=== PATIENT | female | born 1940 | race Caucasian/White ===

== ENCOUNTER 2017-01-06 09:26 | Inpatient (IN) | payer OTHER, MEDICARE ==
[2017-01-06] VITALS (13 sets, daily range): BP systolic 90–140; BP diastolic 53–85; PULSE 84–111; RESP 16–22; TEMP 97.1–98.4; O2SAT 94–100
[~2017-01-06] VITALS: Ht 162.6 cm; Wt 53.4 kg
[~2017-01-06 09:26] MED LIST: ENAL10TA7 PO; METO25 PO
--- NOTE | 2017-01-06 09:43 | PD ---
HPI Chief Complaint: Respiratory Symptoms Time Seen by Provider: 09:37 Travel History International Travel<30 days: No Contact w/Intl Traveler<30days: No Traveled to known affect area: No History of Present Illness HPI Patient 76-year-old female presents emergency department for evaluation of shortness of breath. Patient states she's also been having some leg swelling. States his symptoms and never happened to her before. She denies any heart problems denies history of atrial fibrillation. Patient states symptoms been gradually worsening over the past 4 days. Patient states she's most short of breath when she first was up in the morning but gradually gets better. She has not exerted herself recently because she was concerned of her shortness of breath. She states when she tried to walk her dog she became short of breath. Denies any cough denies any fever denies any abdominal pain nausea vomiting or diarrhea. PFSH Past Medical History Hx Anticoagulant Therapy: No Heart Rhythm Problems: Yes (fast beating heart this morning 1st time) Cancer: No Cardiovascular Problems: No High Cholesterol: No Chemotherapy: No Cerebrovascular Accident: No Diabetes: No Diminished Hearing: No Endocrine: No Genitourinary: No Hypertension: Yes Musculoskeletal: No Neurologic: No Psychiatric: No Reproductive: No Respiratory: No Past Surgical History Hysterectomy: No Social History Alcohol Use: No Tobacco Use: No (QUIT 2009) Substance Use: No Allergies-Medications (Allergen,Severity, Reaction): Coded Allergies: No Known Allergies (Verified , 01/06/17) Reported Meds & Prescriptions Reported Meds & Active Scripts Active Reported Enalapril (Enalapril Maleate) 10 Mg Tab 10 Mg PO DAILY Review of Systems Except as stated in HPI: all other systems reviewed are Neg Physical Exam Narrative GENERAL: Well-developed well-nourished, no apparent distress. SKIN: Focused skin assessment warm/dry. HEAD: Atraumatic. Normocephalic. EYES: Pupils equal and round. No scleral icterus. No injection or drainage. ENT: No nasal bleeding or discharge. Mucous membranes pink and moist. NECK: Trachea midline. No JVD. CARDIOVASCULAR: Regular rate and rhythm. No murmur appreciated. Pulses are 2+ bilateral equal in all 4 extremities. Edema noted in lower extremities. RESPIRATORY: No accessory muscle use. Clear to auscultation. Breath sounds equal bilaterally. GASTROINTESTINAL: Abdomen soft, non-tender, nondistended. Hepatic and splenic margins not palpable. MUSCULOSKELETAL: No obvious deformities. No clubbing. No cyanosis. Pitting edema noted from the knee Distally and bilaterally. NEUROLOGICAL: Awake and alert. No obvious cranial nerve deficits. Motor grossly within normal limits. Normal speech. PSYCHIATRIC: Appropriate mood and affect; insight and judgment normal. Data Data Last Documented VS Vital Signs Date Time Temp Pulse Resp B/P Pulse Ox O2 Delivery O2 Flow Rate FiO2 01/06/17 09:40 16 100 Room Air 01/06/17 09:40 135/85 137/73 01/06/17 09:31 98.4 111 Orders Electrocardiogram (01/06/17 09:37) B-Type Natriuretic Peptide (01/06/17 09:37) Ckmb (Isoenzyme) Profile (01/06/17 09:37) Complete Blood Count With Diff (01/06/17 09:37) Comprehensive Metabolic Panel (01/06/17 09:37) Magnesium (Mg) (01/06/17 09:37) Prothrombin Time / Inr (Pt) (01/06/17 09:37) Act Partial Throm Time (Ptt) (01/06/17 09:37) Troponin I (01/06/17 09:37) Chest, Single Ap (01/06/17 09:37) Ecg Monitoring (01/06/17 09:37) Bilateral Bp Monitoring (01/06/17 09:37) Iv Access Insert/Monitor (01/06/17 09:37) Oximetry (01/06/17 09:37) Oxygen Administration (01/06/17 09:37) Aspirin Chew (Aspirin Chew) (01/06/17 09:45) Sodium Chloride 0.9% Flush (Ns Flush) (01/06/17 09:45) Diltiazem Inj (Cardizem Inj) (01/06/17 09:45) Vital Signs (Adult) Q15MX4,Q4H (01/06/17 09:39) Freight Forwarder / Telemetry SILVIANO.Q8H (01/06/17 09:39) Cardiac Rhythm SILVIANO.Q8H (01/06/17 09:39) Notify Dr: Other (01/06/17 09:39) Diltiazem Inj (Cardizem Inj) (01/06/17 09:45) Furosemide Inj (Lasix Inj) (01/06/17 10:30) Admit Order (Ed Use Only) (01/06/17 ) Labs Laboratory Tests Test 01/06/17 09:40 White Blood Count 7.6 TH/MM3 Red Blood Count 4.09 MIL/MM3 Hemoglobin 11.7 GM/DL Hematocrit 36.5 % Mean Corpuscular Volume 89.1 FL Mean Corpuscular Hemoglobin 28.7 PG Mean Corpuscular Hemoglobin 32.2 % Concent Red Cell Distribution Width 14.3 % Platelet Count 178 TH/MM3 Mean Platelet Volume 8.8 FL Neutrophils (%) (Auto) 77.2 % Lymphocytes (%) (Auto) 11.0 % Monocytes (%) (Auto) 9.1 % Eosinophils (%) (Auto) 0.4 % Basophils (%) (Auto) 2.3 % Neutrophils # (Auto) 5.9 TH/MM3 Lymphocytes # (Auto) 0.8 TH/MM3 Monocytes # (Auto) 0.7 TH/MM3 Eosinophils # (Auto) 0.0 TH/MM3 Basophils # (Auto) 0.2 TH/MM3 CBC Comment DIFF FINAL Differential Comment Prothrombin Time 13.4 SEC Prothromb Time International 1.2 RATIO Ratio Activated Partial 25.2 SEC Thromboplast Time Sodium Level 143 MEQ/L Potassium Level 4.0 MEQ/L Chloride Level 105 MEQ/L Carbon Dioxide Level 29.8 MEQ/L Anion Gap 8 MEQ/L Blood Urea Nitrogen 17 MG/DL Creatinine 0.67 MG/DL Estimat Glomerular Filtration 86 ML/MIN Rate Random Glucose 134 MG/DL Calcium Level 8.9 MG/DL Magnesium Level 2.0 MG/DL Total Bilirubin 0.5 MG/DL Aspartate Amino Transf 42 U/L (AST/SGOT) Alanine Aminotransferase 28 U/L (ALT/SGPT) Alkaline Phosphatase 127 U/L Total Creatine Kinase 84 U/L Troponin I 0.03 NG/ML B-Type Natriuretic Peptide 422 PG/ML Total Protein 6.9 GM/DL Albumin 3.1 GM/DL Thyroid Stimulating Hormone LESS THAN 3rd Gen 0.005 uIU/ML [facility] Medical Decision Making Medical Screen Exam Complete: Yes Emergency Medical Condition: Yes Interpretation(s) EKG shows Atrial fibrillation with a rate of 128, normal axis and normal R-wave progression. Multifocal PVCs, no concerning ST T changes. This is an abnormal EKG. Differential Diagnosis New-onset atrial fibrillation, new onset CHF, pneumonia, bronchitis, ACS. Narrative Course Patient 76-year-old female presents emergency Department with new onset atrial fibrillation what appears to be congestive heart failure symptoms. Last 24 hours Impressions Chest X-Ray 01/06/17 0937 Signed Impressions: Service Date/Time: , January 06, 2017 09:44 - CONCLUSION: Mild cardiomegaly has developed. Otherwise unchanged. No pneumonia. Julius Prabhakar MD Patient's BNP is mildly elevated to 422's consistent with a diastolic CHF. Electrolytes within normal limits, troponin is 0.03. EKG was nonischemic. Patient's counts are within normal limits. Overall the patient is stable with what appears to be new onset CHF in the presence of age fibrillation with rapid ventricular response. She was given Cardizem 25 [place] became bolus followed by Cardizem drip. This seems to be giving her heart rate around 90-105 currently (from 120s to 130s on arrival). She appears well and in no apparent distress. She's been maintaining her oxygen saturations. She was given Lasix 40 mg IV as well. Patient will be discussed with [facility] physician on-call for admission. Diagnosis Primary Impression: Acute CHF Qualified Code: I50.9 - Acute congestive heart failure, unspecified congestive heart failure type Additional Impression: Atrial fibrillation Admitting Information Admitting Physician Requests: Admit Condition: Stable Andrey Jorge MD January 06, 2017 09:43
[2017-01-06] MEDS ORDERED: ASPIRIN 81 MG CHEW TAB PO ONE (09:45)
[2017-01-06] MEDS ORDERED: DILTIAZEM HCL 25 MG/5 ML VIAL IV PUSH ONE (09:45)
[2017-01-06] MEDS ORDERED: SODIUM CHLORIDE 0.9% FLUSH 10 ML FLUSH IVF PRN (09:45)
[2017-01-06] MEDS ORDERED: DILTIAZEM INJ 125 MG in SODIUM CHLORIDE 0.9% INJ 100 ML IV SCH (09:45)
[2017-01-06 09:49] LABS: AUTOMATED NEUTROPHIL # 5.9 TH/MM3 (1.8-7.7); BASOPHIL # 0.2 TH/MM3 (0-0.2); BASOPHIL % 2.3 % (0.0-2.0); EOSINOPHIL % 0.4 % (0.0-4.0); HEMATOCRIT 36.5 % (35.0-46.0); LYMPHOCYTE # 0.8 TH/MM3 (1.0-4.8); MEAN CELL VOLUME 89.1 FL (80.0-100.0); MEAN CORPUSCULAR HEMOGLOBIN 28.7 PG (27.0-34.0); MEAN CORPUSCULAR HGB CONC 32.2 % (32.0-36.0); MONO % 9.1 % (0.0-8.0); NEUT % 77.2 % (16.0-70.0); PLATELET COUNT 178 TH/MM3 (150-450); RED BLOOD COUNT 4.09 MIL/MM3 (4.00-5.30); RED CELL DISTRIBUTION WIDTH 14.3 % (11.6-17.2); WHITE BLOOD COUNT 7.6 TH/MM3 (4.0-11.0)
[2017-01-06 09:50] LABS: HEMO FLAGS DIFF FINAL
[2017-01-06 09:54] LABS: CHLORIDE 105 MEQ/L (98-107); SODIUM (NA) 143 MEQ/L (136-145)
[2017-01-06] MEDS ORDERED: ENAL10TA PO (09:54)
[2017-01-06 09:58] LABS: ANION GAP 8 MEQ/L (5-15); BICARBONATE 29.8 MEQ/L (21.0-32.0)
[2017-01-06 10:00] LABS: APTT (PATIENT) 25.2 SEC (24.3-30.1); INTERNATIONAL NORMALIZED RATIO 1.2 RATIO; PROTHROMBIN TIME - PATIENT 13.4 SEC (9.8-11.6)
--- NOTE | 2017-01-06 10:01 | RADHPO ---
EXAM DATE/TIME: 01/06/2017 09:44 [facility] COMPARISON: CHEST SINGLE AP, March 03, 2016, 9:36. INDICATIONS : Shortness of breath x 4 days. Lower extremity swelling. MEDICAL HISTORY : Hypertension. Former smoker. SURGICAL HISTORY : None. ENCOUNTER: Initial ACUITY: 4 - 6 days PAIN SCORE: 0/10 LOCATION: chest FINDINGS: No infiltrates seen. No pleural effusion or pneumothorax. There is mild cardiomegaly, new. Tortuous a nd atherosclerotic aorta again noted. CONCLUSION: Mild cardiomegaly has developed. Otherwise unchanged. No pneumonia. Julius Prabhakar MD on January 06, 2017 at 9:58 Board Certified Radiologist. This report was verified electronically.
[2017-01-06 10:02] LABS: ALT (GPT) 28 U/L (10-53); AST (GOT) 42 U/L (15-37); GLOMERULAR FILTRATION RATE 86 ML/MIN (>89)
[2017-01-06 10:03] LABS: TOTAL BILIRUBIN ADULT 0.5 MG/DL (0.2-1.0)
[2017-01-06 10:04] LABS: ALKALINE PHOSPHATASE 127 U/L (45-117)
[2017-01-06 10:07] LABS: BLOOD UREA NITROGEN 17 MG/DL (7-18)
[2017-01-06 10:08] LABS: CREATINE KINASE 84 U/L (26-192)
[2017-01-06] MEDS ORDERED: FUROSEMIDE 40 MG/4 ML VIAL IV PUSH ONE (10:30)
[2017-01-06] MEDS ORDERED: NALOXONE HCL 0.4 MG/ML AMP IV PRN (11:00)
[2017-01-06] MEDS ORDERED: SENNOSIDES 8.6 MG TAB PO PRN (11:00)
[2017-01-06] MEDS ORDERED: ENOXAPARIN SODIUM 30 MG/0.3 ML SYRINGE SQ SCH (11:00)
[2017-01-06] MEDS ORDERED: SODIUM CHLORIDE 0.9% FLUSH 10 ML FLUSH IV FLUSH PRN (11:00)
[2017-01-06] MEDS ORDERED: ACETAMINOPHEN 325 MG TAB PO PRN ×2 (11:00)
--- NOTE | 2017-01-06 11:27 | HHI.HP ---
[facility] Ad[facility] Diagnosis New CHF, New Afib Diagnoses: Chief Complaint: Shortness of breath Travel History International Travel<30 Days: No Contact w/Intl Traveler <30 Da: No Traveled to Known Affected Are: No History of Present Illness The patient is a 76-year-old female with a past medical history of hypertension who is presenting to the hospital with shortness of breath. The patient said that she woke up this morning with difficulty breathing. She states that this happens every once in a while. It was not associated with any chest pain. She did endorse palpitations. She also notices that her legs have been swelling starting yesterday. The patient does say she eats a lot of frozen dinners. She also endorses drinking 10 glasses of water daily. The patient does also complain of some lower quadrant abdominal pain. She says it comes and goes and sometimes is worse when laying down at night. She denies any fevers or congestion. The patient says that she has followed up with her primary care doctor in regards to a suspicious nodule which was found on a CT scan on her last hospitalization but she said no further workup has been provided. The patient says she started smoking at the age of 10 and would smoke up to 3 packs of cigarettes daily. She says she quit smoking 8 years ago. Review of Systems Except as stated in HPI: all other systems reviewed are Neg Past Family Social History Past Medical History Hypertension Peptic ulcer disease Allergies: Coded Allergies: No Known Allergies (Verified , 01/06/17) Active Ordered Medications Current Medications Medications (Trade) Dose Ordered Sig/Ezio Route Start Time Stop Time Status Last Admin (Cardizem Inj/NS Inj) 125 ml @ 0 mls/hr TITRATE IV 01/06/17 09:45 01/06/17 10:10 (Vasotec) 10 mg DAILY PO 01/07/17 09:00 (NS Flush) 2 ml UNSCH PRN IV FLUSH 01/06/17 11:00 (NS Flush) 2 ml BID IV FLUSH 01/06/17 21:00 (Tylenol) 650 mg Q4H PRN PO 01/06/17 11:00 (Colace) 100 mg Q12HR PO 01/06/17 11:00 (Senokot) 17.2 mg Q12H PRN PO 01/06/17 11:00 (Lovenox Inj) 30 mg Q24H SQ 01/06/17 11:00 (Tylenol) 650 mg Q6H PRN PO 01/06/17 11:00 (Roxicodone) 5 mg Q4H PRN PO 01/06/17 11:00 (Narcan Inj) 0.4 mg UNSCH PRN IV 01/06/17 11:00 Family History Diabetes Social History The patient quit smoking 8 years ago. She does not drink alcohol. Physical Exam Vital Signs Vital Signs Date Time Temp Pulse Resp B/P Pulse Ox O2 Delivery O2 Flow Rate FiO2 01/06/17 09:40 16 100 Room Air 01/06/17 09:40 135/85 137/73 01/06/17 09:40 100 Room Air 01/06/17 09:31 98.4 111 22 135/85 100 Physical Exam GENERAL: This is a well-nourished, well-developed patient, in no apparent distress. SKIN: No rashes, ecchymoses or lesions. Cool and dry. HEAD: Atraumatic. Normocephalic. No temporal or scalp tenderness. EYES: Pupils equal round and reactive. Extraocular motions intact. No scleral icterus. No injection or drainage. ENT: Nose without bleeding, purulent drainage or septal hematoma. Throat without erythema, tonsillar hypertrophy or exudate. Uvula midline. Airway patent. NECK: Trachea midline. No lymphadenopathy. Supple, nontender, no meningeal signs. CARDIOVASCULAR: Irregularly irregular without murmurs, gallops, or rubs. RESPIRATORY: Clear to auscultation. Diminished breath sounds throughout. GASTROINTESTINAL: Abdomen soft, non-tender, nondistended. No hepato-splenomegaly , or palpable masses. No guarding or rebound. MUSCULOSKELETAL: Extremities without clubbing, cyanosis, or edema. 2+ edema in the lower extremities, worse on the left. Negative Homans sign bilaterally. NEUROLOGICAL: Awake and alert. Cranial nerves II through XII intact. Motor and sensory grossly within normal limits. Five out of 5 muscle strength in all muscle groups. Normal speech. PSYCH: Mood and affect appropriate. Laboratory Laboratory Tests Test 01/06/17 09:40 White Blood Count 7.6 Red Blood Count 4.09 Hemoglobin 11.7 Hematocrit 36.5 Mean Corpuscular Volume 89.1 Mean Corpuscular Hemoglobin 28.7 Mean Corpuscular Hemoglobin 32.2 Concent Red Cell Distribution Width 14.3 Platelet Count 178 Mean Platelet Volume 8.8 Neutrophils (%) (Auto) 77.2 Lymphocytes (%) (Auto) 11.0 Monocytes (%) (Auto) 9.1 Eosinophils (%) (Auto) 0.4 Basophils (%) (Auto) 2.3 Neutrophils # (Auto) 5.9 Lymphocytes # (Auto) 0.8 Monocytes # (Auto) 0.7 Eosinophils # (Auto) 0.0 Basophils # (Auto) 0.2 CBC Comment DIFF FINAL Differential Comment Prothrombin Time 13.4 Prothromb Time International 1.2 Ratio Activated Partial 25.2 Thromboplast Time Sodium Level 143 Potassium Level 4.0 Chloride Level 105 Carbon Dioxide Level 29.8 Anion Gap 8 Blood Urea Nitrogen 17 Creatinine 0.67 Estimat Glomerular Filtration 86 Rate Random Glucose 134 Calcium Level 8.9 Magnesium Level 2.0 Total Bilirubin 0.5 Aspartate Amino Transf 42 (AST/SGOT) Alanine Aminotransferase 28 (ALT/SGPT) Alkaline Phosphatase 127 Total Creatine Kinase 84 Troponin I 0.03 B-Type Natriuretic Peptide 422 Total Protein 6.9 Albumin 3.1 Result Diagram: 01/06/1740 01/06/17 0940 Imaging Last Impressions Chest X-Ray 01/06/17 0937 Signed Impressions: Service Date/Time: January 09:44 - CONCLUSION: Mild cardiomegaly has developed. Otherwise unchanged. No pneumonia. Julius Prabhakar MD Assessment and Plan Assessment and Plan New onset atrial fibrillation/ CHF/ Shortness of breath The patient has shortness of breath and was found to have new onset atrial fibrillation. She was started on a Cardizem gtt. BNP also elevated over 400. She has lower extremity edema. She eats a lot of frozen dinners and drinks a lot of water. CXR with mild cardiomegaly. She received Lasix 40 mg IV x 1 in the ED. She also likely has COPD as she used to smoke quite heavily. - echo and TSH pending. - start ASA. - Lovenox 50 mg BID. Would consider starting Xarelto if echo confirms nonvalvular A fib. Pt would like be noncompliant with Coumadin. - continue Cardizem gtt and wean off as tolerated. Diltiazem 30 mg QID has been started. - diurese with Lasix 20 mg IV BID and follow Is and Os. - check a lipid profile and a Hgb A1c. - dietary consult. - CT chest pending. - oxygen and Duonebs as needed. - incentive spirometry. Pulmonary nodule Noted on CT scan last year, concerning for malignancy. The pt has not followed up on it. - repeat CT scan pending. May need a biopsy. Abdominal pain Located in the LLQ. Exam was benign. The pt has a history of peptic ulcer disease. - start PPI and monitor. PPx: Lovenox. Code Status Full. Discussed Condition With Dr. Jorge, pt, pt's friend, nurse. Physician Certification 2 Midnight Certification Type: Admission for Inpatient Services Order for Inpatient Services The services are ordered in accordance with Medicare regulations or non- Medicare payer requirements, as applicable. In the case of services not specified as inpatient-only, they are appropriately provided as inpatient services in accordance with the 2-midnight benchmark. Estimated LOS (days): 2 days is the estimated time the patient will need to remain in the hospital, assuming treatment plan goals are met and no additional complications. Post-Hospital Plan: Home David Covarrubias DO January 06, 2017 11:27
[2017-01-06] MEDS ORDERED: IOHEXOL 350 MG/ML 10 ML VIAL (for RAD DIAG) IV ONE (11:42)
[2017-01-06] MEDS ORDERED: RESP: ALBUTEROL 2.5 MG/IPRATROPIUM 0.5 MG NEB (PRN) NEB (11:45)
--- NOTE | 2017-01-06 11:55 | RADHPO ---
EXAM DATE/TIME: 01/06/2017 11:30 [facility] COMPARISON: No previous studies available for comparison. INDICATIONS : Short of breath x 4days. IV CONTRAST: 55 cc Omnipaque 350 (iohexol) IV RADIATION DOSE: 6.18 CTDIvol (mGy) MEDICAL HISTORY : Hypertension. Congestive heart failure. SURGICAL HISTORY : None. ENCOUNTER: Initial ACUITY: 4 - 6 days PAIN SCALE: 0/10 LOCATION: chest TECHNIQUE: Volumetric scanning of the chest was performed. Using automated exposure control and adjustment of t he mA and/or kV according to patient size, radiation dose was kept as low as reasonably achievable to obtain optimal diagnostic quality images. FINDINGS: Spiculated 19 mm right apical opacity again noted, not significantly changed in size but appears inte rnally more solid than previous. Whether this is related to inflammation or true mass uncertain. No a denopathy has developed. The lungs are otherwise clear. No pleural effusion. No pneumothorax. Panchamber enlargement of the heart present, especially both atria. There is right and left-side d coronary artery calcification. Tortuous and atherosclerotic aorta again noted. PLEURA CONCLUSION: 1. Spiculated mass of the right upper lobe again noted. It seems to be more dense in the interim but really has not significantly changed in size over the past greater than 10 months. If this was malign ant would think a more significant change in size would have occurred. Still, correlation with any pr evious outside facility studies to confirm chronicity is recommended. If this is not achievable, woul d suggest a 6 month followup noncontrast chest CT to continue surveillance. 2. Otherwise clear lungs. 3. Biatrial enlargement and coronary artery calcification again noted. Julius Prabhakar MD on January 06, 2017 at 11:48 Board Certified Radiologist. This report was verified electronically.
[2017-01-06] MEDS ORDERED: DILTIAZEM HCL 30 MG TAB PO SCH (13:00)
[2017-01-06] MEDS: DOCUSATE SODIUM 100 MG CAP PO SCH ×2 (14:12→21:01)
[2017-01-06] MEDS: ENOXAPARIN SODIUM 60 MG/0.6 ML SYRINGE SQ SCH ×2 (14:13→21:00)
[2017-01-06] MEDS: METOPROLOL TARTRATE 50 MG TAB PO SCH ×2 (14:13→21:01)
[2017-01-06] MEDS: PANTOPRAZOLE SOD 40 MG DELAYED RELEASE TAB PO SCH (14:13)
[2017-01-06] MEDS: METHIMAZOLE 5 MG TAB PO SCH (17:34)
[2017-01-06] MEDS: FUROSEMIDE 20 MG/2 ML VIAL IV PUSH SCH (17:35)
[2017-01-06 18:22] LABS: FREE T3 7.61 PG/ML (2.18-3.98); HDL CHOLESTEROL 63.8 MG/DL (40.0-60.0); LDL CHOLESTEROL 57 MG/DL (0-99)
[2017-01-06 19:04] LABS: HEMOGLOBIN A1a 1.4 %; HEMOGLOBIN A1b 0.8 %; HEMOGLOBIN Ao 82.4 %; HEMOGLOBIN LA1C 2.2 %; HEMOGLOBIN P3 6.1 %
[2017-01-06] MEDS: SODIUM CHLORIDE 0.9% FLUSH 10 ML FLUSH IV FLUSH SCH (21:02)
[2017-01-07] VITALS (10 sets, daily range): BP systolic 100–164; BP diastolic 54–92; PULSE 79–94; RESP 16–20; TEMP 95.9–98.9; O2SAT 91–97
[2017-01-07 05:36] LABS: AUTOMATED NEUTROPHIL # 4.9 TH/MM3 (1.8-7.7); BASOPHIL # 0.1 TH/MM3 (0-0.2); BASOPHIL % 0.7 % (0.0-2.0); EOSINOPHIL % 0.5 % (0.0-4.0); HEMATOCRIT 34.9 % (35.0-46.0); HEMO FLAGS DIFF FINAL; LYMPH % 19.4 % (9.0-44.0); LYMPHOCYTE # 1.4 TH/MM3 (1.0-4.8); MEAN CELL VOLUME 89.2 FL (80.0-100.0); MEAN CORPUSCULAR HEMOGLOBIN 28.7 PG (27.0-34.0); MEAN CORPUSCULAR HGB CONC 32.2 % (32.0-36.0); NEUT % 67.4 % (16.0-70.0); PLATELET COUNT 164 TH/MM3 (150-450); RED BLOOD COUNT 3.92 MIL/MM3 (4.00-5.30); RED CELL DISTRIBUTION WIDTH 13.9 % (11.6-17.2); WHITE BLOOD COUNT 7.3 TH/MM3 (4.0-11.0)
[2017-01-07 05:45] LABS: POTASSIUM 4.5 MEQ/L (3.5-5.1)
[2017-01-07] MEDS: ENOXAPARIN SODIUM 60 MG/0.6 ML SYRINGE SQ SCH (08:54)
[2017-01-07] MEDS: METOPROLOL TARTRATE 50 MG TAB PO SCH (08:54)
[2017-01-07] MEDS: PANTOPRAZOLE SOD 40 MG DELAYED RELEASE TAB PO SCH (08:54)
[2017-01-07] MEDS: ENALAPRIL MALEATE 10 MG TAB PO SCH (08:54)
[2017-01-07] MEDS: DOCUSATE SODIUM 100 MG CAP PO SCH ×2 (08:54→20:34)
[2017-01-07] MEDS: FUROSEMIDE 20 MG/2 ML VIAL IV PUSH SCH (08:59)
[2017-01-07] MEDS: METHIMAZOLE 5 MG TAB PO SCH (08:59)
[2017-01-07] MEDS ORDERED: ASPIRIN EC 81 MG TABEC PO SCH (09:00)
[2017-01-07] MEDS: SODIUM CHLORIDE 0.9% FLUSH 10 ML FLUSH IV FLUSH SCH ×2 (09:00→20:37)
--- NOTE | 2017-01-07 11:22 | HHI.PR ---
Subjective Remarks Patient states sob is improving denies fevers or chills denies cough stable vital signs sating 95% on room air denies palpitations Objective Vitals Vital Signs Date Time Temp Pulse Resp B/P Pulse Ox O2 Delivery O2 Flow Rate FiO2 01/07/17 08:00 97.5 89 19 126/76 95 01/07/17 07:45 93 21 01/07/17 05:20 164/92 01/07/17 04:00 96.0 91 18 100/59 95 01/07/17 00:00 98.9 83 20 108/54 94 01/06/17 20:00 97.5 88 16 90/53 94 01/06/17 20:00 84 01/06/17 19:42 94 21 01/06/17 16:00 97.1 84 20 117/59 95 01/06/17 15:29 110 01/06/17 12:00 98.1 108 20 130/59 96 01/06/17 11:57 98 123/61 97 01/06/17 11:49 97 21 01/06/17 11:20 104 16 119/60 97 Room Air I/O 01/06/17 01/06/17 01/06/17 01/07/17 01/07/17 01/07/17 07:00 15:00 23:00 07:00 15:00 23:00 Intake Total 450 ml 428 ml 840 ml Balance 450 ml 428 ml 840 ml Intake Oral 450 ml 400 ml 820 ml IV Total 28 ml 20 ml # Voids 2 2 3 # Bowel Movements 0 0 0 Result Diagram: 01/07/17 0453 01/07/17 0453 Imaging Last Impressions Chest X-Ray 01/06/17 0937 Signed Impressions: Service Date/Time: January 09:44 - CONCLUSION: Mild cardiomegaly has developed. Otherwise unchanged. No pneumonia. Julius Prabhakar MD Chest CT 01/06/17 0000 Signed Impressions: Service Date/Time: January 11:30 - CONCLUSION: 1. Spiculated mass of the right upper lobe again noted. It seems to be more dense in the interim but really has not significantly changed in size over the past greater than 10 months. If this was malignant would think a more significant change in size would have occurred. Still, correlation with any previous outside facility studies to confirm chronicity is recommended. If this is not achievable, would suggest a 6 month followup noncontrast chest CT to continue surveillance. 2. Otherwise clear lungs. 3. Biatrial enlargement and coronary artery calcification again noted. Julius Prabhakar MD Objective Remarks GENERAL: This is a well-nourished, well-developed patient, in no apparent distress. SKIN: No rashes, ecchymoses or lesions. Cool and dry. HEAD: Atraumatic. Normocephalic. No temporal or scalp tenderness. EYES: Pupils equal round and reactive. Extraocular motions intact. No scleral icterus. No injection or drainage. ENT: Nose without bleeding, purulent drainage or septal hematoma. Throat without erythema, tonsillar hypertrophy or exudate. Uvula midline. Airway patent. NECK: Trachea midline. No lymphadenopathy. Supple, nontender, no meningeal signs. CARDIOVASCULAR: Irregularly irregular without murmurs, gallops, or rubs. RESPIRATORY: diffuse bilateral expiratory wheezing. Diminished breath sounds throughout. Crackles and rales bilaterally. GASTROINTESTINAL: Abdomen soft, non-tender, nondistended. No hepato-splenomegaly , or palpable masses. No guarding or rebound. MUSCULOSKELETAL: Extremities without clubbing, cyanosis, or edema. 2+ edema in the lower extremities, worse on the left. Negative Homans sign bilaterally. NEUROLOGICAL: Awake and alert. Cranial nerves II through XII intact. Motor and sensory grossly within normal limits. Five out of 5 muscle strength in all muscle groups. Normal speech. PSYCH: Mood and affect appropriate. Medications and IVs Current Medications Medications (Trade) Dose Ordered Sig/Ezio Route Start Time Stop Time Status Last Admin (Cardizem Inj/NS Inj) 125 ml @ 0 mls/hr TITRATE IV 01/06/17 09:45 01/06/17 10:10 (Vasotec) 10 mg DAILY PO 01/07/17 09:00 01/07/17 08:54 (NS Flush) 2 ml UNSCH PRN IV FLUSH 01/06/17 11:00 (NS Flush) 2 ml BID IV FLUSH 01/06/17 21:00 01/07/17 09:00 (Tylenol) 650 mg Q4H PRN PO 01/06/17 11:00 (Colace) 100 mg Q12HR PO 01/06/17 11:00 01/07/17 08:54 (Senokot) 17.2 mg Q12H PRN PO 01/06/17 11:00 (Tylenol) 650 mg Q6H PRN PO 01/06/17 11:00 (Roxicodone) 5 mg Q4H PRN PO 01/06/17 11:00 01/06/17 23:03 (Narcan Inj) 0.4 mg UNSCH PRN IV 01/06/17 11:00 (Ecotrin Ec) 81 mg DAILY PO 01/07/17 09:00 01/07/17 08:54 (Lovenox Inj) 50 mg Q12HR SQ 01/06/17 11:45 01/07/17 08:54 (Lasix Inj) 20 mg BID@,18 IV PUSH 01/06/17 18:00 01/07/17 08:59 (Protonix) 40 mg DAILY PO 01/06/17 12:00 01/07/17 08:54 (Tapazole) 20 mg DAILY PO 01/06/17 14:00 01/07/17 08:59 (Lopressor) 50 mg Q12HR PO 01/06/17 14:00 01/07/17 08:54 Urinary Catheter: No Vascular Central Line Catheter: No A/P Problem List: (1) COPD exacerbation ICD Code: J44.1 Status: Acute Plan: Start the patient on IV Solu-Medrol. Supplemental oxygen to keep oxygen saturation more than 92%. Continue DuoNeb's as needed for shortness of breath. Pulmonary consultation. (2) CHF exacerbation ICD Code: I50.9 Status: Acute Plan: CHF exacerbation improving. Chest x-ray showed cardiomegaly. Echocardiogram pending Continue diuretics. I will discontinue IV Lasix and start on Lasix 40 mg by mouth daily. Consult cardiology. Continue Lovenox therapeutic dose for anticoagulation. The patient will need to be transitioned to oral anticoagulation as per cardiology recommendations. DC Cardizem drip and start the patient on Coreg 3.125 mg by mouth twice a day. (3) New onset atrial fibrillation ICD Code: I48.91 Status: Acute Plan: Likely secondary to hyperthyroidism. TSH decreased at 0.005, free T4 increase of 3.8 and free T3 increase at 7.61. Patient started on methimazole, continue. (4) HTN (hypertension) ICD Code: I10 Status: Acute Plan: Blood pressure elevated overnight. Now stable. Continue KIRAN inhibitor. (5) Hyperthyroidism ICD Code: E05.90 Status: Acute Plan: Patient has low TSH and elevated free T4 and free T3. Patient started on methimazole. Continue. (6) Prediabetes ICD Code: R73.03 Status: Acute Plan: Patient with elevated random glucose of 124. Hemoglobin A1c 6.2. Patient has prediabetes. She would benefit from being started on metformin. Assessment and Plan GI prophylaxis: Continue PPI since patient is on IV steroids. DVT prophylaxis: SCDs, patient on Lovenox therapeutic dose. Discharge Planning Marli to monitor in the medical floor. Pending pulmonology and cardiology consultation. Pending clinical improvement. Problem Qualifiers (1) CHF exacerbation: Qualified Code: I50.9 - Acute on chronic congestive heart failure, unspecified congestive heart failure type (2) HTN (hypertension): Qualified Code: I10 - Essential hypertension Jacky Gonzalez MD January 07, 2017 11:22
[2017-01-07] MEDS ORDERED: methylPREDNISolone SOD SUCC 125 MG/2 ML VIAL IV PUSH ONE (11:30)
[2017-01-07] MEDS ORDERED: DILTIAZEM HCL 60 MG TAB PO SCH (12:00)
[2017-01-07] MEDS: CARVEDILOL 3.125 MG TAB PO SCH ×2 (13:05→20:33)
--- NOTE | 2017-01-07 15:05 | EC ---
Study Study Date:01/07/2017 STUDY CONCLUSIONS SUMMARY - Left ventricle: The cavity size was normal. Wall thickness was normal. Systolic function was mildly reduced. The estimated ejection fraction was in the range of 45% to 50%. Although no diagnostic regional wall motion abnormality was identified, this possibility cannot be completely excluded on the basis of this study. - Mitral valve: Moderate regurgitation directed posteriorly. - Left atrium: The atrium was moderately dilated. - Right ventricle: The cavity size was mildly dilated. - Right atrium: The atrium was moderately to severely dilated. - Tricuspid valve: Moderate-severe regurgitation. - Pulmonary arteries: PA peak pressure: 50mm Hg (S). If LV function is below 40, please consider prescribing an ACEI or ARB or document rationale for non-use. PROCEDURE DATA STUDY STATUS: Elective. Procedure: Transthoracic echocardiography. Image quality was good. Scanning was performed from the parasternal, apical, and subcostal acoustic windows. Study completion: The patient tolerated the procedure well. Transthoracic echocardiography. M-mode, complete 2D, complete spectral Doppler, and color Doppler. Height: Height: 63in. Weight: Weight: 120.7lb. Body mass index: BMI: 21.4kg/m^2. Body surface area: BSA: 1.56m^2. Patient status: Inpatient. CARDIAC ANATOMY LEFT VENTRICLE: The cavity size was normal. Wall thickness was normal. Systolic function was mildly reduced. The estimated ejection fraction was in the range of 45% to 50%. Although no diagnostic regional wall motion abnormality was identified, this possibility cannot be completely excluded on the basis of this study. AORTIC VALVE: Trileaflet; mildly thickened, mildly calcified leaflets. Doppler: There was no stenosis. Trace regurgitation. Valve area: 1.92cm^2 (Vmax). Indexed valve area: 1.23cm^2/m^2 (Vmax). MITRAL VALVE: The valve appears to be grossly normal. Doppler: There was no evidence for stenosis. Moderate regurgitation directed posteriorly. LEFT ATRIUM: The atrium was moderately dilated. RIGHT VENTRICLE: The cavity size was mildly dilated. PULMONIC VALVE: Not well visualized. Doppler: There was no evidence for stenosis. Trace to mild regurgitation. TRICUSPID VALVE: The valve appears to be grossly normal. Doppler: There was no evidence for stenosis. Moderate-severe regurgitation. RIGHT ATRIUM: The atrium was moderately to severely dilated. PERICARDIUM: There was no pericardial effusion. SYSTEMIC VEINS: Inferior vena cava: The vessel was dilated; the respirophasic diameter changes were blunted (< 50%); findings are consistent with elevated central venous pressure. Patient weight: 120.7lb _Ejection fraction:_ 65-75% _Fractional shortening:_ 32% up to 5Kg 5-11.5Kg 11.6-22.9Kg 23-45Kg 45-57Kg Aortic Root 7-13 <17 13-22 17-27 17-27 LA diam 6-13 <23 24-38 33-47 37-40 RVID 10-17 7-15 7-15 7-18 8-17 LVIDd 12-22 <32 24-38 33-47 37-40 LVPW 2-4 3-6 5-7 6-8 7-8 IVS 2-4 3-6 5-7 6-8 7-8 BASIC MEASUREMENTS ADULT NORMAL Left ventricle LV internal dimension, ED, chordal 43.2 mm 43-52 level, PLAX LV internal dimension, ES, chordal 35 mm 23-38 level, PLAX Fractional shortening, chordal level, *19 % >29 PLAX LV posterior wall thickness, ED 9.73 mm IVS/LVPW ratio, ED 1.01 <1.3 Ventricular septum Septal thickness, ED 9.84 mm Aortic valve Leaflet separation 16 mm 15-26 Right ventricle RV internal dimension, ED, PLAX 30.5 mm 19-38 BASIC MEASUREMENTS ADULT NORMAL Aortic valve Leaflet separation 16 mm 15-26 Aorta Root diameter, ED 23 mm 20-37 Left atrium Anterior-posterior dimension, ES *50 mm 19-40 Anterior-posterior dimension index, ES *3.21 cm/m^2 <2.2 LA/aortic root ratio 2.17 DOPPLER MEASUREMENTS ADULT NORMAL Main pulmonary artery Pressure, S *50 mm Hg =30 Pressure, ED 17 mm Hg Aortic valve Peak velocity, S 140 cm/s Valve area, Vmax 1.92 cm^2 Valve area index, Vmax 1.23 cm^2/m^2 Regurgitant velocity, ED 312 cm/s Regurgitant deceleration 1360 cm/s^2 Regurgitant pressure half-time 672 ms Regurgitant gradient, ED 39 mm Hg Mitral valve Maximal regurgitant velocity 538 cm/s Tricuspid valve Regurgitant peak velocity 301 cm/s Peak RV-RA gradient, S 36 mm Hg Maximal regurgitant velocity 301 cm/s Systemic veins Estimated CVP 10 mm Hg Right ventricle RV pressure, S * 55 mm Hg <30 Pulmonic valve Peak velocity, S 110 cm/s Regurgitant velocity, ED 133 cm/s LEGEND: Mean values are shown as u=mean value. Asterisk (*) khan values outside specified normal range. Prepared and signed by Rudolph Gates [id number]
--- NOTE | 2017-01-07 15:24 | EKG ---
Date Performed: 01/07/2017 Time Performed: 05:30:22 PTAGE: 76 years EKG: Atrial fibrillation Extensive ST-T changes may be due to myocardial ischemia Abnormal ECG PREVIOUS TRACING : 01/06/2017 09.28 DOCTOR: Dirk Nettles Interpretating Date/Time 01/07/2017 15:22:12
--- NOTE | 2017-01-07 15:51 | EKG ---
Date Performed: 01/06/2017 Time Performed: 09:28:32 PTAGE: 76 years EKG: Atrial fibrillation with rapid ventricular response with non-sustained ventricular tachycar jeff Extensive ST-T changes are nonspecific Abnormal ECG PREVIOUS TRACING : 03/03/2016 09.20 DOCTOR: Dirk Nettles Interpretating Date/Time 01/07/2017 15:42:10
--- NOTE | 2017-01-07 17:15 | MB ---
cc: RUDOLPH PARRISH DO DATE OF CONSULTATION: 01/08/2016. REASON FOR CONSULTATION: New onset atrial fibrillation with congestive heart failure. HISTORY OF PRESENT ILLNESS: Laure Richardson is a pleasant 76-year-old female who presented to [facility] on January 06, 2017 due to shortness of breath. She states that over the past few days she has been having difficulty laying down sleeping because of shortness of breath. She also feels her heart palpitating and fluttering in her chest. She was having trouble sleeping so she would get up and walk the room and then she would feel better. She has also noticed that her legs are much more swollen than previous. She does live alone and has a tendency to eat a lot of frozen dinners as well as she drinks around ten glasses of water daily. She decided that she should come to the emergency room to be further evaluated. On arrival, she was found to be in atrial fibrillation with rapid ventricular response. During lab workup, it appears that she was found to be hyperthyroid and started on methimazole orally. Since then, her heart rates have been relatively controlled. She has also been somewhat diuresed. On seeing her at this time, she is sitting up on the side of the bed with no chest pain, palpitations or shortness of breath. Her edema also appears slightly better per the patient. PAST MEDICAL HISTORY: 1. New onset atrial fibrillation secondary to hyperthyroid state, [id number] score of 4. 2. New-onset hyperthyroidism. 3. Hypertension. 4. Peptic ulcer disease. PAST SURGICAL HISTORY: Denies. ALLERGIES: NO KNOWN DRUG ALLERGIES. MEDICATIONS: Enalapril 10 milligrams daily. FAMILY HISTORY Denies premature coronary artery disease or sudden cardiac within the family. SOCIAL HISTORY: The patient previously smoked since a very young age, but quit around eight years ago. She smokes up to three packs per day. Denies alcohol or drug abuse. REVIEW OF SYSTEMS Fourteen systems were reviewed including osteopathic with pertinent positives and negatives as above; otherwise negative. PHYSICAL EXAMINATION VITAL SIGNS: Temperature 97.9, heart rate 82, blood pressure 125/80, respirations 18, pulse ox 96% on room air. GENERAL: In general, the patient appears well and in no acute distress. Awake, alert and oriented times three. HEENT: Extraocular muscles intact. Mucous membranes moist. NECK: The neck is supple. No JVD at 45 degrees. No carotid bruits heard bilaterally. Carotid upstroke is brisk in nature. HEART: Irregularly irregular. Positive first and second heart sounds with a 1/6 holosystolic murmur noted at the apex and a 1/6 holosystolic murmur noted at the right sternal border. LUNGS: Decreased breath sounds bilaterally with minimal wheezing. No rales noted or crackles. ABDOMEN: The abdomen is soft, nontender and nondistended. No organomegaly noted. EXTREMITIES: No clubbing or cyanosis. 1 to 2+ edema bilaterally. NEUROLOGIC: No focal deficits. SKIN: Warm, dry and intact. OSTEOPATHIC: Osteopathically, no kyphoscoliosis, lordosis or paraspinal tender points. LABORATORY FINDINGS: Hemoglobin 11.3, hematocrit 34.9, platelets 164,000. Potassium 4.5, BUN 22, creatinine 0.94. Troponin negative x3. Total cholesterol 135, HDL 63.8, LDL 57, triglycerides 73. TSH less than 0.005. EKGS: Electrocardiogram (January 07, 2017 at 0530) atrial fibrillation, controlled ventricular response, nonspecific ST-T wave changes. Echocardiogram (January 07, 2017) shows ejection fraction of 45% to 50%, moderate mitral regurgitation, biatrial enlargement, moderate to severe tricuspid regurgitation. IMPRESSIONS: 1. New onset atrial fibrillation secondary to hyperthyroidism, [id number] score equals 4. 2. Hyperthyroidism. 3. Acute exacerbation of congestive heart failure most likely secondary to atrial fibrillation with rapid ventricular response. 4. History of hypertension 5. Pre diabetes. 6. COPD. 7. Cardiomyopathy with mild reduction of ejection fraction of 45% to 50% by echocardiogram (January 07, 2017), possibly due to atrial fibrillation with rapid ventricular response. 8. Multivalvular heart disease with moderate mitral regurgitation and [id number] tricuspid regurgitation by echocardiogram (January 07, 2017). RECOMMENDATIONS: 1. Ms. Richardson appears to present with atrial fibrillation with rapid ventricular response state most likely due to hyperthyroidism. This has since been treated and her heart rate has been controlled. I would continue her on her Coreg at this time as her heart rates have been anywhere from 70s to 90s. 2. We will continue with diuresis with a plan to continue this outpatient. We did discuss decreasing her salt and overall fluid intake. 3. She does appear to have a mild cardiomyopathy and this may be due to the atrial fibrillation with rapid ventricular response. We will continue her on her Coreg and enalapril. 4. She does have a [id number] of 4, and I discussed with her consideration of anticoagulation which she is agreeable to. We will place her on Eliquis 5 milligrams twice a day. 5. I believe her atrial fibrillation is most likely due to her hyperthyroidism but underlying coronary artery disease cannot be ruled out especially with her extensive history of tobacco abuse. We will plan on having her follow up in the outpatient office with myself in the next week or two and consider outpatient stress testing. If tomorrow she is hemodynamically stable with a controlled heart rate, she may be discharged from a cardiovascular standpoint for followup in the near future with myself. If there are any questions, please do not hesitate to call. Thank you for allowing me to see Mrs. Richardson. If there are any questions please do not hesitate to call. Rudolph Parrish DO FRAN/JCC /3:30 PM /5:02 PM
[2017-01-07] MEDS: methylPREDNISolone SOD SUCC 40 MG/1 ML VIAL IV PUSH SCH (18:28)
[2017-01-07] MEDS: APIXABAN 5 MG TABLET PO SCH (20:34)
[2017-01-08] VITALS (9 sets, daily range): BP systolic 106–146; BP diastolic 53–76; PULSE 86–105; RESP 14–18; TEMP 96.1–98.8; O2SAT 90–93
[2017-01-08] MEDS: methylPREDNISolone SOD SUCC 40 MG/1 ML VIAL IV PUSH SCH ×4 (05:18→22:23)
[2017-01-08 07:42] LABS: HEMATOCRIT 35.6 % (35.0-46.0); MEAN CELL VOLUME 89.6 FL (80.0-100.0); MEAN CORPUSCULAR HEMOGLOBIN 29.1 PG (27.0-34.0); MEAN CORPUSCULAR HGB CONC 32.5 % (32.0-36.0); PLATELET COUNT 173 TH/MM3 (150-450); RED BLOOD COUNT 3.98 MIL/MM3 (4.00-5.30); RED CELL DISTRIBUTION WIDTH 14.9 % (11.6-17.2); WHITE BLOOD COUNT 4.1 TH/MM3 (4.0-11.0)
[2017-01-08 07:50] LABS: POTASSIUM 4.3 MEQ/L (3.5-5.1)
[2017-01-08 07:53] LABS: REVIEW FLAG FINAL
[2017-01-08 07:55] LABS: BICARBONATE 30.8 MEQ/L (21.0-32.0)
[2017-01-08] MEDS: ENALAPRIL MALEATE 10 MG TAB PO SCH (08:53)
[2017-01-08] MEDS: METHIMAZOLE 5 MG TAB PO SCH ×2 (08:53→17:34)
[2017-01-08] MEDS: PANTOPRAZOLE SOD 40 MG DELAYED RELEASE TAB PO SCH (08:53)
[2017-01-08] MEDS: APIXABAN 5 MG TABLET PO SCH ×2 (08:53→22:23)
[2017-01-08] MEDS: CARVEDILOL 3.125 MG TAB PO SCH ×2 (08:53→22:23)
[2017-01-08] MEDS: FUROSEMIDE 40 MG TAB PO SCH (08:53)
[2017-01-08] MEDS: DOCUSATE SODIUM 100 MG CAP PO SCH ×2 (08:53→21:00)
[2017-01-08] MEDS: SODIUM CHLORIDE 0.9% FLUSH 10 ML FLUSH IV FLUSH SCH ×2 (08:55→21:00)
--- NOTE | 2017-01-08 10:33 | PD.CARD.PN ---
Subjective Subjective Remarks No chest pain, no shortness of breath, no palpitations Objective Medications Current Medications Medications (Trade) Dose Ordered Sig/Ezio Route Start Time Stop Time Status Last Admin (Vasotec) 10 mg DAILY PO 01/07/17 09:00 01/08/17 08:53 (NS Flush) 2 ml UNSCH PRN IV FLUSH 01/06/17 11:00 (NS Flush) 2 ml BID IV FLUSH 01/06/17 21:00 01/07/17 20:37 (Tylenol) 650 mg Q4H PRN PO 01/06/17 11:00 (Colace) 100 mg Q12HR PO 01/06/17 11:00 01/08/17 08:53 (Senokot) 17.2 mg Q12H PRN PO 01/06/17 11:00 (Tylenol) 650 mg Q6H PRN PO 01/06/17 11:00 (Roxicodone) 5 mg Q4H PRN PO 01/06/17 11:00 01/06/17 23:03 (Narcan Inj) 0.4 mg UNSCH PRN IV 01/06/17 11:00 (Protonix) 40 mg DAILY PO 01/06/17 12:00 01/08/17 08:53 (Tapazole) 20 mg DAILY PO 01/06/17 14:00 01/08/17 08:53 (SoluMEDROL INJ) 40 mg Q6HR IV PUSH 01/07/17 18:00 01/08/17 05:18 (Lasix) 40 mg DAILY PO 01/08/17 09:00 01/08/17 08:53 (Coreg) 3.125 mg Q12HR PO 01/07/17 12:00 01/08/17 08:53 (Eliquis) 5 mg BID PO 01/07/17 21:00 01/08/17 08:53 Vital Signs / I&O Vital Signs Date Time Temp Pulse Resp B/P Pulse Ox O2 Delivery O2 Flow Rate FiO2 01/08/17 08:07 93 21 01/08/17 08:00 96.8 97 18 146/75 93 01/08/17 05:33 98.8 91 16 108/62 92 01/08/17 00:02 96.1 96 18 106/53 91 01/07/17 20:10 94 01/07/17 20:02 95.9 93 16 110/67 91 01/07/17 19:15 93 21 01/07/17 16:00 97.6 79 18 124/85 97 01/07/17 12:00 97.9 82 18 125/80 96 I/O 01/07/17 01/07/17 01/07/17 01/08/17 01/08/17 01/08/17 07:00 15:00 23:00 07:00 15:00 23:00 Intake Total 840 ml 0 ml Balance 840 ml 0 ml Intake Oral 820 ml IV Total 20 ml 0 ml # Voids 3 2 # Bowel Movements 0 Physical Exam GENERAL: NAD, AAOx3 SKIN: Warm and dry. HEAD: Atraumatic. Normocephalic. EYES: Pupils equal and round. No scleral icterus. No injection or drainage. ENT: No nasal bleeding or discharge. Mucous membranes pink and moist. NECK: Trachea midline. No JVD. CARDIOVASCULAR: Regular rate and rhythm. RESPIRATORY: No accessory muscle use. Decreased breath sounds bilaterally GASTROINTESTINAL: Abdomen soft, non-tender, nondistended. Hepatic and splenic margins not palpable. MUSCULOSKELETAL: Extremities without clubbing, cyanosis, or edema. No obvious deformities. NEUROLOGICAL: Awake and alert. No obvious cranial nerve deficits. Motor grossly within normal limits. Five out of 5 muscle strength in the arms and legs. Normal speech. PSYCHIATRIC: Appropriate mood and affect; insight and judgment normal. Laboratory Laboratory Tests Test 01/08/17 07:25 White Blood Count 4.1 TH/MM3 Red Blood Count 3.98 MIL/MM3 Hemoglobin 11.6 GM/DL Hematocrit 35.6 % Mean Corpuscular Volume 89.6 FL Mean Corpuscular Hemoglobin 29.1 PG Mean Corpuscular Hemoglobin 32.5 % Concent Red Cell Distribution Width 14.9 % Platelet Count 173 TH/MM3 Mean Platelet Volume 9.0 FL Sodium Level 142 MEQ/L Potassium Level 4.3 MEQ/L Chloride Level 101 MEQ/L Carbon Dioxide Level 30.8 MEQ/L Anion Gap 10 MEQ/L Blood Urea Nitrogen 38 MG/DL Creatinine 1.00 MG/DL Estimat Glomerular Filtration 54 ML/MIN Rate Random Glucose 183 MG/DL Calcium Level 8.8 MG/DL Assessment and Plan Problem List: (1) New onset atrial fibrillation (2) CHF exacerbation (3) COPD exacerbation (4) Prediabetes (5) HTN (hypertension) (6) Hyperthyroidism Assessment and Plan 1) New onset Atrial fibrillation, CHADSVASc = 4 Started on Eliquis 5mg BID Heart rates currently controlled, will increase Coreg to 6.25mg BID 2) Acute heart failure, possibly due to Afib with RVR as well as increased sodium intake Continue with diuresis outpatient on PO meds After heart rate controlled and diuresed well, will repeat echo outpatient to evaluate mitral and tricuspid valves as well as EF 3) Mild Cardiomyopathy possibly due to Afib with RVR Con't with Coreg/Vasotec Will plan on outpatient stress testing 4) Hyperthyroidism per the primary team 5) Cardiovascularly stable for discharge, will follow up in the office with me in 2 weeks Problem Qualifiers (1) CHF exacerbation: Qualified Code: I50.9 - Acute on chronic congestive heart failure, unspecified congestive heart failure type (2) HTN (hypertension): Qualified Code: I10 - Essential hypertension Rudolph Gates DO January 08, 2017 10:33
[2017-01-08] MEDS: CARVEDILOL 3.125 MG TAB PO ONE ×2 (11:00→12:31)
[2017-01-08] MEDS ORDERED: PRED20 PO (13:07)
[2017-01-08] MEDS ORDERED: CARV3.12 PO (13:07)
[2017-01-08] MEDS ORDERED: METHI10 PO (13:07)
[2017-01-08] MEDS ORDERED: FURO40TA PO (13:07)
--- NOTE | 2017-01-08 13:12 | HHI.DCPOC ---
Discharge Care Plan Diagnosis: (1) CHF exacerbation (2) COPD exacerbation (3) Prediabetes (4) New onset atrial fibrillation (5) HTN (hypertension) (6) Hyperthyroidism (7) Acute CHF (8) Atrial fibrillation (9) Nodule of right lung (10) Lactic acid acidosis Goals to Promote Your Health * To prevent worsening of your condition and complications * To maintain your health at the optimal level Directions to Meet Your Goals Take your medications as prescribed Follow your dietary instruction Follow activity as directed Keep your appointments as scheduled Take your immunizations and boosters as scheduled If your symptoms worsen call your PCP, if no PCP go to Urgent Care Center or Emergency Room Smoking is Dangerous to Your Health. Avoid second hand smoke Call the 24-hour hour crisis hotline for domestic abuse at Jacky Gonzalez MD January 08, 2017 13:12
--- NOTE | 2017-01-08 13:32 | HHI.PR ---
Subjective Remarks Patient states sob better. chest tightness has resolved denies fevers/chills Vital signs are stable Patient is satiing int he 90's on room air Objective Vitals Vital Signs Date Time Temp Pulse Resp B/P Pulse Ox O2 Delivery O2 Flow Rate FiO2 01/08/17 12:00 96.8 88 18 109/64 90 01/08/17 08:07 93 21 01/08/17 08:00 96.8 97 18 146/75 93 01/08/17 05:33 98.8 91 16 108/62 92 01/08/17 00:02 96.1 96 18 106/53 91 01/07/17 20:10 94 01/07/17 20:02 95.9 93 16 110/67 91 01/07/17 19:15 93 21 01/07/17 16:00 97.6 79 18 124/85 97 I/O 01/07/17 01/07/17 01/07/17 01/08/17 01/08/17 01/08/17 07:00 15:00 23:00 07:00 15:00 23:00 Intake Total 840 ml 0 ml Balance 840 ml 0 ml Intake Oral 820 ml IV Total 20 ml 0 ml # Voids 3 2 # Bowel Movements 0 Result Diagram: 01/08/17 0725 01/08/17 0725 Imaging Last Impressions Chest X-Ray 01/06/17 0937 Signed Impressions: Service Date/Time: January 09:44 - CONCLUSION: Mild cardiomegaly has developed. Otherwise unchanged. No pneumonia. Julius Prabhakar MD Chest CT 01/06/17 0000 Signed Impressions: Service Date/Time: January 11:30 - CONCLUSION: 1. Spiculated mass of the right upper lobe again noted. It seems to be more dense in the interim but really has not significantly changed in size over the past greater than 10 months. If this was malignant would think a more significant change in size would have occurred. Still, correlation with any previous outside facility studies to confirm chronicity is recommended. If this is not achievable, would suggest a 6 month follow[address]contrast chest CT to continue surveillance. 2. Otherwise clear lungs. 3. Biatrial enlargement and coronary artery calcification again noted. Julius Prabhakar MD Objective Remarks GENERAL: This is a well-nourished, well-developed patient, in no apparent distress. SKIN: No rashes, ecchymoses or lesions. Cool and dry. HEAD: Atraumatic. Normocephalic. No temporal or scalp tenderness. EYES: Pupils equal round and reactive. Extraocular motions intact. No scleral icterus. No injection or drainage. ENT: Nose without bleeding, purulent drainage or septal hematoma. Throat without erythema, tonsillar hypertrophy or exudate. Uvula midline. Airway patent. NECK: Trachea midline. No lymphadenopathy. Supple, nontender, no meningeal signs. CARDIOVASCULAR: Irregularly irregular without murmurs, gallops, or rubs. RESPIRATORY: Mostly clear to auscultation bilaterally with mild scattered wheezing. Diminished breath sounds throughout. GASTROINTESTINAL: Abdomen soft, non-tender, nondistended. No hepato-splenomegaly , or palpable masses. No guarding or rebound. MUSCULOSKELETAL: Extremities without clubbing, cyanosis, or edema. 2+ edema in the lower extremities, worse on the left. Negative Homans sign bilaterally. NEUROLOGICAL: Awake and alert. Cranial nerves II through XII intact. Motor and sensory grossly within normal limits. Five out of 5 muscle strength in all muscle groups. Normal speech. PSYCH: Mood and affect appropriate. Medications and IVs Current Medications Medications (Trade) Dose Ordered Sig/Ezio Route Start Time Stop Time Status Last Admin (Vasotec) 10 mg DAILY PO 01/07/17 09:00 01/08/17 08:53 (NS Flush) 2 ml UNSCH PRN IV FLUSH 01/06/17 11:00 (NS Flush) 2 ml BID IV FLUSH 01/06/17 21:00 01/07/17 20:37 (Tylenol) 650 mg Q4H PRN PO 01/06/17 11:00 (Colace) 100 mg Q12HR PO 01/06/17 11:00 01/08/17 08:53 (Senokot) 17.2 mg Q12H PRN PO 01/06/17 11:00 (Tylenol) 650 mg Q6H PRN PO 01/06/17 11:00 (Roxicodone) 5 mg Q4H PRN PO 01/06/17 11:00 01/06/17 23:03 (Narcan Inj) 0.4 mg UNSCH PRN IV 01/06/17 11:00 (Protonix) 40 mg DAILY PO 01/06/17 12:00 01/08/17 08:53 (Tapazole) 20 mg DAILY PO 01/06/17 14:00 01/08/17 08:53 (SoluMEDROL INJ) 40 mg Q6HR IV PUSH 01/07/17 18:00 01/08/17 12:31 (Lasix) 40 mg DAILY PO 01/08/17 09:00 01/08/17 08:53 (Eliquis) 5 mg BID PO 01/07/17 21:00 01/08/17 08:53 (Coreg) 6.25 mg Q12HR PO 01/08/17 21:00 (Glucophage) 500 mg BIDPC PO 01/08/17 18:00 UNV Urinary Catheter: No Vascular Central Line Catheter: No A/P Problem List: (1) COPD exacerbation ICD Code: J44.1 Status: Acute Plan: Start the patient IV Solu Medrol, taper dose today down to 40 mg IV twice a day. Continue Supplemental oxygen to keep oxygen saturation more than 92%. Continue DuoNeb's as needed for shortness of breath. Incentive spirometry Pulmonary consultation pending - the patient has failed to follow-up with pulmonology for her the spiculated mass in the past, therefore for that reason I want the patient to the seen by a tax technician prior to discharge. (2) CHF exacerbation ICD Code: I50.9 Status: Acute Plan: CHF exacerbation improving. Chest x-ray showed cardiomegaly. Echocardiogram pending Patient previously on Lasix 40 mg IV twice a day, switch to Lasix 40 minutes by mouth daily. Continue Initially on Cardizem drip transition to Coreg 3.125 mg by mouth daily. Patient started on Lovenox therapeutic dose with the Coblation transition to Eliquis by mouth twice a day as per cardiology recommendations. Cardiology consulted, recommendations appreciated. Patient started not Eliquis , heart rate currently controlled, Coreg increased to 6.25 mg by mouth twice a day, however blood pressure in the 100 with heart rate in the 80s. I will keep the Coreg at 3.125 and increase to dose recommended by cardiology if needed. As per cardiology the patient will need a repeat echo as an outpatient to evaluate mitral and tricuspid valves as well as EF. Allergies planning for an outpatient stress testing. Patient stable for discharge from the cardio vascular standpoint. Patient will need to follow-up with cardiology in 2 weeks. (3) New onset atrial fibrillation ICD Code: I48.91 Status: Acute Plan: Likely secondary to hyperthyroidism. TSH decreased at 0.005, free T4 increase of 3.8 and free T3 increase at 7.61. Patient started on methimazole, continue. I will increase dose to 10 mg by mouth every 8 hours. (4) HTN (hypertension) ICD Code: I10 Status: Acute Plan: Pressure stable. Continue Coreg and lisinopril. (5) Hyperthyroidism ICD Code: E05.90 Status: Acute Plan: Patient has low TSH and elevated free T4 and free T3. Patient started on methimazole. I will increase dose to 10 mg by mouth 3 times a day. (6) Prediabetes ICD Code: R73.03 Status: Acute Plan: Patient with elevated random glucose of 124. Hemoglobin A1c 6.2. Patient has prediabetes. Start the patient on oral metformin. We'll consult clinical staff educator. Patient's blood sugar increased into the 180s, likely prediabetes with steroid induced hyperglycemia. I will start the patient on SSI with insulin NovoLog and monitor Accu-Cheks. Assessment and Plan GI prophylaxis: Continue PPI since patient is on IV steroids. DVT prophylaxis: SCDs, patient on Lovenox therapeutic dose. Discharge Planning Discharge pending pulmonology consultation recommendations. Patient has failed to follow-up with pulmonology on prior occasion, for this reason I want the patient to be seen by pulmonology prior to discharge. Problem Qualifiers (1) CHF exacerbation: Qualified Code: I50.9 - Acute on chronic congestive heart failure, unspecified congestive heart failure type (2) HTN (hypertension): Qualified Code: I10 - Essential hypertension Jacky Gonzalez MD January 08, 2017 13:32
[2017-01-08] MEDS ORDERED: GLUCAGON 1 MG/ML VIAL OTHER PRN (13:45)
[2017-01-08] MEDS ORDERED: DEXTROSE 50% IN WATER 50 ML VIAL(D50) IV PUSH PRN (13:45)
[2017-01-08 14:58] LABS: BLOOD GAS BASE EXCESS 2.1 mmol/L (-2-2); BLOOD GAS CARBOXYHEMOGLOBIN 1.9 % (0-4); BLOOD GAS HCO3 26 mmol/L (22-26); BLOOD GAS METHEMOGLOBIN 0.7 % (0-2); BLOOD GAS O2 HGB SATURATION 93 % (90-100); BLOOD GAS OXYGEN CONTENT 16.2 Vol % (12.0-20.0); BLOOD GAS PCO2 42 mmHG (38-42); BLOOD GAS PO2 80 mmHG (61-120); BLOOD GAS TOTAL HGB 12.3 G/DL (12.0-16.0); CRITICAL VALUE NO; DRAW SITE LT RADIAL; FIO2 21 %; NUMBER OF ARTERIAL PUNCTURES 1; OXYGEN DEVICE ROOM AIR; STAT NO; TEMP CORR TO 98.6; ULNAR PULSE PRESENT
--- NOTE | 2017-01-08 15:20 | MB ---
cc: MARLEE WHALEN M.D. DATE OF CONSULTATION: 01/08/2017 REASON FOR CONSULTATION Right lung mass. HISTORY OF PRESENT ILLNESS Mrs. Richardson is a 76-year-old female admitted with increasing shortness of breath, increasing ankle edema, found to be in atrial fibrillation as well as congestive heart failure, she has been treated for same. Her ankle edema seems decreasing, her shortness of breath improving. The patient however has a long heavy smoking history, had stopped smoking several years ago. She denies cough expectoration, fever or chills or using any inhalers in the past. PAST MEDICAL HISTORY 1. Hypertension. 2. Hypothyroidism. 3. Peptic ulcer disease. FAMILY HISTORY Noncontributory. ALLERGIES NONE KNOWN TO MEDICATION. MEDICATIONS AT HOME Enalapril 10 mg daily. PAST SURGICAL HISTORY No previous surgeries. SYSTEMS REVIEW A 12-point review of systems as per HPI and past history otherwise negative. SOCIAL HISTORY Smoked over 50 years, stopped about 8 years ago and she smoked anywhere from [id number] packs a day. Does not drink any alcohol. Does not use drugs. PHYSICAL EXAMINATION GENERAL: The patient is alert. VITAL SIGNS: Temperature 98, pulse 80, respiration 18, blood pressure 130/80. HEENT: Unremarkable. Eyes without icterus. NECK: Neck without adenopathy or thyroid enlargement. Central trachea. CHEST: No dullness to percussion. Clear on auscultation. CARDIAC: PMI not appreciated. S1 and S2 audible. No murmur, no rub. ABDOMEN: Lax, audible bowel sounds. EXTREMITIES: No clubbing, cyanosis or edema. IMAGING CT scan of the chest: Mass right upper lung, seems more dense however has not changed from previous CT ten months ago. No adenopathy identified. LABORATORY DATA Sodium 142, potassium 4.3, BUN 38, creatinine 1. INR 1.2. White count 4.1, hemoglobin 11, hematocrit 35, platelets 173,000. IMPRESSION 1. Right lung mass, etiology unclear, stable for ten months. 2. Question COPD. 3. Atrial fibrillation. 4. Hypertension. PLAN The patient's lung mass needs to be further evaluated. A PET-CT probably would be appropriate to assure the absence of underlying malignancy. Meanwhile, we are going to check baseline pulmonary function to assess the patient's pulmonary performance. She has been lost to followup in the past and I hope she will follow through this time as an outpatient. I do thank you for asking me to partake in Mrs. Richardson's care. Marlee Whalen MD WWW/BJF /2:32 PM /2:39 PM
[2017-01-08] MEDS: INSULIN ASPART SUPPLEMENTAL SCALE SQ SCH ×2 (16:00→23:27)
[2017-01-08] MEDS: metFORMIN HCL 500 MG TAB PO SCH (17:34)
[2017-01-08] MEDS ORDERED: CARVEDILOL 6.25 MG TAB PO SCH (21:00)
[2017-01-09 00:37] VITALS: BP 118/72; PULSE 79; RESP 16; TEMP 96.6; O2SAT 93
[2017-01-09 04:44] VITALS: BP 136/72; PULSE 80; RESP 14; TEMP 97.7; O2SAT 95
[2017-01-09 08:00] VITALS: BP 147/65; PULSE 78; RESP 20; TEMP 96.9; O2SAT 95
[2017-01-09] MEDS: DOCUSATE SODIUM 100 MG CAP PO SCH (09:17)
[2017-01-09] MEDS: FUROSEMIDE 40 MG TAB PO SCH (09:17)
[2017-01-09] MEDS: metFORMIN HCL 500 MG TAB PO SCH (09:17)
[2017-01-09] MEDS: ENALAPRIL MALEATE 10 MG TAB PO SCH (09:18)
[2017-01-09] MEDS: PANTOPRAZOLE SOD 40 MG DELAYED RELEASE TAB PO SCH (09:18)
[2017-01-09] MEDS: APIXABAN 5 MG TABLET PO SCH (09:18)
[2017-01-09] MEDS: CARVEDILOL 3.125 MG TAB PO SCH (09:18)
[2017-01-09] MEDS: methylPREDNISolone SOD SUCC 40 MG/1 ML VIAL IV PUSH SCH (09:19)
[2017-01-09] MEDS: METHIMAZOLE 5 MG TAB PO SCH (09:19)
[2017-01-09] MEDS: SODIUM CHLORIDE 0.9% FLUSH 10 ML FLUSH IV FLUSH SCH (09:20)
[2017-01-09] MEDS: INSULIN ASPART SUPPLEMENTAL SCALE SQ SCH ×2 (09:20→11:00)
--- NOTE | 2017-01-09 10:11 | PD.CARD.PN ---
Subjective Subjective Remarks No chest pain, no shortness of breath Heart rates mostly controlled Objective Medications Current Medications Medications (Trade) Dose Ordered Sig/Ezio Route Start Time Stop Time Status Last Admin (Vasotec) 10 mg DAILY PO 01/07/17 09:00 01/09/17 09:18 (NS Flush) 2 ml UNSCH PRN IV FLUSH 01/06/17 11:00 (NS Flush) 2 ml BID IV FLUSH 01/06/17 21:00 01/09/17 09:20 (Tylenol) 650 mg Q4H PRN PO 01/06/17 11:00 (Colace) 100 mg Q12HR PO 01/06/17 11:00 01/09/17 09:17 (Senokot) 17.2 mg Q12H PRN PO 01/06/17 11:00 (Tylenol) 650 mg Q6H PRN PO 01/06/17 11:00 (Roxicodone) 5 mg Q4H PRN PO 01/06/17 11:00 01/06/17 23:03 (Narcan Inj) 0.4 mg UNSCH PRN IV 01/06/17 11:00 (Protonix) 40 mg DAILY PO 01/06/17 12:00 01/09/17 09:18 (Lasix) 40 mg DAILY PO 01/08/17 09:00 01/09/17 09:17 (Eliquis) 5 mg BID PO 01/07/17 21:00 01/09/17 09:18 (Glucophage) 500 mg BIDPC PO 01/08/17 18:00 01/09/17 09:17 (Coreg) 3.125 mg Q12HR PO 01/08/17 21:00 01/09/17 09:18 (Tapazole) 10 mg TID PO 01/08/17 18:00 01/09/17 09:19 (SoluMEDROL INJ) 40 mg BID IV PUSH 01/08/17 21:00 01/09/17 09:19 (D50w (Vial) Inj) 25 ml UNSCH PRN IV PUSH 01/08/17 13:45 (Glucagon Inj) 1 mg UNSCH PRN OTHER 01/08/17 13:45 Vital Signs / I&O Vital Signs Date Time Temp Pulse Resp B/P Pulse Ox O2 Delivery O2 Flow Rate FiO2 01/09/17 08:00 96.9 78 20 147/65 95 01/09/17 04:44 97.7 80 14 136/72 95 01/09/17 00:37 96.6 79 16 118/72 93 01/08/17 21:14 93 21 01/08/17 20:42 96.5 103 14 131/70 90 01/08/17 20:00 105 01/08/17 16:00 96.6 86 18 128/76 90 01/08/17 12:00 96.8 88 18 109/64 90 I/O 01/08/17 01/08/17 01/08/17 01/09/17 01/09/17 01/09/17 07:00 15:00 23:00 07:00 15:00 23:00 Intake Total 690 ml Balance 690 ml Intake Oral 690 ml # Voids 3 3 3 Physical Exam GENERAL: NAD, AAOx3 SKIN: Warm and dry. HEAD: Atraumatic. Normocephalic. EYES: Pupils equal and round. No scleral icterus. No injection or drainage. ENT: No nasal bleeding or discharge. Mucous membranes pink and moist. NECK: Trachea midline. No JVD. CARDIOVASCULAR: Irregularly irregular RESPIRATORY: No accessory muscle use. Decreased breath sounds bilaterally GASTROINTESTINAL: Abdomen soft, non-tender, nondistended. Hepatic and splenic margins not palpable. MUSCULOSKELETAL: Extremities without clubbing, cyanosis, or edema. No obvious deformities. NEUROLOGICAL: Awake and alert. No obvious cranial nerve deficits. Motor grossly within normal limits. Five out of 5 muscle strength in the arms and legs. Normal speech. PSYCHIATRIC: Appropriate mood and affect; insight and judgment normal. Laboratory Laboratory Tests Test 01/08/17 14:50 Blood Gas Puncture Site LT RADIAL Blood Gas Patient Temperature 98.6 Blood Gas HCO3 26 mmol/L Blood Gas Base Excess 2.1 mmol/L Blood Gas Oxygen Saturation 93 % Arterial Blood pH 7.42 Arterial Blood Partial 42 mmHG Pressure CO2 Arterial Blood Partial 80 mmHG Pressure O2 Arterial Blood Oxygen Content 16.2 Vol % Arterial Blood 1.9 % Carboxyhemoglobin Arterial Blood Methemoglobin 0.7 % Blood Gas Hemoglobin 12.3 G/DL Oxygen Delivery Device ROOM AIR Blood Gas Inspired Oxygen 21 % Assessment and Plan Problem List: (1) New onset atrial fibrillation (2) CHF exacerbation (3) COPD exacerbation (4) Prediabetes (5) HTN (hypertension) (6) Hyperthyroidism Assessment and Plan 1) New onset Atrial fibrillation, CHADSVASc = 4 Started on Eliquis 5mg BID Heart rates currently controlled, Coreg to 6.25mg BID currently controlling heart rate 2) Acute heart failure, possibly due to Afib with RVR as well as increased sodium intake Continue with diuresis outpatient on PO meds After heart rate controlled and diuresed well, will repeat echo outpatient to evaluate mitral and tricuspid valves as well as EF 3) Mild Cardiomyopathy possibly due to Afib with RVR, with MR/TR which may be exacerbated by fluid overload state Con't with Coreg/Vasotec Will plan on outpatient stress testing 4) Hyperthyroidism per the primary team 5) Cardiovascularly stable for discharge, will follow up in the office with me in 2 weeks, will see PRN Problem Qualifiers (1) CHF exacerbation: Qualified Code: I50.9 - Acute on chronic congestive heart failure, unspecified congestive heart failure type (2) HTN (hypertension): Qualified Code: I10 - Essential hypertension Rudolph Gates DO January 09, 2017 10:11
--- NOTE | 2017-01-09 10:23 | HHI.DS ---
Discharge Summary Admission Date January 06, 2017 at 10:31 Discharge Date: January 09, 2017 Admitting Diagnosis New CHF, New Afib (1) COPD exacerbation ICD Code: J44.1 Diagnosis: Principal (2) CHF exacerbation ICD Code: I50.9 Diagnosis: Principal (3) New onset atrial fibrillation ICD Code: I48.91 Diagnosis: Principal (4) HTN (hypertension) ICD Code: I10 Diagnosis: Secondary (5) Hyperthyroidism ICD Code: E05.90 Diagnosis: Principal (6) Prediabetes ICD Code: R73.03 Diagnosis: Principal Procedures none Brief History - From Admission The patient is a 76-year-old female with a past medical history of hypertension who is presenting to the hospital with shortness of breath. The patient said that she woke up this morning with difficulty breathing. She states that this happens every once in a while. It was not associated with any chest pain. She did endorse palpitations. She also notices that her legs have been swelling starting yesterday. The patient does say she eats a lot of frozen dinners. She also endorses drinking 10 glasses of water daily. The patient does also complain of some lower quadrant abdominal pain. She says it comes and goes and sometimes is worse when laying down at night. She denies any fevers or congestion. The patient says that she has followed up with her primary care doctor in regards to a suspicious nodule which was found on a CT scan on her last hospitalization but she said no further workup has been provided. The patient says she started smoking at the age of 10 and would smoke up to 3 packs of cigarettes daily. She says she quit smoking 8 years ago. CBC/BMP: 01/08/17 0725 01/08/17 0725 Significant Findings Laboratory Tests Test 01/07/17 01/08/17 01/08/17 04:53 07:25 14:50 Red Blood Count 3.92 MIL/MM3 3.98 MIL/MM3 (4.00-5.30) (4.00-5.30) Hemoglobin 11.3 GM/DL (11.6-15.3) Hematocrit 34.9 % (35.0-46.0) Monocytes (%) (Auto) 12.0 % (0.0-8.0) Blood Urea Nitrogen 22 MG/DL (7-18) 38 MG/DL (7-18) Estimat Glomerular Filtration 58 ML/MIN (>89) 54 ML/MIN (>89) Rate Random Glucose 124 MG/DL 183 MG/DL (74-106) (74-106) Blood Gas Base Excess 2.1 mmol/L (-2-2) Imaging Last Impressions Chest X-Ray 01/06/17 0937 Signed Impressions: Service Date/Time: January 09:44 - CONCLUSION: Mild cardiomegaly has developed. Otherwise unchanged. No pneumonia. Julius Prabhakar MD Chest CT 01/06/17 0000 Signed Impressions: Service Date/Time: January 11:30 - CONCLUSION: 1. Spiculated mass of the right upper lobe again noted. It seems to be more dense in the interim but really has not significantly changed in size over the past greater than 10 months. If this was malignant would think a more significant change in size would have occurred. Still, correlation with any previous outside facility studies to confirm chronicity is recommended. If this is not achievable, would suggest a 6 month followup [address]contrast chest CT to continue surveillance. 2. Otherwise clear lungs. 3. Biatrial enlargement and coronary artery calcification again noted. Julius Prabhakar MD PE at Discharge GENERAL: This is a well-nourished, well-developed patient, in no apparent distress. SKIN: No rashes, ecchymoses or lesions. Cool and dry. HEAD: Atraumatic. Normocephalic. No temporal or scalp tenderness. EYES: Pupils equal round and reactive. Extraocular motions intact. No scleral icterus. No injection or drainage. ENT: Nose without bleeding, purulent drainage or septal hematoma. Throat without erythema, tonsillar hypertrophy or exudate. Uvula midline. Airway patent. NECK: Trachea midline. No lymphadenopathy. Supple, nontender, no meningeal signs. CARDIOVASCULAR: Irregularly irregular without murmurs, gallops, or rubs. RESPIRATORY: Mostly clear to auscultation bilaterally with mild scattered wheezing. Diminished breath sounds throughout. GASTROINTESTINAL: Abdomen soft, non-tender, nondistended. No hepato-splenomegaly , or palpable masses. No guarding or rebound. MUSCULOSKELETAL: Extremities without clubbing, cyanosis, or edema. 2+ edema in the lower extremities, worse on the left. Negative Homans sign bilaterally. NEUROLOGICAL: Awake and alert. Cranial nerves II through XII intact. Motor and sensory grossly within normal limits. Five out of 5 muscle strength in all muscle groups. Normal speech. PSYCH: Mood and affect appropriate. Hospital Course (1) COPD exacerbation Treated with IV Solu Medrol, supplemental oxygen to keep saturation 92%, DuoNeb' s inhaled treatment, Incentive spirometry. Pulmonary consulted, patient seen and evaluated by Dr. Cox ordered a PFT and will follow-up the patient is an outpatient for an outpatient PET CT scan. Patient has failed to follow-up in the past so I stressed to the patient the importance to follow-up with pulmonology this time upon discharge. (2) CHF exacerbation Treated initially with IV diuretics. Patient initially started on Lasix 40 mg IV twice a day which was switched to 40 mg by mouth daily. Cardiology consulted. Chest x-ray showed mild cardiomegaly. Echocardiogram showed a systolic function was mildly reduced with an estimated ejection fraction in the range of 45-50%. No diagnostic regional wall motion abnormality was identified. I (3) New onset atrial fibrillation Likely secondary to hyperthyroidism. TSH decreased at 0.005, free T4 increase of 3.8 and free T3 increase at 7.61. Patient started on methimazole 20 mg po daily. I changed the dose to 10 mg by mouth every 8 hours. This will later have to be changed once patient euthyroid. Initially on Cardizem drip transition to Coreg 3.125 mg by mouth daily. Patient started on Lovenox therapeutic dose which was transitioned to Eliquis by mouth twice a day as per cardiology recommendations. Cardiology consulted, recommendations appreciated. Coreg increased to 6.25 mg by mouth twice a day, however blood pressure in the 100's systolic with heart rate in the 80s. The dose of Coreg was kept 3.125 with good rate control. As per cardiology the patient will need a repeat echo as an outpatient to evaluate mitral and tricuspid valves as well as EF, as well as planning for an outpatient stress testing. Patient stable for discharge from a cardio vascular standpoint. Patient will need to follow-up with cardiology in 2 weeks. (4) HTN (hypertension) Blood pressure remained stable throughout hospitalization. Patient's home enalapril continued and patient started on Coreg for rate control. (5) Hyperthyroidism Patient has low TSH and elevated free T4 and free T3. Patient started on methimazole. I will increase dose to 10 mg by mouth 3 times a day. (6) Prediabetes Patient with elevated random glucose of 124. Hemoglobin A1c 6.2. Patient has prediabetes. Patient's blood sugar increased into the 180s, likely prediabetes with steroid induced hyperglycemia. Patient was started on subcutaneous insulin NovoLog and Accu-Cheks. Start the patient on oral metformin. I will instruct the nurse to give diabetes education. The patient will need diuresis education to be provided with her primary care physician GI prophylaxis: Patient placed on PPI since on IV steroids. DVT prophylaxis: SCDs, on anticoagulant patient with Lovenox transitioned to Eliquis. Pt Condition on Discharge: Stable Discharge Disposition: Discharge Home Discharge Time: > 30 minutes Discharge Instructions DIET: Follow Instructions for: As Tolerated, No Restrictions Activities you can perform: Regular-No Restrictions Activities to Avoid: Strenuous Activity Follow up Referrals: Cardiology with Rudolph Gates DO PCP Follow-up - 1 Week Pulmonology - 2 Weeks with Marlee Whalen MD New Medications: Carvedilol (Carvedilol) 3.125 Mg Tab 3.125 MG PO BID #60 Ref 0 TAB Methimazole (Methimazole) 10 Mg Tab 10 MG PO TID Thyroid #90 Ref 0 TAB Prednisone (Prednisone) 20 Mg Tab 20 MG PO DIRECTED 40 MG twice a day x 3 days, then 20 MG daily x 3 days, then 10 MG daily x 3 days Inflammation #11 Ref 0 TAB Apixaban (Eliquis) 5 Mg Tab 5 MG PO BID afib #31 TAB Furosemide (Furosemide) 40 Mg Tab 40 MG PO DAILY chf #31 TAB Continued Medications: Enalapril (Enalapril) 10 Mg Tab 10 MG PO DAILY #30 Ref 0 TAB Jacky Gonzalez MD January 09, 2017 10:23
[2017-01-09] MEDS ORDERED: LEVA500T PO (10:24)
[2017-01-09] MEDS ORDERED: APIX5TAB PO (10:44)
[2017-01-09 12:00] VITALS: BP 136/79; PULSE 109; RESP 20; TEMP 96.7; O2SAT 92
--- NOTE | 2017-01-20 09:10 | RSPPFT ---
DATE OF PROCEDURE: 01/08/17 COMMENTS: Spirometry with FVC of 1.0, FEV1 of 0.6, FEV1/FVC ratio at 62%. A non-significant response to acutely inhaled bronchodilator. IMPRESSION: 1. Severe airways obstruction. 2. Non-significant response to inhaled bronchodilator.
== END 2017-01-09 13:20 | disposition home or self-care (01) | DRG 309 ==
LOC: PHED 09:26 → PHEDA 10:31 → PH3A 11:47
PROVIDERS: ADMIT Hospitalist; ATTEND Hospitalist
DX: I48.91 Unspecified atrial fibrillation (principal); I50.30 Unspecified diastolic (congestive) heart failure; I11.0 Hypertensive heart disease with heart failure; I42.9 Cardiomyopathy, unspecified; J44.1 Chronic obstructive pulmonary disease with (acute) exacerbation; E05.90 Thyrotoxicosis, unspecified without thyrotoxic crisis or storm; Z87.11 Personal history of peptic ulcer disease; E03.9 Hypothyroidism, unspecified; I08.1 Rheumatic disorders of both mitral and tricuspid valves; R73.03 Prediabetes; F17.200 Nicotine dependence, unspecified, uncomplicated; T38.0X5A Adverse effect of glucocorticoids and synthetic analogues, initial encounter; Z91.14 Patient's other noncompliance with medication regimen
CPT/HCPCS: 36600; 71010; 71260; 80048; 80053; 80061; 82550; 82805; 82948; 83036; 83735; 83880; 84439; 84443; 84481; 84484; 85025; 85027; 85610; 85730; 93005; 93306; 94060; 94150; 96374; J1650; J1815; J1940; J2920; J2930; Q9967

== ENCOUNTER 2017-01-14 10:44 | Inpatient (IN) | payer OTHER, MEDICARE ==
[2017-01-14] VITALS (18 sets, daily range): BP systolic 95–145; BP diastolic 50–79; PULSE 84–153; RESP 16–20; TEMP 97.9–98.6; O2SAT 94–100
[~2017-01-14] VITALS: Ht 160 cm; Wt 51.2 kg
[~2017-01-14 10:44] MED LIST changes: +APIX5TAB PO; +CARV3.12 PO; +ENAL10TA PO; -ENAL10TA7 PO; +FURO40TA PO; +LEVA500T PO; +METHI10 PO; -METO25 PO; +PRED20 PO
[2017-01-14] MEDS ORDERED: PANTOPRAZOLE SODIUM 40 MG VIAL IVP ONE (11:00)
[2017-01-14] MEDS ORDERED: DILTIAZEM HCL 25 MG/5 ML VIAL IV ONE ×2 (11:00)
[2017-01-14] MEDS ORDERED: SODIUM CHLORIDE 0.9% FLUSH 10 ML FLUSH IVF PRN (11:00)
[2017-01-14 11:22] LABS: AUTOMATED NEUTROPHIL # 10.5 TH/MM3 (1.8-7.7); BASOPHIL % 0.2 % (0.0-2.0); EOSINOPHIL % 0.1 % (0.0-4.0); HEMATOCRIT 25.8 % (35.0-46.0); HEMO FLAGS DIFF FINAL; LYMPH % 6.4 % (9.0-44.0); LYMPHOCYTE # 0.8 TH/MM3 (1.0-4.8); MEAN CELL VOLUME 89.4 FL (80.0-100.0); MEAN CORPUSCULAR HEMOGLOBIN 27.8 PG (27.0-34.0); MEAN CORPUSCULAR HGB CONC 31.1 % (32.0-36.0); MONO % 10.5 % (0.0-8.0); NEUT % 82.8 % (16.0-70.0); PLATELET COUNT 167 TH/MM3 (150-450); RED BLOOD COUNT 2.89 MIL/MM3 (4.00-5.30); RED CELL DISTRIBUTION WIDTH 14.1 % (11.6-17.2); WHITE BLOOD COUNT 12.7 TH/MM3 (4.0-11.0)
[2017-01-14 11:32] LABS: APTT (PATIENT) 23.3 SEC (24.3-30.1); INTERNATIONAL NORMALIZED RATIO 1.3 RATIO; PROTHROMBIN TIME - PATIENT 14.6 SEC (9.8-11.6)
--- NOTE | 2017-01-14 11:47 | RADRPT ---
EXAM DATE/TIME: 01/14/2017 11:12 [facility] COMPARISON: CHEST SINGLE AP, January 06, 2017, 9:44. INDICATIONS : Shortness of breath with wheezing. MEDICAL HISTORY : Chronic obstructive pulmonary disease. SURGICAL HISTORY : None. ENCOUNTER: Initial ACUITY: 1 day PAIN SCORE: 1/10 LOCATION: Bilateral chest FINDINGS: A single view of the chest demonstrates the lungs to be symmetrically aerated without evidence of mas s, infiltrate or effusion. The cardiomediastinal contours are unremarkable. Osseous structures are intact. CONCLUSION: No acute disease. Ronny Song MD on January 14, 2017 at 11:45 Board Certified Radiologist. This report was verified electronically.
[2017-01-14 11:49] LABS: BICARBONATE 36.6 MEQ/L (21.0-32.0); POTASSIUM 4.6 MEQ/L (3.5-5.1)
--- NOTE | 2017-01-14 11:57 | EKG ---
Date Performed: 01/14/2017 Time Performed: 11:11:37 PTAGE: 76 years EKG: ATRIAL FIBRILLATION WITH RAPID VENTRICULAR RESPONSE WITH ABERRANT CONDUCTION OR VENTRICULAR PREMATURE COMPLEXES NONSPECIFIC ST & T-WAVE ABNORMALITY ABNORMAL ECG COMPARED TO PRIOR ELECTROCARDIO GRAM, Rate has increased. PREVIOUS TRACING : 01/07/2017 05.30 DOCTOR: Escobar Franco Interpretating Date/Time 01/14/2017 11:56:03
[2017-01-14 12:12] LABS: BLOOD, URINE MOD (NEG); COMMENT (UR) CULT NOT INDICATED; CULTURE IF INDICATED CULT NOT INDICATED; GLUCOSE,URINE 300 mg/dL (NEG); KETONE, URINE NEG (NEG); NITRITE,URINE NEG (NEG); SQUAMOUS EPITHELIAL CELL URINE <1 /hpf (0-5); URINE COLOR YELLOW (YELLW/STRAW)
--- NOTE | 2017-01-14 12:38 | PD ---
HPI Chief Complaint: GI Complaint Time Seen by Provider: 10:47 Travel History International Travel<30 days: No Contact w/Intl Traveler<30days: No Traveled to known affect area: No History of Present Illness HPI 76 year old F who arrives by EMS. Weak and short of breath this morning. EMS notes that upon arrival to the ER she had one episode of bright red hematemesis. The patient states this morning she walked her dog and then became very fatigued and tired upon returning home. Additionally she notes dyspnea on exertion for the last few days. Patient takes Eliquis for A. fib. She was recently admitted here for CHF with A. fib. She states yesterday was a better normal day for her. She has no chest pain. She reports compliance with Lasix. She denies bloody stool. PFSH Past Medical History Hx Anticoagulant Therapy: Yes Heart Rhythm Problems: Yes (fast beating heart this morning 1st time) Cancer: No Cardiovascular Problems: Yes High Cholesterol: No Chemotherapy: No Cerebrovascular Accident: No Diabetes: Yes Diminished Hearing: No Endocrine: No Gastrointestinal Disorders: No Genitourinary: No Hypertension: Yes Implanted Vascular Access Dvce: No Musculoskeletal: No Neurologic: No Psychiatric: No Reproductive: No Respiratory: No ?: Not Past Surgical History Hysterectomy: No Other Surgery: No Social History Alcohol Use: No Tobacco Use: No Substance Use: No Allergies-Medications (Allergen,Severity, Reaction): Coded Allergies: No Known Allergies (Verified , 01/06/17) Reported Meds & Prescriptions Reported Meds & Active Scripts Active Eliquis (Apixaban) 5 Mg Tab 5 Mg PO BID Levaquin (Levofloxacin) 500 Mg Tab 500 Mg PO DAILY Prednisone 20 Mg Tab 20 Mg PO DIRECTED 40 MG twice a day x 3 days, then 20 MG daily x 3 days, then 10 MG daily x 3 days Methimazole 10 Mg Tab 10 Mg PO TID Carvedilol 3.125 Mg Tab 3.125 Mg PO BID Furosemide 40 Mg Tab 40 Mg PO DAILY Reported Enalapril (Enalapril Maleate) 10 Mg Tab 10 Mg PO DAILY Review of Systems Except as stated in HPI: all other systems reviewed are Neg General / Constitutional: No: Fever Gastrointestinal: Positive: Hematemesis Physical Exam Narrative GENERAL: 76-year-old female pleasant mild distress secondary to pain and/or anxiety, holding an emesis bag with red blood SKIN: Focused skin assessment warm/dry. HEAD: Atraumatic. Normocephalic. EYES: Pupils equal and round. No scleral icterus. No injection or drainage. ENT: No nasal bleeding or discharge. Mucous membranes pink and moist. NECK: Trachea midline. No JVD. CARDIOVASCULAR: Tachycardia. Irregular. RESPIRATORY: No accessory muscle use. Clear to auscultation. Breath sounds equal bilaterally. GASTROINTESTINAL: Abdomen soft, non-tender, nondistended. Hepatic and splenic margins not palpable. MUSCULOSKELETAL: No obvious deformities. No clubbing. No cyanosis. No edema. NEUROLOGICAL: Awake and alert. No obvious cranial nerve deficits. Motor grossly within normal limits. Normal speech. PSYCHIATRIC: Appropriate mood and affect; insight and judgment normal. Data Data Last Documented VS Vital Signs Date Time Temp Pulse Resp B/P Pulse Ox O2 Delivery O2 Flow Rate FiO2 01/14/17 12:48 103 16 97/56 97 Nasal Cannula 2 01/14/17 10:48 98.6 Vital signs reviewed Orders Basic Metabolic Panel (Bmp) (01/14/17 10:55) Complete Blood Count With Diff (01/14/17 10:55) Prothrombin Time / Inr (Pt) (01/14/17 10:55) Act Partial Throm Time (Ptt) (01/14/17 10:55) Urinalysis - C+S If Indicated (01/14/17 10:55) Type And Screen (01/14/17 10:55) Chest, Single Ap (01/14/17 10:55) Ecg Monitoring (01/14/17 10:55) Iv Access Insert/Monitor (01/14/17 10:55) Oximetry (01/14/17 10:55) Pantoprazole Inj (Protonix Inj) (01/14/17 11:00) Sodium Chloride 0.9% Flush (Ns Flush) (01/14/17 11:00) Electrocardiogram (01/14/17 10:55) B-Type Natriuretic Peptide (01/14/17 10:55) Ckmb (Isoenzyme) Profile (01/14/17 10:55) Troponin I (01/14/17 10:55) Diltiazem Inj (Cardizem Inj) (01/14/17 11:00) Diltiazem Inj (Cardizem Inj) (01/14/17 11:00) Pantoprazole Inj (Protonix Inj) (01/14/17 12:45) Pantoprazole Inj (Protonix Inj) (01/14/17 12:45) Red Blood Cells (Rbc) (01/14/17 13:00) Blood Product Administration .UPON TRANSFUSION (01/14/17 13:00) Sodium Chlor 0.9% 250 Ml Inj (Ns 250 Ml (01/14/17 13:00) Carvedilol (Coreg) (01/14/17 21:00) Enalapril (Vasotec) (01/15/17 09:00) Furosemide (Lasix) (01/15/17 09:00) Methimazole (Tapazole) (01/14/17 18:00) Admit Order (Ed Use Only) (01/14/17 13:01) Labs Laboratory Tests Test 01/14/17 01/14/17 01/14/17 11:05 11:40 13:00 White Blood Count 12.7 TH/MM3 Red Blood Count 2.89 MIL/MM3 Hemoglobin 8.0 GM/DL Hematocrit 25.8 % Mean Corpuscular Volume 89.4 FL Mean Corpuscular Hemoglobin 27.8 PG Mean Corpuscular Hemoglobin 31.1 % Concent Red Cell Distribution Width 14.1 % Platelet Count 167 TH/MM3 Mean Platelet Volume 9.5 FL Neutrophils (%) (Auto) 82.8 % Lymphocytes (%) (Auto) 6.4 % Monocytes (%) (Auto) 10.5 % Eosinophils (%) (Auto) 0.1 % Basophils (%) (Auto) 0.2 % Neutrophils # (Auto) 10.5 TH/MM3 Lymphocytes # (Auto) 0.8 TH/MM3 Monocytes # (Auto) 1.3 TH/MM3 Eosinophils # (Auto) 0.0 TH/MM3 Basophils # (Auto) 0.0 TH/MM3 CBC Comment DIFF FINAL Differential Comment Prothrombin Time 14.6 SEC Prothromb Time International 1.3 RATIO Ratio Activated Partial 23.3 SEC Thromboplast Time Sodium Level 137 MEQ/L Potassium Level 4.6 MEQ/L Chloride Level 96 MEQ/L Carbon Dioxide Level 36.6 MEQ/L Anion Gap 4 MEQ/L Blood Urea Nitrogen 71 MG/DL Creatinine 0.79 MG/DL Estimat Glomerular Filtration 71 ML/MIN Rate Random Glucose 285 MG/DL Calcium Level 7.6 MG/DL Total Creatine Kinase 34 U/L Troponin I 0.03 NG/ML B-Type Natriuretic Peptide 144 PG/ML Blood Type O POSITIVE Antibody Screen NEGATIVE Urine Color YELLOW Urine Turbidity CLEAR Urine pH 7.0 Urine Specific [place] 1.018 Urine Protein NEG mg/dL Urine Glucose (UA) 300 mg/dL Urine Ketones NEG mg/dL Urine Occult Blood MOD Urine Nitrite NEG Urine Bilirubin NEG Urine Urobilinogen LESS THAN 2.0 MG/DL Urine Leukocyte Esterase TRACE Urine RBC LESS THAN 1 /hpf Urine WBC 2 /hpf Urine Squamous Epithelial <1 /hpf Cells Microscopic Urinalysis Comment CULT NOT INDICATED Crossmatch Leukocyte-Reduced Red Blood Cells Blood Bank Comment MDM Medical Decision Making Medical Screen Exam Complete: Yes Emergency Medical Condition: Yes Medical Record Reviewed: Yes Differential Diagnosis Upper GI bleed, lower GI bleed, CHF, COPD, hypocoagulable state, anemia, A. fib with RVR Narrative Course CBC & BMP Diagram 01/14/17 11:05 Tn 0.03 BNP 144 INR 1.3 EKG reveals atrial fibrillation with a rate of 129 normal axis Last 24 hours Impressions Chest X-Ray 01/14/17 1055 Signed Impressions: Service Date/Time: Saturday, January 14, 2017 11:12 - CONCLUSION: No acute disease. Ronny Song MD Protonic started, diltiazem 2 given. Patient started on Protonix 40 mg IV push 1. Diltiazem 10 mg IV given twice. The hemoglobin is dropped 3 points from 11.6 to 8.0. Patient will be admitted for serial CBC and GI evaluation. D/w Dr Simon for GI. Heart rate decreased to about 104 after diltiazem doses. Case discussed with Dr. Morgan for [facility]. Critical Care Narrative Aggregate critical care time was 35 minutes. Time to perform other separately billable procedures was not included in the critical care time. My time did not include minutes spent treating any other patients simultaneously or on activities that did not directly contribute to the patient's treatment. The services I provided to this patient were to treat and/or prevent clinically significant deterioration that could result in: hemorrhagic shock, multi-organ dysfunction I provided critical care services requiring my management, as noted below: Chart data review, documentation time, medication orders and management, vital sign assessments/reviewing monitor data, ordering and reviewing lab tests, ordering and interpreting/reviewing x-rays and diagnostic studies, care of the patient and discussion of the patient with the admitting physicians. Diagnosis Primary Impression: Hematemesis Qualified Code: K92.0 - Hematemesis, presence of nausea not specified Additional Impressions: Atrial fibrillation with RVR Acute blood loss anemia Admitting Information Admitting Physician Requests: Admit Art Gates MD January 14, 2017 12:38
[2017-01-14] MEDS ORDERED: PANTOPRAZOLE SODIUM 40 MG VIAL IV PUSH ONE (12:45)
[2017-01-14] MEDS ORDERED: PANTOPRAZOLE INJ 80 MG in SODIUM CHLORIDE 0.9% INJ 100 ML IV SCH (12:45)
[2017-01-14] MEDS ORDERED: SODIUM CHLOR 0.9% 250 ML INJ 250 ML IV ONE (13:00)
[2017-01-14] MEDS ORDERED: NALOXONE HCL 0.4 MG/ML AMP IV PRN (13:15)
[2017-01-14] MEDS ORDERED: SODIUM CHLORIDE 0.9% FLUSH 10 ML FLUSH IV FLUSH PRN ×2 (13:15→18:00)
[2017-01-14] MEDS ORDERED: ONDANSETRON HCL 4 MG/2 ML VIAL IVP PRN (14:00)
[2017-01-14] MEDS ORDERED: ACETAMINOPHEN 325 MG TAB PO PRN (14:00)
[2017-01-14] MEDS ORDERED: DILTIAZEM INJ 125 MG in SODIUM CHLORIDE 0.9% INJ 100 ML IV SCH (15:00)
--- NOTE | 2017-01-14 15:38 | HHI.HP ---
[facility] Unknown Admission Diagnosis Acute Anemia; Hemoptysis; AFIB RVR Diagnoses: Chief Complaint: Palpitation and GI bleed Travel History International Travel<30 Days: No Contact w/Intl Traveler <30 Da: No Traveled to Known Affected Are: No History of Present Illness This is a 76-year-old female past medical history of recent diagnosis of atrial fibrillation, on eliquis, history of peptic ulcer disease, COPD, hypertension, hyperthyroidism who presented with palpitations and GI bleed. Patient stated that 6 AM this morning she started having palpitation. Weight after she had black tarry stools so she went to the emergency department. In the emergency department she had hematemesis, in which patient does not call but Dr. Gates ER physician saw the hematemesis. Patient denies any chest pain, shortness of breathing, lightheadedness or dizziness. She stated that palpitation has improved. She denied taking any NSAIDs. She denies any abdominal pain. Review of Systems Constitutional: DENIES: Diaphoretic episodes, Fatigue, Fever, Weight gain, Weight loss, Chills, Dizziness, Change in appetite, Night Sweats Endocrine: DENIES: Abnorml menstrual pattern, Heat/cold intolerance, Polydipsia , Polyuria, Polyphagia Eyes: DENIES: Blurred vision, Diplopia, Eye inflammation, Eye pain, Vision loss , Photosensitivity, Double Vision Ears, nose, mouth, throat: DENIES: Tinnitus, Hearing loss, Vertigo, Nasal discharge, Oral lesions, Throat pain, Hoarseness, Ear Pain, Running Nose, Epistaxis, Sinus Pain, Toothache, Odynophagia Respiratory: DENIES: Apneas, Cough, Snoring, Wheezing, Hemoptysis, Sputum production, Shortness of breath Cardiovascular: COMPLAINS OF: Palpitations, DENIES: Chest pain, Syncope, Dyspnea on Exertion, PND, Lower Extremity Edema, Orthopnea, Claudication Gastrointestinal: COMPLAINS OF: Black stools, Vomiting, DENIES: Abdominal pain , Bloody stools, Constipation, Diarrhea, Nausea, Difficulty Swallowing, Anorexia Genitourinary: DENIES: Abnormal vaginal bleeding, Dysmenorrhea, Dyspareunia, Sexual dysfunction, Urinary frequency, Urinary incontinence, Urgency, Hematuria , Dysuria, Nocturia, Vaginal discharge Musculoskeletal: DENIES: Joint pain, Muscle aches, Stiffness, Joint Swelling, Back pain, Neck pain Integumentary: DENIES: Abnormal pigmentation, Pruritus, Rash, Nail changes, Breast masses, Breast skin changes, Nipple discharge Hematologic/lymphatic: DENIES: Bruising, Lymphadenopathy Immunologic/allergic: DENIES: Eczema, Urticaria Neurologic: DENIES: Abnormal gait, Headache, Localized weakness, Paresthesias, Seizures, Speech Problems, Tremor, Poor Balance Psychiatric: DENIES: Anxiety, Confusion, Mood changes, Depression, Hallucinations, Agitation, Suicidal Ideation, Homicidal Ideation, Delusions Past Family Social History Past Medical History Hypertension History PUD Recent diagnosis of atrial fibrillation Hypothyroidism pre- diabetes COPD Past Surgical History none Reported Medications Reported Meds & Active Scripts Active Eliquis (Apixaban) 5 Mg Tab 5 Mg PO BID Levaquin (Levofloxacin) 500 Mg Tab 500 Mg PO DAILY Prednisone 20 Mg Tab 20 Mg PO DIRECTED 40 MG twice a day x 3 days, then 20 MG daily x 3 days, then 10 MG daily x 3 days Methimazole 10 Mg Tab 10 Mg PO TID Carvedilol 3.125 Mg Tab 3.125 Mg PO BID Furosemide 40 Mg Tab 40 Mg PO DAILY Reported Enalapril (Enalapril Maleate) 10 Mg Tab 10 Mg PO DAILY Allergies: Coded Allergies: No Known Allergies (Verified , 01/06/17) Active Ordered Medications Current Medications Pantoprazole Sodium (Protonix Inj) 40 mg ONCE ONCE IVP Last administered on 11:24; Start 01/14/17 at 11:00; Stop 01/14/17 at 11:11; Status DC Sodium Chloride (NS Flush) 2 ml UNSCH PRN IVF FLUSH AFTER USING IV ACCESS; Start 01/14/17 at 11:00; Stop 01/14/17 at 14:01; Status DC Diltiazem HCl (Cardizem Inj) 10 mg ONCE ONCE IV Last administered on 11:24; Start 01/14/17 at 11:00; Stop 01/14/17 at 11:11; Status DC Diltiazem HCl 10 mg 10 mg ONCE ONCE IV Last administered on 01/14/17 14:30; Start 01/14/17 at 11:00; Stop 01/14/17 at 11:11; Status DC Pantoprazole Sodium/Sodium Chloride (Protonix Inj/NS Inj) 100 ml @ 10 mls/hr Q10H IV Last administered on 01/14/17 13:22; Start 01/14/17 at 12:45; Stop 08/21 at 14:00; Status DC Pantoprazole Sodium 40 mg 40 mg ONCE ONCE IV PUSH ; Start 01/14/17 at 12:45; Stop 01/14/17 at 12:46; Status DC Sodium Chloride (NS 250 ml Inj) 250 ml @ 15 mls/hr ONCE ONCE IV ; Start at 13:00; Stop 01/15/17 at 05:39 Carvedilol (Coreg) 3.125 mg BID PO ; Start 01/14/17 at 21:00 Enalapril Maleate (Vasotec) 10 mg DAILY PO ; Start 01/15/17 at 09:00 Furosemide (Lasix) 40 mg DAILY PO ; Start 01/15/17 at 09:00 Methimazole (Tapazole) 10 mg TID PO ; Start 01/14/17 at 18:00 Sodium Chloride (NS Flush) 2 ml UNSCH PRN IV FLUSH FLUSH AFTER USING IV ACCESS ; Start 01/14/17 at 13:15 Sodium Chloride (NS Flush) 2 ml BID IV FLUSH ; Start 01/14/17 at 21:00 Acetaminophen (Tylenol) 650 mg Q4H PRN PO TEMP > 100.4; Start 01/14/17 at 14:00 Ondansetron HCl (Zofran Inj) 4 mg Q6H PRN IVP NAUSEA OR VOMITING; Start at 14:00 Naloxone HCl (Narcan Inj) 0.4 mg UNSCH PRN IV SEE LABEL COMMENTS; Start at 13:15 Pantoprazole Sodium 40 mg 40 mg Q12H IV PUSH ; Start 01/14/17 at 20:00 Diltiazem HCl/ Sodium Chloride (Cardizem Inj/NS Inj) 125 ml @ 0 mls/hr TITRATE IV Last administered on 01/14/17 15:11; Start 01/14/17 at 15:00 Family History Family history of diabetes. Social History Patient quit smoking 8 years ago. Denies any alcohol/ illicit drug use. Physical Exam Vital Signs Vital Signs Date Time Temp Pulse Resp B/P Pulse Ox O2 Delivery O2 Flow Rate FiO2 01/14/17 15:14 100 16 111/65 100 Nasal Cannula 01/14/17 14:54 94 16 95/62 100 Nasal Cannula 2 01/14/17 14:31 121 115/63 100 Nasal Cannula 2 01/14/17 12:48 103 16 97/56 97 Nasal Cannula 2 01/14/17 12:04 104 16 114/69 100 Nasal Cannula 2 01/14/17 11:23 135 18 111/61 100 Nasal Cannula 2 01/14/17 11:05 100 2 01/14/17 11:01 150 18 110/54 94 Nasal Cannula 2 01/14/17 10:48 98.6 153 18 145/79 96 Physical Exam GENERAL: This is a well-nourished, well-developed patient, in no apparent distress. SKIN: No rashes, ecchymoses or lesions. Cool and dry. HEAD: Atraumatic. Normocephalic. No temporal or scalp tenderness. EYES: Pupils equal round and reactive. Extraocular motions intact. No scleral icterus. No injection or drainage. ENT: Nose without bleeding, purulent drainage or septal hematoma. Throat without erythema, tonsillar hypertrophy or exudate. Uvula midline. Airway patent. Patient has dry blood on her lips. NECK: Trachea midline. No JVD or lymphadenopathy. Supple, nontender, no meningeal signs. CARDIOVASCULAR: Irregular rate and rhythm without murmurs, gallops, or rubs. RESPIRATORY: Clear to auscultation. Breath sounds equal bilaterally. No wheezes , rales, or rhonchi. GASTROINTESTINAL: Abdomen soft, tenderness to palpation epigastric area, nondistended. No hepato-splenomegaly, or palpable masses. No guarding. MUSCULOSKELETAL: Extremities without clubbing, cyanosis. +1-2 pitting edema lower extremity. No joint tenderness, effusion, or edema noted. No calf tenderness. Negative Homans sign bilaterally. NEUROLOGICAL: Awake and alert. Cranial nerves II through XII intact. Motor and sensory grossly within normal limits. Five out of 5 muscle strength in all muscle groups. Normal speech. Laboratory Laboratory Tests Test 01/14/17 01/14/17 01/14/17 11:05 11:40 13:00 White Blood Count 12.7 Red Blood Count 2.89 Hemoglobin 8.0 Hematocrit 25.8 Mean Corpuscular Volume 89.4 Mean Corpuscular Hemoglobin 27.8 Mean Corpuscular Hemoglobin 31.1 Concent Red Cell Distribution Width 14.1 Platelet Count 167 Mean Platelet Volume 9.5 Neutrophils (%) (Auto) 82.8 Lymphocytes (%) (Auto) 6.4 Monocytes (%) (Auto) 10.5 Eosinophils (%) (Auto) 0.1 Basophils (%) (Auto) 0.2 Neutrophils # (Auto) 10.5 Lymphocytes # (Auto) 0.8 Monocytes # (Auto) 1.3 Eosinophils # (Auto) 0.0 Basophils # (Auto) 0.0 CBC Comment DIFF FINAL Differential Comment Prothrombin Time 14.6 Prothromb Time International 1.3 Ratio Activated Partial 23.3 Thromboplast Time Sodium Level 137 Potassium Level 4.6 Chloride Level 96 Carbon Dioxide Level 36.6 Anion Gap 4 Blood Urea Nitrogen 71 Creatinine 0.79 Estimat Glomerular Filtration 71 Rate Random Glucose 285 Calcium Level 7.6 Total Creatine Kinase 34 Troponin I 0.03 B-Type Natriuretic Peptide 144 Blood Type O POSITIVE Antibody Screen NEGATIVE Urine Color YELLOW Urine Turbidity CLEAR Urine pH 7.0 Urine Specific [place] 1.018 Urine Protein NEG Urine Glucose (UA) 300 Urine Ketones NEG Urine Occult Blood MOD Urine Nitrite NEG Urine Bilirubin NEG Urine Urobilinogen LESS THAN 2.0 Urine Leukocyte Esterase TRACE Urine RBC LESS THAN 1 Urine WBC 2 Urine Squamous Epithelial <1 Cells Microscopic Urinalysis Comment CULT NOT INDICATED Crossmatch Leukocyte-Reduced Red Blood Cells Blood Bank Comment Result Diagram: 01/14/17 1105 01/14/17 1105 Imaging Last Impressions Chest X-Ray 01/14/17 1055 Signed Impressions: Service Date/Time: Saturday, January 14, 2017 11:12 - CONCLUSION: No acute disease. Ronny Song MD Assessment and Plan Assessment and Plan 76-year-old female with recent diagnosis/admission of atrial fibrillation who is Eliquis presented with atrial fibrillation with RVR and GI bleed. Atrial fibrillation with RVR - on last recent admission stated likely secondary to hyperthyroidism. TSH decreased at 0.005, free T4 increase of 3.8 and free T3 increase at 7.61. -Patient was put on methimazole 10 mg by mouth every 8 hours and discharged on Cardizem. -Patient was given Cardizem bolus with improvement in heart rate. Will start Cardizem drip. May consider propanolol for rate control since this is likely due to hyperthyroidism may control the heart rate better. Will wait for drying room attendant recommendation. Manager Enrollment consulted. GI bleed -Patient has black tarry stools and hematemesis. -She does have a history of peptic ulcer disease and patient is on Eliquis. -last Hg on 01/08/17 11.6 and now 8. Patient already has ordered to be transfused with 1 unit of packed red blood cells. Per nurse he is waiting for the blood in order transfuse patient. We will need to continue to transfuse if hemoglobin is less than 8 due to active GI bleed. -We will hold Eliquis. Patient given Protonix bolus and ED. We'll continue with Protonix IV 40 mg IV twice a day. -Continue supportive care. Trend hemoglobin. Consult GI. Anemia -Secondary to GI bleed. -See treatment as above. COPD -patient to f/u outpatient with Dr. Cox for PFT and will follow-up the patient is an outpatient for an outpatient PET CT scan. CHF - Echocardiogram showed a systolic function was mildly reduced with an estimated ejection fraction in the range of 45-50%. No diagnostic regional wall motion abnormality was identified. -Patient does have lower extremity edema. We'll continue to Lasix. But due to active GI bleed and borderline normotensive blood pressure will hold her lisinopril for now. HTN (hypertension) -see treatment as above. Hyperthyroidism -Patient has low TSH and elevated free T4 and free T3. -on methimazole and symptomatic. maybe exacerbated by active GI bleed. see treatment as above. Prediabetes -Hemoglobin A1c 6.2. Patient has prediabetes. -f/u with PCP. -diabetes education already given. DVT prophylaxis: SCDs Chemoprophylaxis contraindicated secondary to GI bleed. Code Status full Discussed Condition With patient and her nurse Physician Certification 2 Midnight Certification Type: Admission for Inpatient Services Order for Inpatient Services The services are ordered in accordance with Medicare regulations or non- Medicare payer requirements, as applicable. In the case of services not specified as inpatient-only, they are appropriately provided as inpatient services in accordance with the 2-midnight benchmark. Estimated LOS (days): 3 3 days is the estimated time the patient will need to remain in the hospital, assuming treatment plan goals are met and no additional complications. Post-Hospital Plan: Morenita Angeles MD January 14, 2017 15:38
--- NOTE | 2017-01-14 16:28 | MB ---
cc: RUDOLPH PARRISH DO DATE OF CONSULTATION: 01/14/2017. REASON FOR CONSULTATION: Atrial fibrillation with rapid ventricular response. HISTORY OF PRESENT ILLNESS: Laure Richardson is a pleasant 76-year-old female who presented to [facility] on January 14, 2017 with the complaint of weakness and shortness of breath. She previously was in the hospital on January 06, 2017 with an episode of new-onset atrial fibrillation. Because she had a [id number] score of 4, I discussed with her anticoagulation, which she was willing to take. She was discharged on January 09, 2017 on Eliquis 5 milligrams twice a day. Since being home, she has been taking her Eliquis as instructed. Over the past few days, she has been more weak and short of breath. Yesterday she noticed that she was extremely weak and short of breath and this morning she then had a bowel movement, which she states was black and tarry. She also had an episode of bright red hematemesis. On arrival to the emergency room, she was noted to be in atrial fibrillation with rapid ventricular response with a heart rate of around 130 beats per minute. She was given two doses of Cardizem IV and now her heart rates are around 100 beats per minute. She is currently hemodynamically stable with a heart rate around 100 and blood pressure of 118/60. She denies chest pain or shortness of breath. PAST MEDICAL HISTORY: 1. New onset atrial fibrillation secondary to hyperthyroid state. 2. [id number] score of 4. 3. New-onset hyperthyroidism. 4. Hypertension 5. History of peptic ulcer disease. PAST SURGICAL HISTORY: Denies. ALLERGIES: NO KNOWN DRUG ALLERGIES. MEDICATIONS: 1. Enalapril 10 milligrams daily 2. Eliquis 5 milligrams twice a day. 3. Methimazole 10 milligrams three times a day. 4. Coreg 3.125 milligrams twice a day. 5. Lasix 40 milligrams daily. 6. Levaquin 500 milligrams daily. 7. Prednisone 20 milligrams as directed. FAMILY HISTORY: Denies premature coronary artery disease or sudden cardiac within the family. SOCIAL HISTORY: The patient previously smoked since a very young age, but quit around eight years ago. She has smoked up to three packs per day. Denies alcohol or drug abuse. REVIEW OF SYSTEMS Fourteen systems were reviewed including osteopathic with pertinent positives and negatives as above; otherwise negative. PHYSICAL EXAMINATION: VITAL SIGNS: Temperature 98.6, heart rate 100, blood pressure 118/60, respirations 16, pulse ox 100% on 2 liters. GENERAL: In general, the patient appears in no acute distress. She is alert, awake and oriented x3. She does appear mildly pale. HEAD, EYES, EARS, NOSE, THROAT: Extraocular muscles intact. Mucous membranes moist. There is dried blood around the lips from her previous hematemesis. NECK: The neck is supple. No JVD at 45 degrees. No carotid bruits heard bilaterally. Carotid upstroke is brisk in nature. HEART: Irregularly irregular. Positive first and second heart sounds with no noted murmurs, gallops or rubs. LUNGS: Decreased breath sounds bilaterally, but no overt wheezes, rales or rhonchi. ABDOMEN: The abdomen is soft, nontender and nondistended. No organomegaly noted. EXTREMITIES: No clubbing, cyanosis or edema. Femoral and distal pulses are intact bilaterally. NEUROLOGIC: No focal deficits. OSTEOPATHIC: Osteopathically, no kyphoscoliosis, lordosis or paraspinal tender points. LABORATORY FINDINGS: Hemoglobin 8.0, hematocrit 25.8, platelets 167,000. Potassium 4.6, BUN 71, creatinine 0.79. Troponin 0.03. EKGS: Electrocardiogram (January 14, 2017): Atrial fibrillation with rapid ventricular response, occasional aberrant conduction versus premature ventricular complex, nonspecific S-T-T wave changes. IMPRESSION: 1. Upper GI bleed. 2. New onset atrial fibrillation with a [id number]-LUPa score of 4. 3. New-onset hyperthyroidism. 4. Symptomatic anemia. 5. History of hypertension 6. Pre-diabetes. 7. COPD. 8. Cardiomyopathy with mild reduction of ejection fraction of 45% to 50% by echocardiogram (January 07, 2017), possibly due to atrial fibrillation with rapid ventricular response. 9. Multivessel heart disease with moderate mitral regurgitation and moderate to severe tricuspid regurgitation by echocardiogram (January 07, 2017). RECOMMENDATIONS: 1. The patient appears to have an upper GI bleed most likely from Eliquis. She does carry a history of peptic ulcer disease which she states was a number years ago. At this time, she would not be a candidate for further anticoagulation with atrial fibrillation for her atrial fibrillation until further investigation of possible upper GI bleed. 2. We will hold her Eliquis and aspirin at this time until further recommendations can be made from GI. Depending on the results of an EGD if done, would consider placing on aspirin 81 if possible. 3. Her heart rates have since been controlled but she may need be elevated heart rate for further cardiac output. For now I would hold her enalapril and Lasix. We will attempt to place her back on her Coreg 3.125 milligrams twice a day if possible once heart rate and blood pressure have been stabilized. 4. As far as if she needs further procedures during the hospitalization including EGD or colonoscopy, she technically would be at an elevated risk but there is no way for me to decrease this risk other than control her heart rate and blood pressure as best we can. She may proceed to these procedures as necessary as any other testing or intervention would not decrease her risk, and would only prolong her time until definitive treatment for upper GI bleed could be done. Thank you for allowing me to see Laure Richardson. If there are any questions, please do not hesitate to call. Rudolph Parrish DO FRAN/CHERELLE /3:16 PM /4:08 PM
--- NOTE | 2017-01-14 17:58 | PD.CONS ---
GI Consult GI Consult SEE FORMAL GI CONSULT DICTATED TODAY ALSO ([id number]) ASSESSMENT/PLAN: 1. UGI Bleed-melena and coffee ground emesis 2. Anemia 3. A. fib -Eliquis 4. Past hx of Duodenal ulcer PLAN: 1. PPI/Octreotide 2. transfuse as needed 3. Hold Eliquis 4. EGD It was a pleasure seeing Laure Richardson . Thank you for this consult. Entered by: Angel Saxena MD January 14, 2017 17:58
[2017-01-14] MEDS ORDERED: OCTREOTIDE INJ 50 MCG/ML AMP IVP ONE (18:30)
[2017-01-14] MEDS: METHIMAZOLE 10 MG TAB PO SCH (20:10)
[2017-01-14] MEDS: OCTREOTIDE INJ 500 MCG in SODIUM CHLORID 0.9% 500 ML INJ 499.5 ML IV SCH (20:11)
[2017-01-14] MEDS: SODIUM CHLORIDE 0.9% FLUSH 10 ML FLUSH IV FLUSH SCH (21:00)
[2017-01-14] MEDS ORDERED: SODIUM CHLORIDE 0.9% FLUSH 10 ML FLUSH IV FLUSH SCH (21:00)
[2017-01-14] MEDS: PANTOPRAZOLE SODIUM 40 MG VIAL IV PUSH SCH (23:19)
[2017-01-14] MEDS: CARVEDILOL 3.125 MG TAB PO SCH (23:20)
[2017-01-15] VITALS (24 sets, daily range): BP systolic 94–111; BP diastolic 43–60; PULSE 74–102; RESP 16–22; TEMP 97.9–99.4; O2SAT 91–100
[2017-01-15] MEDS ORDERED: LACTATED RINGER'S 1000 ML IV PRN (00:45)
[2017-01-15] MEDS ORDERED: CHLORHEXIDINE GLUCONATE 2 % 1 PACK (2 CLOTHS) TOPICAL PRN (00:45)
[2017-01-15] MEDS ORDERED: POVIDONE IODINE 5% (ANTISEPSIS KIT) 4 APPLICATIONS EACH NARE PRN (00:45)
[2017-01-15] MEDS ORDERED: SODIUM CHLORID 0.9% 500 ML IV PRN (00:45)
[2017-01-15] MEDS ORDERED: INSULIN HUMAN REGULAR 1,000 UNITS/10 ML VIAL SQ PRN (00:45)
[2017-01-15 03:31] LABS: HEMATOCRIT 24.8 % (35.0-46.0); MEAN CELL VOLUME 87.4 FL (80.0-100.0); MEAN CORPUSCULAR HGB CONC 33.1 % (32.0-36.0); PLATELET COUNT 136 TH/MM3 (150-450); RED BLOOD COUNT 2.84 MIL/MM3 (4.00-5.30); RED CELL DISTRIBUTION WIDTH 13.9 % (11.6-17.2); REVIEW FLAG FINAL; WHITE BLOOD COUNT 15.7 TH/MM3 (4.0-11.0)
[2017-01-15 04:08] LABS: BICARBONATE 36.6 MEQ/L (21.0-32.0); POTASSIUM 4.2 MEQ/L (3.5-5.1)
--- NOTE | 2017-01-15 07:36 | HHI.PR ---
Subjective Remarks Pt states she feels ok and "I'm alive today". Pt denies any Chest Pain, SOB, nausea or vomiting. Denies any abdominal pain Discussed w night RN, pt has been have dark coca cola urine overnight and continues to have dark stools. Pt tells me this is the first time she has this. Denies any burning w urination, bladder pressure or any pain w urination. RN notices that she has increased in urinary frequency. Objective Vitals Vital Signs Date Time Temp Pulse Resp B/P Pulse Ox O2 Delivery O2 Flow Rate FiO2 01/14/17 18:45 98.4 101 16 130/57 96 01/14/17 17:13 97 16 114/56 100 Nasal Cannula 2 01/14/17 16:27 109 16 118/56 100 Nasal Cannula 2 01/14/17 16:10 104 16 113/57 100 Nasal Cannula 2 01/14/17 15:14 100 16 111/65 100 Nasal Cannula 01/14/17 14:54 94 16 95/62 100 Nasal Cannula 2 01/14/17 14:31 121 115/63 100 Nasal Cannula 2 01/14/17 12:48 103 16 97/56 97 Nasal Cannula 2 01/14/17 12:04 104 16 114/69 100 Nasal Cannula 2 01/14/17 11:23 135 18 111/61 100 Nasal Cannula 2 01/14/17 11:05 100 2 01/14/17 11:01 150 18 110/54 94 Nasal Cannula 2 01/14/17 10:48 98.6 153 18 145/79 96 I/O 01/14/17 01/14/17 01/14/17 01/15/17 01/15/17 01/15/17 07:00 15:00 23:00 07:00 15:00 23:00 Output Total 150 ml Balance -150 ml Output Emesis 150 ml Result Diagram: 01/15/17 0305 01/15/17 0305 Imaging Last Impressions Chest X-Ray 01/14/17 1055 Signed Impressions: Service Date/Time: Saturday, January 14, 2017 11:12 - CONCLUSION: No acute disease. Ronny Song MD Objective Remarks GENERAL: This is a well-nourished, well-developed patient, in no apparent distress. SKIN: No rashes, ecchymoses or petechia noted CARDIOVASCULAR: Irregular rate and rhythm without murmurs RESPIRATORY: Clear to auscultation. Breath sounds equal bilaterally. No wheezes GASTROINTESTINAL: Abdomen soft, non tender in the epigastric area this morning, nondistended. No guarding. no CVA tenderness MUSCULOSKELETAL: Extremities without edema. No calf tenderness. Negative Homans sign bilaterally. NEUROLOGICAL: Awake and alert. Cranial nerves II through XII intact. Motor and sensory grossly within normal limits. Five out of 5 muscle strength in all muscle groups. Normal speech. A/P Assessment and Plan 76-year-old female with recent diagnosis/admission of atrial fibrillation who is Eliquis presented with atrial fibrillation with RVR and GI bleed. Atrial fibrillation with RVR - on last recent admission stated likely secondary to hyperthyroidism. TSH decreased at 0.005, free T4 increase of 3.8 and free T3 increase at 7.61. -Patient was put on methimazole 10 mg by mouth every 8 hours and discharged on Cardizem. -s/p Cardizem bolus with improvement in heart rate. now on Cardizem drip at 5mcg/hr, BP on the low normal w MAP of 64, pt is asymptomatic at this time, will go ahead and decrease cardizem IV drip to 2.5mcg/hr, monitor BP's closely, give 500ml NS bolus IV now. Pt on coreg per cardiology (add BP and HR parameters). Appreciate assistance GI bleed -Patient has black tarry stools and hematemesis. -She does have a history of peptic ulcer disease and patient was on Eliquis. -last Hg on 01/08/17 11.6 and now 8.2 this morning. s/p 1 unit of packed red blood cells. Transfuse if hemoglobin is less than 8 due to active GI bleed. -hold Eliquis. Patient octreotide and protonix -Continue supportive care. Trend hemoglobin. Scheduled for EGD today by GI Leukocytosis WBC 15.7 this morning. Pt is asymptomatic/afebrile. could be a stress response. f/u u/a. monitor. Hematuria new onset. Will order gonzalez cath placement, u/a has already been ordered. consult urology and obtain bladder/kidney u/s. Anemia -Secondary to GI bleed. -See treatment as above. COPD -patient to f/u outpatient with Dr. Cox for PFT and will follow-up the patient is an outpatient for an outpatient PET CT scan. CHF - Echocardiogram showed a systolic function was mildly reduced with an estimated ejection fraction in the range of 45-50%. No diagnostic regional wall motion abnormality was identified. -lower extremity edema much improved. Hold lasix and lisinopril per cards due to low BP's HTN (hypertension) -see treatment as above. Hyperthyroidism -Patient has low TSH and elevated free T4 and free T3. -on methimazole and symptomatic. maybe exacerbated by active GI bleed. see treatment as above. Prediabetes -Hemoglobin A1c 6.2. Patient has prediabetes. -f/u with PCP. -diabetes education already given. DVT prophylaxis: SCDs Chemoprophylaxis contraindicated secondary to GI bleed. Discharge Planning pending further work-up and clinical improvement. Sulema Rodriguez MD January 15, 2017 07:36
[2017-01-15] MEDS ORDERED: SODIUM CHLORID 0.9% 500 ML INJ 500 ML IV ONE (08:00)
[2017-01-15] MEDS: SODIUM CHLORIDE 0.9% FLUSH 10 ML FLUSH IV FLUSH SCH ×2 (08:49→20:55)
[2017-01-15] MEDS: PANTOPRAZOLE SODIUM 40 MG VIAL IV PUSH SCH ×2 (08:49→20:54)
[2017-01-15] MEDS: CARVEDILOL 3.125 MG TAB PO SCH ×2 (08:49→20:54)
[2017-01-15] MEDS: METHIMAZOLE 10 MG TAB PO SCH ×3 (08:50→17:47)
[2017-01-15] MEDS ORDERED: FUROSEMIDE 40 MG TAB PO SCH (09:00)
[2017-01-15] MEDS ORDERED: ENALAPRIL MALEATE 10 MG TAB PO SCH (09:00)
[2017-01-15] MEDS ORDERED: EPINEPHrine HCL (1:10,000) 1 MG/10 ML SYRINGE ONE (09:12)
[2017-01-15] MEDS ORDERED: ATROPINE SULFATE 1 MG/10 ML SYRINGE ONE (09:12)
[2017-01-15] MEDS ORDERED: KETAMINE HCL 500 MG/5 ML VIAL ONE (09:23)
[2017-01-15] MEDS ORDERED: PROPOFOL 200 MG/20 ML AMP IV ONE (09:29)
--- NOTE | 2017-01-15 09:55 | GIPROC ---
[facility] [address] [facility]. [facility], [address] EGD PROCEDURE REPORT EXAM DATE: 01/15/2017 PATIENT NAME: Laure Richardson MR #: [id number] BIRTHDATE: 1940 ATTENDING: Angel Simon MD ORDER #: [id number] PROPERTY SITE MANAGER: Chris Crow and Wilder Bennett STATUS: inpatient INDICATIONS: The patient is a 76 yr old female here for an EGD due to melena and hematemesis PROCEDURE PERFORMED: EGD w/ biopsy MEDICATIONS: Per Anesthesia and None. TOPICAL ANESTHETIC: none CONSENT: The patient understands the risks and benefits of the procedure and understands that these risks include, but are not limited to: sedation, allergic reaction, infection, perforation and/or bleeding. Alternative means of evaluation and treatment include, among others: physical exam, x-rays, and/or surgical intervention. The patient elects to proceed with this endoscopic procedure. medical equipment was checked for proper function. Hand hygiene and appropriate measures for infection prevention was taken. After the risks, benefits and alternatives of the procedure were thoroughly explained, Informed consent was verified, confirmed and timeout was successfully executed by the treatment team. The patient was anesthetized with topical anesthesia and the Pentax EG-[id number] endoscope was introduced through the mouth and advanced to the . The gastroscope was then slowly withdrawn and removed. ESOPHAGUS: The mucosa of the esophagus appeared normal. STOMACH: Bile was noted in stomach-suctioned. no blood seen. Multiple biopsies were performed using cold forceps. Sample obtained for helicobacter pylori testing. DUODENUM: A single non-bleeding non-bleeding, deep and clean-based ulcer, measuring 20 x 20mm in size, was found in the duodenal bulb. ADVERSE EVENTS: There were no complications. IMPRESSIONS: 1. The esophagus appeared normal 2. Bile was noted in stomach-suctioned. no blood seen 3. Single non-bleeding ulcer, measuring 20 x 20mm in size, was found in the duodenal bulb RECOMMENDATIONS: 1. Await biopsy results. Biopsy results will not be ready for 7-10 days. If you don't hear from us in two weeks, call our office for biopsy results. 2. Continue PPI 3. Avoid NSAIDS 4. Carafate 1 gm po qid ac PATIENT CONDITION: stable DISPOSITION: Inpatient REPEAT EXAM: NONE Angel Simon MD eSigned: Angel Simon MD 01/15/2017 9:55 AM cc: PATIENT NAME: Laure Richardson Ana M MR#: [id number]
--- NOTE | 2017-01-15 10:02 | HHI.GIFU ---
GI Follow-up Note Consult Follow-up EGD with Biopsy (see also EGD report on Pentax system) ASSESSMENT/PLAN: 1. Esoph-Normal 2. Stomach-bile noted. no blood. bx taken to r/o H. Pylori 2. Duodenum- Large 2x2 cm non-bleeding bulb ulcer seen. no vessel PLAN: 1. PPI-cont 2. Carafate 3. wean off Octreotide 4. clear liquids 5. F/U CBC It was a pleasure seeing Laure Richardson. Thank you for this consult. Entered by: Angel Saxena MD January 15, 2017 10:02
[2017-01-15] MEDS ORDERED: FLUMAZENIL 0.5 MG/5 ML VIAL IV PRN ×2 (10:15)
[2017-01-15] MEDS ORDERED: NALOXONE HCL 0.4 MG/ML AMP IV PRN (10:15)
[2017-01-15 11:41] LABS: BACTERIA, URINE RARE /hpf; BLOOD, URINE NEG (NEG); COMMENT (UR) CULT NOT INDICATED; CULTURE IF INDICATED CULT NOT INDICATED; GLUCOSE,URINE NEG (NEG); KETONE, URINE NEG (NEG); MUCUS URINE FEW /lpf (OCC); NITRITE,URINE NEG (NEG); TRANSITIONAL EPI CELLS, URINE <1 /hpf; URINE COLOR YELLOW (YELLW/STRAW)
[2017-01-15] MEDS: SUCRALFATE 1 GM TAB PO SCH ×3 (11:46→20:54)
--- NOTE | 2017-01-15 13:37 | PD.CARD.PN ---
Subjective Subjective Remarks Feels well, no CV complaints Objective Medications Current Medications Medications (Trade) Dose Ordered Sig/Ezio Route Start Time Stop Time Status Last Admin (Coreg) 3.125 mg BID PO 01/14/17 21:00 01/14/17 23:20 (Lasix) 40 mg DAILY PO 01/15/17 09:00 (Tapazole) 10 mg TID PO 01/14/17 18:00 01/15/17 08:50 (Tylenol) 650 mg Q4H PRN PO 01/14/17 14:00 (Zofran Inj) 4 mg Q6H PRN IVP 01/14/17 14:00 (Narcan Inj) 0.4 mg UNSCH PRN IV 01/14/17 13:15 Pantoprazole Sodium 40 mg 40 mg Q12H IV PUSH 01/14/17 20:00 01/15/17 08:49 (Cardizem Inj/NS Inj) 125 ml @ 0 mls/hr TITRATE IV 01/14/17 15:00 01/14/17 15:11 (NS Flush) 2 ml UNSCH PRN IV FLUSH 01/14/17 18:00 Sodium Chloride 2 ml 2 ml BID IV FLUSH 01/14/17 21:00 01/15/17 08:49 Octreotide Acetate 500 mcg/ Sodium Chloride 500 ml @ 25 mls/hr Q20H IV 01/14/17 19:00 01/19/17 18:59 01/14/17 20:11 Lactated Ringer's 1,000 ml @ 30 mls/hr Q24H PRN IV 01/15/17 00:45 01/18/17 00:44 (NS 500 ml Inj) 500 ml @ 30 mls/hr [id number] PRN IV 01/15/17 00:45 01/18/17 00:44 (Romazicon Inj) 0.2 mg Q1M PRN IV 01/15/17 10:15 01/16/17 10:14 (Narcan Inj) 0.1 mg Q2M PRN IV 01/15/17 10:15 01/16/17 10:14 (Carafate) 1 gm ACHS PO 01/15/17 11:00 01/15/17 11:46 Vital Signs / I&O Vital Signs Date Time Temp Pulse Resp B/P Pulse Ox O2 Delivery O2 Flow Rate FiO2 01/15/17 13:04 94 01/15/17 12:15 91 01/15/17 11:00 74 01/15/17 11:00 97.9 89 16 111/52 100 01/15/17 10:30 82 01/15/17 10:00 86 22 126/56 98 Nasal Cannula 2 01/15/17 09:48 98.6 89 24 108/54 100 Nasal Cannula 2 01/15/17 09:00 84 01/15/17 08:00 78 01/15/17 08:00 98.4 81 16 97/48 93 01/15/17 07:00 80 01/15/17 06:00 82 01/15/17 05:00 84 01/15/17 04:00 84 01/15/17 03:00 98.4 82 18 94/43 91 01/15/17 03:00 92 01/15/17 02:00 84 01/15/17 01:00 100 01/15/17 00:00 86 01/14/17 23:00 93 01/14/17 23:00 97.9 84 20 108/50 99 01/14/17 22:00 92 01/14/17 21:00 102 01/14/17 20:00 106 01/14/17 19:00 101 01/14/17 19:00 98.5 97 20 108/53 99 01/14/17 18:45 98.4 101 16 130/57 96 01/14/17 17:13 97 16 114/56 100 Nasal Cannula 2 01/14/17 16:27 109 16 118/56 100 Nasal Cannula 2 01/14/17 16:10 104 16 113/57 100 Nasal Cannula 2 01/14/17 15:14 100 16 111/65 100 Nasal Cannula 01/14/17 14:54 94 16 95/62 100 Nasal Cannula 2 01/14/17 14:31 121 115/63 100 Nasal Cannula 2 I/O 01/14/17 01/14/17 01/14/17 01/15/17 01/15/17 01/15/17 07:00 15:00 23:00 07:00 15:00 23:00 Intake Total 100 ml Output Total 150 ml 600 ml 300 ml Balance -150 ml -600 ml -200 ml Intake Other 100 ml Output Urine Total 600 ml 300 ml Emesis 150 ml Physical Exam HEENT/Neck: Neg Lungs: CTA B/L CV: IRRR, HS distant Laboratory Laboratory Tests Test 01/14/17 01/15/17 01/15/17 01/15/17 23:38 03:05 09:30 11:47 Hemoglobin 8.2 GM/DL 8.2 GM/DL 7.8 GM/DL White Blood Count 15.7 TH/MM3 Red Blood Count 2.84 MIL/MM3 Hematocrit 24.8 % Mean Corpuscular Volume 87.4 FL Mean Corpuscular Hemoglobin 29.0 PG Mean Corpuscular Hemoglobin 33.1 % Concent Red Cell Distribution Width 13.9 % Platelet Count 136 TH/MM3 Mean Platelet Volume 9.1 FL Sodium Level 145 MEQ/L Potassium Level 4.2 MEQ/L Chloride Level 105 MEQ/L Carbon Dioxide Level 36.6 MEQ/L Anion Gap 3 MEQ/L Blood Urea Nitrogen 60 MG/DL Creatinine 0.64 MG/DL Estimat Glomerular Filtration 91 ML/MIN Rate Random Glucose 118 MG/DL Calcium Level 7.9 MG/DL Urine Color YELLOW Urine Turbidity CLEAR Urine pH 7.0 Urine Specific Armstrong 1.018 Urine Protein NEG mg/dL Urine Glucose (UA) NEG mg/dL Urine Ketones NEG mg/dL Urine Occult Blood NEG Urine Nitrite NEG Urine Bilirubin NEG Urine Urobilinogen LESS THAN 2.0 MG/DL Urine Leukocyte Esterase NEG Urine RBC LESS THAN 1 /hpf Urine WBC 1 /hpf Urine Transitional Epithelial <1 /hpf Cells Urine Bacteria RARE /hpf Urine Mucus FEW /lpf Microscopic Urinalysis Comment CULT NOT INDICATED Imaging Last Impressions Chest X-Ray 01/14/17 1055 Signed Impressions: Service Date/Time: Saturday, January 14, 2017 11:12 - CONCLUSION: No acute disease. Ronny Song MD Assessment and Plan Problem List: (1) Atrial fibrillation (2) Hematemesis Assessment and Plan Dr. Lambert covering for Dr. Gates 1) AF with RVR on admission. Assymptomatic now with good control on Cardizem drip. Will switch to carvedilol PO as at home- BP permitting. Off Eliquis and ASA now secondary to Upper GIB. Resume Eliquis when clear from GI standpoint. [id number] Score =4 2) GIB- Eval and Rx per GI. S/P EGD with biopsy this am. Resume Eliquis when clear from GI standpoint. 3) Hypotension- s/p 500cc NS bolus this am with improvement. BB, KIRAN and diuretics on hold. 4) Hx CHF. Echo with EF 45-50% range. Discussed Condition With Dr. Lambert Problem Qualifiers (1) Hematemesis: Qualified Code: K92.0 - Hematemesis, presence of nausea not specified Flora Díaz January 15, 2017 13:37
[2017-01-15] MEDS: OCTREOTIDE INJ 500 MCG in SODIUM CHLORID 0.9% 500 ML INJ 499.5 ML IV SCH (15:15)
[2017-01-15 15:59] LABS: HEMATOCRIT 22.1 % (35.0-46.0); REVIEW FLAG FINAL
--- NOTE | 2017-01-15 16:21 | PD.CONS ---
HPI Service Urology Consult Requested By Reason for Consult hematuria Primary Care Physician Unknown Diagnosis: History of Present Illness 76yo female with history of afib and rectal bleeding seen in consultation for hematuria. Patient reports she noticed blood in her urine this morning as dark red/black. Patient reports she has never had blood in her urine before. She has no issues voiding, denies any dysuria. No pain. Currently with an indwelling urethral catheter in place with clear yellow urine. Ne fevers. She is on anticoagulation for her Afib with Elquis. Review of Systems ROS Limitations: Clinical Condition Constitutional: DENIES: Fever Endocrine: DENIES: Abnorml menstrual pattern Eyes: DENIES: Blurred vision Ears, nose, mouth, throat: DENIES: Hearing loss Respiratory: DENIES: Apneas, Cough Cardiovascular: DENIES: Chest pain Gastrointestinal: COMPLAINS OF: Black stools, Bloody stools, DENIES: Abdominal pain, Nausea, Vomiting Genitourinary: COMPLAINS OF: Hematuria, DENIES: Urinary frequency, Urinary incontinence, Urgency, Dysuria Musculoskeletal: DENIES: Back pain Integumentary: DENIES: Abnormal pigmentation Hematologic/lymphatic: DENIES: Bruising Immunologic/allergic: DENIES: Eczema Neurologic: DENIES: Headache Psychiatric: DENIES: Anxiety Except as stated in HPI: all other systems reviewed are Neg Past Family Social History Past Medical History Hypertension History PUD Recent diagnosis of atrial fibrillation Hypothyroidism pre- diabetes COPD Past Surgical History No Past surgeries Reported Medications Reported Meds & Active Scripts Active Eliquis (Apixaban) 5 Mg Tab 5 Mg PO BID Levaquin (Levofloxacin) 500 Mg Tab 500 Mg PO DAILY Prednisone 20 Mg Tab 20 Mg PO DIRECTED 40 MG twice a day x 3 days, then 20 MG daily x 3 days, then 10 MG daily x 3 days Methimazole 10 Mg Tab 10 Mg PO TID Carvedilol 3.125 Mg Tab 3.125 Mg PO BID Furosemide 40 Mg Tab 40 Mg PO DAILY Reported Enalapril (Enalapril Maleate) 10 Mg Tab 10 Mg PO DAILY Allergies: Coded Allergies: No Known Allergies (Verified , 01/06/17) Active Ordered Medications Current Medications Medications (Trade) Dose Ordered Sig/Ezio Route Start Time Stop Time Status Last Admin (Coreg) 3.125 mg BID PO 01/14/17 21:00 01/14/17 23:20 (Tapazole) 10 mg TID PO 01/14/17 18:00 01/15/17 13:29 (Tylenol) 650 mg Q4H PRN PO 01/14/17 14:00 (Zofran Inj) 4 mg Q6H PRN IVP 01/14/17 14:00 (Narcan Inj) 0.4 mg UNSCH PRN IV 01/14/17 13:15 Pantoprazole Sodium 40 mg 40 mg Q12H IV PUSH 01/14/17 20:00 01/15/17 08:49 (Cardizem Inj/NS Inj) 125 ml @ 0 mls/hr TITRATE IV 01/14/17 15:00 01/14/17 15:11 (NS Flush) 2 ml UNSCH PRN IV FLUSH 01/14/17 18:00 Sodium Chloride 2 ml 2 ml BID IV FLUSH 01/14/17 21:00 01/15/17 08:49 Octreotide Acetate 500 mcg/ Sodium Chloride 500 ml @ 25 mls/hr Q20H IV 01/14/17 19:00 01/19/17 18:59 01/14/17 20:11 Lactated Ringer's 1,000 ml @ 30 mls/hr Q24H PRN IV 01/15/17 00:45 01/18/17 00:44 (NS 500 ml Inj) 500 ml @ 30 mls/hr [id number] PRN IV 01/15/17 00:45 01/18/17 00:44 (Romazicon Inj) 0.2 mg Q1M PRN IV 01/15/17 10:15 01/16/17 10:14 (Narcan Inj) 0.1 mg Q2M PRN IV 01/15/17 10:15 01/16/17 10:14 (Carafate) 1 gm ACHS PO 01/15/17 11:00 01/15/17 11:46 Family History No malignancy Hx of DM Social History Quit smoking 8 yrs ago Physical Exam Vital Signs Date Time Temp Pulse Resp B/P Pulse Ox O2 Delivery O2 Flow Rate FiO2 01/15/17 14:04 83 01/15/17 13:04 94 01/15/17 12:15 91 01/15/17 11:00 74 01/15/17 11:00 97.9 89 16 111/52 100 01/15/17 10:30 82 01/15/17 10:00 86 22 126/56 98 Nasal Cannula 2 01/15/17 09:48 98.6 89 24 108/54 100 Nasal Cannula 2 01/15/17 09:00 84 01/15/17 08:00 78 01/15/17 08:00 98.4 81 16 97/48 93 01/15/17 07:00 80 01/15/17 06:00 82 01/15/17 05:00 84 01/15/17 04:00 84 01/15/17 03:00 98.4 82 18 94/43 91 01/15/17 03:00 92 01/15/17 02:00 84 01/15/17 01:00 100 01/15/17 00:00 86 01/14/17 23:00 93 01/14/17 23:00 97.9 84 20 108/50 99 01/14/17 22:00 92 01/14/17 21:00 102 01/14/17 20:00 106 01/14/17 19:00 101 01/14/17 19:00 98.5 97 20 108/53 99 01/14/17 18:45 98.4 101 16 130/57 96 01/14/17 17:13 97 16 114/56 100 Nasal Cannula 2 01/14/17 16:27 109 16 118/56 100 Nasal Cannula 2 Physical Exam GENERAL: This is a well-nourished, well-developed patient, in no apparent distress. SKIN: No rashes, ecchymoses or lesions. Cool and dry. HEAD: Atraumatic. Normocephalic. EYES: Extraocular motions intact. No scleral icterus. No injection or drainage. ENT: Nose without bleeding, purulent drainage. Airway patent. NECK: Trachea midline. No JVD or lymphadenopathy CARDIOVASCULAR: Normal pulses, extremities well perfused RESPIRATORY: Nonlabored, equal chest rise GASTROINTESTINAL: Abdomen nondistended. No hepato-splenomegaly GENITOURINARY: Oreilly catheter in place, clear yellow urine, no blood noted MUSCULOSKELETAL: Extremities without clubbing, cyanosis NEUROLOGICAL: Awake and alert. Motor and sensory grossly within normal limits. Normal speech. Lab results reviewed: Yes Laboratory Tests Test 01/14/17 01/15/17 01/15/17 01/15/17 23:38 03:05 09:30 11:47 Hemoglobin 8.2 8.2 7.8 White Blood Count 15.7 Red Blood Count 2.84 Hematocrit 24.8 Mean Corpuscular Volume 87.4 Mean Corpuscular Hemoglobin 29.0 Mean Corpuscular Hemoglobin 33.1 Concent Red Cell Distribution Width 13.9 Platelet Count 136 Mean Platelet Volume 9.1 Sodium Level 145 Potassium Level 4.2 Chloride Level 105 Carbon Dioxide Level 36.6 Anion Gap 3 Blood Urea Nitrogen 60 Creatinine 0.64 Estimat Glomerular Filtration 91 Rate Random Glucose 118 Calcium Level 7.9 Urine Color YELLOW Urine Turbidity CLEAR Urine pH 7.0 Urine Specific [place] 1.018 Urine Protein NEG Urine Glucose (UA) NEG Urine Ketones NEG Urine Occult Blood NEG Urine Nitrite NEG Urine Bilirubin NEG Urine Urobilinogen LESS THAN 2.0 Urine Leukocyte Esterase NEG Urine RBC LESS THAN 1 Urine WBC 1 Urine Transitional Epithelial <1 Cells Urine Bacteria RARE Urine Mucus FEW Microscopic Urinalysis Comment CULT NOT INDICATED Test 01/15/17 15:42 Hemoglobin 7.4 Hematocrit 22.1 Result Diagram: 01/15/17 1542 01/15/17 0305 Imaging Last Impressions Chest X-Ray 01/14/17 1055 Signed Impressions: Service Date/Time: Saturday, January 14, 2017 11:12 - CONCLUSION: No acute disease. Ronny Song MD Assessment and Plan Problem List: (1) Atrial fibrillation with RVR ICD Code: I48.91 Status: Acute (2) Acute blood loss anemia ICD Code: D62 Status: Acute Assessment and Plan -Hematuria episode x1. No current blood -Oreilly catheter in place with clear yellow urine -Oreilly catheter may be removed prior to discharge per primary -Follow-up with Urology in clinic after discharge for further evaluation regarding her hematuria -Please call with questions Jorge Cruz MD January 15, 2017 16:21
--- NOTE | 2017-01-15 23:33 | RADRPT ---
EXAM DATE/TIME: 01/15/2017 22:23 [facility] COMPARISON: No previous studies available for comparison. INDICATIONS : Hematuria. MEDICAL HISTORY : Hypertension. Chronic obstructive pulmonary disease. Hyperthyroidism. Diabetes. GI bleed. Hematuria. Afib. Congestive heart failure. SURGICAL HISTORY : Panendoscopy with biopsy. ENCOUNTER: Initial ACUITY: 1 day PAIN SCORE: 0/10 LOCATION: Bilateral flank MEASUREMENTS: RIGHT KIDNEY: 10.2 x 4.5 x 3.8 cm LEFT KIDNEY: 10.9 x 4.9 x 4.9 cm FINDINGS: RIGHT KIDNEY: Renal cortex is normal in thickness and echotexture. No hydronephrosis, stone or mass. There is a cys t along the midpole measuring 8 mm. LEFT KIDNEY: Renal cortex is normal in thickness and echotexture. No hydronephrosis, stone, or mass. There is a cyst along the midpole measuring 2.8 x 2.9 cm. BLADDER: Oreilly catheter in bladder. Bladder decompressed. CONCLUSION: 1. Bilateral benign-appearing renal cysts. 2. Otherwise, unremarkable bilateral renal ultrasound. Kleber Vega MD on January 15, 2017 at 23:30 Board Certified Radiologist. This report was verified electronically.
[2017-01-16] VITALS (28 sets, daily range): BP systolic 100–113; BP diastolic 45–71; PULSE 82–117; RESP 16–24; TEMP 97.7–99; O2SAT 92–97
[2017-01-16 04:45] LABS: AUTOMATED NEUTROPHIL # 14.2 TH/MM3 (1.8-7.7); BASOPHIL % 0.1 % (0.0-2.0); EOSINOPHIL # 0.1 TH/MM3 (0-0.4); EOSINOPHIL % 0.4 % (0.0-4.0); HEMO FLAGS DIFF FINAL; LYMPH % 8.1 % (9.0-44.0); LYMPHOCYTE # 1.4 TH/MM3 (1.0-4.8); MEAN CELL VOLUME 87.8 FL (80.0-100.0); MEAN CORPUSCULAR HEMOGLOBIN 28.9 PG (27.0-34.0); MEAN CORPUSCULAR HGB CONC 32.9 % (32.0-36.0); MONO % 10.2 % (0.0-8.0); NEUT % 81.2 % (16.0-70.0); PLATELET COUNT 144 TH/MM3 (150-450); RED BLOOD COUNT 2.51 MIL/MM3 (4.00-5.30); RED CELL DISTRIBUTION WIDTH 14.5 % (11.6-17.2); WHITE BLOOD COUNT 17.4 TH/MM3 (4.0-11.0)
[2017-01-16 05:07] LABS: POTASSIUM 3.7 MEQ/L (3.5-5.1)
[2017-01-16] MEDS: SUCRALFATE 1 GM TAB PO SCH ×4 (06:20→20:28)
--- NOTE | 2017-01-16 08:09 | HHI.PR ---
Subjective Remarks Pt tells me that she continues to have dark loose stools. last one was around 7am today. Pt denies any blood in her urine at this time. Gonzalez does show clear yellow urine. Pt denies coughing, abdominal pain. States that she feels fine except for the dark stools she still has Discussed w RN, she mentions to me Hb and WBC levels this am. Objective Vitals Vital Signs Date Time Temp Pulse Resp B/P Pulse Ox O2 Delivery O2 Flow Rate FiO2 01/16/17 06:00 88 01/16/17 05:00 98 01/16/17 04:00 92 01/16/17 03:00 98.9 92 22 108/45 92 01/16/17 03:00 96 01/16/17 02:00 106 01/16/17 01:00 94 01/16/17 00:00 90 01/15/17 23:00 98.8 92 20 111/53 93 01/15/17 23:00 97 01/15/17 22:00 94 01/15/17 21:00 100 01/15/17 20:00 102 01/15/17 19:00 92 01/15/17 19:00 99.4 95 22 109/49 94 01/15/17 18:00 90 01/15/17 17:00 88 01/15/17 16:00 88 01/15/17 15:00 79 01/15/17 15:00 98.3 81 16 110/60 100 01/15/17 14:04 83 01/15/17 13:04 94 01/15/17 12:15 91 01/15/17 11:00 74 01/15/17 11:00 97.9 89 16 111/52 100 01/15/17 10:30 82 01/15/17 10:00 86 22 126/56 98 Nasal Cannula 2 01/15/17 09:48 98.6 89 24 108/54 100 Nasal Cannula 2 01/15/17 09:00 84 I/O 01/15/17 01/15/17 01/15/17 01/16/17 01/16/17 01/16/17 07:00 15:00 23:00 07:00 15:00 23:00 Intake Total 100 ml 1400 ml 555 ml Output Total 600 ml 300 ml 750 ml 550 ml Balance -600 ml -200 ml 650 ml 5 ml Intake Oral 900 ml 480 ml IV Total 500 ml 75 ml Other 100 ml Output Urine Total 600 ml 300 ml 750 ml 550 ml # Bowel Movements 3 1 Result Diagram: 01/16/17 0410 01/16/17 0410 Imaging Last Impressions Renal Ultrasound 01/15/17 0000 Signed Impressions: Service Date/Time: Sunday, January 15, 2017 22:23 - CONCLUSION: 1. Bilateral benign-appearing renal cysts. 2. Otherwise, unremarkable bilateral renal ultrasound. Kleber Vega MD Chest X-Ray 01/14/17 1055 Signed Impressions: Service Date/Time: Saturday, January 14, 2017 11:12 - CONCLUSION: No acute disease. Ronny Song MD Objective Remarks GENERAL: This is a well-nourished, well-developed patient, in no apparent distress. SKIN: No rashes, ecchymoses or petechia noted CARDIOVASCULAR: Irregular rate and rhythm without murmurs RESPIRATORY: Clear to auscultation. Breath sounds equal bilaterally. No wheezes GASTROINTESTINAL: Abdomen soft, non tender in the epigastric area this morning, nondistended. no CVA tenderness MUSCULOSKELETAL: Extremities without edema. sitting on chair NEUROLOGICAL: Awake and alert. Cranial nerves II through XII intact. Motor and sensory grossly within normal limits. Normal speech. A/P Assessment and Plan 76-year-old female with recent diagnosis/admission of atrial fibrillation who is Eliquis presented with atrial fibrillation with RVR and GI bleed. Atrial fibrillation with RVR - on last recent admission stated likely secondary to hyperthyroidism. TSH decreased at 0.005, free T4 increase of 3.8 and free T3 increase at 7.61. -Patient was put on methimazole 10 mg by mouth every 8 hours and discharged on Cardizem. -s/p Cardizem bolus with improvement in heart rate. off Cardizem drip. Pt on coreg per cardiology. Appreciate assistance GI bleed -Patient continues to have black tarry stools -She does have a history of peptic ulcer disease and patient was on Eliquis. -last Hg on 01/08/17 11.6 and now 7.2 this morning. s/p 1 unit of packed red blood cells. will transfuse another unit of PRBC now and hold one unit. Check H&H post transfusion and monitor q6hrs. -hold Eliquis. Patient on carafate and protonix -Continue supportive care. Trend hemoglobin. EGD yesterday showed Large 2x2 cm non-bleeding bulb ulcer seen in duodenum. no vessel Leukocytosis worsening WBC 17.4 this morning. Pt is asymptomatic/afebrile. denies any cough, chest x-ray neg, u/a neg. no abdominal pain, source unknown. will get ID consult for further recs blood cx x 2 Hematuria new onset. gonzalez cath in place, no new episode, renal u/s neg. urology evaluated the patient and would like her to f/u as an outpatient, ok to d/c gonzalez prior to discharge. Anemia -Secondary to GI bleed. -See treatment as above. COPD -patient to f/u outpatient with Dr. Cox for PFT and will follow-up the patient is an outpatient for an outpatient PET CT scan. CHF - Echocardiogram showed a systolic function was mildly reduced with an estimated ejection fraction in the range of 45-50%. No diagnostic regional wall motion abnormality was identified. -lower extremity edema much improved. Hold lasix and lisinopril per cards due to low BP's HTN (hypertension) -see treatment as above. Hyperthyroidism -Patient has low TSH and elevated free T4 and free T3. -on methimazole. maybe exacerbated by active GI bleed. see treatment as above. Prediabetes -Hemoglobin A1c 6.2. Patient has prediabetes. -f/u with PCP. -diabetes education already given. DVT prophylaxis: SCDs Chemoprophylaxis contraindicated secondary to GI bleed. Discharge Planning pending further work-up and clinical improvement. Sulema Rodriguez MD January 16, 2017 08:09
[2017-01-16] MEDS: SODIUM CHLORIDE 0.9% FLUSH 10 ML FLUSH IV FLUSH SCH ×2 (08:25→20:29)
[2017-01-16] MEDS: METHIMAZOLE 10 MG TAB PO SCH ×3 (08:25→17:13)
[2017-01-16] MEDS: PANTOPRAZOLE SODIUM 40 MG VIAL IV PUSH SCH ×2 (08:25→20:28)
[2017-01-16] MEDS: CARVEDILOL 3.125 MG TAB PO SCH ×2 (08:25→20:29)
[2017-01-16] MEDS ORDERED: SODIUM CHLOR 0.9% 250 ML INJ 250 ML IV ONE (08:30)
[2017-01-16 10:59] LABS: HEMATOCRIT 23.6 % (35.0-46.0); REVIEW FLAG FINAL
[2017-01-16] MEDS: OCTREOTIDE INJ 500 MCG in SODIUM CHLORID 0.9% 500 ML INJ 499.5 ML IV SCH (11:16)
--- NOTE | 2017-01-16 12:01 | HHI.GIFU ---
GI Follow-up Note Consult Follow-up Subjective: Patient laying in bed comfortably. 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 Tolerating diet. No N/V/Abd pain/SOB/ CP/BRBPR. Objective: PHYSICAL EXAMINATION: Vitals signs: 104/47-89-20 No fever HEENT: no jaundice. Throat is clear. NECK: Neck is supple, no JVD, no lymphadenopathy. CHEST: Chest is clear to auscultation and percussion. CARDIAC: irregular rate and rhythm with no murmur gallop or rubs. ABDOMEN: Soft, nondistended, nontender; no hepatosplenomegaly; bowel sounds are present in all four quadrants. EXTREMITIES: No edema. WEAPONS OFFICER: alert and oriented times three. Available Data (labs, X- Rays, Procedures) : Hgb stable 7.8-7.4-7.2-7.7. pt getting blood now ASSESSMENT/PLAN: 1. UGI Bleed-melena and coffee ground emesis. Large non-bleeding duodenal ulcer seen (no vessel). bx of stomach pending for H. pylori. With a stable Hgb I suspect the dark stools are "old blood" 2. Anemia-stable. getting blood at this time (agree) 3. A. fib -Eliquis on hold 4. Past hx of Duodenal ulcer with GI bleeding. PLAN: 1. Wean off Octreotide (done) 2. Cont PPI/Carafate 3. advance diet 4. once she is tolerating her diet with a stable Hgb (and w/o bleeding) she can be D/C 5. No set guidelines as to when one restarts anticoagulation. She is at risk of a CVA but she has had 2 major GI bleeds. It will also take 6-8 weeks to heal his ulcer. She is aware of this dilemma. It was a pleasure seeing Laure Richardson. Thank you for this consult. Entered by: Angel Saxena MD January 16, 2017 12:01
--- NOTE | 2017-01-16 13:43 | MB ---
cc: GIANA PORTILLO MD DATE OF CONSULTATION: 01/16/2017. REASON FOR CONSULTATION: Worsening leukocytosis, no obvious source. Appreciate input. REQUESTING PHYSICIAN: Dr. Rodriguez. HISTORY OF PRESENT ILLNESS This is a 76-year-old white female who was brought to the emergency department after she called . The patient was noted to have GI bleed and she mentioned that she called an ambulance because she was having palpitations. The heart rate was 103 on admission and the white blood cell count was 12.7. The workup of the white count today includes a urinalysis, which was unremarkable on 01/14 and again repeated on 01/15 it was still unremarkable. The patient has a Oreilly catheter in place. Her white count has climbed to 17.4 today. She is sitting on the side of the bed currently and is comfortable but she looks very frail and she complains of feeling extremely weak. She states that she had chest pain that has improved and she now has no pain currently. She is being followed by gastroenterology for the GI bleed. Blood cultures were taken today. The patient has no cough or shortness of breath or sputum production. She does note that she did have some shortness of breath on admission. Chest x-ray showed no acute disease. The patient was recently discharged from the hospital on January 09 after admission for new-onset congestive heart failure and new onset atrial fibrillation. She spent three days in the hospital and she was discharged on Levaquin. During the hospitalization, and her white blood cell count was normal. She tells me that she does not recall any events of the last couple days. Her friend and caregiver, who goes by house to check on her, mentions that she was very sleepy over the past couple of days but now she is more awake. PAST MEDICAL HISTORY: 1. Hypertension. 2. Hypothyroidism. 3. Pre-diabetes. 4. COPD. 5. Atrial fibrillation. ALLERGIES: NO KNOWN DRUG ALLERGIES. MEDICATIONS: 1. Carafate. 2. Coreg. 3. Protonix. 4. Octreotide. 5. Tapazole. SOCIAL HISTORY: The patient lives alone. She quit smoking cigarettes five years ago. No tobacco, alcohol use. No illicit drugs. FAMILY HISTORY: Noncontributory. REVIEW OF SYSTEMS: CONSTITUTIONAL: No fever or chills. HEAD, EYES, EARS, NOSE, THROAT: No visual blurring or diplopia. No difficulty swallowing or soreness of the throat. No nasal drainage or nasal bleeding. No neck pain or neck stiffness. CARDIOVASCULAR: Denies chest pain. Positive for palpitations. GASTROINTESTINAL: Positive for hematemesis and black stools. Denies abdominal pain. Denies nausea, denies vomiting. GENITOURINARY: Denies frequency or urgency or dysuria. MUSCULOSKELETAL: Denies aches or pains. HEMATOPOIETIC: Denies easy bruising or bleeding. INTEGUMENTARY: Denies skin rash or itching. ENDOCRINE: Denies polyuria or polydipsia. NEUROLOGIC: Denies headache. PSYCHIATRIC: Denies mood alterations or depression. PHYSICAL EXAMINATION: GENERAL: This is a frail white bit correction this is a frail female in no acute distress. She is awake and alert but appears quite fatigued. VITAL SIGNS: Include temperature 97.7, blood pressure 100/47, respirations 20, heart rate 89. HEAD, EYES, EARS, NOSE, THROAT: Head atraumatic. Extraocular movements grossly intact, pupils reactive to light. No icterus. No nasal bleeding or nasal discharge. Nasal septum midline. Oropharynx has no visible lesions. NECK: The neck is supple without adenopathy. LUNGS: Clear breath sounds bilaterally slightly diminished at the bases. HEART: Irregular rate and rhythm. No murmurs, rubs or gallops. ABDOMEN: Bowel sounds present, soft, no tenderness appreciated. RECTAL: Not performed. EXTREMITIES: No clubbing. No cyanosis. Trace edema of the lower extremities. SKIN: No rash. NEUROLOGIC: No gross focal findings. PSYCHIATRIC: The patient is calm and cooperative. LABORATORY DATA: WBCS 17.4, platelets 144,000, hemoglobin 7.7, 81% neutrophils, 8% lymphocytes, 10% monocytes. Creatinine 0.55, BUN 22, estimated GFR 108. IMPRESSION: 1. Leukocytosis. Patient without clear evidence of infection. 2. GI bleed. 3. Patient with anemia. The patient has had negative urinalysis and chest x-ray is unremarkable. I think the leukocytosis is very likely reactive and is very likely related to her GI bleeding. RECOMMENDATIONS: 1. Follow the blood cultures which have been ordered. 2. Monitor white blood cell count 3. Monitor clinically for signs of infection. 4. I do not think it is necessary to begin antibiotic treatment at this time. Thank you for this consultation. I will follow the patient's white blood cell count and if it remains elevated, I will see her again. The white blood cell count can be followed with serial labs. Thank you for this consultation. Giana Portillo MD FD/CHERELLE /12:53 PM /1:28 PM
--- NOTE | 2017-01-16 14:09 | PD.CARD.PN ---
Subjective Subjective Remarks No CV c/o. Receiving another unit PRBCs. ? Mild SOB with transfusion- but in NAD Objective Medications Current Medications Medications (Trade) Dose Ordered Sig/Ezio Route Start Time Stop Time Status Last Admin (Coreg) 3.125 mg BID PO 01/14/17 21:00 01/16/17 08:25 (Tapazole) 10 mg TID PO 01/14/17 18:00 01/16/17 11:53 (Tylenol) 650 mg Q4H PRN PO 01/14/17 14:00 (Zofran Inj) 4 mg Q6H PRN IVP 01/14/17 14:00 (Narcan Inj) 0.4 mg UNSCH PRN IV 01/14/17 13:15 Pantoprazole Sodium 40 mg 40 mg Q12H IV PUSH 01/14/17 20:00 01/16/17 08:25 (Cardizem Inj/NS Inj) 125 ml @ 0 mls/hr TITRATE IV 01/14/17 15:00 01/14/17 15:11 (NS Flush) 2 ml UNSCH PRN IV FLUSH 01/14/17 18:00 Sodium Chloride 2 ml 2 ml BID IV FLUSH 01/14/17 21:00 01/16/17 08:25 Octreotide Acetate 500 mcg/ Sodium Chloride 500 ml @ 25 mls/hr Q20H IV 01/14/17 19:00 01/19/17 18:59 01/14/17 20:11 Lactated Ringer's 1,000 ml @ 30 mls/hr Q24H PRN IV 01/15/17 00:45 01/18/17 00:44 (NS 500 ml Inj) 500 ml @ 30 mls/hr [id number] PRN IV 01/15/17 00:45 01/18/17 00:44 Sucralfate 1 gm 1 gm ACHS PO 01/15/17 11:00 01/16/17 11:53 (NS 250 ml Inj) 250 ml @ 15 mls/hr ONCE ONCE IV 01/16/17 08:30 01/17/17 01:09 01/16/17 10:12 Vital Signs / I&O Vital Signs Date Time Temp Pulse Resp B/P Pulse Ox O2 Delivery O2 Flow Rate FiO2 01/16/17 11:00 84 01/16/17 11:00 97.7 89 18 100/47 92 01/16/17 10:45 97.7 89 20 100/47 92 01/16/17 10:15 98.5 97 16 113/56 94 01/16/17 10:05 98.7 93 16 109/53 95 01/16/17 09:58 98.4 92 16 111/60 94 01/16/17 08:00 98.0 92 16 111/54 95 01/16/17 07:00 91 01/16/17 06:00 88 01/16/17 05:00 98 01/16/17 04:00 92 01/16/17 03:00 98.9 92 22 108/45 92 01/16/17 03:00 96 01/16/17 02:00 106 01/16/17 01:00 94 01/16/17 00:00 90 01/15/17 23:00 98.8 92 20 111/53 93 01/15/17 23:00 97 01/15/17 22:00 94 01/15/17 21:00 100 01/15/17 20:00 102 01/15/17 19:00 92 01/15/17 19:00 99.4 95 22 109/49 94 01/15/17 18:00 90 01/15/17 17:00 88 01/15/17 16:00 88 01/15/17 15:00 79 01/15/17 15:00 98.3 81 16 110/60 100 01/15/17 14:04 83 I/O 01/15/17 01/15/17 01/15/17 01/16/17 01/16/17 01/16/17 06:59 14:59 22:59 06:59 14:59 22:59 Intake Total 100 ml 1400 ml 555 ml Output Total 600 ml 300 ml 750 ml 550 ml Balance -600 ml -200 ml 650 ml 5 ml Intake Oral 900 ml 480 ml IV Total 500 ml 75 ml Other 100 ml Output Urine Total 600 ml 300 ml 750 ml 550 ml # Bowel Movements 3 1 Physical Exam HEENT/Neck: Neg Lungs: CTA B/L CV: IRRR, HS distant Ext: No clubbing, cyanosis, edema Neuro: No focal findings. Laboratory Laboratory Tests Test 01/15/17 01/16/17 01/16/17 01/16/17 15:42 04:10 08:19 10:07 Hemoglobin 7.4 GM/DL 7.2 GM/DL 7.7 GM/DL Hematocrit 22.1 % 22.0 % 23.6 % White Blood Count 17.4 TH/MM3 Red Blood Count 2.51 MIL/MM3 Mean Corpuscular Volume 87.8 FL Mean Corpuscular Hemoglobin 28.9 PG Mean Corpuscular Hemoglobin 32.9 % Concent Red Cell Distribution Width 14.5 % Platelet Count 144 TH/MM3 Mean Platelet Volume 8.6 FL Neutrophils (%) (Auto) 81.2 % Lymphocytes (%) (Auto) 8.1 % Monocytes (%) (Auto) 10.2 % Eosinophils (%) (Auto) 0.4 % Basophils (%) (Auto) 0.1 % Neutrophils # (Auto) 14.2 TH/MM3 Lymphocytes # (Auto) 1.4 TH/MM3 Monocytes # (Auto) 1.8 TH/MM3 Eosinophils # (Auto) 0.1 TH/MM3 Basophils # (Auto) 0.0 TH/MM3 CBC Comment DIFF FINAL Differential Comment Sodium Level 143 MEQ/L Potassium Level 3.7 MEQ/L Chloride Level 104 MEQ/L Carbon Dioxide Level 35.0 MEQ/L Anion Gap 4 MEQ/L Blood Urea Nitrogen 22 MG/DL Creatinine 0.55 MG/DL Estimat Glomerular Filtration 108 ML/MIN Rate Random Glucose 90 MG/DL Calcium Level 8.0 MG/DL Blood Type O POSITIVE Crossmatch Leukocyte-Reduced Red Blood Cells Blood Bank Comment Imaging Last Impressions Renal Ultrasound 01/15/17 0000 Signed Impressions: Service Date/Time: Sunday, January 15, 2017 22:23 - CONCLUSION: 1. Bilateral benign-appearing renal cysts. 2. Otherwise, unremarkable bilateral renal ultrasound. Kleber Vega MD Chest X-Ray 01/14/17 1055 Signed Impressions: Service Date/Time: Saturday, January 14, 2017 11:12 - CONCLUSION: No acute disease. Ronny Song MD Assessment and Plan Problem List: (1) Atrial fibrillation (2) Hematemesis Assessment and Plan Dr. Lambert/ weekend coverage for Dr. Gates 1) AF with RVR on admission. Assymptomatic now with good control and back on low dose Carvedilol. Off Eliquis and ASA now secondary to Upper GIB. Resume Eliquis when clear from GI standpoint. [id number] Score =4 2) GIB- Eval and Rx per GI. S/P EGD yesterday with non-bleeding ulcer. Receiving 1 more unit PRBCs now. Her BP remains on low side at 100 systollic so will not give any lasix at this time. Lungs are clear. RN instructed to call for SOB. Resume Eliquis when clear from GI standpoint. 3) Hypotension- s/p 500cc NS bolus yesterday. Tolerating Carvedilol, but KIRAN and diuretics remain on hold. 4) Hx CHF. Echo with EF 45-50% range. Discussed Condition With Dr. Lambert Problem Qualifiers (1) Hematemesis: Qualified Code: K92.0 - Hematemesis, presence of nausea not specified Flora Díaz January 16, 2017 14:09
[2017-01-16 14:56] LABS: HEMATOCRIT 30.8 % (35.0-46.0); REVIEW FLAG FINAL
[2017-01-16 20:22] LABS: HEMATOCRIT 28.4 % (35.0-46.0); REVIEW FLAG FINAL
[2017-01-17] VITALS (22 sets, daily range): BP systolic 115–128; BP diastolic 49–65; PULSE 75–94; RESP 18–20; TEMP 97.6–99; O2SAT 94–96
[2017-01-17 03:28] LABS: AUTOMATED NEUTROPHIL # 14.1 TH/MM3 (1.8-7.7); BASOPHIL # 0.1 TH/MM3 (0-0.2); BASOPHIL % 0.4 % (0.0-2.0); EOSINOPHIL # 0.1 TH/MM3 (0-0.4); EOSINOPHIL % 0.7 % (0.0-4.0); HEMATOCRIT 26.5 % (35.0-46.0); HEMO FLAGS DIFF FINAL; LYMPH % 8.1 % (9.0-44.0); LYMPHOCYTE # 1.4 TH/MM3 (1.0-4.8); MEAN CELL VOLUME 88.7 FL (80.0-100.0); MEAN CORPUSCULAR HGB CONC 32.6 % (32.0-36.0); MONO % 10.1 % (0.0-8.0); NEUT % 80.7 % (16.0-70.0); PLATELET COUNT 141 TH/MM3 (150-450); RED BLOOD COUNT 2.99 MIL/MM3 (4.00-5.30); RED CELL DISTRIBUTION WIDTH 14.2 % (11.6-17.2); WHITE BLOOD COUNT 17.4 TH/MM3 (4.0-11.0)
[2017-01-17 03:49] LABS: BICARBONATE 33.1 MEQ/L (21.0-32.0); POTASSIUM 3.5 MEQ/L (3.5-5.1)
[2017-01-17] MEDS: SUCRALFATE 1 GM TAB PO SCH ×4 (06:42→20:51)
[2017-01-17] MEDS: OCTREOTIDE INJ 500 MCG in SODIUM CHLORID 0.9% 500 ML INJ 499.5 ML IV SCH (06:43)
--- NOTE | 2017-01-17 08:05 | HHI.PR ---
Subjective Remarks Pt tells me that she is feeling better today. Denies any CP/SOB/palpitations/N/ V. Pt states that her last BM was yesterday and was still dark and watery. No bloody urine since last episode. Daughter at bedside. Objective Vitals Vital Signs Date Time Temp Pulse Resp B/P Pulse Ox O2 Delivery O2 Flow Rate FiO2 01/17/17 06:00 92 01/17/17 05:00 88 01/17/17 04:00 86 01/17/17 03:00 99.0 91 18 115/65 94 01/17/17 03:00 93 01/17/17 02:00 90 01/17/17 01:00 94 01/17/17 00:00 88 01/16/17 23:00 98.6 98 20 113/71 94 01/16/17 23:00 82 01/16/17 22:00 92 01/16/17 21:00 96 01/16/17 20:00 104 01/16/17 19:00 99.0 98 20 105/49 97 01/16/17 19:00 97 01/16/17 18:12 88 01/16/17 17:03 96 01/16/17 16:00 94 01/16/17 15:00 92 01/16/17 15:00 97.7 117 24 112/45 95 01/16/17 14:00 94 01/16/17 13:00 86 01/16/17 12:00 94 01/16/17 11:00 84 01/16/17 11:00 97.7 89 18 100/47 92 01/16/17 10:45 97.7 89 20 100/47 92 01/16/17 10:15 98.5 97 16 113/56 94 01/16/17 10:05 98.7 93 16 109/53 95 01/16/17 10:00 86 01/16/17 09:58 98.4 92 16 111/60 94 01/16/17 09:00 92 I/O 01/16/17 01/16/17 01/16/17 01/17/17 01/17/17 01/17/17 07:00 15:00 23:00 07:00 15:00 23:00 Intake Total 555 ml 970 ml 240 ml Output Total 550 ml 503 ml 225 ml Balance 5 ml 467 ml 15 ml Intake Oral 480 ml 720 ml 240 ml IV Total 75 ml Packed Cells 250 ml Output Urine Total 550 ml 500 ml Stool Total 3 ml 225 ml # Bowel Movements 1 Result Diagram: 01/17/17 0258 01/17/17 0258 Imaging Last Impressions Renal Ultrasound 01/15/17 0000 Signed Impressions: Service Date/Time: Sunday, January 15, 2017 22:23 - CONCLUSION: 1. Bilateral benign-appearing renal cysts. 2. Otherwise, unremarkable bilateral renal ultrasound. Kleber Vega MD Chest X-Ray 01/14/17 1055 Signed Impressions: Service Date/Time: Saturday, January 14, 2017 11:12 - CONCLUSION: No acute disease. Ronny Song MD Objective Remarks GENERAL: This is a well-nourished, well-developed patient, in no apparent distress. SKIN: No rashes, ecchymoses or petechia noted CARDIOVASCULAR: Irregular rate and rhythm without murmurs RESPIRATORY: Clear to auscultation. Breath sounds equal bilaterally. No wheezes GASTROINTESTINAL: Abdomen soft, non tender in the epigastric area this morning, nondistended. no CVA tenderness. Gonzalez in place w yellow clear urine MUSCULOSKELETAL: Extremities without edema. sitting on chair NEUROLOGICAL: Awake and alert. Cranial nerves II through XII intact. Motor and sensory grossly within normal limits. Normal speech. A/P Assessment and Plan 76-year-old female with recent diagnosis/admission of atrial fibrillation who is Eliquis presented with atrial fibrillation with RVR and GI bleed. Atrial fibrillation with RVR - on last recent admission stated likely secondary to hyperthyroidism. TSH decreased at 0.005, free T4 increase of 3.8 and free T3 increase at 7.61. -Patient was put on methimazole 10 mg by mouth every 8 hours and discharged on Cardizem. -s/p Cardizem bolus with improvement in heart rate. off Cardizem drip. Pt on coreg per cardiology and thus far tolerating it. Appreciate assistance GI bleed -Patient continues to have black tarry stools, last episode was yesterday evening. Per GI, thought to be old blood. -She does have a history of peptic ulcer disease and patient was on Eliquis. -last Hg on 01/08/17 11.6 and now 8.7 this morning. s/p 2 unit of packed red blood cells (was transfused yesterday 1 unit). She does have 1 unit PRBC on hold. monitor q6hrs. -hold Eliquis. Patient on carafate and protonix -Continue supportive care. Trend hemoglobin. EGD yesterday showed Large 2x2 cm non-bleeding bulb ulcer seen in duodenum. no vessel Leukocytosis stable at WBC 17.4 this morning. Pt is asymptomatic/afebrile. denies any cough, chest x-ray neg, u/a neg. no abdominal pain, source unknown. ID evaluated the patient and recommends holding off on abx at this time and monitor WBC and blood cx which are pending. Hematuria new onset x [address] gonz[address] cath in place, no new episode, renal u/s neg. urology evaluated the patient and would like her to f/u as an outpatient, ok to d/c gonzalez prior to discharge. Anemia -Secondary to GI bleed. -See treatment as above. COPD -patient to f/u outpatient with Dr. Cox for PFT and will follow-up the patient is an outpatient for an outpatient PET CT scan. CHF - Echocardiogram showed a systolic function was mildly reduced with an estimated ejection fraction in the range of 45-50%. No diagnostic regional wall motion abnormality was identified. -lower extremity edema much improved. Hold lasix and lisinopril per cards due to low BP's HTN (hypertension) -see treatment as above. Hyperthyroidism -Patient has low TSH and elevated free T4 and free T3. -on methimazole. maybe exacerbated by active GI bleed. see treatment as above. Prediabetes -Hemoglobin A1c 6.2. Patient has prediabetes. -f/u with PCP. -diabetes education already given. DVT prophylaxis: SCDs Chemoprophylaxis contraindicated secondary to GI bleed. Discharge Planning continue to monitor H&H q6hrs and if stable ok to d/c from GI standpoint. Will monitor pt and re-evaluate pt in AM. Keep Hb >8.0 Leukocytosis stable at 17.4 however, will repeat in AM. No Abx at this time as pt is asymptomatic and no source has been found. Appreciate assistance from all consultants. Sulema Rodriguez MD January 17, 2017 08:05
--- NOTE | 2017-01-17 09:33 | MB ---
cc: CHANTAL DOBBINS MD, LOUIS M. MD VAN,RYANN Walker MD DATE OF CONSULTATION 01/14/17 DATE OF 1940 REASON FOR CONSULTATION I was asked to see the patient at the request of Dr. Morgan for of GI bleeding. HISTORY OF PRESENT ILLNESS The patient is a pleasant 76-year white female who has seen Dr. Beltran in the past - she had come in with an upper GI bleed and he found a large duodenal ulcer. No H pylori was noted. Unfortunately, recently she was discharged after she was diagnosed with atrial fibrillation thought to be related to hyperthyroidism. She is also short of breath and she may have a right lung mass, which apparently is stable, and she was seen by Dr. Marlee Whalen in that regard. She was discharged on Eliquis and this morning she felt short of breath again and started having black stools. She came to the emergency room and she vomited anywhere between 50-100 mL of blood. There was a question whether it was red or black, but currently the patient has cough ground material around her lips. Her Eliquis has been stopped and she was placed on a PPI and fluids and she is currently transfusing blood. Her blood pressure was low initially but now has stabilized. She denies any dysphagia, odynophagia or heartburn issues. No hematochezia, abdominal pain, diarrhea. She takes no aspirin or NSAIDs. She has not had a bowel movement for several hours now and no more vomiting. PAST MEDICAL HISTORY 1. Large duodenal ulcer the past. 2. Hypertension, 3. Hyperthyroidism 4. Possible COPD 5. Right lung mass. 6. Cardiomyopathy with ejection fraction of 45-50% 7. Anemia 8. Pre diabetes, 9. Multivessel heart disease with moderate mitral regurgitation and moderate to severe tricuspid regurgitation. 10. CHF. PAST SURGICAL HISTORY Tubal ligation SOCIAL HISTORY Quit smoking about 8-10 years ago. She smokes 2 or 3 packs a day before she stopped. She denies any alcohol or drug abuse. MEDICATIONS Outpatient, 1. Enalapril 2. Eliquis 3. Methimazole 4. Prednisone 5. Levaquin. 6. Lasix. 7. Coreg. In the hospital include 1. Lasix. 2. Coreg. 3. Protonix meter 4. Methimazole 5. Diltiazem drip 6. Tylenol 7. Zofran. 8. Narcan. ALLERGIES NO KNOWN DRUG ALLERGIES FAMILY HISTORY Noncontributory for any type of colon cancer. FAMILY HISTORY 1. Hypertension. 2. Peptic ulcer disease There is no colon cancer in the family that she is aware of. REVIEW OF SYSTEMS No weight loss, fever, chills. CARDIOPULMONARY: Her shortness of breath is better. She has no palpitations, wheezing or chest pain. GASTROINTESTINAL: Please see above. Otherwise unremarkable for ten-point review of systems. PHYSICAL EXAMINATION VITAL SIGNS: Blood pressure is 114/56, respiratory rate 16, pulse is 97. The pulse had been 153 with rapid A fib with rapid ventricular response. Temperature 98.3. GENERAL: An elderly white female who appears older than stated age, pale-appearing. Appears to be in no acute GI distress at this time. She is laying comfortably in bed. She has coffee ground material around her lips but no red blood and about. HEENT: Her pupils are equal and react to light. No obvious scleral icterus. Oropharynx had dental caries. no tongue deviation or rashawn lesion. Hearing was intact. NECK: Supple. No thyromegaly or lymphadenopathy. LUNGS: Clear to auscultation HEART: Irregular rhythm. She does have atrial fibrillation. No murmurs are heard. ABDOMEN: Soft, nondistended, nontender, no organomegaly or masses. No ascites or hernias. EXTREMITIES: No cyanosis, clubbing or edema. NEUROLOGIC: Cranial nerves grossly intact. RECTAL: I did not do a rectal exam on her nor assess her gait. SKIN: Warm and moist. LABORATORY DATA Laboratories when she is discharged on 01/08/2017 - hemoglobin 11.6, today hemoglobin is 8.0 with white blood cell count if 12,700, hematocrit 25.8, MCV 89.4, platelet count of 167,000. Her prothrombin time 14.6 elevated. INR 1.3, PTT 22.3. Chemistries revealed a BUN of 17, was elevated. Creatinine 0.79, blood sugars 285. CPK of 34 which is normal. Troponin 0.03 normal. Potassium 4.6, sodium 137. IMPRESSION 1. Upper GI bleed as evidenced by melena and coffee-ground emesis. She was not taking any aspirin or NSAIDs nor did she restart smoking. She was taking prednisone. She understands differential includes peptic ulcer disease versus Mindy-Son tear. Chance of malignancy is small. This could also be AVMs. She does have history of large duodenal ulcer in the past. 2. Anemia - acute blood loss anemia. She is currently getting blood 3. History of atrial fibrillation - she is currently in atrial fibrillation with a rapid ventricular response. Cardiology has seen the patient and the patient is on a Cardizem drip. 4. History of duodenal ulcer in the past. RECOMMENDATIONS 1. Continue IV Protonix. 2. Add octreotide. We talked about the side effects and need to watch her heart rate in this regard. 3. Transfuse as needed 4. hold Eliquis 5. The patient needs an upper endoscopy. We talked about indications, risks, complications and benefits, alternatives, limitations including risks of bleeding, perforation, infection, arrhythmias and small possibility of . Cardiology has essentially cleared her in this regard. Hopefully we can wait until tomorrow to do this exam - she needs fluid and blood products and she needs the effect of her anticoagulation to diminish. She took her Eliquis yesterday and she still probably has the Eliquis effect on. However, should she rapidly bleed tonight we will have to do it on an urgent basis this evening. Above discussed in detail with the patient and she is aware of this and she is willing to proceed as planned. MD ISAIAH Acosta/ /5:36 PM /9:22 AM JOSELITO
[2017-01-17] MEDS: METHIMAZOLE 10 MG TAB PO SCH ×3 (09:40→17:43)
[2017-01-17] MEDS: SODIUM CHLORIDE 0.9% FLUSH 10 ML FLUSH IV FLUSH SCH ×2 (09:40→20:51)
[2017-01-17] MEDS: PANTOPRAZOLE SODIUM 40 MG VIAL IV PUSH SCH ×2 (09:41→20:52)
[2017-01-17] MEDS: CARVEDILOL 3.125 MG TAB PO SCH ×2 (09:41→20:51)
--- NOTE | 2017-01-17 09:51 | HHI.GIFU ---
GI Follow-up Note Consult Follow-up Subjective: Patient laying in bed comfortably. Tolerating diet. No BM's today. no abd pain Objective: PHYSICAL EXAMINATION: Vitals signs stable No fever . CHEST: Chest is clear to auscultation and percussion. CARDIAC: irregular rate and rhythm with no murmur gallop or rubs. ABDOMEN: Soft, nondistended, nontender; no hepatosplenomegaly; bowel sounds are present in all four quadrants. EXTREMITIES: No clubbing, cyanosis, or edema. SKIN: Normal; no rash; no jaundice. 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 Available Data (labs, X- Rays, Procedures) : Hgb 7.7-10-9.3-8.7 ASSESSMENT/PLAN: 1. UGI Bleed-melena and coffee ground emesis. Large non-bleeding duodenal ulcer seen (no vessel). bx of stomach pending for H. pylori. No bleeding this am but Hgb dropped 2. Anemia-unsure if Hgb of 10 was accurate 3. A. fib -Eliquis on hold 4. Past hx of Duodenal ulcer with GI bleeding. PLAN: 1. Cont Carafate 2. Cont PPI 3. Cont diet 4. once she is tolerating her diet with a stable Hgb (and w/o bleeding) she can be D/C 5. No set guidelines as to when one restarts anticoagulation. She is at risk of a CVA but she has had 2 major GI bleeds. It will also take 6-8 weeks to heal his ulcer. She is aware of this dilemma. 6. F/U H-H. If signs of rebleeding will need repeat EGD It was a pleasure seeing Laure Richardson. Thank you for this consult. Entered by: Angel Saxena MD January 17, 2017 09:51
[2017-01-17 10:30] LABS: REVIEW FLAG FINAL
[2017-01-17 14:36] LABS: HEMATOCRIT 28.2 % (35.0-46.0); REVIEW FLAG FINAL
[2017-01-17 20:07] LABS: HEMATOCRIT 28.3 % (35.0-46.0); REVIEW FLAG FINAL
[2017-01-18] VITALS (18 sets, daily range): BP systolic 123–147; BP diastolic 56–66; PULSE 57–106; RESP 18–20; TEMP 98.1–98.6; O2SAT 95–98
[2017-01-18] MEDS: OCTREOTIDE INJ 500 MCG in SODIUM CHLORID 0.9% 500 ML INJ 499.5 ML IV SCH (03:00)
[2017-01-18 05:14] LABS: AUTOMATED NEUTROPHIL # 13.5 TH/MM3 (1.8-7.7); BASOPHIL % 0.3 % (0.0-2.0); EOSINOPHIL # 0.1 TH/MM3 (0-0.4); EOSINOPHIL % 0.9 % (0.0-4.0); HEMATOCRIT 25.9 % (35.0-46.0); HEMO FLAGS DIFF FINAL; LYMPH % 7.5 % (9.0-44.0); LYMPHOCYTE # 1.2 TH/MM3 (1.0-4.8); MEAN CELL VOLUME 88.2 FL (80.0-100.0); MEAN CORPUSCULAR HEMOGLOBIN 29.3 PG (27.0-34.0); MEAN CORPUSCULAR HGB CONC 33.2 % (32.0-36.0); MONO % 9.8 % (0.0-8.0); NEUT % 81.5 % (16.0-70.0); PLATELET COUNT 138 TH/MM3 (150-450); RED BLOOD COUNT 2.93 MIL/MM3 (4.00-5.30); WHITE BLOOD COUNT 16.5 TH/MM3 (4.0-11.0)
[2017-01-18] MEDS: SUCRALFATE 1 GM TAB PO SCH ×3 (06:28→16:37)
--- NOTE | 2017-01-18 08:59 | HHI.PR ---
Subjective Remarks Pt feels ok. Denies any CP/SOB/N/V Pt states that her last BM was yesterday night and it was dark but not black like before. It was not yet back to normal. No new hematuria. No lightheadedness. Objective Vitals Vital Signs Date Time Temp Pulse Resp B/P Pulse Ox O2 Delivery O2 Flow Rate FiO2 01/18/17 06:10 81 01/18/17 05:01 87 01/18/17 04:00 83 01/18/17 04:00 98.4 87 20 137/62 98 01/18/17 03:32 83 01/18/17 02:00 77 01/18/17 01:00 77 01/18/17 00:00 98.6 88 20 123/56 98 01/18/17 00:00 86 01/17/17 23:00 84 01/17/17 22:00 86 01/17/17 22:00 80 01/17/17 21:00 81 01/17/17 20:00 98.6 90 20 124/55 95 01/17/17 20:00 86 01/17/17 19:00 90 01/17/17 18:00 86 01/17/17 17:00 92 01/17/17 16:00 86 01/17/17 16:00 97.6 90 20 128/54 94 01/17/17 15:00 80 01/17/17 12:13 98.0 87 20 116/49 95 01/17/17 12:00 78 01/17/17 11:00 88 01/17/17 10:00 88 01/17/17 09:00 76 I/O 01/17/17 01/17/17 01/17/17 01/18/17 01/18/17 01/18/17 07:00 15:00 23:00 07:00 15:00 23:00 Intake Total 240 ml 240 ml Output Total 225 ml 800 ml 1000 ml Balance 15 ml -800 ml -760 ml Intake Oral 240 ml 240 ml Output Urine Total 800 ml 1000 ml Stool Total 225 ml Result Diagram: 01/18/17 0446 01/17/17 0258 Imaging Last Impressions Renal Ultrasound 01/15/17 0000 Signed Impressions: Service Date/Time: Sunday, January 15, 2017 22:23 - CONCLUSION: 1. Bilateral benign-appearing renal cysts. 2. Otherwise, unremarkable bilateral renal ultrasound. Kleber Vega MD Chest X-Ray 01/14/17 1055 Signed Impressions: Service Date/Time: Saturday, January 14, 2017 11:12 - CONCLUSION: No acute disease. Ronny Song MD Objective Remarks GENERAL: This is a well-nourished, well-developed patient, in no apparent distress. SKIN: No rashes, ecchymoses or petechia noted CARDIOVASCULAR: Irregular rate and rhythm without murmurs RESPIRATORY: Clear to auscultation. Breath sounds equal bilaterally. No wheezes GASTROINTESTINAL: Abdomen soft, non tender, nondistended. Gonzalez in place w yellow clear urine MUSCULOSKELETAL: Extremities without edema. sitting on chair NEUROLOGICAL: Awake and alert. Cranial nerves II through XII intact. Motor and sensory grossly within normal limits. Normal speech. A/P Assessment and Plan 76-year-old female with recent diagnosis/admission of atrial fibrillation who is Eliquis presented with atrial fibrillation with RVR and GI bleed. Atrial fibrillation with RVR - on last recent admission stated likely secondary to hyperthyroidism. TSH decreased at 0.005, free T4 increase of 3.8 and free T3 increase at 7.61. -Patient was put on methimazole 10 mg by mouth every 8 hours and discharged on Cardizem. -s/p Cardizem bolus with improvement in heart rate. off Cardizem drip. Pt on coreg and tolerating it. Appreciate assistance GI bleed -Patient's stools seem to be improving in color per patient, last episode was yesterday evening and were dark but not black like before. Per GI, thought to be old blood. -She does have a history of peptic ulcer disease and patient was on Eliquis. -last Hg on 01/08/17 11.6 and now 8.6 this morning. s/p 2 unit of packed red blood cells. She does have 1 unit PRBC on hold. repeat H&H now and around 2pm today. -hold Eliquis. Patient on carafate and protonix -Continue supportive care. EGD yesterday showed Large 2x2 cm non-bleeding bulb ulcer seen in duodenum. no vessel -If H&H remains stable, consider discharging her later today. Leukocytosis slowly trending down WBC 16.5 this morning. Pt is asymptomatic/afebrile. denies any cough, chest x-ray neg, u/a neg. no abdominal pain, source unknown. ID evaluated the patient and recommends holding off on abx at this time and monitor WBC and blood cx which are neg x 1 days Hematuria new onset x [address]onz[address] cath in place, no new episode, renal u/s neg. urology evaluated the patient and would like her to f/u as an outpatient, ok to d/c gonzalez prior to discharge. Anemia -Secondary to GI bleed. -See treatment as above. COPD -patient to f/u outpatient with Dr. Cox for PFT and will follow-up the patient is an outpatient for an outpatient PET CT scan. CHF - Echocardiogram showed a systolic function was mildly reduced with an estimated ejection fraction in the range of 45-50%. No diagnostic regional wall motion abnormality was identified. -lower extremity edema much improved. Hold lasix and lisinopril per cards due to low BP's HTN (hypertension) -see treatment as above. Hyperthyroidism -Patient has low TSH and elevated free T4 and free T3. -on methimazole. maybe exacerbated by active GI bleed. see treatment as above. Prediabetes -Hemoglobin A1c 6.2. Patient has prediabetes. -f/u with PCP. -diabetes education already given. DVT prophylaxis: SCDs Chemoprophylaxis contraindicated secondary to GI bleed. Discharge Planning continue to monitor H&H and if stable ok to d/c from GI standpoint. Will monitor throughout the day, re-evaluate pt later today and make a decision. Keep Hb >8.0 follow up blood cx. Appreciate assistance from all consultants. discussed plan w Sulema Mabry MD January 18, 2017 08:59
[2017-01-18] MEDS: CARVEDILOL 3.125 MG TAB PO SCH (09:37)
[2017-01-18] MEDS: PANTOPRAZOLE SODIUM 40 MG VIAL IV PUSH SCH (09:37)
[2017-01-18] MEDS: METHIMAZOLE 10 MG TAB PO SCH ×3 (09:37→18:40)
[2017-01-18] MEDS: SODIUM CHLORIDE 0.9% FLUSH 10 ML FLUSH IV FLUSH SCH (09:38)
[2017-01-18 10:15] LABS: HEMATOCRIT 29.2 % (35.0-46.0); REVIEW FLAG FINAL
--- NOTE | 2017-01-18 11:11 | HHI.GIFU ---
GI Follow-up Note Consult Follow-up Subjective: Patient sitting in comfortably. stools less black. Hgb 9.7. Tolerating diet (has eggs this am) Objective: PHYSICAL EXAMINATION: Vitals signs stable No fever CHEST: Chest is clear to auscultation and percussion. ABDOMEN: Soft, nondistended, nontender; no hepatosplenomegaly; bowel sounds are present in all four quadrants. EXTREMITIES: No clubbing, cyanosis, or edema. SKIN: no jaundice. SHOEBLACK: No focal deficits; alert and oriented times three. Available Data (labs, X- Rays, Procedures) : Hgb 9.4-8.6-9.7 this am ASSESSMENT/PLAN: 1. UGI Bleed-melena and coffee ground emesis. Large non-bleeding duodenal ulcer seen (no vessel). Hgb now 9.7. stools less black 2. Anemia-Hgb better 3. A. fib -Eliquis on hold 4. Past hx of Duodenal ulcer with GI bleeding. PLAN: 1. Cont Carafate 2. Cont PPI 3. Cont diet 4. once she is tolerating her diet with a stable Hgb (and w/o bleeding) she can be D/C 5. No set guidelines as to when one restarts anticoagulation. She is at risk of a CVA but she has had 2 major GI bleeds. It will also take 6-8 weeks to heal his ulcer. She is aware of this dilemma. 6. F/U H-H. If signs of rebleeding will need repeat EGD 7. Stable from GI standpoint. 8. ROV to discuss when to restart anticoagulation (1 week) It was a pleasure seeing Laure Richardson. Thank you for this consult. Entered by: Angel Saxena MD January 18, 2017 11:11
[2017-01-18 15:09] LABS: HEMATOCRIT 28.6 % (35.0-46.0); REVIEW FLAG FINAL
[2017-01-18] MEDS ORDERED: PROT40TA PO (16:02)
[2017-01-18] MEDS ORDERED: CARA1TAB6 PO (16:02)
--- NOTE | 2017-01-18 16:05 | HHI.DS ---
Discharge Summary Admission Date January 14, 2017 at 13:02 Discharge Date: January 18, 2017 Admitting Diagnosis Acute Anemia; Hemoptysis; AFIB RVR (1) Acute blood loss anemia ICD Code: D62 Diagnosis: Principal (2) Leukocytosis ICD Code: D72.829 Diagnosis: Principal (3) Hyperthyroidism ICD Code: E05.90 Diagnosis: Principal (4) Atrial fibrillation ICD Code: I48.91 Diagnosis: Principal Procedures EGD Brief History - From Admission This is a 76-year-old female past medical history of recent diagnosis of atrial fibrillation, on eliquis, history of peptic ulcer disease, COPD, hypertension, hyperthyroidism who presented with palpitations and GI bleed. Patient stated that 6 AM this morning she started having palpitation. Weight after she had black tarry stools so she went to the emergency department. In the emergency department she had hematemesis, in which patient does not call but Dr. Gates ER physician saw the hematemesis. Patient denies any chest pain, shortness of breathing, lightheadedness or dizziness. She stated that palpitation has improved. She denied taking any NSAIDs. She denies any abdominal pain. CBC/BMP: 01/18/17 1435 01/17/17 0258 Significant Findings Laboratory Tests Test 01/16/17 01/16/17 01/16/17 01/16/17 04:10 10:07 14:51 19:51 White Blood Count 17.4 TH/MM3 (4.0-11.0) Red Blood Count 2.51 MIL/MM3 (4.00-5.30) Hemoglobin 7.2 GM/DL 7.7 GM/DL 10.0 GM/DL 9.3 GM/DL (11.6-15.3) (11.6-15.3) (11.6-15.3) (11.6-15.3) Hematocrit 22.0 % 23.6 % 30.8 % 28.4 % (35.0-46.0) (35.0-46.0) (35.0-46.0) (35.0-46.0) Platelet Count 144 TH/MM3 (150-450) Neutrophils (%) (Auto) 81.2 % (16.0-70.0) Lymphocytes (%) (Auto) 8.1 % (9.0-44.0) Monocytes (%) (Auto) 10.2 % (0.0-8.0) Neutrophils # (Auto) 14.2 TH/MM3 (1.8-7.7) Monocytes # (Auto) 1.8 TH/MM3 (0-0.9) Carbon Dioxide Level 35.0 MEQ/L (21.0-32.0) Anion Gap 4 MEQ/L (5-15) Blood Urea Nitrogen 22 MG/DL (7-18) Calcium Level 8.0 MG/DL (8.5-10.1) Test 01/17/17 01/17/17 01/17/17 01/17/17 02:58 10:19 14:30 19:55 White Blood Count 17.4 TH/MM3 (4.0-11.0) Red Blood Count 2.99 MIL/MM3 (4.00-5.30) Hemoglobin 8.7 GM/DL 9.9 GM/DL 9.1 GM/DL 9.4 GM/DL (11.6-15.3) (11.6-15.3) (11.6-15.3) (11.6-15.3) Hematocrit 26.5 % 30.0 % 28.2 % 28.3 % (35.0-46.0) (35.0-46.0) (35.0-46.0) (35.0-46.0) Platelet Count 141 TH/MM3 (150-450) Neutrophils (%) (Auto) 80.7 % (16.0-70.0) Lymphocytes (%) (Auto) 8.1 % (9.0-44.0) Monocytes (%) (Auto) 10.1 % (0.0-8.0) Neutrophils # (Auto) 14.1 TH/MM3 (1.8-7.7) Monocytes # (Auto) 1.8 TH/MM3 (0-0.9) Carbon Dioxide Level 33.1 MEQ/L (21.0-32.0) Random Glucose 149 MG/DL (74-106) Calcium Level 8.1 MG/DL (8.5-10.1) Test 01/18/17 01/18/17 01/18/17 04:46 09:53 14:35 White Blood Count 16.5 TH/MM3 (4.0-11.0) Red Blood Count 2.93 MIL/MM3 (4.00-5.30) Hemoglobin 8.6 GM/DL 9.7 GM/DL 9.4 GM/DL (11.6-15.3) (11.6-15.3) (11.6-15.3) Hematocrit 25.9 % 29.2 % 28.6 % (35.0-46.0) (35.0-46.0) (35.0-46.0) Platelet Count 138 TH/MM3 (150-450) Neutrophils (%) (Auto) 81.5 % (16.0-70.0) Lymphocytes (%) (Auto) 7.5 % (9.0-44.0) Monocytes (%) (Auto) 9.8 % (0.0-8.0) Neutrophils # (Auto) 13.5 TH/MM3 (1.8-7.7) Monocytes # (Auto) 1.6 TH/MM3 (0-0.9) Imaging Last Impressions Renal Ultrasound 01/15/17 0000 Signed Impressions: Service Date/Time: Sunday, January 15, 2017 22:23 - CONCLUSION: 1. Bilateral benign-appearing renal cysts. 2. Otherwise, unremarkable bilateral renal ultrasound. Kleber Vega MD Chest X-Ray 01/14/17 1055 Signed Impressions: Service Date/Time: Saturday, January 14, 2017 11:12 - CONCLUSION: No acute disease. Ronny Song MD PE at Discharge GENERAL: This is a well-nourished, well-developed patient, in no apparent distress. SKIN: No rashes, ecchymoses or petechia noted CARDIOVASCULAR: Irregular rate and rhythm without murmurs RESPIRATORY: Clear to auscultation. Breath sounds equal bilaterally. No wheezes GASTROINTESTINAL: Abdomen soft, non tender, nondistended. Gonzalez in place w yellow clear urine MUSCULOSKELETAL: Extremities without edema. sitting on chair NEUROLOGICAL: Awake and alert. Cranial nerves II through XII intact. Motor and sensory grossly within normal limits. Normal speech. Hospital Course Atrial fibrillation with RVR - on last recent admission stated likely secondary to hyperthyroidism. TSH decreased at 0.005, free T4 increase of 3.8 and free T3 increase at 7.61. -Patient was put on methimazole 10 mg by mouth every 8 hours and discharged on Cardizem. -s/p Cardizem bolus with improvement in heart rate. off Cardizem drip. Pt on coreg and tolerating it. Appreciate assistance GI bleed -She does have a history of peptic ulcer disease and patient was on Eliquis. -Hb stable at 9.4. s/p 2 unit of packed red blood cells. -hold Eliquis. Patient on carafate and protonix -Continue supportive care. EGD yesterday showed Large 2x2 cm non-bleeding bulb ulcer seen in duodenum. no vessel Leukocytosis slowly trending down WBC 16.5 this morning. Pt is asymptomatic/afebrile. denies any cough, chest x-ray neg, u/a neg. no abdominal pain, source unknown. ID evaluated the patient and recommends holding off on abx at this time.I discussed w Dr. Gtz and he recommended repeat CBC in 1 week w f/u w PCP. Pt has an appt on 01/25/17. Hematuria new onset x [address] cath in place, no new episode, renal u/s neg. urology evaluated the patient and would like her to f/u as an outpatient, ok to d/c carlos prior to discharge. Pt Condition on Discharge: Stable Discharge Disposition: Discharge Home Discharge Time: > 30 minutes Discharge Instructions DIET: Follow Instructions for: Heart Healthy Diet Activities you can perform: Regular-No Restrictions Follow up Referrals: Gastroenterology - 1 Week Physician - 01/25/17 with [facility] Urology - 2 Weeks New Orders: CBC WITH DIFF - 1 Week New Medications: Pantoprazole (Protonix) 40 Mg Tab 40 MG PO BID Ulcer Prevention #60 Ref 0 TAB Sucralfate (Carafate) 1 Gm Tab 1 GM PO ACHS Days 30 TAB Continued Medications: Carvedilol (Carvedilol) 3.125 Mg Tab 3.125 MG PO BID #60 Ref 0 TAB Enalapril (Enalapril) 10 Mg Tab 10 MG PO DAILY #30 Ref 0 TAB Furosemide (Furosemide) 40 Mg Tab 40 MG PO DAILY chf #31 TAB Methimazole (Methimazole) 10 Mg Tab 10 MG PO TID Thyroid #90 Ref 0 TAB Discontinued Medications: Apixaban (Eliquis) 5 Mg Tab 5 MG PO BID Blood Clot Prevention #62 TAB Levofloxacin (Levaquin) 500 Mg Tab 500 MG PO DAILY Infection #5 Ref 0 TAB Prednisone (Prednisone) 20 Mg Tab 20 MG PO DIRECTED 40 MG twice a day x 3 days, then 20 MG daily x 3 days, then 10 MG daily x 3 days Inflammation #11 Ref 0 TAB Sulema Rodriguez MD January 18, 2017 16:05
[2017-01-19] MEDS ORDERED: APIX5TAB PO (13:16)
== END 2017-01-18 19:07 | disposition home or self-care (01) | DRG 378 ==
LOC: NEPC 10:44 → NEDA 13:02 → HCIS 18:18
PROVIDERS: ADMIT Family Medicine; ATTEND Hospitalist
PROC: 30233N1 Transfusion of Nonautologous Red Blood Cells into Peripheral Vein, Percutaneous Approach (ICD-10-PCS; 2017-01-14)
PROC: 0DB68ZX Excision of Stomach, Via Natural or Artificial Opening Endoscopic, Diagnostic (ICD-10-PCS; 2017-01-15)
PROC: 0DB98ZX Excision of Duodenum, Via Natural or Artificial Opening Endoscopic, Diagnostic (ICD-10-PCS; principal; 2017-01-15 09:19)
DX: K26.4 Chronic or unspecified duodenal ulcer with hemorrhage (principal); D62 Acute posthemorrhagic anemia; I42.9 Cardiomyopathy, unspecified; I11.0 Hypertensive heart disease with heart failure; I50.20 Unspecified systolic (congestive) heart failure; I48.91 Unspecified atrial fibrillation; I08.1 Rheumatic disorders of both mitral and tricuspid valves; J44.9 Chronic obstructive pulmonary disease, unspecified; E05.90 Thyrotoxicosis, unspecified without thyrotoxic crisis or storm; Z87.891 Personal history of nicotine dependence; Z79.01 Long term (current) use of anticoagulants; R31.9 Hematuria, unspecified; R91.8 Other nonspecific abnormal finding of lung field; E03.9 Hypothyroidism, unspecified; R73.03 Prediabetes
CPT/HCPCS: 36430; 71010; 76775; 80048; 81001; 82550; 83880; 84484; 85014; 85018; 85025; 85027; 85610; 85730; 86850; 86900; 86901; 86920; 87040; 88305; 88312; 93005; 96374; 96375; C9113; J0171; J0461; J2354; J7040; J7050; P9016

== ENCOUNTER 2017-01-19 12:04 | Emergency (ER) | payer MEDICARE, OTHER ==
[~2017-01-19] VITALS: Ht 165.1 cm; Wt 50.0 kg
[~2017-01-19 12:04] MED LIST changes: -APIX5TAB PO; +CARA1TAB6 PO; -LEVA500T PO; -PRED20 PO; +PROT40TA PO
[2017-01-19 12:15] VITALS: BP 125/59; PULSE 116; RESP 20; TEMP 98.8
[2017-01-19] MEDS ORDERED: CARVEDILOL 3.125 MG TAB PO ONE (12:30)
--- NOTE | 2017-01-19 12:32 | PD ---
HPI Chief Complaint: Pain: Acute or Chronic Time Seen by Provider: 12:32 Travel History International Travel<30 days: No Contact w/Intl Traveler<30days: No Traveled to known affect area: No History of Present Illness HPI Patient comes in complaining of left anterior ankle pain that she awoke with this morning. Patient denies any known trauma. Pain is achy like in nature. Patient states pain is worse with walking. Denies any radiation of pain. Pain improves with not standing. Patient denies doing anything for this prior to coming to the emergency department. Patient states she has not taken any of her daily medications yet today. PFSH Past Medical History Hx Anticoagulant Therapy: Yes Heart Rhythm Problems: Yes (fast beating heart this morning 1st time) Cancer: No Cardiovascular Problems: Yes High Cholesterol: No Chemotherapy: No Cerebrovascular Accident: No Diabetes: Yes Diminished Hearing: No Endocrine: No Gastrointestinal Disorders: No Genitourinary: No Hypertension: Yes Implanted Vascular Access Dvce: No Musculoskeletal: No Neurologic: No Psychiatric: No Reproductive: No Respiratory: No Past Surgical History Hysterectomy: No Other Surgery: No Social History Alcohol Use: No Tobacco Use: No Substance Use: No Allergies-Medications (Allergen,Severity, Reaction): Coded Allergies: No Known Allergies (Verified , 01/06/17) Reported Meds & Prescriptions Reported Meds & Active Scripts Active Protonix (Pantoprazole Sodium) 40 Mg Tab 40 Mg PO BID Carafate (Sucralfate) 1 Gm Tab 1 Gm PO ACHS 30 Days Methimazole 10 Mg Tab 10 Mg PO TID Carvedilol 3.125 Mg Tab 3.125 Mg PO BID Furosemide 40 Mg Tab 40 Mg PO DAILY Reported Eliquis (Apixaban) 5 Mg Tab 5 Mg PO BID Enalapril (Enalapril Maleate) 10 Mg Tab 10 Mg PO DAILY Review of Systems Except as stated in HPI: all other systems reviewed are Neg Physical Exam Narrative GENERAL: Well-developed, well nourished, in no acute distress, and non-ill appearing. SKIN: Focused skin assessment warm and dry. HEAD: Atraumatic. Normocephalic. EYES: Pupils equal and round. EOMI. No scleral icterus. No injection or drainage. ENT: No nasal bleeding or discharge. Mucous membranes pink and moist. NECK: Trachea midline. Supple. No nuclear rigidity. CARDIOVASCULAR: Dorsal pulses 2+, tach, equal bilaterally. Capillary refill less than 2 seconds. RESPIRATORY: No accessory muscle use. No respiratory distress. MUSCULOSKELETAL: No obvious deformities. No clubbing. No cyanosis. No pedal edema. Full range of motion. Ankle: Neagative anterior draw and Hook test. Negative Sigrid's sign. No laxity noted with passive inversion and eversion of BL ankles. Negative squeeze test. Pulses equal BL distal to injury. Capillary refill less than 2 seconds distal to injury and equal BL. Sensation equal BL 1st web space. FROM of toes distal to injury and equal BL. NV intact distal to injury and equal BL. Dorsal pulses equal BL. Patient reports symptoms palpation of her anterior medial aspect of left ankle. There is some ecchymosis noted. NEUROLOGICAL: Awake and alert. No obvious cranial nerve deficits. Motor grossly within normal limits. Normal speech. PSYCHIATRIC: Appropriate mood and affect; insight and judgment normal. Data Data Last Documented VS Vital Signs Date Time Temp Pulse Resp B/P Pulse Ox O2 Delivery O2 Flow Rate FiO2 01/19/17 12:15 98.8 116 20 125/59 Orders Carvedilol (Coreg) (01/19/17 12:30) Ankle, Complete ([id number]) (01/19/17 ) Ice/Cold Pack (01/19/17 12:39) Us Leg Venous Doppler (01/19/17 13:13) Splint Or Brace Apply/Monitor (01/19/17 14:10) [facility] Medical Decision Making Medical Screen Exam Complete: Yes Emergency Medical Condition: Yes Differential Diagnosis Fracture, sprain, DVT, contusion, other Narrative Course There is no clinical evidence for fracture. There is no clinical evidence to suspect bony injury by exam. Radiographic examination revealed no fracture seen at this time and Doppler shows no DVT at this time. No obvious ligamental injury or internal derangement is noted at this time. The distal extremity appears neurovascularly intact, without evidence of neurovascular injury nor compartment syndrome. Tendon exam also was intact. The effected limb was splinted. The patient was discharged and given warnings for vascular compromise. The patient is to follow up with primary care provider or orthopedics. The patient agrees with plan. Patient in no obvious distress upon re-evaluation. All pertinent Radiology result(s) discussed with patient. I discussed patient with Dr. Hurt prior to discharge, who is in agreement with plan of care and disposition. Any questions/concerns in reference to patient diagnosis/condition discussed and clarified prior to patient's discharge. Reinforced sheer importance of close follow up with patient's primary physician or primary care clinic. Instructed patient to return to ED immediately, if symptoms return/worsen. Pt showed understanding of above instructions. Further instructions and recommendations were detailed in discharge paperwork. Pt left without difficulty out of ED at discharge. Diagnosis Primary Impression: Left ankle pain Qualified Code: M25.572 - Acute left ankle pain Patient Instructions: Ankle Exercises (GEN), Ankle Sprain (GEN), Ankle Sprain Exercises (GEN), General Instructions Additional Instructions: Follow-up with your primary care physician and/or orthopedics in 2-5 days for reevaluation. Apply ice affected area 20 minutes per hour as needed for pain. Use [id number] Tylenol as needed for pain. Follow instructions on the packaging. Wear Efrain wrap as needed for comfort. Return to the emergency department if symptoms get worse. Disposition: 01 DISCHARGE HOME Condition: Stable Sreedhar Mc January 19, 2017 12:32
--- NOTE | 2017-01-19 12:55 | RADRPT ---
EXAM DATE/TIME: 01/19/2017 12:41 [facility] COMPARISON: No previous studies available for comparison. INDICATIONS : Medial left ankle pain for 1 day. No known injury. MEDICAL HISTORY : Hypertension. Chronic obstructive pulmonary disease. Hyperthyroidism. Diabetes. GI bleed. Hematuria. Afib. Congestive heart failure. SURGICAL HISTORY : None. ENCOUNTER: Initial ACUITY: 1 day PAIN SCORE: 9/10 LOCATION: Left ankle. FINDINGS: There is no evidence of acute fracture. Bony mineralization is normal. The ankle mortise is intact. A n inferior calcaneal spur is present. CONCLUSION: 1. There is no evidence of acute fracture. 2. Calcaneal spur Tate Pat MD on January 19, 2017 at 12:52 Board Certified Radiologist. This report was verified electronically.
[2017-01-19] MEDS ORDERED: APIX5TAB PO (13:16)
--- NOTE | 2017-01-19 14:06 | RADRPT ---
EXAM DATE/TIME: 01/19/2017 13:21 [facility] COMPARISON: No previous studies available for comparison. INDICATIONS : Left leg pain. MEDICAL HISTORY : Congestive heart failure. Diabetes mellitus type 1. Hypertension. SURGICAL HISTORY : None. ENCOUNTER: Initial ACUITY: 1 day PAIN SCORE: 4/10 LOCATION: Left leg. TECHNIQUE: Venous ultrasound of the leg was performed from the inguinal ligament to the proximal calf. Real-samson e, color Doppler and spectral tracing, compression and augmentation techniques were used. FINDINGS: There is normal compressibility of the deep venous system from the inguinal region to the proximal ca lf. No echogenic clot is seen in the lumen of the common femoral, femoral, popliteal, and posterior tibial veins. There is a normal response of the venous system to proximal and distal augmentation an d respiration. CONCLUSION: 1. No evidence of deep venous thrombosis. Tate Pat MD on January 19, 2017 at 14:04 Board Certified Radiologist. This report was verified electronically.
== END 2017-01-19 18:04 | disposition home or self-care (01) ==
LOC: NEPD 12:04
DX: M25.572 Pain in left ankle and joints of left foot (principal); Z79.01 Long term (current) use of anticoagulants; E11.9 Type 2 diabetes mellitus without complications; I10 Essential (primary) hypertension
CPT/HCPCS: 73610; 93971

== ENCOUNTER 2017-01-21 08:24 | Inpatient (IN) | payer OTHER, MEDICARE ==
[~2017-01-21] VITALS: Ht 152.4 cm; Wt 50.6 kg
[2017-01-21] VITALS (10 sets, daily range): BP systolic 115–169; BP diastolic 56–83; PULSE 83–109; RESP 16–20; TEMP 97–100.3; O2SAT 96–98
[~2017-01-21 08:24] MED LIST changes: +APIX5TAB PO
--- NOTE | 2017-01-21 08:55 | PD ---
HPI Chief Complaint: Respiratory Symptoms Time Seen by Provider: 08:40 Travel History International Travel<30 days: No Contact w/Intl Traveler<30days: No Traveled to known affect area: No History of Present Illness HPI This is a 76-year-old female who presents today with complaints of shortness of breath. The patient reports it's been progressive over the last 2-3 days. She denies any chest pain, chest pressure. Patient also reports associated pedal edema. The patient was recently admitted to the hospital for a GI bleed. At that time she was on eliquis and had a peptic ulcer that was bleeding. She was subsequently taken off of her eliquis. She is also treated for congestive heart failure. PFSH Past Medical History Hx Anticoagulant Therapy: Yes Heart Rhythm Problems: Yes (fast beating heart this morning 1st time) Cancer: No Cardiovascular Problems: Yes High Cholesterol: No Chemotherapy: No Congestive Heart Failure: Yes Cerebrovascular Accident: No Diabetes: Yes Patient Takes Glucophage: No Diminished Hearing: No Endocrine: No Gastrointestinal Disorders: No Genitourinary: No Hypertension: Yes (controlled on meds) Implanted Vascular Access Dvce: No Musculoskeletal: No Neurologic: No Psychiatric: No Reproductive: No Respiratory: No ?: Not Past Surgical History Hysterectomy: No Other Surgery: No Social History Alcohol Use: No Tobacco Use: No Substance Use: No Allergies-Medications (Allergen,Severity, Reaction): Coded Allergies: No Known Allergies (Verified , 01/21/17) Reported Meds & Prescriptions Reported Meds & Active Scripts Active Protonix (Pantoprazole Sodium) 40 Mg Tab 40 Mg PO BID Carafate (Sucralfate) 1 Gm Tab 1 Gm PO ACHS 30 Days Methimazole 10 Mg Tab 10 Mg PO TID Carvedilol 3.125 Mg Tab 3.125 Mg PO BID Furosemide 40 Mg Tab 40 Mg PO DAILY Reported Eliquis (Apixaban) 5 Mg Tab 5 Mg PO BID Enalapril (Enalapril Maleate) 10 Mg Tab 10 Mg PO DAILY Review of Systems Except as stated in HPI: all other systems reviewed are Neg General / Constitutional: No: Fever, Chills HENT: No: Headaches, Lightheadedness Cardiovascular: Positive: Irregular Rhythm, No: Chest Pain or Discomfort, Palpitations Respiratory: Positive: Shortness of Breath, No: Cough Gastrointestinal: No: Nausea, Vomiting, Abdominal Pain Musculoskeletal: Positive: Edema (bilateral), No: Myalgias, Weakness, Pain Neurologic: No: Weakness, Dizziness, Headache Physical Exam Narrative GENERAL: Well-developed well-nourished female in no acute respiratory distress. SKIN: Focused skin assessment warm/dry. HEAD: Atraumatic. Normocephalic. EYES:No scleral icterus. No injection or drainage. ENT: Mucous membranes pink and moist. NECK: Trachea midline. No JVD. CARDIOVASCULAR: Irregularly irregular with a rate in the 90s. RESPIRATORY: No accessory muscle use. Clear to auscultation. Breath sounds equal bilaterally. GASTROINTESTINAL: Abdomen soft, non-tender, nondistended. MUSCULOSKELETAL: No obvious deformities. No clubbing. No cyanosis. Pedal edema bilaterally. NEUROLOGICAL: Awake and alert. No obvious cranial nerve deficits. Motor grossly within normal limits. Normal speech. PSYCHIATRIC: Appropriate mood and affect; insight and judgment normal. Data Data Last Documented VS Vital Signs Date Time Temp Pulse Resp B/P Pulse Ox O2 Delivery O2 Flow Rate FiO2 01/21/17 11:11 106 20 133/60 96 Nasal Cannula 2 01/21/17 08:59 100.3 Orders Complete Blood Count With Diff (01/21/17 08:47) Comprehensive Metabolic Panel (01/21/17 08:47) B-Type Natriuretic Peptide (01/21/17 08:47) Ckmb (Isoenzyme) Profile (01/21/17 08:47) Troponin I (01/21/17 08:47) Urinalysis - C+S If Indicated (01/21/17 08:47) Iv Access Insert/Monitor (01/21/17 08:47) Electrocardiogram (01/21/17 08:47) Ecg Monitoring (01/21/17 08:47) Oximetry (01/21/17 08:47) Oxygen Administration (01/21/17 08:47) Chest, Single Ap (01/21/17 08:47) Sodium Chloride 0.9% Flush (Ns Flush) (01/21/17 09:00) Methylprednisolone So Succ Inj (Solumedr (01/21/17 09:00) Albuterol-Ipratropium Neb (Duoneb Neb) (01/21/17 09:00) Albuterol Neb (Albuterol Neb) (01/21/17 09:00) Prothrombin Time / Inr (Pt) (01/21/17 08:49) Act Partial Throm Time (Ptt) (01/21/17 08:49) Consult Cardiology (01/21/17 ) (Hub Use Only)Inp Phy Cons/Ref (01/21/17 ) Admit Order (Ed Use Only) (01/21/17 11:38) Labs Laboratory Tests Test 01/21/17 01/21/17 09:05 09:55 White Blood Count 9.9 TH/MM3 Red Blood Count 3.26 MIL/MM3 Hemoglobin 9.8 GM/DL Hematocrit 28.9 % Mean Corpuscular Volume 88.7 FL Mean Corpuscular Hemoglobin 30.1 PG Mean Corpuscular Hemoglobin 33.9 % Concent Red Cell Distribution Width 14.7 % Platelet Count 199 TH/MM3 Mean Platelet Volume 8.0 FL Neutrophils (%) (Auto) 87.4 % Lymphocytes (%) (Auto) 5.5 % Monocytes (%) (Auto) 6.3 % Eosinophils (%) (Auto) 0.6 % Basophils (%) (Auto) 0.2 % Neutrophils # (Auto) 8.6 TH/MM3 Lymphocytes # (Auto) 0.5 TH/MM3 Monocytes # (Auto) 0.6 TH/MM3 Eosinophils # (Auto) 0.1 TH/MM3 Basophils # (Auto) 0.0 TH/MM3 CBC Comment DIFF FINAL Differential Comment Prothrombin Time 11.7 SEC Prothromb Time International 1.1 RATIO Ratio Activated Partial 26.4 SEC Thromboplast Time Sodium Level 138 MEQ/L Potassium Level 3.6 MEQ/L Chloride Level 97 MEQ/L Carbon Dioxide Level 32.7 MEQ/L Anion Gap 8 MEQ/L Blood Urea Nitrogen 11 MG/DL Creatinine 0.57 MG/DL Estimat Glomerular Filtration 104 ML/MIN Rate Random Glucose 110 MG/DL Calcium Level 8.3 MG/DL Total Bilirubin 0.5 MG/DL Aspartate Amino Transf 39 U/L (AST/SGOT) Alanine Aminotransferase 30 U/L (ALT/SGPT) Alkaline Phosphatase 93 U/L Total Creatine Kinase 39 U/L Troponin I 0.19 NG/ML B-Type Natriuretic Peptide 555 PG/ML Total Protein 6.0 GM/DL Albumin 2.2 GM/DL Urine Color YELLOW Urine Turbidity CLEAR Urine pH 6.0 Urine Specific Buckley 1.020 Urine Protein 30 mg/dL Urine Glucose (UA) NEG mg/dL Urine Ketones NEG mg/dL Urine Occult Blood MOD Urine Nitrite NEG Urine Bilirubin NEG Urine Urobilinogen 2.0 MG/DL Urine Leukocyte Esterase NEG Urine RBC 18 /hpf Urine WBC LESS THAN 1 /hpf Urine Mucus FEW /lpf Microscopic Urinalysis Comment CULT NOT INDICATED MDM Medical Decision Making Medical Screen Exam Complete: Yes Emergency Medical Condition: Yes Differential Diagnosis CHF exacerbation versus ACS versus pneumonia Narrative Course 76-year-old female with a history of CHF, atrial fibrillation, recent admission for symptomatic GI bleed, presents today with complaints of shortness of breath. The patient denies a chest pain chest pressure. The patient's EKG showed A. fib with rate control. Cardec enzymes showed an elevated troponin at 0.19. Previously she had had normal troponins. Working diagnosis at this time is a non-ST elevation myocardial infarction. Aspirin was held secondary to her previous GI bleed. She currently has 1 inch of nitroglycerin placed added to her chest wall. Call to Dr. Moore who is on-call for cardiology has been made. He will follow as a investigations consultant. All is also made to Dr. Mccullough she will be be meeting physician for [facility]. Diagnosis Primary Impression: Non-ST elevation myocardial infarction (NSTEMI) Additional Impressions: Atrial fibrillation History of CHF (congestive heart failure) Pedal edema Admitting Information Admitting Physician Requests: Admit Kennedy Desai MD January 21, 2017 08:55
[2017-01-21] MEDS ORDERED: RESP: ALBUTEROL 2.5 MG/IPRATROPIUM 0.5 MG NEB (SCH) INH ONE (09:00)
[2017-01-21] MEDS ORDERED: methylPREDNISolone SOD SUCC 125 MG/2 ML VIAL IVP ONE (09:00)
[2017-01-21] MEDS ORDERED: SODIUM CHLORIDE 0.9% FLUSH 10 ML FLUSH IVF PRN (09:00)
[2017-01-21] MEDS: RESP: ALBUTEROL 2.5 MG/3 ML NEB (SCH) INH (09:09)
[2017-01-21 09:48] LABS: AUTOMATED NEUTROPHIL # 8.6 TH/MM3 (1.8-7.7); BASOPHIL % 0.2 % (0.0-2.0); EOSINOPHIL # 0.1 TH/MM3 (0-0.4); EOSINOPHIL % 0.6 % (0.0-4.0); HEMATOCRIT 28.9 % (35.0-46.0); HEMO FLAGS DIFF FINAL; LYMPH % 5.5 % (9.0-44.0); LYMPHOCYTE # 0.5 TH/MM3 (1.0-4.8); MEAN CELL VOLUME 88.7 FL (80.0-100.0); MEAN CORPUSCULAR HEMOGLOBIN 30.1 PG (27.0-34.0); MEAN CORPUSCULAR HGB CONC 33.9 % (32.0-36.0); MONO % 6.3 % (0.0-8.0); NEUT % 87.4 % (16.0-70.0); PLATELET COUNT 199 TH/MM3 (150-450); RED BLOOD COUNT 3.26 MIL/MM3 (4.00-5.30); RED CELL DISTRIBUTION WIDTH 14.7 % (11.6-17.2); WHITE BLOOD COUNT 9.9 TH/MM3 (4.0-11.0)
[2017-01-21 09:58] LABS: APTT (PATIENT) 26.4 SEC (24.3-30.1); INTERNATIONAL NORMALIZED RATIO 1.1 RATIO; PROTHROMBIN TIME - PATIENT 11.7 SEC (9.8-11.6)
--- NOTE | 2017-01-21 10:04 | RADRPT ---
EXAM DATE/TIME: 01/21/2017 09:04 [facility] COMPARISON: CHEST SINGLE AP, January 14, 2017, 11:12. INDICATIONS : Shortness of breath. MEDICAL HISTORY : Hypertension. Congestive heart failure. Diabetes mellitus type I. SURGICAL HISTORY : None. ENCOUNTER: Initial ACUITY: 1 day PAIN SCORE: 0/10 LOCATION: Bilateral chest FINDINGS: The lungs are clear. The heart is minimally enlarged. The pulmonary vascularity is normal. There is n o evidence for infiltrate or failure. The portion of the bony skeleton visualized is unremarkable. CONCLUSION: Compensated cardiomegaly otherwise negative Harry Gutierrez MD FACR Board Certified Radiologist. This report was verified electronically.
[2017-01-21 10:11] LABS: ANION GAP 8 MEQ/L (5-15); AST (GOT) 39 U/L (15-37); BICARBONATE 32.7 MEQ/L (21.0-32.0); BLOOD UREA NITROGEN 11 MG/DL (7-18); CHLORIDE 97 MEQ/L (98-107); GLOMERULAR FILTRATION RATE 104 ML/MIN (>89); POTASSIUM 3.6 MEQ/L (3.5-5.1); SODIUM (NA) 138 MEQ/L (136-145)
[2017-01-21 10:22] LABS: ALKALINE PHOSPHATASE 93 U/L (45-117); ALT (GPT) 30 U/L (10-53); TOTAL BILIRUBIN ADULT 0.5 MG/DL (0.2-1.0)
[2017-01-21 10:24] LABS: BLOOD, URINE MOD (NEG); COMMENT (UR) CULT NOT INDICATED; CULTURE IF INDICATED CULT NOT INDICATED; GLUCOSE,URINE NEG (NEG); KETONE, URINE NEG (NEG); MUCUS URINE FEW /lpf (OCC); NITRITE,URINE NEG (NEG); URINE COLOR YELLOW (YELLW/STRAW)
[2017-01-21 10:35] LABS: CREATINE KINASE 39 U/L (26-192)
[2017-01-21] MEDS ORDERED: NITROGLYCERIN 2% OINT 1 GM PACKET TOPICAL ONE (11:45)
[2017-01-21] MEDS ORDERED: MORPHINE SULFATE 4 MG/ML INJ IV PRN (13:30)
[2017-01-21] MEDS ORDERED: SODIUM CHLORIDE 0.9% FLUSH 10 ML FLUSH IV FLUSH PRN (13:30)
[2017-01-21] MEDS: HEPARIN SODIUM - SQ 10,000 UNITS/ML VIAL SQ SCH ×2 (14:03→20:56)
--- NOTE | 2017-01-21 19:34 | HHI.HP ---
HPI Service [facility] Hospitalists Primary Care Physician Fernanda Rosado MD Admission Diagnosis NSTEMI, atrial fibrillaton, Diagnoses: Chief Complaint: Shortness of breath Travel History International Travel<30 Days: No Contact w/Intl Traveler <30 Da: No Traveled to Known Affected Are: No History of Present Illness This is a 76-year-old female who is very well-known to me and has past medical history of CHF, COPD, age fibrillation, hypertension, hyperthyroidism and prediabetes who presents to [facility] complaining of shortness of breath. The patient states that she woke up with shortness of breath, however denies any palpitations, nausea, vomiting, denies any melena, hematochezia, denies chest pain, dizziness. The patient states that the shortness of breath would get better as she would move. The patient was seen by me previously which at the time patient present with similar complaints and found to be in new onset atrial fibrillation possibly due to hyperthyroidism. The patient was at the time seen by cardiology and started on furosemide as well as Coreg and Eliquis. Patient also was treated for COPD exacerbation with IV steroids. At the temporal margin was consulted and patient was urged to follow-up as an outpatient with pulmonology for an outpatient. CT scan for a pulmonary mass of the right upper lobe. As per review of records the patient was readmitted for GI bleed and at the time she was discharged on 01/18/17 with Eliquis on hold. The patient also states that after the last admission she just continue taking her KIRAN inhibitor for hypertension and did not take the other medications. The patient states that she feels much better now, denies cough, fevers or chills. Review of Systems As per history of present illness, other systems reviewed by me and negative Past Family Social History Past Medical History 1. Hypertension 2. COPD 3. CHF. 4. Atrial fibrillation. 5. Hyperthyroidism. 6. Prediabetes Past Surgical History Denies Reported Medications Reported Meds & Active Scripts Active Protonix (Pantoprazole Sodium) 40 Mg Tab 40 Mg PO BID Carafate (Sucralfate) 1 Gm Tab 1 Gm PO ACHS 30 Days Methimazole 10 Mg Tab 10 Mg PO TID Carvedilol 3.125 Mg Tab 3.125 Mg PO BID Furosemide 40 Mg Tab 40 Mg PO DAILY Reported Eliquis (Apixaban) 5 Mg Tab 5 Mg PO BID Enalapril (Enalapril Maleate) 10 Mg Tab 10 Mg PO DAILY Allergies: Coded Allergies: No Known Allergies (Verified , 01/21/17) Active Ordered Medications Current Medications Medications (Trade) Dose Ordered Sig/Ezio Route Start Time Stop Time Status Last Admin (NS Flush) 2 ml BID IV FLUSH 01/21/17 21:00 (NS Flush) 2 ml UNSCH PRN IV FLUSH 01/21/17 13:30 (Ecotrin Ec) 325 mg DAILY PO 01/22/17 09:00 (Morphine Inj) 2 mg Q30M PRN IV 01/21/17 13:30 (Heparin Inj) 5,000 units Q8H SQ 01/21/17 14:00 01/21/17 14:03 Family History Patient states her mother from complications of diabetes in her 50s. Patient's father from [facility] in his 50s. Social History Patient is a former smoker, she quit 9 years ago, denies drinking alcohol. The patient is and has 2 children. Physical Exam Vital Signs Vital Signs Date Time Temp Pulse Resp B/P Pulse Ox O2 Delivery O2 Flow Rate FiO2 01/21/17 16:33 89 01/21/17 16:10 97.7 20 123/63 98 01/21/17 15:57 86 18 136/78 98 Nasal Cannula 2 01/21/17 13:50 92 18 130/56 98 Nasal Cannula 2 01/21/17 13:42 98 Nasal Cannula 3.00 01/21/17 11:11 106 20 133/60 96 Nasal Cannula 2 01/21/17 08:59 100.3 108 20 150/66 96 Room Air 01/21/17 08:59 96 Room Air 01/21/17 08:47 101 20 96 Room Air 01/21/17 08:30 100.3 100 20 150/66 96 01/21/17 08:28 97.6 109 16 169/83 98 Physical Exam GENERAL: This is a well-nourished, well-developed patient, in no apparent distress. SKIN: No rashes, ecchymoses or lesions. Cool and dry. HEAD: Atraumatic. Normocephalic. No temporal or scalp tenderness. EYES: Pupils equal round and reactive. Extraocular motions intact. No scleral icterus. No injection or drainage. ENT: Nose without bleeding, purulent drainage or septal hematoma. Throat without erythema, tonsillar hypertrophy or exudate. Uvula midline. Airway patent. NECK: Trachea midline. No JVD or lymphadenopathy. Supple, nontender, no meningeal signs. CARDIOVASCULAR: Regular rate and rhythm without murmurs, gallops, or rubs. RESPIRATORY: Clear to auscultation. Breath sounds equal bilaterally. No wheezes , rales, or rhonchi. GASTROINTESTINAL: Abdomen soft, non-tender, nondistended. No hepato-splenomegaly , or palpable masses. No guarding. MUSCULOSKELETAL: Extremities without clubbing, cyanosis, or edema. No joint tenderness, effusion, or edema noted. No calf tenderness. Negative Homans sign bilaterally. NEUROLOGICAL: Awake and alert. Cranial nerves II through XII intact. Motor and sensory grossly within normal limits. Five out of 5 muscle strength in all muscle groups. Normal speech. Laboratory Laboratory Tests Test 01/21/17 01/21/17 01/21/17 09:05 09:55 15:00 White Blood Count 9.9 Red Blood Count 3.26 Hemoglobin 9.8 Hematocrit 28.9 Mean Corpuscular Volume 88.7 Mean Corpuscular Hemoglobin 30.1 Mean Corpuscular Hemoglobin 33.9 Concent Red Cell Distribution Width 14.7 Platelet Count 199 Mean Platelet Volume 8.0 Neutrophils (%) (Auto) 87.4 Lymphocytes (%) (Auto) 5.5 Monocytes (%) (Auto) 6.3 Eosinophils (%) (Auto) 0.6 Basophils (%) (Auto) 0.2 Neutrophils # (Auto) 8.6 Lymphocytes # (Auto) 0.5 Monocytes # (Auto) 0.6 Eosinophils # (Auto) 0.1 Basophils # (Auto) 0.0 CBC Comment DIFF FINAL Differential Comment Prothrombin Time 11.7 Prothromb Time International 1.1 Ratio Activated Partial 26.4 Thromboplast Time Sodium Level 138 Potassium Level 3.6 Chloride Level 97 Carbon Dioxide Level 32.7 Anion Gap 8 Blood Urea Nitrogen 11 Creatinine 0.57 Estimat Glomerular Filtration 104 Rate Random Glucose 110 Calcium Level 8.3 Total Bilirubin 0.5 Aspartate Amino Transf 39 (AST/SGOT) Alanine Aminotransferase 30 (ALT/SGPT) Alkaline Phosphatase 93 Total Creatine Kinase 39 24 Troponin I 0.19 0.11 B-Type Natriuretic Peptide 555 Total Protein 6.0 Albumin 2.2 Urine Color YELLOW Urine Turbidity CLEAR Urine pH 6.0 Urine Specific [place] 1.020 Urine Protein 30 Urine Glucose (UA) NEG Urine Ketones NEG Urine Occult Blood MOD Urine Nitrite NEG Urine Bilirubin NEG Urine Urobilinogen 2.0 Urine Leukocyte Esterase NEG Urine RBC 18 Urine WBC LESS THAN 1 Urine Mucus FEW Microscopic Urinalysis Comment CULT NOT INDICATED Date/Time Procedure Status Source Growth 01/21/17 15:00 Aerobic Blood Culture Received Blood Peripheral Pending 01/21/17 15:00 Anaerobic Blood Culture Received Blood Peripheral Pending Result Diagram: 01/21/1790401/21/17904 Imaging Last Impressions Chest X-Ray 01/21/17 0847 Signed Impressions: Service Date/Time: Saturday, January 21, 2017 09:04 - CONCLUSION: Compensated cardiomegaly otherwise negative Harry Gutierrez MD FACR Assessment and Plan Problem List: (1) Non-ST elevation myocardial infarction (NSTEMI) ICD Code: I21.4 Status: Acute Plan: This is an 86-year-old female who presented to [facility] complaining of shortness of breath. Chest x-ray which has been reviewed by me shows compensated cardiomegaly but otherwise no infiltrates or pulmonary congestion. EKG reviewed by me did not showed atrial fibrillation with a ventricular rate of [address]-T changes suggestive of active ischemia. Troponins were found to be elevated at 0.19, second set is lower at 0.11. Cardiology consult - follow-up recommendations. We'll place on aspirin, continue Coreg, KIRAN inhibitor Hold on heparin drip given recent history of GI bleed. (2) SOB (shortness of breath) ICD Code: R06.02 Status: Acute Plan: Chest x-ray does not show any evidence of pneumonia or pulmonary congestion. Patient also has history of COPD, however does not seem to be an exacerbation on exam. I will order a CT of the chest to rule out PE given that she has a history of pulmonary mass and has been off anticoagulation. It is also possible that the shortness of breath was a bout of paroxysmal atrial ablation with RVR which is now rate controlled since patient has not been compliant with medications. (3) History of CHF (congestive heart failure) ICD Code: Z86.79 Status: Chronic Plan: Will continue Lasix. Patient does not seem to be on CHF exacerbation. Patient had a recent echocardiogram which showed a systolic function which was mildly reduced with an estimated ejection fraction in the range of 45-50%. No diagnostic regional wall motion abnormalities. (4) Atrial fibrillation ICD Code: I48.91 Status: Chronic Plan: As seen on EKG detailed above. Patient with chronic atrial fibrillation of Eliquis after last episode of GI bleed for which patient was recently discharged on 01/18/17. I will continue to hold Eliquis for now. (5) Hyperthyroidism ICD Code: E05.90 Status: Chronic Plan: Patient not compliant with medications. We'll check TSH and free T4 as well as free T3 (6) COPD (chronic obstructive pulmonary disease) ICD Code: J44.9 Status: Chronic Plan: Patient does not seem to be on exacerbation. We'll place on DuoNeb's when necessary, continue supplemental oxygen as needed. Patient follows up as an outpatient with [employer] [facility] - Dr Zuluaga (7) Lung mass ICD Code: R91.8 Status: Acute Plan: Chest CT obtained on 01/06/17 showed a spiculated mass of the right upper lobe. This is being worked up as an outpatient by the patient's manager sterile. Patient states she had a PET CT scan scheduled for this coming week. (8) Prediabetes ICD Code: R73.03 Status: Acute Plan: Patient had a recent hemoglobin A1c of 6.2. The patient was discharged on metformin upon discharge. Hold metformin. (9) Low grade fever ICD Code: R50.9 Status: Acute Plan: Patient has a temperature of 100.3 without clear source of infection since UA is negative and chest x-ray did not show any infiltrates. I will order blood cultures and follow them. Also blood clots could give low-grade fevers as well. (10) Noncompliance with medication regimen ICD Code: Z91.14 Status: Acute Plan: Patient has not been taking medications prescribed for hyperthyroidism, COPD, atrial fibrillation. On the medication the patient has been taking is lisinopril. (11) HTN (hypertension) ICD Code: I10 Status: Acute Plan: Vital signs seems to be stable. Continue home antihypertensive medications. Assessment and Plan GI prophylaxis: Place on PPI. DVT prophylaxis: SCDs, no chemoprophylaxis given recent history of GI bleed. Discussed Condition With Patient, ED physician. Physician Certification 2 Midnight Certification Type: Admission for Inpatient Services Order for Inpatient Services The services are ordered in accordance with Medicare regulations or non- Medicare payer requirements, as applicable. In the case of services not specified as inpatient-only, they are appropriately provided as inpatient services in accordance with the 2-midnight benchmark. Estimated LOS (days): 2 days is the estimated time the patient will need to remain in the hospital, assuming treatment plan goals are met and no additional complications. Post-Hospital Plan: Home Problem Qualifiers (1) Atrial fibrillation: Qualified Code: I48.2 - Chronic atrial fibrillation (2) COPD (chronic obstructive pulmonary disease): Qualified Code: J42 - Chronic bronchitis, unspecified chronic bronchitis type (3) HTN (hypertension): Qualified Code: I10 - Essential hypertension Jacky Gonzalez MD January 21, 2017 19:34
--- NOTE | 2017-01-21 20:55 | EKG ---
Date Performed: 01/21/2017 Time Performed: 09:49:15 PTAGE: 76 years EKG: ATRIAL FIBRILLATION NONSPECIFIC ST & T-WAVE ABNORMALITY ABNORMAL ECG INTERPRETATION BASED O N A DEFAULT AGE OF 42 YEARS PREVIOUS TRACING : 01/14/2017 11.11 Compared to prior tracing no significant change DOCTOR: Omer Carlin Interpretating Date/Time 01/21/2017 20:53:41
[2017-01-21] MEDS: CARVEDILOL 3.125 MG TAB PO SCH (20:56)
[2017-01-21] MEDS: SUCRALFATE 1 GM TAB PO SCH (20:56)
[2017-01-21] MEDS: SODIUM CHLORIDE 0.9% FLUSH 10 ML FLUSH IV FLUSH SCH (20:57)
[2017-01-21] MEDS: PANTOPRAZOLE SOD 40 MG DELAYED RELEASE TAB PO SCH (21:04)
[2017-01-21 21:37] LABS: CREATINE KINASE 25 U/L (26-192); FREE T4 1.32 NG/DL (0.76-1.46)
[2017-01-21] MEDS ORDERED: IOHEXOL 350 MG/ML 10 ML VIAL (for RAD DIAG) IV ONE (22:15)
--- NOTE | 2017-01-21 22:39 | RADRPT ---
EXAM DATE/TIME: 01/21/2017 22:05 [place] COMPARISON: CT THORAX W CONTRAST, January 06, 2017, 11:30. CT PULMONARY ANGIOGRAM, March 03, 2016, 11:35. INDICATIONS : Short of breath. IV CONTRAST: 65 cc Omnipaque 350 (iohexol) IV RADIATION DOSE: 4.79 CTDIvol (mGy) MEDICAL HISTORY : Hypertension. Congestive heart failure. Diabetes mellitus type 2. SURGICAL HISTORY : None. ENCOUNTER: Initial ACUITY: 1 day PAIN SCALE: 0/10 LOCATION: chest TECHNIQUE: Volumetric scanning of the chest was performed using a pulmonary embolism protocol MIP images were re constructed. Using automated exposure control and adjustment of the mA and/or kV according to patien t size, radiation dose was kept as low as reasonably achievable to obtain optimal diagnostic quality images. FINDINGS: There is a spiculated masslike area of the right upper lobe and measures 15 x 23 mm in size and appea rs slightly larger and more internally dense than on the prior CTs. No pulmonary embolus. No infiltrate. Tiny effusion and mild atelectasis seen at the right lung b ase. There is biatrial cardiac enlargement and appears to be worsening. Coronary artery calcification again noted. CONCLUSION: 1. No pulmonary embolus. 2. Worsening biatrial enlargement of the heart. 3. Spiculated masslike area of the right lung apex is probably slowly growing. If no more remote prev ious studies can confirm relative long-term stability of this finding then tissue diagnosis is recomm ended. A percutaneous needle biopsy is potentially feasible. 4. Mild atelectasis and trace effusion at the right lung base. 5. No lymphadenopathy. 6. Coronary artery calcification. Julius Prabhakar MD on January 21, 2017 at 22:30 Board Certified Radiologist. This report was verified electronically.
[2017-01-22] VITALS (8 sets, daily range): BP systolic 101–111; BP diastolic 53–65; PULSE 86–101; RESP 16–19; TEMP 97.2–98.9; O2SAT 98–100
[2017-01-22 02:06] LABS: AUTOMATED NEUTROPHIL # 3.8 TH/MM3 (1.8-7.7); BASOPHIL % 0.3 % (0.0-2.0); HEMATOCRIT 25.3 % (35.0-46.0); HEMO FLAGS DIFF FINAL; LYMPHOCYTE # 0.4 TH/MM3 (1.0-4.8); MEAN CELL VOLUME 88.1 FL (80.0-100.0); MEAN CORPUSCULAR HEMOGLOBIN 29.8 PG (27.0-34.0); MEAN CORPUSCULAR HGB CONC 33.8 % (32.0-36.0); MONO % 8.1 % (0.0-8.0); NEUT % 82.6 % (16.0-70.0); PLATELET COUNT 184 TH/MM3 (150-450); RED BLOOD COUNT 2.87 MIL/MM3 (4.00-5.30); RED CELL DISTRIBUTION WIDTH 14.9 % (11.6-17.2); WHITE BLOOD COUNT 4.6 TH/MM3 (4.0-11.0)
[2017-01-22 02:30] LABS: BICARBONATE 36.9 MEQ/L (21.0-32.0); POTASSIUM 3.7 MEQ/L (3.5-5.1)
[2017-01-22] MEDS: HEPARIN SODIUM - SQ 10,000 UNITS/ML VIAL SQ SCH (05:12)
[2017-01-22] MEDS: SUCRALFATE 1 GM TAB PO SCH ×2 (05:12→12:48)
--- NOTE | 2017-01-22 08:26 | MB ---
cc: SUSANNE SINGH DATE OF CONSULTATION: 01/21/2017 DATE OF : 1940 REASON FOR CONSULTATION: Elevated troponin. HISTORY OF PRESENT ILLNESS: 76-year-old female with past medical history significant for mild Left ventricle systolic dysfunction, chronic obstructive pulmonary disease, atrial fibrillation, hypertension, hyperthyroidism, recently diagnosed lung mass. Presented to the [facility] with complaints of worsening shortness of breath for the last couple of days. The patient reports being on her usual state of health until the day prior to admission she started beginning to have shortness of breath. She denies chest pain, palpitations, 978, vomiting, diarrhea, fevers, chills, hematochezia, dizziness or syncope. The patient lives by herself and reports being compliant with medications. The patient had a history of gastrointestinal bleeding for which the Eliquis was recently stopped. REVIEW OF SYSTEMS Negative except for what is mentioned in the history of present illness. PAST MEDICAL HISTORY: 1. Hypertension 2. COPD 3. Heart failure exacerbation 4. hyper-CVAD 5. Diabetes 6. Right upper lobe mass. PAST SURGICAL HISTORY Unremarkable CARDIAC HOME MEDICATIONS: 1. Coreg 3.125 mg p.o. b.i.d. 2. Enalapril 10 p.o. daily 3. Lasix 40 mg p.o. daily. ALLERGIES NO KNOWN DRUG ALLERGIES. FAMILY HISTORY Noncontributory. SOCIAL HISTORY He smokes in the back to zero today she denies alcohol use or illicit drug use. PHYSICAL EXAMINATION VITAL SIGNS: Temperature 97, respiratory rate 18 heart rate 83, blood pressure 115/68, O2 sat 98% and 2 liters nasal cannula. GENERAL: She is alert, awake, oriented x3. She looks cathectic. NECK: There is no carotid bruits. No JVD. HEART: Heart Irregularly regular, 1/6 systolic murmur appreciated at the apex. LUNGS: Decreased inspiratory effort bilaterally. No wheezing. No rales, however, there is rhonchi bilaterally. ABDOMEN: Soft, nontender, nondistended with positive bowel sounds. EXTREMITIES: No cyanosis or edema. Pulses throughout. LABORATORY DATA CBC; Hemoglobin 9.8 and hematocrit of 28.9, platelet count 199, INR of 1.1. CHEMISTRIES: Sodium 138, potassium 3.6, BUN 8, creatinine 0.57, calcium 8.3, troponin 0.19, 0.11 at 0.09. B-type natriuretic peptide 555, albumin 2.2, TSH 0.005 X-RAYS There is cardiomegaly, otherwise unremarkable. CTA of the chest shows no evidence of pulmonary embolus with coronary artery calcification. There is a spiculated mass in the right upper lung. Electrocardiogram atrial fibrillation with adequate ventricular response and nonspecific ST changes. Echocardiogram done on January 08, 2017 shows ejection fraction of 45-50% with moderate mitral regurgitation, biatrial enlargement and moderate to severe tricuspid regurgitation with elevated right ventricular systolic pressures consistent with pulmonary hypertension. ASSESSMENT/PLAN 76-year-old female with known history of chronic obstructive pulmonary disease, is a smoker. New lung mass, atrial fibrillation, history of recent gastrointestinal bleeding that presented with worsening shortness of breath. BNP 555. She has a known diastolic function with moderate mitral regurgitation. Troponins markers minimally elevated which could be from the atrial fibrillation with rapid ventricular response and a acute on chronic diastolic heart failure component. At this point I would not pursue any further cardiac workup and recommend aggressive medical management. Off OAC given hx of GI bleeding. Recommendations: 1. Continue IV diuresis, 2. Strict In and outputs 3. Daily weights. 4. Continue Coreg and enalapril 5. Avoid electrolyte abnormalities 6. Encourage incentive spirometer as well as ambulations. The patient should follow up with Dr. Gates upon discharge. Thank you for the opportunity to participate in the care of this patient, will be available on a p.r.n. basis for any other questions or concerns. MD JOSÉ MIGUEL Warren/jennifer /11:07 PM /7:31 AM JOSELITO
[2017-01-22] MEDS ORDERED: ENALAPRIL MALEATE 10 MG TAB PO SCH (09:00)
[2017-01-22] MEDS ORDERED: FUROSEMIDE 40 MG TAB PO SCH (09:00)
[2017-01-22] MEDS ORDERED: ASPIRIN EC 325 MG TABEC PO SCH (09:00)
[2017-01-22] MEDS: PANTOPRAZOLE SOD 40 MG DELAYED RELEASE TAB PO SCH (09:21)
[2017-01-22] MEDS: CARVEDILOL 3.125 MG TAB PO SCH (09:21)
[2017-01-22] MEDS: METHIMAZOLE 10 MG TAB PO SCH ×2 (09:21→12:49)
[2017-01-22] MEDS: SODIUM CHLORIDE 0.9% FLUSH 10 ML FLUSH IV FLUSH SCH (09:22)
[2017-01-22] MEDS ORDERED: ASPI1TAB69 PO (13:57)
--- NOTE | 2017-01-22 13:58 | HHI.DCPOC ---
Discharge Care Plan Diagnosis: (1) Non-ST elevation myocardial infarction (NSTEMI) (2) History of CHF (congestive heart failure) (3) COPD (chronic obstructive pulmonary disease) (4) Hyperthyroidism (5) Lung mass (6) HTN (hypertension) (7) Prediabetes (8) Noncompliance with medication regimen Goals to Promote Your Health * To prevent worsening of your condition and complications * To maintain your health at the optimal level Directions to Meet Your Goals Take your medications as prescribed Follow your dietary instruction Follow activity as directed Keep your appointments as scheduled Take your immunizations and boosters as scheduled If your symptoms worsen call your PCP, if no PCP go to Urgent Care Center or Emergency Room Smoking is Dangerous to Your Health. Avoid second hand smoke Call the 24-hour hour crisis hotline for domestic abuse at Jacky Gonzalez MD January 22, 2017 13:58
--- NOTE | 2017-01-22 14:02 | HHI.FF ---
Face to Face Verification Diagnosis: (1) Non-ST elevation myocardial infarction (NSTEMI) (2) HTN (hypertension) (3) Prediabetes (4) COPD (chronic obstructive pulmonary disease) (5) Atrial fibrillation (6) Hyperthyroidism (7) Lung mass (8) Noncompliance with medication regimen (9) History of CHF (congestive heart failure) Home Health Nursing Order: Signs/symptoms of disease process Diabetic education CHF education Nursing assessment with vital signs I have seen patient Laure Richardson on 01/22/17. My clinical findings support the need for the requested home health care services because: Patient has SOB Med compliance is questionable Need for psychosocial assistance I certify that my clinical findings support that this patient is homebound because: Hx COPD- exertion dyspnea/weakness Unsafe to leave home unassisted Unable to use public transportation Jacky Gonzalez MD January 22, 2017 14:02
--- NOTE | 2017-01-22 16:38 | EKG ---
Date Performed: 01/21/2017 Time Performed: 15:20:00 PTAGE: 76 years EKG: ATRIAL FIBRILLATION WITH RAPID VENTRICULAR RESPONSE NONSPECIFIC ST & T-WAVE ABNORMALITY Com pared to prior tracing no significant change ABNORMAL RHYTHM ECG PREVIOUS TRACING : 01/21/2017 09.49 DOCTOR: Mabel Ramos Interpretating Date/Time 01/22/2017 16:37:51
--- NOTE | 2017-01-22 16:38 | EKG ---
Date Performed: 01/21/2017 Time Performed: 19:21:36 PTAGE: 76 years EKG: ATRIAL FIBRILLATION NONSPECIFIC ST & T-WAVE ABNORMALITY Compared to prior tracing no signif icant change ABNORMAL RHYTHM ECG PREVIOUS TRACING : 01/21/2017 15.20 DOCTOR: Mabel Ramos Interpretating Date/Time 01/22/2017 16:37:59
--- NOTE | 2017-01-22 16:40 | EKG ---
Date Performed: 01/22/2017 Time Performed: 03:17:10 PTAGE: 76 years EKG: Atrial fibrillation, HR of [address]-T wave changes Compared to prior tracing n o significant change PREVIOUS TRACING : 01/21/2017 19.21 DOCTOR: Mabel Ramos Interpretating Date/Time 01/22/2017 16:39:02
== END 2017-01-22 17:30 | disposition home health service (06) | DRG 309 ==
LOC: NEPC 08:24 → NEDA 11:41 → N04B 17:01
PROVIDERS: ADMIT Hospitalist; ATTEND Hospitalist
DX: I48.2 Chronic atrial fibrillation (principal); I50.22 Chronic systolic (congestive) heart failure; I27.2 Other secondary pulmonary hypertension; I11.0 Hypertensive heart disease with heart failure; E11.9 Type 2 diabetes mellitus without complications; J44.9 Chronic obstructive pulmonary disease, unspecified; E05.90 Thyrotoxicosis, unspecified without thyrotoxic crisis or storm; I08.1 Rheumatic disorders of both mitral and tricuspid valves; R91.8 Other nonspecific abnormal finding of lung field; Z79.01 Long term (current) use of anticoagulants; Z82.49 Family history of ischemic heart disease and other diseases of the circulatory system; Z83.3 Family history of diabetes mellitus; Z87.891 Personal history of nicotine dependence; Z91.14 Patient's other noncompliance with medication regimen
CPT/HCPCS: 71010; 71275; 80048; 80053; 81001; 82550; 83880; 84439; 84443; 84484; 85025; 85610; 85730; 87040; 93005; 94640; 94664; 96374; J1644; J2930; J7613; Q9967

== ENCOUNTER 2017-03-26 08:53 | Inpatient (IN) | payer OTHER, MEDICARE ==
[2017-03-26] VITALS (10 sets, daily range): BP systolic 112–166; BP diastolic 60–75; PULSE 68–120; RESP 16–22; TEMP 97.3–98; O2SAT 96–100
[~2017-03-26] VITALS: Ht 160 cm; Wt 45.2 kg
[~2017-03-26 08:53] MED LIST changes: -APIX5TAB PO; +ASPI1TAB69 PO
--- NOTE | 2017-03-26 09:14 | PD ---
HPI Chief Complaint: Respiratory Symptoms Time Seen by Provider: 09:04 Travel History International Travel<30 days: No Contact w/Intl Traveler<30days: No Traveled to known affect area: No History of Present Illness HPI Patient is a 76-year-old female presents emergency Department with some mild abdominal cramping for the past 2 days associated with some weakness and now some black stools. Patient states she's never had a colonoscopy before. She does endorse a mild weight loss over many months. Denies any nausea or vomiting denies any fevers. She states she feels very weak almost like she is going to pass out. States this never happened to her before. Denies any headache neck ache backache chest pain or blood thinner use. PFSH Past Medical History Hx Anticoagulant Therapy: Yes Heart Rhythm Problems: Yes (fast beating heart this morning 1st time; A-FIB) Cancer: No Cardiovascular Problems: Yes High Cholesterol: No Chemotherapy: No Congestive Heart Failure: Yes Cerebrovascular Accident: No Diabetes: Yes Diminished Hearing: No Endocrine: No Gastrointestinal Disorders: No Genitourinary: No Hypertension: Yes (controlled on meds) Immune Disorder: No Implanted Vascular Access Dvce: No Musculoskeletal: No Neurologic: No Psychiatric: No Reproductive: No Respiratory: No Thyroid Disease: Yes Past Surgical History Hysterectomy: No Other Surgery: No Social History Alcohol Use: No Tobacco Use: No Substance Use: No Allergies-Medications (Allergen,Severity, Reaction): Coded Allergies: No Known Allergies (Verified , 03/26/17) Reported Meds & Prescriptions Reported Meds & Active Scripts Active Reported Enalapril (Enalapril Maleate) 10 Mg Tab 10 Mg PO DAILY Review of Systems Except as stated in HPI: all other systems reviewed are Neg Physical Exam Narrative GENERAL: Well-developed well-nourished distress SKIN: Pale with good skin turgor. HEAD: Atraumatic. Normocephalic. EYES: Pupils equal and round. No scleral icterus. No injection or drainage. ENT: No nasal bleeding or discharge. Mucous membranes pink and moist. NECK: Trachea midline. No JVD. CARDIOVASCULAR: Regular rate and rhythm. No murmur appreciated. RESPIRATORY: No accessory muscle use. Clear to auscultation. Breath sounds equal bilaterally. GASTROINTESTINAL: Abdomen soft, non-tender, nondistended. Hepatic and splenic margins not palpable. RECTAL: No hemorrhoids, gross melena. No mass. MUSCULOSKELETAL: No obvious deformities. No clubbing. No cyanosis. No edema. NEUROLOGICAL: Awake and alert. No obvious cranial nerve deficits. Motor grossly within normal limits. Normal speech. PSYCHIATRIC: Appropriate mood and affect; insight and judgment normal. Data Data Last Documented VS Vital Signs Date Time Temp Pulse Resp B/P Pulse Ox O2 Delivery O2 Flow Rate FiO2 03/26/17 10:00 99 16 149/64 99 Nasal Cannula 2 03/26/17 08:54 97.9 Orders Electrocardiogram (03/26/17 ) Complete Blood Count With Diff (03/26/17 09:12) Comprehensive Metabolic Panel (03/26/17 09:12) Prothrombin Time / Inr (Pt) (03/26/17 09:12) Act Partial Throm Time (Ptt) (03/26/17 09:12) Type And Screen (03/26/17 09:12) Chest, Single Ap (03/26/17 09:12) Ecg Monitoring (03/26/17 09:12) Iv Access Insert/Monitor (03/26/17 09:12) Oximetry (03/26/17 09:12) Sodium Chloride 0.9% Flush (Ns Flush) (03/26/17 09:15) Ct Abd/Pel W Iv Contrast(Rout) (03/26/17 ) Iohexol 350 Inj (Omnipaque 350 Inj) (03/26/17 11:09) Consult Gastroenterology (03/26/17 ) (Hub Use Only)Inp Phy Cons/Ref (03/26/17 ) Place In Observation (03/26/17 ) Admit Order (Ed Use Only) (03/26/17 ) Labs Laboratory Tests Test 03/26/17 09:15 White Blood Count 8.7 TH/MM3 Red Blood Count 3.86 MIL/MM3 Hemoglobin 8.7 GM/DL Hematocrit 28.1 % Mean Corpuscular Volume 72.8 FL Mean Corpuscular Hemoglobin 22.6 PG Mean Corpuscular Hemoglobin 31.0 % Concent Red Cell Distribution Width 21.0 % Platelet Count 289 TH/MM3 Mean Platelet Volume 7.6 FL Neutrophils (%) (Auto) 82.6 % Lymphocytes (%) (Auto) 6.6 % Monocytes (%) (Auto) 8.2 % Eosinophils (%) (Auto) 0.2 % Basophils (%) (Auto) 2.4 % Neutrophils # (Auto) 7.1 TH/MM3 Lymphocytes # (Auto) 0.6 TH/MM3 Monocytes # (Auto) 0.7 TH/MM3 Eosinophils # (Auto) 0.0 TH/MM3 Basophils # (Auto) 0.2 TH/MM3 CBC Comment AUTO DIFF Differential Total Cells 100 Counted Neutrophils % (Manual) 74 % Band Neutrophils % 7 % Lymphocytes % 11 % Monocytes % 7 % Eosinophils % 1 % Neutrophils # (Manual) 7.0 TH/MM3 Nucleated Red Blood Cells 1 /100 WBC Differential Comment FINAL DIFF MANUAL Platelet Estimate NORMAL Platelet Morphology Comment NORMAL Ovalocytes 1+ Acanthocytes 1+ Keratocytes 1+ Prothrombin Time 14.0 SEC Prothromb Time International 1.3 RATIO Ratio Activated Partial 27.5 SEC Thromboplast Time Sodium Level 134 MEQ/L Potassium Level 3.7 MEQ/L Chloride Level 100 MEQ/L Carbon Dioxide Level 29.0 MEQ/L Anion Gap 5 MEQ/L Blood Urea Nitrogen 24 MG/DL Creatinine 0.51 MG/DL Estimat Glomerular Filtration 118 ML/MIN Rate Random Glucose 123 MG/DL Calcium Level 8.4 MG/DL Iron Level 24 MCG/DL Total Iron Binding Capacity 395 MCG/DL Percent Iron Saturation 6.1 % Ferritin 33 NG/ML Total Bilirubin 0.4 MG/DL Aspartate Amino Transf 46 U/L (AST/SGOT) Alanine Aminotransferase 36 U/L (ALT/SGPT) Alkaline Phosphatase 104 U/L Total Protein 5.8 GM/DL Albumin 2.5 GM/DL Free Thyroxine 1.47 NG/DL Free Triiodothyronine (T3) 2.37 PG/ML pg/dL Thyroid Stimulating Hormone LESS THAN 3rd Gen 0.005 uIU/ML Blood Type O POSITIVE Antibody Screen NEGATIVE [facility] Medical Decision Making Medical Screen Exam Complete: Yes Emergency Medical Condition: Yes Differential Diagnosis GI bleeding, anemia, colon cancer, AVM, diverticulosis, diverticulitis, Narrative Course Patient roomed emergency department, noted to be anemic to hemoglobin of 8.7. Vital signs are stable. She's been ambulating in about the room. CAT scan shows no obvious abnormalities. Patient was discussed with Dr. Sloan for observation status for GI bleeding. Routine constant placed for GI. Anticipating that it is Tuesday and no colonoscopy will be performed today, the patient was allowed to have sips of clear water. Diagnosis Primary Impression: Acute blood loss anemia Additional Impression: GI bleed Disposition: DISCHARGE HOME Condition: Stable Andrey Jorge MD Mar 26, 2017 09:14
[2017-03-26] MEDS ORDERED: SODIUM CHLORIDE 0.9% FLUSH 10 ML FLUSH IVF PRN (09:15)
--- NOTE | 2017-03-26 09:33 | RADRPT ---
EXAM DATE/TIME: 03/26/2017 09:14 [facility] COMPARISON: CHEST SINGLE AP, January 21, 2017, 9:04. INDICATIONS : Chest pain and shortness of breath. MEDICAL HISTORY : Congestive heart failure. Diabetes mellitus type 1. Hypertension. SURGICAL HISTORY : None. ENCOUNTER: Initial ACUITY: 1 day PAIN SCORE: 2/10 LOCATION: Bilateral chest FINDINGS: The lungs are clear without infiltrate, nodule, or mass. There is no appreciable pleural effusion fo r technique. Slight cardiomegaly has not changed. There are atherosclerotic calcifications of the aor ta due to chronic atherosclerotic disease. CONCLUSION: No acute cardiopulmonary disease. Emery Greco MD on March 26, 2017 at 9:30 Board Certified Radiologist. This report was verified electronically.
[2017-03-26 09:49] LABS: AUTOMATED NEUTROPHIL # 7.1 TH/MM3 (1.8-7.7); BASOPHIL # 0.2 TH/MM3 (0-0.2); BASOPHIL % 2.4 % (0.0-2.0); EOSINOPHIL % 0.2 % (0.0-4.0); HEMATOCRIT 28.1 % (35.0-46.0); LYMPH % 6.6 % (9.0-44.0); LYMPHOCYTE # 0.6 TH/MM3 (1.0-4.8); MEAN CELL VOLUME 72.8 FL (80.0-100.0); MEAN CORPUSCULAR HEMOGLOBIN 22.6 PG (27.0-34.0); MONO % 8.2 % (0.0-8.0); NEUT % 82.6 % (16.0-70.0); PLATELET COUNT 289 TH/MM3 (150-450); RED BLOOD COUNT 3.86 MIL/MM3 (4.00-5.30); WHITE BLOOD COUNT 8.7 TH/MM3 (4.0-11.0)
[2017-03-26 09:51] LABS: HEMO FLAGS AUTO DIFF
[2017-03-26 09:59] LABS: APTT (PATIENT) 27.5 SEC (24.3-30.1); INTERNATIONAL NORMALIZED RATIO 1.3 RATIO
[2017-03-26 10:01] LABS: ALT (GPT) 36 U/L (10-53)
[2017-03-26 10:03] LABS: ALKALINE PHOSPHATASE 104 U/L (45-117); TOTAL BILIRUBIN ADULT 0.4 MG/DL (0.2-1.0)
[2017-03-26 10:08] LABS: ANION GAP 5 MEQ/L (5-15); AST (GOT) 46 U/L (15-37); BLOOD UREA NITROGEN 24 MG/DL (7-18); CHLORIDE 100 MEQ/L (98-107); GLOMERULAR FILTRATION RATE 118 ML/MIN (>89); POTASSIUM 3.7 MEQ/L (3.5-5.1); SODIUM (NA) 134 MEQ/L (136-145)
[2017-03-26] MEDS ORDERED: IOHEXOL 350 MG/ML 10 ML VIAL (for RAD DIAG) IV ONE (11:09)
[2017-03-26 11:10] LABS: ACANTHOCYTES 1+ (NORMAL); BANDS 7 % (0-6); CORRECTED NUCLEATED RBC 1 /100 WBC (0-0); EOSINOPHILS 1 % (0-4); KERATOCYTES 1+ (NORMAL); OVALOCYTES 1+ (NORMAL); PLATELET ESTIMATE SMEAR NORMAL (NORMAL); PLATELET MORPHOLOGY NORMAL (NORMAL); POLYS (SEG NEUTROPHILS) 74 % (16-70); SCAN/DIFF FINAL DIFF MANUAL; WBC DIFF SAMPLE 100
--- NOTE | 2017-03-26 11:41 | RADRPT ---
EXAM DATE/TIME: 03/26/2017 11:03 [facility] COMPARISON: CT ABDOMEN & PELVIS W CONTRAST, March 03, 2016, 11:35. CHEST SINGLE AP, March 26, 2017, 9:14. INDICATIONS : Blood in stool. IV CONTRAST: 100 cc Omnipaque 350 (iohexol) IV ORAL CONTRAST: No oral contrast ingested. RADIATION DOSE: 4.84 CTDIvol (mGy) MEDICAL HISTORY : Cardiovascular disease. Congestive heart failure. Hypertension. SURGICAL HISTORY : None. ENCOUNTER: Initial ACUITY: 1 day PAIN SCALE: 2/10 LOCATION: Bilateral lower quadrant TECHNIQUE: Volumetric scanning of the abdomen and pelvis was performed. Using automated exposure control and ad justment of the mA and/or kV according to patient size, radiation dose was kept as low as reasonably achievable to obtain optimal diagnostic quality images. DICOM format image data is available electro nically for review and comparison. FINDINGS: CT Abdomen: The liver, spleen, pancreas, right kidney, adrenals are unremarkable. There is no evidenc e for any appreciable pathological adenopathy, free fluid, or bowel obstruction. Slight degree of so mewhat linear irregular opacity is seen in the left lung base mostly consistent with scarring. Chroni c vascular calcifications are present involving the aorta, iliac arteries without any significant claritza nosis or aneurysmal dilatations for technique. Approximate 2.7 cm cyst is present in the left kidney. The IVC is dilated and measures 3.9 cm in size in the intrahepatic portion not present on the prior exam probably due to congestive heart failure. CT pelvis: There is no evidence for mass, abscess formation, or any significant adenopathy within the pelvis. There are degenerative changes and possible bulging discs in the lower lumbosacral spine not adequately characterized and is also gas in the anterior epidural space of lower lumbar spine probab ly chronic in nature possibly disc herniation. There are scattered diverticuli mainly in the sigmoid colon without definite signs of diverticulitis. CONCLUSION: Prominent IVC probably due to congestive heart failure, otherwise chronic changes. Emery Greco MD on March 26, 2017 at 11:35 Board Certified Radiologist. This report was verified electronically.
[2017-03-26 13:44] LABS: FERRITIN 33 NG/ML (8-252)
[2017-03-26] MEDS ORDERED: SODIUM CHLOR 0.9% 1000 ML INJ 1,000 ML IV SCH (13:45)
--- NOTE | 2017-03-26 13:48 | HHI.HP ---
HPI Service [facility] Hospitalists Primary Care Physician Fernanda Rosado MD Admission Diagnosis GI bleed Diagnoses: Chief Complaint: Black tarry stools Abdominal cramping Weakness Travel History International Travel<30 Days: No Contact w/Intl Traveler <30 Da: No Traveled to Known Affected Are: No History of Present Illness Written by Michelle Vidal PA-C acting as scribe for Dr. Bergeron on 03/26/17 at 13:22. This is a 76 yo female with a PMHX of HTN, COPD, CHF, atrial fibrillation previously on Eliquis, hyperthyroidism, h/o GIB, spiculated lung mass, prediabetes and h/o medication noncompliance who presents to [facility] ED with complaints of mild abdominal cramping, weakness and episode of black tarry stool x 1 since this morning. Patient states she "just felt lousy this morning " and decided to come into the hospital. She denies any BRBPR. She denies any associated fever, chills, nausea or vomiting. She denies any chest pain or SOB. She reports feeling fine yesterday with normal bowel movements. She denies any recent NSAID use. She does not drink. She is not on any blood thinners including aspirin. She has a history of heavy tobacco use but quit 8 yrs ago. She denies any reflux or difficulty swallowing. She reports an intentional weight loss of 20lbs over the past year. She had a previous colonoscopy about 5-6 yrs ago. She denies any FMHX of stomach or colon cancer. In the ED, CT of the abdomen and pelvis shows prominent IVC probably due to CHF, otherwise no chronic changes. She is anemic with a hemoglobin of 8.7. She states her abdominal cramping has subsided. She denies any dizziness or lightheadedness. She denies a known history of anemia. Review of Systems Except as stated in HPI: all other systems reviewed are Neg Past Family Social History Past Medical History Patient admits to PMHX of Hypertension. Review of the medical record also reveals PMHX significant for: COPD CHF Atrial fibrillation, not on anticoagulation PUD Hyperthyroidism Prediabetes H/O GIB H/O spiculated mass of the RUL as seen on chest CT 01/06/17 History of medication noncompliance Past Surgical History Patient denies any previous surgical procedures. Reported Medications Enalapril (Enalapril Maleate) 10 Mg Tab 10 Mg PO DAILY Allergies: Coded Allergies: No Known Allergies (Verified , 03/26/17) Active Ordered Medications Current Medications Medications (Trade) Dose Ordered Sig/Ezio Route Start Time Stop Time Status Last Admin (NS Flush) 2 ml UNSCH PRN IVF 03/26/17 09:15 (Protonix Inj) 40 mg Q24H IV PUSH 03/26/17 13:15 UNV Family History Mother, DM and lung cancer Father, lung cancer Social History Patient has a history of heavy tobacco use of 4 ppd since the age of 18 but quit 8 yrs ago. She denies any EtOH use or illicit drug use. Physical Exam Vital Signs Vital Signs Date Time Temp Pulse Resp B/P Pulse Ox O2 Delivery O2 Flow Rate FiO2 03/26/17 10:00 99 16 149/64 99 Nasal Cannula 2 03/26/17 09:18 102 22 100 Nasal Cannula 2 03/26/17 09:16 120 22 166/63 97 Room Air 03/26/17 09:15 16 97 Room Air 03/26/17 08:54 97.9 86 16 146/60 96 Physical Exam GENERAL: This is a well-nourished, well-developed patient, in no apparent distress. Awake and alert. Ambulating in the ED. SKIN: No rashes, ecchymoses or lesions. Cool and dry. HEAD: Atraumatic. Normocephalic. No temporal or scalp tenderness. EYES: Pupils equal round and reactive. Extraocular motions intact. No scleral icterus. No injection or drainage. ENT: Nose without bleeding or purulent drainage. Throat without erythema, tonsillar hypertrophy or exudate. Uvula midline. Airway patent. NECK: Trachea midline. No JVD or lymphadenopathy. Supple, nontender, no meningeal signs. CARDIOVASCULAR: Regular rate and rhythm without murmurs, gallops, or rubs. RESPIRATORY: Clear to auscultation. Breath sounds equal bilaterally. No wheezes , rales, or rhonchi. GASTROINTESTINAL: Abdomen soft, non-tender, nondistended. No hepato-splenomegaly , or palpable masses. No guarding. MUSCULOSKELETAL: Extremities without clubbing, cyanosis, or edema. No joint tenderness, effusion, or edema noted. No calf tenderness. NEUROLOGICAL: Awake and alert. Able to move all extremities. No focal neurologic findings appreciated. Normal speech. Laboratory Laboratory Tests Test 03/26/17 09:15 White Blood Count 8.7 Red Blood Count 3.86 Hemoglobin 8.7 Hematocrit 28.1 Mean Corpuscular Volume 72.8 Mean Corpuscular Hemoglobin 22.6 Mean Corpuscular Hemoglobin 31.0 Concent Red Cell Distribution Width 21.0 Platelet Count 289 Mean Platelet Volume 7.6 Neutrophils (%) (Auto) 82.6 Lymphocytes (%) (Auto) 6.6 Monocytes (%) (Auto) 8.2 Eosinophils (%) (Auto) 0.2 Basophils (%) (Auto) 2.4 Neutrophils # (Auto) 7.1 Lymphocytes # (Auto) 0.6 Monocytes # (Auto) 0.7 Eosinophils # (Auto) 0.0 Basophils # (Auto) 0.2 CBC Comment AUTO DIFF Differential Total Cells 100 Counted Neutrophils % (Manual) 74 Band Neutrophils % 7 Lymphocytes % 11 Monocytes % 7 Eosinophils % 1 Neutrophils # (Manual) 7.0 Nucleated Red Blood Cells 1 Differential Comment FINAL DIFF MANUAL Platelet Estimate NORMAL Platelet Morphology Comment NORMAL Ovalocytes 1+ Acanthocytes 1+ Keratocytes 1+ Prothrombin Time 14.0 Prothromb Time International 1.3 Ratio Activated Partial 27.5 Thromboplast Time Sodium Level 134 Potassium Level 3.7 Chloride Level 100 Carbon Dioxide Level 29.0 Anion Gap 5 Blood Urea Nitrogen 24 Creatinine 0.51 Estimat Glomerular Filtration 118 Rate Random Glucose 123 Calcium Level 8.4 Total Bilirubin 0.4 Aspartate Amino Transf 46 (AST/SGOT) Alanine Aminotransferase 36 (ALT/SGPT) Alkaline Phosphatase 104 Total Protein 5.8 Albumin 2.5 Blood Type O POSITIVE Antibody Screen NEGATIVE Result Diagram: 03/26/1791403/26/17914 Imaging Last Impressions Chest X-Ray 03/26/17911 Signed Impressions: Service Date/Time: Sunday, March 26, 2017 09:14 - CONCLUSION: No acute cardiopulmonary disease. Emery Greco MD Abdomen/Pelvis CT 03/26/17 0000 Signed Impressions: Service Date/Time: Sunday, March 26, 2017 11:03 - CONCLUSION: Prominent IVC probably due to congestive heart failure, otherwise chronic changes. Emery Greco MD Assessment and Plan Assessment and Plan 76 yo female with a PMHX of HTN, COPD, CHF, atrial fibrillation, hyperthyroidism and prediabetes who presents to [facility] ED with complaints of mild abdominal cramping, weakness and episode of black tarry stool x 1 since this morning. Suspect GIB - no evidence of active bleeding. Patient is hemodynamically stable. - H/O PUD and GIB which patient did not endorse - CT scan abd/pelvis personally reviewed and shows prominent IVC probably due to CHF, otherwise no chronic changes. - Consult GI - clear liquid diet - IVF - Pantoprazole 40mg IV q 24h - activity bed rest with BRP - Type and screen. Monitor H/H closely give 1 unit RBC slowly- as patient symptomatic h and H in am Anemia, microcytic, hypochromic- acute on chronic - obtain iron studies - suspect due to GIB - monitor H/H. for 1 unit transfusion today Hypertension Documented history of atrial fibrillation but patient denies, not on any anticoagulation CHF, not in exacerbation - adequate control - previously on Eliquis but held due to h/o GIB?? - [id number] score 4, high risk - echocardiogram 01/06/17 EF 45-50%, moderate mitral valve regurg, moderately dilated left atrium, moderately to severely dilated right atrium, moderate- severe tricuspid regurg, PA pressure 50mmHg - resume home Enalapril 10mg daily - resume home Coreg 6.25mg BID - monitor and adjust tx as indicated COPD - not in exacerbation - Duonebs prn - monitor respiratory status Hyperthyroidism - previously on Tapazole but patient denies taking at this time - TSH less than 0.005, Free T3 7.61 and Free T4 3.80 on 01/06/17 - repeat thyroid studies ?Diabetes - HgbA1c 6.2 on 01/06/17 - will obtain new HgbA1c level - random glucose 123 today H/O spiculated mass of the RUL as seen on chest CT 01/06/17 - Patient was to have a PET CT as outpatient following her last discharge from this facility in January - will discuss further with patient regarding followup DVT prophylaxis - SCD/AMARA hose bilaterally Discussed Condition With patient and ED physician This note was transcribed by ABHIJEET Whalen-C. I, Dr. Dread Sloan personally performed the history, physical exam, and medical decision making; and confirmed the accuracy of the information in the transcribed note. Authenticated by Dr. Dread Sloan on 03/26/17 at 13:27. Michelle Vidal Mar 26, 2017 13:48 Dread Sloan MD Mar 26, 2017 14:42
[2017-03-26 13:51] LABS: TRANSFERRIN IRON PROFILE 282 MG/DL (200-360)
[2017-03-26] MEDS ORDERED: PANTOPRAZOLE SODIUM 40 MG VIAL IV PUSH SCH (14:00)
[2017-03-26] MEDS: CARVEDILOL 6.25 MG TAB PO SCH ×2 (14:24→20:36)
--- NOTE | 2017-03-26 15:12 | PD.CONS ---
GI Consult GI Consult SEE FORMAL GI CONSULTATION DICTATED TODAY ALSO ([id number]) ASSESSMENT/PLAN: 1. Melena 2. Anemia-Iron def 3. Hx of DU (h.pylori neg) 4. Hx of colon polyps-last colon 2007 5. Non-conpliance with meds (PPI) and F/U appt. 6. Abnormal LFT's. PLAN: 1. EGD-cannot do today-pt drank. will do 03/27 or 03/28 2. PPI 3. Transfuse as needed 4. colon as outpt 5t. F/U as outpt to W/U elevated LFTs It was a pleasure seeing Laure Richardson . Thank you for this consult. Entered by: Angel Saxena MD Mar 26, 2017 15:12
[2017-03-26 16:31] LABS: HEMATOCRIT 24.8 % (35.0-46.0); REVIEW FLAG FINAL
--- NOTE | 2017-03-26 17:38 | MB ---
cc: BEE AARON MD, JOSE R. M.D. LACIERDA, ALFEA M. M.D. PASRICHA, SUNIL P. M.D. DATE OF CONSULTATION 03/26/17 DATE OF 1940 Asked to see this patient at the request of Dr. Sloan for evaluation of history of GI bleed. HISTORY OF PRESENT ILLNESS The patient is a pleasant 76-year-old white female who I saw this past January. Apparently, prior to that she was admitted for atrial fibrillation and placed on Eliquis and she came back to the hospital with a GI bleed and black stools. I scoped her and found a deep non bleeding duodenal ulcer. Gastric biopsy did not reveal H. Pylori. She was discharged on Protonix as well as Carafate. A few days later she called the office and the nurses found out that she is only taking Pepcid and suggested she back on the Protonix and to have a follow appointment. Her appointment was scheduled for February but she did not keep that appointment. The patient has a history of noncompliance with the office. She had a previous duodenal ulcer diagnosed initially in about 2003. Her last colonoscopy was in 2007 and hyperplastic polyps and extensive colonic diverticulosis was noted. Apparently, on this admission she has been feeling weak and tired and felt like she was going to pass out. She has had some mild upper to mid abdominal cramping for the last couple of days followed by some black stools but no red stools. She denied any nausea, vomiting, dysphagia, odynophagia, early satiety, heartburn issues. No hematochezia, diarrhea, constipation. She is not smoking, she stopped them years ago. She does not taking aspirin or NSAIDs. In matter of fact, she does not like to take medications at all. PAST MEDICAL HISTORY Atrial fibrillation-she was on anticoagulation I believe, Eliquis. The patient states she is not taking it now. She has had history of coronary artery disease, congestive heart failure, diabetes, hypertension, duodenal ulcer on two occasion, extensive left sided colonic diverticulosis, hyperplastic colon polyps, hypothyroidism. Lung mass, possible COPD, cardiomyopathy with ejection fraction of 45-50%. Multi vessel heart disease with moderate mitral regurgitation and moderate to severe tricuspid regurgitation, CHF. PAST SURGICAL HISTORY Tubal ligation. SOCIAL HISTORY She used to smoke up to 3 to 4 packs a day. She quit about 10 years ago and drinks no significant amounts of alcohol. ALLERGIES No known drug allergies. FAMILY HISTORY Noncontributory for any colon cancer, colon polyps. There is lung cancer in the family. There might be peptic ulcer disease in the family. REVIEW OF SYSTEMS No weight loss, fever, chills. CARDIOPULMONARY: Currently no chest pain, palpitation, shortness of breath. The feeling of passing out has resolved. GASTROINTESTINAL: Please see above. Otherwise unremarkable 10 point review of systems. MEDICATIONS In the hospital at this time include: 1. Enalapril. 2. DuoNeb. 3. Protonix IV. 4. Coreg. PHYSICAL EXAMINATION VITAL SIGNS: Blood pressure is 119/68, pulse of 20, heart rate was 120, low as 86. Temperature 97.9. GENERAL: She is an elderly white female, appears to be older than her stated age. Appears to be in no acute GI distress. HEENT: Her pupils are equal and reactive to light. No obvious scleral icterus. Oropharynx had dental caries. No tongue deviation or candidal lesion. Hearing is intact. NECK: Supple. No thyromegaly or lymphadenopathy. LUNGS: Clear to auscultation. HEART: Regular rate and rhythm. No gross murmurs are heard. ABDOMEN: Soft, nondistended, nontender. No organomegaly or masses. Bowel sounds positive in the upper quadrants. No ascites or hernias. No guarding or rebound. EXTREMITIES: No clubbing, cyanosis or edema. NEURO: Her cranial nerves are grossly intact. No gross cranial nerve deficits. She is alert and oriented times three. SKIN: Warm and moist. DATABASE CT scan of the abdomen and pelvis was done and this showed a prominent IVC probably due to congestive heart failure, otherwise, there is some chronic changes noted. There is some scarring in the left lung. There is some chronic vascular calcifications involving the aortoiliac arteries without any significant stenosis or dilatation. Left kidney cyst. There is some diverticulosis noted and some bulging disks in the lumbosacral area. She maybe had some gas in the anterior epidural space of the lower lumbar spine thought related to disk herniation. She had a chest x-ray done which is unremarkable with no acute pulmonary process. Important laboratory revealed a hemoglobin of 8.7, a white blood cell count also 8700, hematocrit of 28.1, MCV 72.8, was low, platelet count 289,000 which is normal. Her BUN of 24 is elevated, creatinine 0.51. Iron level is low at 24, TIBC of 395 is normal. Iron saturation was 6.1 which is low. Ferritin at 33 which is low. Her SGOT is elevated 46, SGPT is normal at 36, alk phos 104. Total protein of 5.8, albumin 2.5, both of these are low. Her potassium 3.7, sodium 134. Her coagulation factor showed protime of 14.0, was elevated, INR 1.3, PTT of 27.5 which is normal. IMPRESSION 1. Melena-it occurred home but has not reoccurred in the hospital. She and her friend who is with her understand what melena is, basically bleeding from the upper GI tract. I suspect another duodenal ulcer. I also suspect the duodenal ulcer never healed- she has not been compliant with her follow up and taking a PPI. She understands also in the differential are gastric malignancies, AVMs, cancer, etc. 2. Iron deficiency anemia-she understands iron deficiency comes from occult GI bleeding, AVMs, occult GI malignancies anywhere in the GI tract including stomach, small bowel and colon. 3. History of duodenal ulcer: This is her second duodenal ulcer, the last time was in January. Both times H. Pylori was negative. She understands aspirin, NSAIDs, smoking, alcohol can play a role in developing an ulcer but she denies these. 4. History of history of colon polyps. Last colonoscopy in 2007. She had hyperplastic polyps. 5. Noncompliance with medications-mainly PPI as well as noncompliance with follow-up. She said she does not like to take medications or see doctors. 6. Abnormal LFTs-minimal. Previously these were normal. Her CT scan does not show any obvious liver problems. This can be worked up as an outpatient when she follows in the office. She agrees to follow up this time. PLAN 1. Upper endoscopy. We talked about indications, risks, complications, benefits, alternatives and limitations, include risk of bleeding, perforation, infection, arrhythmias, a small possibility of . Unfortunately, she was drinking when I came in and we cannot do it today. Will have to wait several hours and unless she has rapid bleeding will plan to do this tomorrow or the next day. 2. Continue PPI. 3. Transfuse as needed. 4. Also she will need a colonoscopy depending what the upper endoscopy shows to rule out colon cancer, colon polyps or other etiologies of iron deficiency. 5. Follow up as outpatient to work up abnormal LFTs. Angel Simon MD SP/JANELL /3:19 PM /4:36 PM MTDRoderick
[2017-03-26 18:02] LABS: FREE T3 2.37 PG/ML (2.18-3.98); FREE T4 1.47 NG/DL (0.76-1.46)
[2017-03-26] MEDS ORDERED: PROPOFOL 200 MG/20 ML AMP IV ONE (18:22)
[2017-03-26] MEDS ORDERED: DO NOT ADM ANY ANTICOAGULANT DRUGS PRN (18:45)
--- NOTE | 2017-03-26 18:48 | GIPROC ---
[facility] [address] [facility]. [facility], [address] EGD PROCEDURE REPORT EXAM DATE: 03/26/2017 PATIENT NAME: Laure Richardson MR #: [id number] BIRTHDATE: 1940 ATTENDING: Angel Simon MD ORDER #: [id number] FASHION STYLIST: Hallie Temple and Janee Mcnamara STATUS: inpatient INDICATIONS: The patient is a 76 yr old female here for an EGD due to melena and anemia PROCEDURE PERFORMED: EGD w/ biopsy MEDICATIONS: Per Anesthesia and None. TOPICAL ANESTHETIC: none CONSENT: The patient understands the risks and benefits of the procedure and understands that these risks include, but are not limited to: sedation, allergic reaction, infection, perforation and/or bleeding. Alternative means of evaluation and treatment include, among others: physical exam, x-rays, and/or surgical intervention. The patient elects to proceed with this endoscopic procedure. medical equipment was checked for proper function. Hand hygiene and appropriate measures for infection prevention was taken. After the risks, benefits and alternatives of the procedure were thoroughly explained, Informed consent was verified, confirmed and timeout was successfully executed by the treatment team. The patient was anesthetized with topical anesthesia and the Pentax EG-[id number] endoscope was introduced through the mouth and advanced to the third portion of the duodenum. Retroflexed views revealed no abnormalities The gastroscope was then slowly withdrawn and removed. ESOPHAGUS: The z-line was located 42cm from the incisors. The z-line appeared normal. STOMACH: Bile noted in the stomach-suctioned. Four non-bleeding, round, punctate, deep and clean-based ulcers ranging between 3-5 mm in size were found on the posterior wall of the gastric antrum. Biopsies were taken at edge of the ulcers. DUODENUM: Multiple large non-bleeding ulcers were found in the duodenal bulb. smaller 5-10 mm ulcers had a clean base. Large ucer ( 20 cm)-had an adherent clot which was washed off--No vessel was seen at the base. ADVERSE EVENTS: There were no complications. IMPRESSIONS: 1. The z-line was located 42cm from the incisors 2. Bile noted in the stomach-suctioned 3. Four ulcers ranging between 3-5 mm in size were found on the posterior wall of the gastric antrum; biopsies were taken 4. Multiple large ulcers were found in the duodenal bulb -smaller 5-10 mm ulcers had a clean base. Large ucer ( 20 cm)-had an adherent clot which was washed off--No vessel was seen at the base. 5. Retroflexed views revealed no abnormalities RECOMMENDATIONS: 1. Await biopsy results. Biopsy results will not be ready for 7-10 days. If you don't hear from us in two weeks, call our office for biopsy results. 2. Avoid NSAIDS 3. IV PPI and PO Carafate 4. If rebleeding pateint will need IR 5. Fasting gastrin level PATIENT CONDITION: stable DISPOSITION: Inpatient REPEAT EXAM: Angel Simon MD eSigned: Angel Simon MD 03/26/2017 6:47 PM cc: PATIENT NAME: Laure Richardson MR#: [id number]
[2017-03-26] MEDS ORDERED: NALOXONE HCL 0.4 MG/ML AMP IV PRN (19:00)
[2017-03-26] MEDS ORDERED: SODIUM CHLORIDE 0.9% FLUSH 10 ML FLUSH IV FLUSH PRN (19:00)
[2017-03-26] MEDS ORDERED: FLUMAZENIL 0.5 MG/5 ML VIAL IV PRN ×2 (19:00)
[2017-03-26] MEDS: SUCRALFATE 1 GM TAB PO SCH (20:36)
[2017-03-27] VITALS (15 sets, daily range): BP systolic 105–132; BP diastolic 55–83; PULSE 74–140; RESP 16–24; TEMP 97.7–98.5; O2SAT 96–100
[2017-03-27] MEDS: PANTOPRAZOLE INJ 80 MG in SODIUM CHLORIDE 0.9% INJ 100 ML IV SCH ×2 (00:25→06:01)
[2017-03-27 01:24] LABS: HEMATOCRIT 27.5 % (35.0-46.0); REVIEW FLAG FINAL
[2017-03-27 05:43] LABS: HDL CHOLESTEROL 26.9 MG/DL (40.0-60.0)
[2017-03-27] MEDS: SUCRALFATE 1 GM TAB PO SCH ×4 (06:01→23:13)
[2017-03-27 06:27] LABS: HEMATOCRIT 28.2 % (35.0-46.0); MEAN CELL VOLUME 74.6 FL (80.0-100.0); MEAN CORPUSCULAR HGB CONC 30.9 % (32.0-36.0); PLATELET COUNT 147 TH/MM3 (150-450); RED BLOOD COUNT 3.78 MIL/MM3 (4.00-5.30); RED CELL DISTRIBUTION WIDTH 22.5 % (11.6-17.2); REVIEW FLAG FINAL; WHITE BLOOD COUNT 7.6 TH/MM3 (4.0-11.0)
[2017-03-27] MEDS ORDERED: IRON SUCROSE INJ 200 MG in SODIUM CHLORIDE 0.9% INJ 100 ML IV ONE (08:45)
--- NOTE | 2017-03-27 08:59 | HHI.PR ---
Subjective Remarks awake and alert, hungry no pain telemetry- a fib- rate controlled on further discussion- non compliant with meds Objective Vitals Vital Signs Date Time Temp Pulse Resp B/P Pulse Ox O2 Delivery O2 Flow Rate FiO2 03/27/17 08:22 98.0 114 18 123/73 96 03/27/17 04:44 97.8 94 18 111/55 96 03/27/17 00:21 98.0 100 18 112/71 99 03/27/17 00:05 98.5 74 18 105/69 98 03/26/17 22:25 97.6 103 17 112/65 96 03/26/17 20:56 97.8 115 18 117/75 99 03/26/17 20:40 98 Nasal Cannula 2.00 03/26/17 20:29 97.3 109 17 120/72 99 03/26/17 19:33 98.0 68 18 116/65 100 03/26/17 19:00 97.6 105 18 113/57 97 Nasal Cannula 2 03/26/17 18:45 105 18 113/57 97 Nasal Cannula 2 03/26/17 18:33 97.6 97 18 116/65 97 Nasal Cannula 2 03/26/17 14:00 107 20 119/68 98 Nasal Cannula 2 03/26/17 10:00 99 16 149/64 99 Nasal Cannula 2 03/26/17 09:18 102 22 100 Nasal Cannula 2 03/26/17 09:16 120 22 166/63 97 Room Air 03/26/17 09:15 16 97 Room Air 03/26/17 08:54 97.9 86 16 146/60 96 I/O 03/26/17 03/26/17 03/26/17 03/27/17 03/27/17 03/27/17 07:00 15:00 23:00 07:00 15:00 23:00 Intake Total 130 ml Balance 130 ml Intake IV Total 30 ml Other 100 ml # Voids 1 Result Diagram: 03/27/17 0440 03/26/17914 Imaging Last Impressions Chest X-Ray 03/26/17911 Signed Impressions: Service Date/Time: Sunday, March 26, 2017 09:14 - CONCLUSION: No acute cardiopulmonary disease. Emery Greco MD Abdomen/Pelvis CT 03/26/17 0000 Signed Impressions: Service Date/Time: Sunday, March 26, 2017 11:03 - CONCLUSION: Prominent IVC probably due to congestive heart failure, otherwise chronic changes. Emery Greco MD Objective Remarks awake and alert, NAD anicteric lungs no rales irregularly irregular rhythm abdomen soft, nontender extremities no edema Procedures 03/26- EGD with biopsy- duodenal bulb ulcers, gastric ulcers A/P Assessment and Plan 76 yo female with a PMHX of HTN, COPD, CHF, atrial fibrillation, hyperthyroidism and prediabetes who presents to [facility] ED with complaints of mild abdominal cramping, weakness and episode of black tarry stool x 1 since this morning. UGIB secondary to gastric and duondenal ulcers -H and H stable. S/P 11 unit RBC 03/26 H and H stable - CT scan abd/pelvis - shows prominent IVC probably due to CHF, otherwise no chronic changes. - Pantoprazole 40mg IV q 24h- change to po PPI + carafate - Increase activity gradually as tolerated -- advance diet Anemia, microcytic, hypochromic- acute on chronic- Iron deficiency - give IV Venofer x 1 - monitor H/H. S/P 1 unit RBC 03/26 Hypertension Atrial fibrillation -rate 100 exam and EKG- rate not on any anticoagulation CHF, not in exacerbation - previously on Eliquis . no OAC due to GIB - [id number] score 4, high risk - echocardiogram 01/06/17 EF 45-50%, moderate mitral valve regurg, moderately dilated left atrium, moderately to severely dilated right atrium, moderate- severe tricuspid regurg, PA pressure 50mmHg - on Enalapril 10mg daily- will decrease to 5 mg daily as we added BB for better rate control - DC coreg- change to Lopressor 12.5 mg po q 8 for better HR control- monitor BP (was on coreg at one point- per patient does not recall taking it) - monitor and adjust tx as indicated COPD - not in exacerbation - Duonebs prn - monitor respiratory status Hyperthyroidism - start Methimazole 10 mg tid - TSH less than 0.005, Free T3 7.61 and Free T4 3.80 on 01/06/17 - OP ff up with PCP\\ -d/w her ?Diabetes - HgbA1c 6.2 on 01/06/17 - will obtain new HgbA1c level - random glucose 123 today H/O spiculated mass of the RUL as seen on chest CT 01/06/17 - Patient was to have a PET CT as outpatient following her last discharge from this facility in January - will discuss further with patient regarding followup DVT prophylaxis - SCD/AMARA oneill bilaterally we called pharmacy- in [facility]- on eliquis, ASA, Tapazole, enalapril , Laix- but patioent non compliant- "I don't need them" stress compliance- states that she was sent all above meds by PCP- and never explained to her what they are for- so she won't take them Dread Sloan MD Mar 27, 2017 08:59 Dread Sloan MD Mar 27, 2017 08:59 Dread Sloan MD Mar 27, 2017 08:59
[2017-03-27] MEDS: CARVEDILOL 6.25 MG TAB PO SCH (09:00)
[2017-03-27] MEDS ORDERED: ENALAPRIL MALEATE 10 MG TAB PO SCH (09:00)
[2017-03-27] MEDS ORDERED: APIX5TAB PO (09:15)
[2017-03-27] MEDS ORDERED: FURO40TA PO (09:15)
[2017-03-27] MEDS ORDERED: ASPI81TA5 PO (09:15)
[2017-03-27] MEDS ORDERED: METHI10 PO (09:15)
[2017-03-27] MEDS ORDERED: PILL SPLITTER OTHER PRN (09:30)
[2017-03-27] MEDS ORDERED: PANTOPRAZOLE SOD 40 MG DELAYED RELEASE TAB PO SCH (09:30)
[2017-03-27] MEDS ORDERED: PROPYLTHIOURACIL 50 MG TAB PO SCH (09:30)
[2017-03-27] MEDS: METHIMAZOLE 10 MG TAB PO SCH ×3 (09:59→23:13)
[2017-03-27] MEDS: METOPROLOL TARTRATE 25 MG TAB PO SCH ×3 (09:59→23:13)
--- NOTE | 2017-03-27 12:16 | HHI.GIFU ---
GI Follow-up Note Consult Follow-up Subjective: Patient laying in bed comfortably. Tolerating diet. No bleeding today. no abd pain or N/V. IV drip PPI changed to PO Objective: PHYSICAL EXAMINATION: Vitals signs stable except HR (119) No fever CHEST: Chest is clear to auscultation and percussion. CARDIAC: Irregular rate and rhythm with no murmur gallop or rubs. ABDOMEN: Soft, nondistended, nontender; no hepatosplenomegaly; bowel sounds are present in all four quadrants. EXTREMITIES: No clubbing, cyanosis, or edema. SKIN: Normal; no rash; no jaundice. 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 Available Data (labs, X- Rays, Procedures) : Hgb 8.7--stable ASSESSMENT/PLAN: 1. Multiple large duodenal ulcers and smaller gastric ulcers. The largest DU had an adherent clot which washed off easily-no vessel noted 2. Melena-none today 3. Anemia-Iron def 4. Hx of DU (h.pylori neg) 5. Hx of colon polyps-last colon 2007 6. Non-conpliance with meds (PPI) and F/U appt. 7. Abnormal LFT's. PLAN: 1. Increase PPI to BID 2. Cont Carafate 3. Transfuse as needed 4. colon as outpt 5. avoid ASA, NSAIDS, ETOH,Smoking 6. awaiting fasting gastric level 7. Hopefully D/C tomorrow (from the GI standpoint) It was a pleasure seeing Laure Richardson. Thank you for this consult. Entered by: Angel Saxena MD Mar 27, 2017 12:16
[2017-03-27 12:44] LABS: HEMOGLOBIN A1a 1.8 %; HEMOGLOBIN A1b 0.9 %; HEMOGLOBIN Ao 82.3 %; HEMOGLOBIN F 1.3 %; HEMOGLOBIN P3 6.6 %
[2017-03-27] MEDS: PANTOPRAZOLE SOD 40 MG DELAYED RELEASE TAB PO SCH (14:43)
--- NOTE | 2017-03-27 18:32 | EKG ---
Date Performed: 03/26/2017 Time Performed: 09:14:24 PTAGE: 76 years EKG: ATRIAL FIBRILLATION WITH RAPID VENTRICULAR RESPONSE NONSPECIFIC ST & T-WAVE ABNORMALITY ABN ORMAL ECG PREVIOUS TRACING : 01/22/2017 03.17 Compared to prior tracing no significant change DOCTOR: Roberto Harris Interpretating Date/Time 03/27/2017 18:31:44
[2017-03-27] MEDS ORDERED: DILTIAZEM DRIP 125 MG in NS 125 ML PREMIX DELTONA ONLY IV SCH (19:15)
[2017-03-27] MEDS ORDERED: DILTIAZEM HCL 25 MG/5 ML VIAL IV PUSH PRN (19:15)
[2017-03-28] VITALS (25 sets, daily range): BP systolic 91–124; BP diastolic 52–73; PULSE 71–116; RESP 16–26; TEMP 97.2–98.7; O2SAT 92–100
[2017-03-28] MEDS: PANTOPRAZOLE SOD 40 MG DELAYED RELEASE TAB PO SCH ×2 (06:39→15:04)
[2017-03-28] MEDS: METOPROLOL TARTRATE 25 MG TAB PO SCH ×4 (06:39→21:27)
[2017-03-28] MEDS: SUCRALFATE 1 GM TAB PO SCH ×4 (06:39→21:27)
[2017-03-28] MEDS: METHIMAZOLE 10 MG TAB PO SCH ×3 (06:47→21:27)
--- NOTE | 2017-03-28 07:48 | HHI.PR ---
Subjective Remarks last evening HR went into 140s- a fib- transferred to [facility] and started on cardizem drip confused last evening now a o x 3 , feels tired, no chest pains or shortness of breath HR- 80s on cardizem drip at 5 mg/hr Objective Vitals Vital Signs Date Time Temp Pulse Resp B/P Pulse Ox O2 Delivery O2 Flow Rate FiO2 03/28/17 04:27 101 16 124/62 93 03/28/17 03:00 86 03/28/17 02:00 104 03/28/17 01:00 96 03/28/17 00:00 116 03/27/17 23:00 104 03/27/17 23:00 109 16 128/76 100 03/27/17 22:00 108 03/27/17 21:00 110 03/27/17 20:12 101 03/27/17 19:46 140 03/27/17 19:30 97.7 140 24 132/83 97 03/27/17 16:12 97.9 92 18 128/63 96 03/27/17 15:51 114 03/27/17 12:09 97.9 114 18 122/68 96 03/27/17 11:38 119 03/27/17 10:00 120 03/27/17 08:22 98.0 114 18 123/73 96 I/O 03/27/17 03/27/17 03/27/17 03/28/17 03/28/17 03/28/17 06:59 14:59 22:59 06:59 14:59 22:59 Intake Total 720 ml 560 ml Balance 720 ml 560 ml Intake Oral 720 ml 500 ml IV Total 60 ml # Voids 4 2 # Bowel Movements 1 0 Result Diagram: 03/27/17 0440 03/26/17914 Imaging Last Impressions Chest X-Ray 03/26/17911 Signed Impressions: Service Date/Time: Sunday, March 26, 2017 09:14 - CONCLUSION: No acute cardiopulmonary disease. Emery Greco MD Abdomen/Pelvis CT 03/26/17 0000 Signed Impressions: Service Date/Time: Sunday, March 26, 2017 11:03 - CONCLUSION: Prominent IVC probably due to congestive heart failure, otherwise chronic changes. Emery Greco MD Objective Remarks awake and alert, NAD anicteric lungs no rales, no wheezes irregularly irregular rhythm abdomen soft, nontender extremities no edema Procedures 03/26- EGD with biopsy- duodenal bulb ulcers, gastric ulcers A/P Assessment and Plan 76 yo female with a PMHX of HTN, COPD, CHF, atrial fibrillation, hyperthyroidism and prediabetes who presents to [facility] ED with complaints of mild abdominal cramping, weakness and episode of black tarry stool x 1 since this morning. UGIB secondary to gastric and duodenal ulcers- -H and H stable. S/P 1 unit RBC 03/26 H. recheck CBC today - CT scan abd/pelvis - shows prominent IVC probably due to CHF, otherwise no chronic changes. - PPI + carafate - Increase activity gradually as tolerated --tolerating diet chronic Atrial fibrillation -- in RVR last night 140s CHF, not in exacerbation HYpertension- EF 45-50% - previously on Eliquis . no OAC due to GIB - [id number] score 4, high risk - echocardiogram 01/06/17 EF 45-50%, moderate mitral valve regurg, moderately dilated left atrium, moderately to severely dilated right atrium, moderate-severe tricuspid regurg, PA pressure 50mmHg - Enalapril 5 mg daily daily -Increase Lopressor to 25 mg po q 8 - continue on Cardizem drip at 5 mg /hr and wean off with increase BB dose- hopefully - we can control rate with just one agent -cardiology consult- assigned to Dr. Gates- states she was supposed to ff up with- from last january admission for recommendation initiated on Tapazole 03/27 - should help with rate control - treat hyperthyroidism Severe Hyperthyroidism- don't feel any thyromegaly - we will get an US or a thyroid scan -this contributing to rapid a fib - started Methimazole 10 mg tid - OP ff up with PCP -d/w her Anemia, microcytic, hypochromic- acute on chronic- Iron deficiency - S/P IV Venofer - monitor H/H. S/P 1 unit RBC 03/26 -start Iron sulfate 325 mg tid COPD LUng mass, right apex - s seen on chest CT 01/06/17 - Patient was to have a PET CT as outpatient following her last discharge from this facility in January - OP patient regarding followup- obviously patient non compliant and cannot be relied on - last admission states mass can be access by IR for tissue diagnosis -will get a pulmonary consult- for recommendation - -MDI - monitor respiratory status ?Diabetes - HgbA1c 6.2 - ADA diet. ff blood glucose level DVT prophylaxis - SCD/AMARA hose bilaterally Episode of confusion starting Dementia- patient episode of confusion last evening. Non compliant as OP get psychiatric evaluation get a Head CT-routine 03/25 we called pharmacy- in [facility]- on eliquis, ASA, Tapazole, enalapril , Lasix- but patient non compliant- "I don't need them" stress compliance- states that she was sent all above meds by PCP- and never explained to her what they are for- so she won't take them Dread Sloan MD Mar 28, 2017 07:47
[2017-03-28] MEDS: ENALAPRIL MALEATE 5 MG TAB PO SCH (08:06)
[2017-03-28] MEDS: FERROUS SULFATE 325 MG (65 MG ELEMENTAL IRON) TAB PO SCH ×2 (09:31→21:27)
--- NOTE | 2017-03-28 09:34 | HHI.GIFU ---
GI Follow-up Note Consult Follow-up Subjective: Patient sitting bed comfortably. Had a fib with RVR--now better. had small black BM last PM. NO BM's today. Tolerating diet Objective: PHYSICAL EXAMINATION: Vitals signs stable No fever CHEST: Chest is clear to auscultation and percussion. CARDIAC: Irregular rate and rhythm with no murmur gallop or rubs. ABDOMEN: Soft, nondistended, nontender; no hepatosplenomegaly; bowel sounds are present in all four quadrants. EXTREMITIES: No clubbing, cyanosis, or edema. SKIN: Normal; no rash; no jaundice. 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 Available Data (labs, X- Rays, Procedues) : AM labs and gastrin pending ASSESSMENT/PLAN: 1. Multiple large duodenal ulcers and smaller gastric ulcers. The largest DU had an adherent clot which washed off easily-no vessel noted 2. Melena-last PM. maybe old blood. awaiting am labs 3. Anemia-Iron def. colon as outpt 4. Hx of DU (h.pylori neg) 5. Hx of colon polyps-last colon 2007 6. Non-conpliance with meds (PPI) and F/U appt. 7. Abnormal LFT's. PLAN: 1. Cont PPI BID 2. Cont Carafate 3. Transfuse as needed 4. colon as outpt 5. avoid ASA, NSAIDS, ETOH,Smoking 6. awaiting fasting gastrin level and am CBC and biopsies It was a pleasure seeing Laure Richardson. Thank you for this consult. Entered by: Angel Saxena MD Mar 28, 2017 09:33
[2017-03-28 09:52] LABS: HEMATOCRIT 28.3 % (35.0-46.0); MEAN CELL VOLUME 75.1 FL (80.0-100.0); MEAN CORPUSCULAR HEMOGLOBIN 23.7 PG (27.0-34.0); MEAN CORPUSCULAR HGB CONC 31.6 % (32.0-36.0); PLATELET COUNT 223 TH/MM3 (150-450); RED BLOOD COUNT 3.77 MIL/MM3 (4.00-5.30); RED CELL DISTRIBUTION WIDTH 23.6 % (11.6-17.2); REVIEW FLAG FINAL; WHITE BLOOD COUNT 14.8 TH/MM3 (4.0-11.0)
[2017-03-28 10:10] LABS: POTASSIUM 4.2 MEQ/L (3.5-5.1)
[2017-03-28] MEDS: TIOTROPIUM BROMIDE 18 MCG INH INH SCH (11:54)
--- NOTE | 2017-03-28 13:19 | MB ---
cc: RUDOLPH PARRISH DO DATE OF CONSULTATION March 28, 2017 REASON FOR CONSULTATION Atrial fibrillation with rapid ventricular response. HISTORY OF PRESENT ILLNESS Laure Richardson is a pleasant 76-year-old female who presented to [facility] Emergency Room on March 26, 2017, after having melanotic stools. She has been in multiple times with different GI bleeds which were first originally noted back in early January after I placed her on Eliquis for her new onset atrial fibrillation. She states that she had some mild abdominal cramping, weakness and a melanotic stool the morning before admission. She fell lousy all morning and decided she needed to come into the hospital. She denies any other symptoms including chest pain, shortness of breath or palpitations. Since her previous GI bleed, she has been off aspirin and Eliquis and has not been restarted. While here, she had an EGD with biopsy done which showed four ulcers ranging between 3-5 mm in size on the posterior wall, multiple large ulcers found in the duodenal bulb with adherent clot but no vessel seen at the base. Over the first 24 hours of her hospitalization, she did have some episodes a rapid ventricular response due to her regional fibrillation but has since converted to normal sinus rhythm as of this morning. I was asked to see your to help with her atrial fibrillation. PAST MEDICAL HISTORY 1. Atrial fibrillation not currently on anticoagulation or antiplatelet therapy due to GI bleed. 2. Multiple upper GI bleeds. 3. COPD. 4. Congestive heart failure. 5. Peptic ulcer disease. 6. Hyperthyroidism. 7. Prediabetes. 8. Spiculated mass of the right upper lobe on chest CT (January 06, 2017). PAST SURGICAL HISTORY Denies. ALLERGIES Denies. MEDICATIONS Enalapril 10 mg daily. FAMILY HISTORY Mother had diabetes and lung cancer. Father had lung cancer. Denies premature coronary artery disease or sudden cardiac within the family. SOCIAL HISTORY The patient has a history of heavy tobacco use of four packs per day since age of 18, but quit 8 years ago. Denies alcohol or illicit drug abuse. REVIEW OF SYSTEMS 14-systems were reviewed including osteopathic pertinent positives and negatives above, otherwise negative. PHYSICAL EXAMINATION VITAL SIGNS: Temperature 97.5, heart rate 83, blood pressure 109/58, respirations 18, pulse ox 94% on room air. IN GENERAL: The patient appears well, in no acute distress, alert awake and oriented x 3. Extraocular muscles intact. Mucous membranes moist. NECK: Supple. No JVD at 45 degrees. No carotid bruits bilaterally. HEART: Regular rate and rhythm. Positive first and second heart sounds with a 1/6 holosystolic murmur noted to the right sternal border. LUNGS: Lungs have decreased breath sounds bilaterally but no overt wheezes, rales or rhonchi. ABDOMEN: Soft, nontender, nondistended. No ORGANOMEGALY NOTED. EXTREMITIES: No clubbing, cyanosis or edema. Femoral and distal pulses intact bilaterally. NEUROLOGICALLY: No focal deficits. SKIN: Warm, dry and intact. OSTEOPATHIC EXAM: No kyphoscoliosis, lordosis or paraspinal tender points. LABORATORY FINDINGS Hemoglobin 8.9, hematocrit 28.3, platelets 223. Potassium 4.2, BUN 16, creatinine 0.55, total cholesterol 87, LDL 44, HDL 26.9, triglycerides 83. ELECTROCARDIOGRAM (March 26, 2017 at 09:14) Atrial fibrillation with rapid ventricular response, nonspecific ST-T wave changes. IMPRESSIONS 1. Atrial fibrillation with rapid ventricular response, most likely secondary to overall sickness, previous history of hyperthyroidism and anemia. 2. Upper GI bleed secondary to gastric and duodenal ulcers. 3. Congestive heart failure with a history of ejection fraction of 45-50% by echocardiogram (January 06, 2017) not currently in exacerbation. 4. Severe hyperthyroidism. 5. Microcytic anemia which appears acute on chronic in nature. 6. COPD. 7. Lung mass. 8. Questionable noncompliance as it appears that she was given medicine but states that her PCP never explained to her what they were for so she will not take them. RECOMMENDATIONS 1. Laure Richardson appears to have been in atrial fibrillation with rapid ventricular response, most likely due to her overall sickness. 2. We will continue her on metoprolol 25 mg three times a day to try to help control her heart rate. We will have to watch this because we are using a beta maged in a known COPD-er. At this time, after receiving her dose, she does not sound exceptionally wheezy. 3. Overall she is a CHADS-VASc score of 4 but cannot be on oral anticoagulation or aspirin per GI due to her multiple upper GI bleeds which is reasonable. This does place her at increased risk of stroke but I do not believe we have any other options. 4. Discussed with her the importance of compliance with her medications. 5. Further recommendations will be made based on the hospital course. Thank you for allowing me to see Laure Richardson. If there are any questions, please do not hesitate to call. Rudolph Parrish DO VGP/SSB /11:53 AM /1:05 PM
--- NOTE | 2017-03-28 13:33 | RADRPT ---
EXAM DATE/TIME: 03/28/2017 13:10 [facility] COMPARISON: No previous studies available for comparison. INDICATIONS : Trauma; contusion. RADIATION DOSE: 56.35 CTDIvol (mGy) MEDICAL HISTORY : Hypertension. Cardiovascular disease SURGICAL HISTORY : None. ENCOUNTER: Initial ACUITY: 1 day PAIN SCALE: 2/10 LOCATION: cranial TECHNIQUE: Multiple contiguous axial images were obtained of the head. Using automated exposure control and adj ustment of the mA and/or kV according to patient size, radiation dose was kept as low as reasonably a chievable to obtain optimal diagnostic quality images. DICOM format image data is available electro nically for review and comparison. FINDINGS: Periventricular low attenuation changes seen involving both cerebral hemispheres. A focal area of dec reased density is seen involving the left parietal lobe. This extends to involve the overlying cortex . No enlargement of the ventricles. No hemorrhage. The calvarium is intact. Paranasal sinuses and mas toid air cells are clear. CONCLUSION: 1. Area of decreased density involving the left parietal lobe as detailed above. I cannot exclude an area of infarction. Consider MRI to further evaluate. 2. Chronic small vessel ischemic change. Bryce Cohn Jr., MD on March 28, 2017 at 13:26 Board Certified Radiologist. This report was verified electronically.
[2017-03-28] MEDS ORDERED: QUEtiapine FUMARATE 25 MG TAB PO ONE (13:45)
--- NOTE | 2017-03-28 13:59 | PD.PSY.CON ---
Provisional Diagnosis Admission Date Mar 28, 2017 at 07:17 [place] I. Delirium due to an underlying medical condition, rule out dementia with behavioral disturbances History of Present Illness Service Psychiatry Consult Requested By Primary Care Physician Fernanda Rosado MD HPI The patient is a 76-year-old woman, domiciled alone in [facility], , supported by [employer] benefits, without any previous psychiatric history, no previous psychotic hospitalizations, no previous suicidal attempts, with medical history of of HTN, COPD, CHF, atrial fibrillation, hyperthyroidism and prediabetes who presents to [facility] ED with complaints of mild abdominal cramping, weakness and episode of black tarry stool x 1 since this morning. After evaluation patient is diagnosed with UGIB secondary to gastric and duodenal ulcers, acute anemia, severe hyperthyroidism, CHF and long mass. Consulted to psychiatry due to agitation and aggressive behavior in the floor. On psychiatric evaluation today patient is found in her room, she has a one-to- one sitter, patient is superficially cooperative, calm, but irritable. Patient explained that she doesn't know what she is in the hospital. She says that this plays looks a lot like her family house in [place]. She reports good mood, denies depressive symptoms, denies suicidal and homicidal ideation, denies visual and auditory hallucinations. Patient is disoriented in time and place. No cooperative with cognitive test. As per nursing charge, patient has been agitated, difficult to handle in the unit, last night tried to rip her IV lines. But now calmer, even though she looks confused and delirious.. Review of Systems Constitutional: DENIES: Diaphoretic episodes, Fatigue, Fever, Weight gain, Weight loss, Chills, Dizziness, Change in appetite, Night Sweats Endocrine: DENIES: Abnorml menstrual pattern, Heat/cold intolerance, Polydipsia , Polyuria, Polyphagia Eyes: DENIES: Blurred vision, Diplopia, Eye inflammation, Eye pain, Vision loss , Photosensitivity, Double Vision Ears, nose, mouth, throat: DENIES: Tinnitus, Hearing loss, Vertigo, Nasal discharge, Oral lesions, Throat pain, Hoarseness, Ear Pain, Running Nose, Epistaxis, Sinus Pain, Toothache, Odynophagia Respiratory: DENIES: Apneas, Cough, Snoring, Wheezing, Hemoptysis, Sputum production, Shortness of breath Cardiovascular: DENIES: Chest pain, Palpitations, Syncope, Dyspnea on Exertion , PND, Lower Extremity Edema, Orthopnea, Claudication Gastrointestinal: DENIES: Abdominal pain, Black stools, Bloody stools, Constipation, Diarrhea, Nausea, Vomiting, Difficulty Swallowing, Anorexia Musculoskeletal: DENIES: Joint pain, Muscle aches, Stiffness, Joint Swelling, Back pain, Neck pain Integumentary: DENIES: Abnormal pigmentation, Pruritus, Rash, Nail changes, Breast masses, Breast skin changes, Nipple discharge Hematologic/lymphatic: DENIES: Bruising, Lymphadenopathy Immunologic/allergic: DENIES: Eczema, Urticaria Psychiatric: COMPLAINS OF: Confusion, Agitation Past Family Social History Coded Allergies: No Known Allergies (Verified , 03/26/17) Reported Medications Apixaban (Eliquis)5 Mg Tab5 Mg PO BID #60 TAB Ref 0 03/27/[address] 81 Mg Tabdr81 Mg PO DAILY Ref 0 03/27/17 Furosemide 40 Mg Tab40 Mg PO DAILY #30 TAB Ref 0 03/27/17 Methimazole 10 Mg Tab10 Mg PO TID #90 TAB Ref 0 03/27/17 Enalapril 10 Mg Tab10 Mg PO DAILY #30 TAB Ref 0 01/06/17 Discontinued Scripts Aspirin 81 Mg Tabdr81 Mg PO DAILY #30 TAB Prov:Jacky Gonzalez MD 01/22/17 Pantoprazole (Protonix)40 Mg Tab40 Mg PO BID #60 TAB Ref 0 Prov:Sulema Rodriguez MD 01/18/17 Sucralfate (Carafate)1 Gm Tab1 Gm PO ACHS 30 Days Prov:Sulema Rodriguez MD 01/18/17 Methimazole 10 Mg Tab10 Mg PO TID #90 TAB Ref 0 Prov:Jacky Gonzalez MD 01/08/17 Carvedilol 3.125 Mg Tab3.125 Mg PO BID #60 TAB Ref 0 Prov:Jacky Gonzalez MD 01/08/17 Furosemide 40 Mg Tab40 Mg PO DAILY #31 TAB Prov:Jacky Gonzalez MD 01/08/17 Current Medications Medications (Trade) Dose Ordered Sig/Ezio Route Start Time Stop Time Status Last Admin (NS Flush) 2 ml UNSCH PRN IVF 03/26/17 09:15 (Carafate) 1 gm ACHS PO 03/26/17 21:00 03/28/17 11:54 (NS Flush) 2 ml UNSCH PRN IV FLUSH 03/26/17 19:00 (Pill Splitter) 1 ea UNSCH PRN OTHER 03/27/17 09:30 (Tapazole) 10 mg Q8HR PO 03/27/17 09:30 03/28/17 06:47 (Vasotec) 5 mg DAILY PO 03/28/17 09:00 03/28/17 08:06 (Protonix) 40 mg BIDAC PO 03/27/17 16:00 03/28/17 06:39 Diltiazem HCl 0.25 mg/kg undiluted IV ove... BOLUS PRN IV PUSH 03/27/17 19:15 03/28/17 19:14 03/27/17 20:00 (Cardizem Drip Inj Premix) 125 ml @ 0 mls/hr TITRATE IV 03/27/17 19:15 03/27/17 20:05 (Lopressor) 25 mg Q8HR PO 03/28/17 07:45 03/28/17 08:06 (Ferrous Sulfate) 325 mg BID PO 03/28/17 09:00 03/28/17 09:31 (Spiriva Inh) 18 mcg DAILY INH 03/28/17 09:00 03/28/17 11:54 (SEROquel) 12.5 mg ONCE ONCE PO 03/28/17 13:45 03/28/17 13:46 UNV (Aricept) 5 mg DAILY PO 03/28/17 13:45 UNV Family History Patient denies family psychiatric history Social History Patient was born and raised in [place], she lives in [facility] alone, she is , supported by [employer] Patient's Strengths (min. 2) Verbal communication Physical Exam Vital Signs Vital Signs Date Time Temp Pulse Resp B/P Pulse Ox O2 Delivery O2 Flow Rate FiO2 03/28/17 13:00 100 03/28/17 11:00 97.5 18 109/58 92 03/26/17 20:40 Nasal Cannula 2.00 I/O 03/27/17 03/27/17 03/27/17 07:59 15:59 23:59 Intake Total 720 ml Balance 720 ml Lab Results 03/27/17 0440 03/26/17 0915 Mental Status Examination Appearance Evidently woman, regular clothing, she seems to be restless, confused , superficially cooperative Speech: Hesitant, Slow Orientation: Person, Place (partially) Thought Process: Loose Association Thought Content: Bizarre thinking Hallucination Type: None Attention and Concentration: Abnormal Suicidal Ideation: No Previous Suicide Attempts: No Homicidal Ideation: No Previous Homicide Attempts: No Judgment: Poor Affect: Irritable Mood: Irritable Motor Activity: Normal gait Assessment & Plan Problem List: (1) Delirium due to another medical condition Assessment & Plan: On psychiatric evaluation patient seems to be confused, disoriented, with fluctuation of of consciousness, some periods of lucidity. She is oriented in person, but partially oriented in time and place. Refused to cooperate with cognitive tests. Unable to establish the reason of her hospitalization unable to name or list her medical conditions and the purpose of her treatment. Current presentation seems to be secondary to delirium related with her multiple underlying medical conditions. Since baseline is not known the diagnosis of dementia cannot be done at this moment, but is suspected. Avoid deliriogenic medications opiate/benzodiazepine/ anticholinergics. Frequent physical and sensory stimulation, familiar faces around bed, frequent reorientation are usually very important. We will start Seroquel 12.5 mg twice a day for behavioral control and psychotic symptoms. Haldol 1 mg IM every 8 hours when necessary aggressive behavior and agitation. If patient becomes too problematic in the medical floor, could be transfer to med psych unit to continue medical and psychiatric care in a more structured environment. We'll follow-up. ICD Code: F05 Assessment & Plan Estimated LOS: Rocael Nava MD Mar 28, 2017 13:59
[2017-03-28] MEDS: DONEPEZIL HCL 5 MG TAB PO SCH (15:04)
[2017-03-28] MEDS: RESP: ALBUTEROL 2.5 MG/IPRATROPIUM 0.5 MG NEB (PRN) NEB (22:02)
[2017-03-28] MEDS ORDERED: NITROGLYCERIN 0.4 MG SL 25 TABS/BTL SL PRN (23:45)
[2017-03-29] VITALS (27 sets, daily range): BP systolic 91–122; BP diastolic 45–69; PULSE 79–118; RESP 18–28; TEMP 97.5–98.6; O2SAT 96–100
--- NOTE | 2017-03-29 00:04 | RADRPT ---
EXAM DATE/TIME: 03/28/2017 23:34 [facility] COMPARISON: CT ABDOMEN & PELVIS W CONTRAST, March 26, 2017, 11:03. CHEST SINGLE AP, March 26, 2017, 9:14. INDICATIONS : Shortness of breath. MEDICAL HISTORY : Congestive heart failure. Diabetes mellitus type 1. Hypertension. SURGICAL HISTORY : None. ENCOUNTER: Subsequent ACUITY: 3 days PAIN SCORE: Non-responsive. LOCATION: Bilateral chest FINDINGS: Portable AP view of the chest demonstrates stable enlargement of cardiac silhouette with calcificatio n of the aorta. There is blunting the left costophrenic sulcus. No airspace consolidation or pneumoth orax is visualized. Bones demonstrate no acute finding. CONCLUSION: Small left pleural effusion with stable enlargement of the cardiac silhouette. Julius Lopez MD on March 29, 2017 at 0:02 Board Certified Radiologist. This report was verified electronically.
[2017-03-29 01:19] LABS: BASOPHIL % 0.1 % (0.0-2.0); EOSINOPHIL # 0.2 TH/MM3 (0-0.4); EOSINOPHIL % 1.3 % (0.0-4.0); HEMO FLAGS DIFF FINAL; LYMPH % 5.1 % (9.0-44.0); LYMPHOCYTE # 0.7 TH/MM3 (1.0-4.8); MEAN CELL VOLUME 74.2 FL (80.0-100.0); MEAN CORPUSCULAR HGB CONC 32.4 % (32.0-36.0); MONO % 8.7 % (0.0-8.0); NEUT % 84.8 % (16.0-70.0); PLATELET COUNT 207 TH/MM3 (150-450); RED BLOOD COUNT 3.51 MIL/MM3 (4.00-5.30); RED CELL DISTRIBUTION WIDTH 23.6 % (11.6-17.2); WHITE BLOOD COUNT 14.2 TH/MM3 (4.0-11.0)
[2017-03-29 01:42] LABS: ALKALINE PHOSPHATASE 83 U/L (45-117); ALT (GPT) 30 U/L (10-53); ANION GAP 9 MEQ/L (5-15); AST (GOT) 30 U/L (15-37); BICARBONATE 27.1 MEQ/L (21.0-32.0); BLOOD UREA NITROGEN 13 MG/DL (7-18); CHLORIDE 97 MEQ/L (98-107); GLOMERULAR FILTRATION RATE 98 ML/MIN (>89); POTASSIUM 3.4 MEQ/L (3.5-5.1); SODIUM (NA) 133 MEQ/L (136-145); TOTAL BILIRUBIN ADULT 0.4 MG/DL (0.2-1.0)
[2017-03-29 01:43] LABS: CREATINE KINASE 35 U/L (26-192)
[2017-03-29] MEDS: RESP: ALBUTEROL 2.5 MG/IPRATROPIUM 0.5 MG NEB (PRN) NEB (02:03)
[2017-03-29] MEDS ORDERED: POTASSIUM CHLORIDE 20 MEQ CONTROLLED RELEASE TAB PO ONE ×2 (02:30→16:45)
[2017-03-29] MEDS ORDERED: FUROSEMIDE 40 MG/4 ML VIAL IV PUSH ONE (02:30)
[2017-03-29] MEDS: METOPROLOL TARTRATE 25 MG TAB PO SCH ×3 (06:03→20:11)
[2017-03-29] MEDS: METHIMAZOLE 10 MG TAB PO SCH ×3 (06:03→20:11)
[2017-03-29] MEDS: SUCRALFATE 1 GM TAB PO SCH ×4 (06:03→20:11)
[2017-03-29] MEDS: PANTOPRAZOLE SOD 40 MG DELAYED RELEASE TAB PO SCH ×2 (06:03→16:54)
[2017-03-29] MEDS: ENALAPRIL MALEATE 5 MG TAB PO SCH (08:06)
[2017-03-29] MEDS: FERROUS SULFATE 325 MG (65 MG ELEMENTAL IRON) TAB PO SCH (08:06)
[2017-03-29] MEDS: DONEPEZIL HCL 5 MG TAB PO SCH (08:06)
[2017-03-29] MEDS: TIOTROPIUM BROMIDE 18 MCG INH INH SCH (08:07)
--- NOTE | 2017-03-29 08:14 | MB ---
cc: ISABEL BRADLEY MD,RICHARDSON WANG DATE OF CONSULTATION: 03/28/[address] Sloan REASON FOR CONSULTATION Evaluate for lung mass. HISTORY OF PRESENT ILLNESS Ms. Richardson is a 76-year-old female with GI bleed multiple times in the past. She came to the hospital with melanotic stools. The patient was admitted in the hospital in January 2017. She was found to have a 19 mm right upper lobe density. She did not go for any PET scan. Now she comes with melanotic stool again. She has mild shortness of breath. There are no fever or chills, no night sweats, no nausea or vomiting. The patient had a work-up done. Her CT scan of the brain shows an area of decreased density involving the left parietal lobe. Chest x-ray shows no acute infiltrate. She had a CT scan of the abdomen and pelvis which shows prominent IVC probably due to congestive heart failure. She was found to have atrial fibrillation with a rapid ventricular rate. The patient is being followed by cardiology. PAST MEDICAL HISTORY 1. Right upper lobe spiculated nodule. 2. COPD. 3. Hypertension. 4. Atrial fibrillation. 5. GI bleed. MEDICATIONS 1. Aricept 5 mg a day. 2. Enalapril 5 mg a day. 3. Ferrous sulfate 325 mg twice a day. 4. Spiriva once a day. 5. Metoprolol 25 mg q.8h. 6. Diltiazem drip. 7. Protonix 40 mg a day. 8. Carafate one gram a.c. and h.s. ALLERGIES No known drug allergies. SOCIAL HISTORY She has a long history of smoking which she quit. 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 She is a and lives alone. FAMILY HISTORY She has two children. One son . Her daughter lives in [place]. REVIEW OF SYSTEMS She has lost a lot of weight. She is noncompliant. She says she saw her primary physician one year ago. She has not been following with her, does not like to see the doctor or take any medications. PHYSICAL EXAMINATION GENERAL: A frail elderly female not in acute distress. VITAL SIGNS: Blood pressure 91/56, heart rate 105, respirations 20, temperature 98.2. HEENT: Pupils are equal and reactive to light. Oral mucosa and nasal mucosa are normal. NECK: Supple. JVP not raised. CHEST: Equal bilaterally. No rhonchi. CV: S1, S2 normal. ABDOMEN: Benign. EXTREMITIES: No edema. IMPRESSION 1. Right upper lobe spiculated density measuring 23 x 17 mm concerning for malignancy, slightly increased over the last eight months. 2. COPD. 3. Atrial fibrillation with rapid ventricular rate. 4. GI bleed. 5. Hyperthyroidism. 6. Noncompliant. PLAN I discussed with the patient that we are concerned about malignancy. She will need biopsy. She does not want any biopsy done at this time. She says that when she is ready she will let me know. I also advised her that if he does not want a biopsy at least she should have a PET scan to determine if the lesion is more likely to be malignant. She is on a Cardizem drip. Will monitor her H&H. If the patient agrees we will consider a PET scan as an outpatient. Further treatment depending on the course in the hospital. Thank you Dr. Sloan for this consult. MD MONICA Fountain/CHRISTOPH /6:58 PM /8:01 AM
--- NOTE | 2017-03-29 08:20 | HHI.PR ---
Subjective Remarks awake and alert, no headahce, nausea or vomiting, no abdominal pain wanting to go home + blacks tools last evening Objective Vitals Vital Signs Date Time Temp Pulse Resp B/P Pulse Ox O2 Delivery O2 Flow Rate FiO2 03/29/17 07:00 79 03/29/17 07:00 98.5 89 18 118/64 99 03/29/17 03:00 97.5 99 28 122/69 100 03/29/17 02:03 100 Nasal Cannula 4.00 03/28/17 23:12 97.2 93 20 117/73 100 03/28/17 22:50 97.4 98 26 107/52 100 03/28/17 22:15 97.6 96 120/72 96 03/28/17 19:00 98.7 104 24 110/63 96 03/28/17 18:00 101 03/28/17 17:00 84 03/28/17 16:00 105 03/28/17 15:00 98.2 85 18 91/56 95 03/28/17 15:00 90 03/28/17 14:00 91 03/28/17 13:00 100 03/28/17 12:00 88 03/28/17 11:00 71 03/28/17 11:00 97.5 83 18 109/58 92 03/28/17 10:00 82 03/28/17 09:00 76 I/O 03/28/17 03/28/17 03/28/17 03/29/17 03/29/17 03/29/17 07:00 15:00 23:00 07:00 15:00 23:00 Intake Total 560 ml 720 ml 480 ml Output Total 2700 ml Balance 560 ml 720 ml -2220 ml Intake Oral 500 ml 720 ml 480 ml IV Total 60 ml Output Urine Total 2700 ml # Voids 2 3 # Bowel Movements 0 1 Result Diagram: 03/29/17 0022 03/29/17 0022 Imaging Last Impressions Head CT 03/28/17 0000 Signed Impressions: Service Date/Time: Tuesday, March 28, 2017 13:10 - CONCLUSION: 1. Area of decreased density involving the left parietal lobe as detailed above. I cannot exclude an area of infarction. Consider MRI to further evaluate. 2. Chronic small vessel ischemic change. Bryce Cohn Jr., MD Chest X-Ray 03/28/17 0000 Signed Impressions: Service Date/Time: Tuesday, March 28, 2017 23:34 - CONCLUSION: Small left pleural effusion with stable enlargement of the cardiac silhouette. Julius Lopez MD Abdomen/Pelvis CT 03/26/17 0000 Signed Impressions: Service Date/Time: Sunday, March 26, 2017 11:03 - CONCLUSION: Prominent IVC probably due to congestive heart failure, otherwise chronic changes. Emery Greco MD Objective Remarks awake and alert, NAD,oriented x 3 anicteric lungs no rales, no wheezes irregularly irregular rhythm HR 90s abdomen soft, nontender extremities no edema Procedures 03/26- EGD with biopsy- duodenal bulb ulcers, gastric ulcers A/P Assessment and Plan 76 yo female with a PMHX of HTN, COPD, CHF, atrial fibrillation, hyperthyroidism and prediabetes who presents to [facility] ED with complaints of mild abdominal cramping, weakness and episode of black tarry stool x 1 since this morning. UGIB secondary to gastric and duodenal ulcers- + melena- this am likely old blood- slight drop in H and H- recheck this am. if further drop will give 1 unit - CT scan abd/pelvis - shows prominent IVC probably due to CHF, otherwise no chronic changes. - PPI + carafate - Increase activity gradually as tolerated --tolerating diet chronic Atrial fibrillation - rate in the 90s CHF, not in exacerbation HYpertension- EF 45-50% - previously on Eliquis . no OAC due to GIB - [id number] score 4, high risk - echocardiogram 01/06/17 EF 45-50%, moderate mitral valve regurg, moderately dilated left atrium, moderately to severely dilated right atrium, moderate-severe tricuspid regurg, PA pressure 50mmHg - Enalapril 5 mg daily daily - Lopressor to 25 mg po q 8 -cardiology ff initiated on Tapazole 03/27 - should help with rate control - treat hyperthyroidism Severe Hyperthyroidism- don't feel any thyromegaly- + Graves - we will get an US or a thyroid scan -this contributing to rapid a fib - continue on Methimazole 10 mg tid - OP ff up with PCP Left parietal possible infarction= on Head CT- likely embolic get an MRI. get carotid Ultrasound. no OAC due to GIB Episode of confusion -improved, neuro intact Neurology consult Anemia, microcytic, hypochromic- acute on chronic- Iron deficiency - S/P IV Venofer - monitor H/H. S/P 1 unit RBC 03/26. give another unit today -start Iron sulfate 325 mg tid COPD LUng mass, right apex - s seen on chest CT 01/06/17 - Patient was to have a PET CT as outpatient following her last discharge from this facility in January - OP patient regarding followup- obviously patient non compliant and cannot be relied on - last admission states mass can be access by IR for tissue diagnosis - Pulmonary consulted - -MDI - monitor respiratory status ?Diabetes - HgbA1c 6.2 - ADA diet. ff blood glucose level DVT prophylaxis - SCD/AMARA hose bilaterally Episode of confusion starting Dementia- patient episode of confusion- resolved psychiatry consulted 03/25 we called pharmacy- in [facility]- on eliquis, ASA, Tapazole, enalapril , Lasix- but patient non compliant- "I don't need them" stress compliance- states that she was sent all above meds by PCP- and never explained to her what they are for- so she won't take them Dread Sloan MD Mar 29, 2017 08:20 explained to her what they are for- so she won't take them Dread Sloan MD Mar 29, 2017 08:20
[2017-03-29] MEDS ORDERED: POTASSIUM CHLORIDE 10 MEQ CONTROLLED RELEASE TAB PO ONE (08:30)
[2017-03-29] MEDS: FUROSEMIDE 20 MG TAB PO SCH (09:13)
[2017-03-29 09:32] LABS: CREATINE KINASE 32 U/L (26-192)
--- NOTE | 2017-03-29 10:15 | HHI.GIFU ---
GI Follow-up Note Consult Follow-up Subjective: Patient sitting in bed. Tolerating at diet. C/O black stools but she is on iron pills Objective: PHYSICAL EXAMINATION: 118/64-18-89-98.6 NECK: Neck is supple, no JVD, no lymphadenopathy. CHEST: Chest is clear to auscultation and percussion. CARDIAC: irregular rate and rhythm with no murmur gallop or rubs. ABDOMEN: Soft, nondistended, nontender; no hepatosplenomegaly; bowel sounds are present in all four quadrants. SKIN: no rash; no jaundice. Available Data (labs, X- Rays, Procedures) : hgb--8.7-8.0-8.4. a rectal exam today (RN in room) did show black stools-- weakly heme +... Fasting gastrin WNL ASSESSMENT/PLAN: 1. Multiple large duodenal ulcers and smaller gastric ulcers. The largest DU had an adherent clot which washed off easily-no vessel noted 2. Melena-still with black stools. suspect old blood with iron pills. F/u CBC 3. Anemia-Iron def. colon as outpt 4. Hx of DU (h.pylori neg) 5. Hx of colon polyps-last colon 2007 6. Non-conpliance with meds (PPI) and F/U appt. 7. Abnormal LFT's. PLAN: 1. Cont PPI BID 2. Cont Carafate 3. Transfuse as needed 4. colon as outpt 5. avoid ASA, NSAIDS, ETOH,Smoking 6. awaiting pathology 7. Stop iron pills 8. If signs of active bleeding (low BP, elevated Hr, multiple melanotic stools)- she needs angio with IR It was a pleasure seeing Laure Richardson. Thank you for this consult. Entered by: Angel Saxena MD Mar 29, 2017 10:15
[2017-03-29 10:48] LABS: AUTOMATED NEUTROPHIL # 12.6 TH/MM3 (1.8-7.7); BASOPHIL % 0.2 % (0.0-2.0); EOSINOPHIL # 0.1 TH/MM3 (0-0.4); EOSINOPHIL % 0.6 % (0.0-4.0); HEMATOCRIT 29.8 % (35.0-46.0); HEMO FLAGS DIFF FINAL; LYMPH % 2.3 % (9.0-44.0); LYMPHOCYTE # 0.3 TH/MM3 (1.0-4.8); MEAN CORPUSCULAR HEMOGLOBIN 23.7 PG (27.0-34.0); MEAN CORPUSCULAR HGB CONC 31.6 % (32.0-36.0); MONO % 7.1 % (0.0-8.0); NEUT % 89.8 % (16.0-70.0); PLATELET COUNT 220 TH/MM3 (150-450); RED BLOOD COUNT 3.98 MIL/MM3 (4.00-5.30); RED CELL DISTRIBUTION WIDTH 22.9 % (11.6-17.2)
[2017-03-29 11:10] LABS: BICARBONATE 32.5 MEQ/L (21.0-32.0); POTASSIUM 3.1 MEQ/L (3.5-5.1)
--- NOTE | 2017-03-29 12:54 | MB ---
cc: JV RILEY M.D. DATE OF CONSULTATION 03/29/2017 DATE OF 1940 REASON FOR CONSULTATION Possible stroke HISTORY This 76-year-old woman with a history of hypertension, COPD, atrial fibrillation, previously on Eliquis, hyperthyroidism and a history of GI bleed, lung mass, prediabetes with some noncompliance came in with abdominal cramping and black tarry stools. I am asked to evaluate her for an abnormal CT that was done that showed a possible parietal infarct on the left. The patient currently is lying in bed and offers no complaints. Denies any headache, chest pain, shortness of breath or weakness, numbness or tingling of the extremities. PAST MEDICAL HISTORY She has past medical history as stated. ALLERGIES None reported. PAST SURGICAL HISTORY Denies HOME MEDICINES Enalapril FAMILY HISTORY Cancer of the lung and diabetes in the mother. Father had lung cancer. SOCIAL HISTORY History of heavy tobacco use up to four packs a day since 18, quit eight years ago. Denies alcohol or any illicit drugs. PHYSICAL EXAM VITAL SIGNS: Temperature is 98.5, pulse 97, respiratory rate 18, blood pressure 118/64. NECK: Supple. I do not appreciate any bruits. HEART: Irregularly irregular. NEUROLOGIC: She is awake and alert. She knows she is in the hospital. She knows why she is here. Her speech is fluent. Pupils are reactive. Visual ramirez are full. Face symmetrical. Tongue midline. Motor: I do not appreciate any drift or leg lag. Toes, withdraws. DTRs are brisk. Gait is withheld. Sensory is normal. LABORATORY DATA Labs were reviewed. CBC hemoglobin is 9.4, white count 14, platelets of 220,000. Coag panel PTT 27.5, INR 1.3, PT 14. Chemistries are pending for today. Yesterday sodium was 133 and potassium 3.4, albumin 2.2. IMAGING Imaging was done yesterday afternoon and shows a decreased density over the left parietal lobe, possible infarct cannot be excluded. She had a carotid ultrasound. I am awaiting those results. IMPRESSION Possible stroke as stated in a patient with a history of atrial fibrillation. Unfortunately at this point in time given her large duodenal ulcer and small gastric ulcer, as well as melena, I do not think that she could be placed on any antiplatelets or anticoagulants. She is on a PPI Carafate. Transfusion as needed. RECOMMENDATIONS From GI, avoid any NSAIDs, aspirin, etc. Her pathology is still pending. We will go ahead and get an MRI to verify if that truly is a stroke. Once cleared by GI, then I would consider putting her back on her on anticoagulant for A. Fib as she is high-risk. However if it is not feasible due to her GI history, then unfortunately she cannot be placed on that. Weight reduction. Continue blood pressure control. MRI is pending as are the carotid ultrasound results. Her last echo was in January of 2017 with an EF of 45-50% with mitral regurgitation, moderate dilatation of the left atrium, moderate severe dilatation right atrium, moderately severe tricuspid regurgitation. MD LUCHO Kelly/LEVON /11:11 AM /12:49 PM
--- NOTE | 2017-03-29 13:04 | PD.CARD.PN ---
Subjective Subjective Remarks No chest pain, no shortness of breath No events on telemetry, mostly controlled Objective Medications Current Medications Medications (Trade) Dose Ordered Sig/Ezio Route Start Time Stop Time Status Last Admin (NS Flush) 2 ml UNSCH PRN IVF 03/26/17 09:15 (Carafate) 1 gm ACHS PO 03/26/17 21:00 03/29/17 09:13 (NS Flush) 2 ml UNSCH PRN IV FLUSH 03/26/17 19:00 03/29/17 08:06 (Pill Splitter) 1 ea UNSCH PRN OTHER 03/27/17 09:30 (Tapazole) 10 mg Q8HR PO 03/27/17 09:30 03/29/17 06:03 (Vasotec) 5 mg DAILY PO 03/28/17 09:00 03/29/17 08:06 Pantoprazole Sodium 40 mg 40 mg BIDAC PO 03/27/17 16:00 03/29/17 06:03 (Cardizem Drip Inj Premix) 125 ml @ 0 mls/hr TITRATE IV 03/27/17 19:15 03/27/17 20:05 (Lopressor) 25 mg Q8HR PO 03/28/17 07:45 03/29/17 06:03 (Ferrous Sulfate) 325 mg BID PO 03/28/17 09:00 Hold 03/29/17 08:06 (Spiriva Inh) 18 mcg DAILY INH 03/28/17 09:00 03/29/17 08:07 (Aricept) 5 mg DAILY PO 03/28/17 13:45 03/29/17 08:06 (Nitrostat Sl) 0.4 mg Q5M PRN SL 03/28/17 23:45 03/28/17 23:50 (Lasix) 20 mg DAILY PO 03/29/17 10:00 03/29/17 09:13 Vital Signs / I&O Vital Signs Date Time Temp Pulse Resp B/P Pulse Ox O2 Delivery O2 Flow Rate FiO2 03/29/17 12:00 103 03/29/17 11:00 98.5 98 18 91/45 97 03/29/17 11:00 113 03/29/17 10:00 97 03/29/17 09:00 91 03/29/17 08:00 89 03/29/17 07:00 79 03/29/17 07:00 98.5 89 18 118/64 99 03/29/17 06:00 86 03/29/17 05:00 104 03/29/17 04:00 88 03/29/17 03:20 92 03/29/17 03:00 97.5 99 28 122/69 100 03/29/17 02:03 100 Nasal Cannula 4.00 03/29/17 02:00 88 03/29/17 01:00 84 03/29/17 00:00 88 03/28/17 23:12 97.2 93 20 117/73 100 03/28/17 23:00 90 03/28/17 22:50 97.4 98 26 107/52 100 03/28/17 22:15 97.6 96 120/72 96 03/28/17 22:00 94 03/28/17 21:00 92 03/28/17 20:00 94 03/28/17 19:00 98.7 104 24 110/63 96 03/28/17 19:00 89 03/28/17 18:00 101 03/28/17 17:00 84 03/28/17 16:00 105 03/28/17 15:00 98.2 85 18 91/56 95 03/28/17 15:00 90 03/28/17 14:00 91 I/O 03/28/17 03/28/17 03/28/17 03/29/17 03/29/17 03/29/17 06:59 14:59 22:59 06:59 14:59 22:59 Intake Total 560 ml 720 ml 480 ml Output Total 2700 ml Balance 560 ml 720 ml -2220 ml Intake Oral 500 ml 720 ml 480 ml IV Total 60 ml Output Urine Total 2700 ml # Voids 2 3 # Bowel Movements 0 1 Physical Exam GENERAL: NAD, AAOx3 SKIN: Warm and dry. HEAD: Atraumatic. Normocephalic. EYES: Pupils equal and round. No scleral icterus. No injection or drainage. ENT: No nasal bleeding or discharge. Mucous membranes pink and moist. NECK: Trachea midline. No JVD. CARDIOVASCULAR: Irregularly irregular RESPIRATORY: Decreased breath sounds bilaterally GASTROINTESTINAL: Abdomen soft, non-tender, nondistended. Hepatic and splenic margins not palpable. MUSCULOSKELETAL: Extremities without clubbing, cyanosis, or edema. No obvious deformities. NEUROLOGICAL: Awake and alert. No obvious cranial nerve deficits. Motor grossly within normal limits. Five out of 5 muscle strength in the arms and legs. Normal speech. PSYCHIATRIC: Appropriate mood and affect; insight and judgment normal. Laboratory Laboratory Tests Test 03/29/17 03/29/17 03/29/17 00:22 05:15 10:27 White Blood Count 14.2 TH/MM3 14.0 TH/MM3 Red Blood Count 3.51 MIL/MM3 3.98 MIL/MM3 Hemoglobin 8.4 GM/DL 9.4 GM/DL Hematocrit 26.0 % 29.8 % Mean Corpuscular Volume 74.2 FL 75.0 FL Mean Corpuscular Hemoglobin 24.0 PG 23.7 PG Mean Corpuscular Hemoglobin 32.4 % 31.6 % Concent Red Cell Distribution Width 23.6 % 22.9 % Platelet Count 207 TH/MM3 220 TH/MM3 Mean Platelet Volume 7.6 FL 7.1 FL Neutrophils (%) (Auto) 84.8 % 89.8 % Lymphocytes (%) (Auto) 5.1 % 2.3 % Monocytes (%) (Auto) 8.7 % 7.1 % Eosinophils (%) (Auto) 1.3 % 0.6 % Basophils (%) (Auto) 0.1 % 0.2 % Neutrophils # (Auto) 12.0 TH/MM3 12.6 TH/MM3 Lymphocytes # (Auto) 0.7 TH/MM3 0.3 TH/MM3 Monocytes # (Auto) 1.2 TH/MM3 1.0 TH/MM3 Eosinophils # (Auto) 0.2 TH/MM3 0.1 TH/MM3 Basophils # (Auto) 0.0 TH/MM3 0.0 TH/MM3 CBC Comment DIFF FINAL DIFF FINAL Differential Comment Sodium Level 133 MEQ/L 134 MEQ/L Potassium Level 3.4 MEQ/L 3.1 MEQ/L Chloride Level 97 MEQ/L 94 MEQ/L Carbon Dioxide Level 27.1 MEQ/L 32.5 MEQ/L Anion Gap 9 MEQ/L 8 MEQ/L Blood Urea Nitrogen 13 MG/DL 11 MG/DL Creatinine 0.60 MG/DL 0.62 MG/DL Estimat Glomerular Filtration 98 ML/MIN 94 ML/MIN Rate Random Glucose 109 MG/DL 139 MG/DL Calcium Level 8.1 MG/DL 8.3 MG/DL Total Bilirubin 0.4 MG/DL Aspartate Amino Transf 30 U/L (AST/SGOT) Alanine Aminotransferase 30 U/L (ALT/SGPT) Alkaline Phosphatase 83 U/L Total Creatine Kinase 35 U/L 32 U/L Troponin I 0.02 NG/ML LESS THAN 0.02 NG/ML B-Type Natriuretic Peptide 677 PG/ML Total Protein 5.3 GM/DL Albumin 2.2 GM/DL Assessment and Plan Problem List: (1) Acute blood loss anemia (2) GI bleed (3) History of CHF (congestive heart failure) (4) Atrial fibrillation (5) Lung mass (6) Delirium due to another medical condition (7) COPD (chronic obstructive pulmonary disease) Assessment and Plan 1) Con't with Lopressor TID, heart rates mostly controlled 2) No ASA/NOAC due to GI bleed with large ulcers If cleared by GI, would place back on at least ASA if possible 3) Neuro work up for possible CVA Rudolph Gates DO Mar 29, 2017 13:04
--- NOTE | 2017-03-29 13:39 | RADRPT ---
EXAM DATE/TIME: 03/29/2017 09:35 [facility] COMPARISON: No previous studies available for comparison. INDICATIONS : CVA. MEDICAL HISTORY : Congestive heart failure. Hypertension. Chronic obstructive pulmonary disease. Thyroid disease. Antic oagulant therapy. A.FIB. Diabetes. GI bleed. Ulcers. SURGICAL HISTORY : None. EGD. ENCOUNTER: Initial ACUITY: 2 days PAIN SCORE: 0/10 LOCATION: Bilateral neck PEAK SYSTOLIC VELOCITIES (cm/sec): ICA/CCA RATIO: Right: 1.6 Left: 1.0 ICA: Right: 108 Left: 100 CCA: Right: 71 Left: 106 ECA: Right: 78 Left: 151 VERTEBRAL: Right: 81 antegrade Left: 59 antegrade Elevated flow velocities and ICA/CCA ratios have been found to correlate with increased degrees of vessel stenosis, calculated as percentage of diameter relative to a normal segment of distal ICA/CCA FINDINGS: RIGHT CAROTID: No significant stenosis is visualized. The waveforms are within normal limits. LEFT CAROTID: No significant stenosis is visualized. The waveforms are within normal limits. VERTEBRAL ARTERIES: Antegrade flow is seen in both vertebral arteries. MISCELLANEOUS: None. CONCLUSION: No evidence of flow-limiting carotid stenosis. Julius Higgins MD on March 29, 2017 at 13:37 Board Certified Radiologist. This report was verified electronically.
--- NOTE | 2017-03-29 14:39 | EKG ---
Date Performed: 03/28/2017 Time Performed: 23:55:48 PTAGE: 76 years EKG: Atrial fibrillation with controlled v. rate Nonspecific ST T wave changes Compared to prior tracing no significant change Abnormal ECG PREVIOUS TRACING : 03/26/2017 09.14 DOCTOR: [place] Interpretating Date/Time 03/29/2017 14:38:12
--- NOTE | 2017-03-29 14:40 | EKG ---
Date Performed: 03/29/2017 Time Performed: 04:53:46 PTAGE: 76 years EKG: Atrial fibrillation with controlled v. rate Poor R wave progression Nonspecific ST T wave c hanges Compared to prior tracing no significant change Abnormal ECG PREVIOUS TRACING : 03/28/2017 23.55 DOCTOR: [place] Interpretating Date/Time 03/29/2017 14:39:12
--- NOTE | 2017-03-29 16:54 | RADRPT ---
EXAM DATE/TIME: 03/29/2017 15:43 [facility] COMPARISON: CT BRAIN W/O CONTRAST, March 28, 2017, 13:10. INDICATIONS : CVA. MEDICAL HISTORY : Hypertension. SURGICAL HISTORY : None. ENCOUNTER: Initial ACUITY: 2 day PAIN SCORE: 0/10 LOCATION: Head. TECHNIQUE: Multiplanar, multisequence MRI of the brain was performed without contrast. FINDINGS: CEREBRUM: The ventricles are normal for age. Mild, symmetric cortical atrophy. No evidence of midline shift, m ass lesion, hemorrhage or acute infarction. No extraaxial fluid collections are seen. The pituitary gland and suprasellar cistern are normal in configuration. WHITE MATTER: Periventricular areas of increased T2 flair signal intensity are characteristic of [id number] p eriventricular small vessel ischemic demyelination. POSTERIOR FOSSA: The cerebellum and brainstem are intact. The 4th ventricle is midline. The cerebellopontine angle is unremarkable. The cerebellar tonsils are normal in position. DIFFUSION IMAGING: Thank area of increased diffusion signal in the posterior left parietal region corresponding to the a bill of diminished attenuation on prior CT. However, this same area shows increased signal on correspo nding ADC maps characteristic of T2 shine through. EXTRACRANIAL: The visualized portions of the orbits and paranasal sinuses are unremarkable. CONCLUSION: 1. [id number] periventricular small vessel ischemic demyelination. Mild, symmetric cortical atr ophy. 2. Area of decreased attenuation in the posterior left parietal region on CT appears to represent reg ional gliosis on MRI. No true diffusion restriction to suggest an acute or subacute ischemic event. Tad Cole MD on March 29, 2017 at 16:46 Board Certified Radiologist. This report was verified electronically.
--- NOTE | 2017-03-29 19:05 | HHI.PR ---
Subjective Remarks YOWF with COPD, RUL mass, AF,GIB Pt does't want any bx Understands that malignancy is a possibilty On RA Anxious to go home Objective Vital Signs Vital Signs Date Time Temp Pulse Resp B/P Pulse Ox O2 Delivery O2 Flow Rate FiO2 03/29/17 18:00 105 03/29/17 17:16 100 Nasal Cannula 3.00 03/29/17 17:00 97 03/29/17 16:00 98 03/29/17 15:00 92 03/29/17 15:00 98.6 91 18 102/51 100 03/29/17 14:00 94 03/29/17 13:00 96 03/29/17 12:00 103 03/29/17 11:00 98.5 98 18 91/45 97 03/29/17 11:00 113 03/29/17 10:00 97 03/29/17 09:00 91 03/29/17 08:00 89 03/29/17 07:00 79 03/29/17 07:00 98.5 89 18 118/64 99 03/29/17 06:00 86 03/29/17 05:00 104 03/29/17 04:00 88 03/29/17 03:20 92 03/29/17 03:00 97.5 99 28 122/69 100 03/29/17 02:03 100 Nasal Cannula 4.00 03/29/17 02:00 88 03/29/17 01:00 84 03/29/17 00:00 88 03/28/17 23:12 97.2 93 20 117/73 100 03/28/17 23:00 90 03/28/17 22:50 97.4 98 26 107/52 100 03/28/17 22:15 97.6 96 120/72 96 03/28/17 22:00 94 03/28/17 21:00 92 03/28/17 20:00 94 03/28/17 19:00 98.7 104 24 110/63 96 03/28/17 19:00 89 I/O 03/28/17 03/28/17 03/28/17 03/29/17 03/29/17 03/29/17 07:00 15:00 23:00 07:00 15:00 23:00 Intake Total 560 ml 720 ml 480 ml 960 ml Output Total 2700 ml Balance 560 ml 720 ml -2220 ml 960 ml Intake Oral 500 ml 720 ml 480 ml 960 ml IV Total 60 ml Output Urine Total 2700 ml # Voids 2 3 5 # Bowel Movements 0 1 3 Result Diagram: 03/29/17 1027 03/29/17 1027 Objective Remarks GENERAL: MBMN WF,NAD SKIN: Warm and dry. HEAD: Normocephalic. EYES: No scleral icterus. No injection or drainage. NECK: Supple, trachea midline. No JVD or lymphadenopathy. CARDIOVASCULAR: Regular rate and rhythm without murmurs, gallops, or rubs. RESPIRATORY: Breath sounds equal bilaterally. No accessory muscle use. GASTROINTESTINAL: Abdomen soft, non-tender, nondistended. MUSCULOSKELETAL: No cyanosis, or edema. BACK: Nontender without obvious deformity. No CVA tenderness. A/P Assessment and Plan RUL density, concerning for malignancy COPD AF GIB Anemia PLAN: Aerosol nebs Pt refuses any bx Lopressor for rate controll monitor H&H Sabino Ward MD Mar 29, 2017 19:05
[2017-03-30] VITALS (24 sets, daily range): BP systolic 97–122; BP diastolic 44–65; PULSE 77–131; RESP 16–18; TEMP 97.3–98.6; O2SAT 95–98
[2017-03-30] MEDS: METOPROLOL TARTRATE 25 MG TAB PO SCH ×3 (05:38→20:17)
[2017-03-30] MEDS: METHIMAZOLE 10 MG TAB PO SCH ×4 (05:38→20:17)
[2017-03-30] MEDS: PANTOPRAZOLE SOD 40 MG DELAYED RELEASE TAB PO SCH ×2 (05:38→17:30)
[2017-03-30 05:44] LABS: AUTOMATED NEUTROPHIL # 11.9 TH/MM3 (1.8-7.7); BASOPHIL % 0.1 % (0.0-2.0); EOSINOPHIL # 0.2 TH/MM3 (0-0.4); EOSINOPHIL % 1.7 % (0.0-4.0); HEMATOCRIT 28.9 % (35.0-46.0); HEMO FLAGS DIFF FINAL; LYMPH % 6.5 % (9.0-44.0); LYMPHOCYTE # 0.9 TH/MM3 (1.0-4.8); MEAN CELL VOLUME 75.1 FL (80.0-100.0); MEAN CORPUSCULAR HEMOGLOBIN 22.9 PG (27.0-34.0); MEAN CORPUSCULAR HGB CONC 30.4 % (32.0-36.0); MONO % 8.6 % (0.0-8.0); NEUT % 83.1 % (16.0-70.0); PLATELET COUNT 231 TH/MM3 (150-450); RED BLOOD COUNT 3.85 MIL/MM3 (4.00-5.30); RED CELL DISTRIBUTION WIDTH 23.5 % (11.6-17.2); WHITE BLOOD COUNT 14.3 TH/MM3 (4.0-11.0)
[2017-03-30 06:02] LABS: BICARBONATE 31.4 MEQ/L (21.0-32.0); POTASSIUM 3.3 MEQ/L (3.5-5.1)
[2017-03-30] MEDS: FUROSEMIDE 20 MG TAB PO SCH (08:39)
[2017-03-30] MEDS: DONEPEZIL HCL 5 MG TAB PO SCH (08:40)
[2017-03-30] MEDS: TIOTROPIUM BROMIDE 18 MCG INH INH SCH (08:40)
[2017-03-30] MEDS: ENALAPRIL MALEATE 5 MG TAB PO SCH (08:42)
[2017-03-30] MEDS: SUCRALFATE 1 GM TAB PO SCH ×4 (08:43→20:17)
--- NOTE | 2017-03-30 09:17 | HHI.GIFU ---
GI Follow-up Note Consult Follow-up Subjective: Patient tolerating diet ok. Denies N/V or abd pain. Stools still black but recently on oral iron. Objective: PHYSICAL EXAMINATION: Vitals signs stable No fever HEENT: no jaundice. ABDOMEN: Soft, nondistended, mild upper abd tenderness without guarding. SKIN: warm and dry [employer]: alert and oriented times three. Available Data (labs, X- Rays, Procedues) : Mild decrease H&H. Gastrin and H. pylori studies neg. ASSESSMENT/PLAN: 1. PUD w/ bleeding-recurrent. Pt adamantly denies any ASA or NSAID use and quit smoking 19 years ago. Continue BID PPI and qid carafate. If H&H stays stable could discharge tomorrow. F/U our office 2 weeks. It was a pleasure seeing Laure Richardson. Thank you for this consult. Entered by: Norris Olivas MD Mar 30, 2017 09:17
--- NOTE | 2017-03-30 13:13 | PD.CARD.PN ---
Subjective Subjective Remarks No events overnight, no chest pain Telemetry with mostly controlled rates, few elevated rates Objective Medications Current Medications Medications (Trade) Dose Ordered Sig/Ezio Route Start Time Stop Time Status Last Admin (NS Flush) 2 ml UNSCH PRN IVF 03/26/17 09:15 (Carafate) 1 gm ACHS PO 03/26/17 21:00 03/30/17 12:20 (NS Flush) 2 ml UNSCH PRN IV FLUSH 03/26/17 19:00 03/29/17 08:06 (Pill Splitter) 1 ea UNSCH PRN OTHER 03/27/17 09:30 (Tapazole) 10 mg Q8HR PO 03/27/17 09:30 03/30/17 12:20 (Vasotec) 5 mg DAILY PO 03/28/17 09:00 03/29/17 08:06 Pantoprazole Sodium 40 mg 40 mg BIDAC PO 03/27/17 16:00 03/30/17 05:38 (Cardizem Drip Inj Premix) 125 ml @ 0 mls/hr TITRATE IV 03/27/17 19:15 03/27/17 20:05 (Lopressor) 25 mg Q8HR PO 03/28/17 07:45 03/30/17 12:20 (Ferrous Sulfate) 325 mg BID PO 03/28/17 09:00 Hold 03/29/17 08:06 (Spiriva Inh) 18 mcg DAILY INH 03/28/17 09:00 03/30/17 08:40 (Aricept) 5 mg DAILY PO 03/28/17 13:45 03/30/17 08:40 (Nitrostat Sl) 0.4 mg Q5M PRN SL 03/28/17 23:45 03/28/17 23:50 (Lasix) 20 mg DAILY PO 03/29/17 10:00 03/29/17 09:13 Vital Signs / I&O Vital Signs Date Time Temp Pulse Resp B/P Pulse Ox O2 Delivery O2 Flow Rate FiO2 03/30/17 12:11 90 03/30/17 11:00 97 03/30/17 11:00 97.3 103 16 122/63 97 03/30/17 10:00 78 03/30/17 09:12 98 21 03/30/17 09:10 78 03/30/17 08:47 80 03/30/17 07:00 98.0 97 16 97/53 96 03/30/17 07:00 92 03/30/17 06:00 89 03/30/17 05:00 92 03/30/17 04:00 95 03/30/17 03:00 98.4 92 16 116/58 96 03/30/17 03:00 92 03/30/17 01:00 77 03/30/17 00:00 78 03/29/17 23:00 110 03/29/17 23:00 98.2 110 18 106/64 96 03/29/17 22:00 104 03/29/17 21:00 105 03/29/17 20:00 118 03/29/17 19:00 98.4 115 18 114/63 99 03/29/17 19:00 115 03/29/17 18:00 105 03/29/17 17:16 100 Nasal Cannula 3.00 03/29/17 17:00 97 03/29/17 16:00 98 03/29/17 15:00 92 03/29/17 15:00 98.6 91 18 102/51 100 03/29/17 14:00 94 I/O 03/29/17 03/29/17 03/29/17 03/30/17 03/30/17 03/30/17 07:00 15:00 23:00 07:00 15:00 23:00 Intake Total 480 ml 960 ml 600 ml Output Total 2700 ml Balance -2220 ml 960 ml 600 ml Intake Oral 480 ml 960 ml 600 ml Output Urine Total 2700 ml # Voids 5 3 # Bowel Movements 3 Physical Exam GENERAL: NAD, AAOx3 SKIN: Warm and dry. HEAD: Atraumatic. Normocephalic. EYES: Pupils equal and round. No scleral icterus. No injection or drainage. ENT: No nasal bleeding or discharge. Mucous membranes pink and moist. NECK: Trachea midline. No JVD. CARDIOVASCULAR: Irregularly irregular RESPIRATORY: Decreased breath sounds bilaterally GASTROINTESTINAL: Abdomen soft, non-tender, nondistended. Hepatic and splenic margins not palpable. MUSCULOSKELETAL: Extremities without clubbing, cyanosis, or edema. No obvious deformities. NEUROLOGICAL: Awake and alert. No obvious cranial nerve deficits. Motor grossly within normal limits. Five out of 5 muscle strength in the arms and legs. Normal speech. PSYCHIATRIC: Appropriate mood and affect; insight and judgment normal. Laboratory Laboratory Tests Test 03/30/17 04:13 White Blood Count 14.3 TH/MM3 Red Blood Count 3.85 MIL/MM3 Hemoglobin 8.8 GM/DL Hematocrit 28.9 % Mean Corpuscular Volume 75.1 FL Mean Corpuscular Hemoglobin 22.9 PG Mean Corpuscular Hemoglobin 30.4 % Concent Red Cell Distribution Width 23.5 % Platelet Count 231 TH/MM3 Mean Platelet Volume 7.3 FL Neutrophils (%) (Auto) 83.1 % Lymphocytes (%) (Auto) 6.5 % Monocytes (%) (Auto) 8.6 % Eosinophils (%) (Auto) 1.7 % Basophils (%) (Auto) 0.1 % Neutrophils # (Auto) 11.9 TH/MM3 Lymphocytes # (Auto) 0.9 TH/MM3 Monocytes # (Auto) 1.2 TH/MM3 Eosinophils # (Auto) 0.2 TH/MM3 Basophils # (Auto) 0.0 TH/MM3 CBC Comment DIFF FINAL Differential Comment Sodium Level 132 MEQ/L Potassium Level 3.3 MEQ/L Chloride Level 92 MEQ/L Carbon Dioxide Level 31.4 MEQ/L Anion Gap 9 MEQ/L Blood Urea Nitrogen 19 MG/DL Creatinine 0.58 MG/DL Estimat Glomerular Filtration 102 ML/MIN Rate Random Glucose 105 MG/DL Calcium Level 8.1 MG/DL Assessment and Plan Problem List: (1) Acute blood loss anemia (2) GI bleed (3) History of CHF (congestive heart failure) (4) Atrial fibrillation (5) Lung mass (6) Delirium due to another medical condition (7) COPD (chronic obstructive pulmonary disease) Assessment and Plan 1) Con't with Lopressor TID, heart rates mostly controlled Would not increase, concern with borderline low BPs 2) No ASA/NOAC due to GI bleed with large ulcers If cleared by GI, would place back on at least ASA if possible, will have to see in the future 3) Neuro work up for possible CVA, MRI appears negative Rudolph Gates DO Mar 30, 2017 13:12
--- NOTE | 2017-03-30 16:50 | HHI.PR ---
Subjective Remarks awake and alert, oriented x 3, discussed with her purpose of meds, OP ff ups promised to take meds- states she did not take her meds because her PCP did not explain it to her Objective Vitals Vital Signs Date Time Temp Pulse Resp B/P Pulse Ox O2 Delivery O2 Flow Rate FiO2 03/30/17 16:09 104 03/30/17 15:00 98.2 102 16 121/58 98 03/30/17 15:00 102 03/30/17 13:28 99 03/30/17 12:11 90 03/30/17 11:00 97 03/30/17 11:00 97.3 103 16 122/63 97 03/30/17 10:00 78 03/30/17 09:12 98 21 03/30/17 09:10 78 03/30/17 08:47 80 03/30/17 07:00 98.0 97 16 97/53 96 03/30/17 07:00 92 03/30/17 06:00 89 03/30/17 05:00 92 03/30/17 04:00 95 03/30/17 03:00 98.4 92 16 116/58 96 03/30/17 03:00 92 03/30/17 01:00 77 03/30/17 00:00 78 03/29/17 23:00 110 03/29/17 23:00 98.2 110 18 106/64 96 03/29/17 22:00 104 03/29/17 21:00 105 03/29/17 20:00 118 03/29/17 19:00 98.4 115 18 114/63 99 03/29/17 19:00 115 03/29/17 18:00 105 03/29/17 17:16 100 Nasal Cannula 3.00 03/29/17 17:00 97 I/O 03/29/17 03/29/17 03/29/17 03/30/17 03/30/17 03/30/17 07:00 15:00 23:00 07:00 15:00 23:00 Intake Total 480 ml 960 ml 600 ml Output Total 2700 ml Balance -2220 ml 960 ml 600 ml Intake Oral 480 ml 960 ml 600 ml Output Urine Total 2700 ml # Voids 5 3 # Bowel Movements 3 Result Diagram: 03/30/17 0413 03/30/17 0413 Imaging Last Impressions Carotid Artery Ultrasound 03/29/17 0000 Signed Impressions: Service Date/Time: Wednesday, March 29, 2017 09:35 - CONCLUSION: No evidence of flow-limiting carotid stenosis. Julius Higgins MD Brain MRI 03/29/17 0000 Signed Impressions: Service Date/Time: Wednesday, March 29, 2017 15:43 - CONCLUSION: 1. [id number] periventricular small vessel ischemic demyelination. Mild, symmetric cortical atrophy. 2. Area of decreased attenuation in the posterior left parietal region on CT appears to represent regional gliosis on MRI. No true diffusion restriction to suggest an acute or subacute ischemic event. Tad Cole MD Head CT 03/28/17 0000 Signed Impressions: Service Date/Time: Tuesday, March 28, 2017 13:10 - CONCLUSION: 1. Area of decreased density involving the left parietal lobe as detailed above. I cannot exclude an area of infarction. Consider MRI to further evaluate. 2. Chronic small vessel ischemic change. Bryce Cohn Jr., MD Chest X-Ray 03/28/17 0000 Signed Impressions: Service Date/Time: Tuesday, March 28, 2017 23:34 - CONCLUSION: Small left pleural effusion with stable enlargement of the cardiac silhouette. Julius Lopez MD Abdomen/Pelvis CT 03/26/17 0000 Signed Impressions: Service Date/Time: Sunday, March 26, 2017 11:03 - CONCLUSION: Prominent IVC probably due to congestive heart failure, otherwise chronic changes. Emery Greco MD Objective Remarks awake and alert, NAD,oriented x 3, speech clear anicteric lungs no rales, no wheezes irregularly irregular rhythm HR 90s abdomen soft, nontender extremities no edema Procedures 03/26- EGD with biopsy- duodenal bulb ulcers, gastric ulcers A/P Assessment and Plan 76 yo female with a PMHX of HTN, COPD, CHF, atrial fibrillation, hyperthyroidism and prediabetes who presents to [facility] ED with complaints of mild abdominal cramping, weakness and episode of black tarry stool x 1 since this morning. UGIB secondary to gastric and duodenal ulcers- + melena- this am likely old blood- H and H stable - CT scan abd/pelvis - shows prominent IVC probably due to CHF, otherwise no chronic changes. - PPI + carafate - Increase activity gradually as tolerated --tolerating diet chronic Atrial fibrillation - rate in the 90s CHF, not in exacerbation HYpertension- EF 45-50% - previously on Eliquis . no OAC due to GIB - [id number] score 4, high risk - echocardiogram 01/06/17 EF 45-50%, moderate mitral valve regurg, moderately dilated left atrium, moderately to severely dilated right atrium, moderate-severe tricuspid regurg, PA pressure 50mmHg - Enalapril 5 mg daily daily - Lopressor to 25 mg po q 8 -cardiology ff initiated on Tapazole 03/27 - should help with rate control - treat hyperthyroidism Severe Hyperthyroidism- don't feel any thyromegaly- - we will get an US or a thyroid scan as OP -this contributing to rapid a fib - continue on Methimazole 10 mg tid - OP ff up with PCP -OP referral to endocrinology - through PCP Left parietal possible infarction= on Head CT- likely embolic. MRI- gliosis. Carotid US negative. no OAC due to GIB Episode of confusion -improved, neuro intact Neurologyff- OP ff up Anemia, microcytic, hypochromic- acute on chronic- Iron deficiency - S/P IV Venofer - monitor H/H. S/P 1 unit RBC 03/26. give another unit today -start Iron sulfate 325 mg tid COPD LUng mass, right apex - s seen on chest CT 01/06/17 - Patient was to have a PET CT as outpatient following her last discharge from this facility in January - OP patient regarding followup- obviously patient non compliant and cannot be relied on - last admission states mass can be access by IR for tissue diagnosis - Pulmonary- OP ff up with Dr. macias - -MDI - monitor respiratory status Diabetes Mellitus- good readings here - HgbA1c 6.2 - ADA diet. ff blood glucose level DVT prophylaxis - SCD/AMARA hose bilaterally Episode of confusion- possible starting Dementia- patient episode of confusion- resolved psychiatry consulted 03/25 we called pharmacy- in [facility]- on eliquis, ASA, Tapazole, enalapril , Lasix- but patient non compliant- "I don't need them" stress compliance- states that she was sent all above meds by PCP- and never explained to her what they are for- so she won't take them Dread Sloan MD Mar 30, 2017 16:50
[2017-03-30] MEDS ORDERED: METO25TA3 PO (17:06)
[2017-03-30] MEDS ORDERED: METHI10 PO (17:06)
[2017-03-30] MEDS ORDERED: PANT40TA3 PO (17:06)
[2017-03-30] MEDS ORDERED: FERR325T20 PO (17:06)
[2017-03-30] MEDS ORDERED: CARA1TAB6 PO (17:06)
[2017-03-30] MEDS ORDERED: POTA20TA5 PO (17:06)
[2017-03-30] MEDS ORDERED: ENAL5TAB PO (17:06)
[2017-03-30] MEDS ORDERED: FURO20TA PO (17:06)
--- NOTE | 2017-03-30 17:09 | HHI.FF ---
Face to Face Verification Diagnosis: (1) Hematemesis (2) Atrial fibrillation with RVR (3) GI bleed (4) Hyperthyroidism Home Health Nursing Order: Medical education Signs/symptoms of disease process Medication education-adverse effect Nursing assessment with vital signs Alterations Expert Order: To Evaluate: Support services I have seen patient Laure Richardson on 03/30/17. My clinical findings support the need for the requested home health care services because: Ltd mobility - disease progression Deconditioned w/ increased weakness Need for psychosocial assistance Impaired cognition/judgement I certify that my clinical findings support that this patient is homebound because: Need for psychosocial assistance Dread Sloan MD Mar 30, 2017 17:09 Shaneka Crawford MD Mar 31, 2017 13:23
[2017-03-30] MEDS: POTASSIUM CHLORIDE 20 MEQ CONTROLLED RELEASE TAB PO SCH (17:34)
--- NOTE | 2017-03-30 18:27 | HHI.PR ---
Subjective Remarks YOWF with COPD, RUL mass, AF,GIB Pt does't want any bx Understands that malignancy is a possibilty On RA Anxious to go home Denies sob Objective Vital Signs Vital Signs Date Time Temp Pulse Resp B/P Pulse Ox O2 Delivery O2 Flow Rate FiO2 03/30/17 17:28 95 03/30/17 16:09 104 03/30/17 15:00 98.2 102 16 121/58 98 03/30/17 15:00 102 03/30/17 13:28 99 03/30/17 12:11 90 03/30/17 11:00 97 03/30/17 11:00 97.3 103 16 122/63 97 03/30/17 10:00 78 03/30/17 09:12 98 21 03/30/17 09:10 78 03/30/17 08:47 80 03/30/17 07:00 98.0 97 16 97/53 96 03/30/17 07:00 92 03/30/17 06:00 89 03/30/17 05:00 92 03/30/17 04:00 95 03/30/17 03:00 98.4 92 16 116/58 96 03/30/17 03:00 92 03/30/17 01:00 77 03/30/17 00:00 78 03/29/17 23:00 110 03/29/17 23:00 98.2 110 18 106/64 96 03/29/17 22:00 104 03/29/17 21:00 105 03/29/17 20:00 118 03/29/17 19:00 98.4 115 18 114/63 99 03/29/17 19:00 115 I/O 03/29/17 03/29/17 03/29/17 03/30/17 03/30/17 03/30/17 07:00 15:00 23:00 07:00 15:00 23:00 Intake Total 480 ml 960 ml 600 ml 600 ml Output Total 2700 ml 400 ml Balance -2220 ml 960 ml 600 ml 200 ml Intake Oral 480 ml 960 ml 600 ml 600 ml IV Total 0 ml Output Urine Total 2700 ml 400 ml # Voids 5 3 2 # Bowel Movements 3 2 Result Diagram: 03/30/17 0413 03/30/17 0413 Objective Remarks GENERAL: MBMN WF,NAD SKIN: Warm and dry. HEAD: Normocephalic. EYES: No scleral icterus. No injection or drainage. NECK: Supple, trachea midline. No JVD or lymphadenopathy. CARDIOVASCULAR: Regular rate and rhythm without murmurs, gallops, or rubs. RESPIRATORY: Breath sounds equal bilaterally. No accessory muscle use. GASTROINTESTINAL: Abdomen soft, non-tender, nondistended. MUSCULOSKELETAL: No cyanosis, or edema. BACK: Nontender without obvious deformity. No CVA tenderness. A/P Assessment and Plan RUL density, concerning for malignancy COPD AF GIB Anemia PLAN: Aerosol nebs Pt refuses any bx Lopressor for rate controll monitor H&H stable on RA Sabino Ward MD Mar 30, 2017 18:27
--- NOTE | 2017-03-30 21:15 | EKG ---
Date Performed: 03/29/2017 Time Performed: 15:04:24 PTAGE: 76 years EKG: Atrial fibrillation. Inferior/lateral ST-T changes are nonspecific Abnormal ECG PREVIOUS TRACING : 03/29/2017 04.53 Compared to prior tracing no significant change DOCTOR: Codey Maldonado Interpretating Date/Time 03/30/2017 21:14:43
[2017-03-31] VITALS (12 sets, daily range): BP systolic 102–112; BP diastolic 52–57; PULSE 97–135; RESP 16–18; TEMP 98.7; O2SAT 95–98
[2017-03-31] MEDS: PANTOPRAZOLE SOD 40 MG DELAYED RELEASE TAB PO SCH (06:26)
[2017-03-31] MEDS: METOPROLOL TARTRATE 25 MG TAB PO SCH (06:26)
[2017-03-31] MEDS: SUCRALFATE 1 GM TAB PO SCH ×2 (06:26→11:10)
[2017-03-31] MEDS: METHIMAZOLE 10 MG TAB PO SCH ×2 (06:26→08:21)
[2017-03-31 06:32] LABS: BICARBONATE 30.8 MEQ/L (21.0-32.0); POTASSIUM 3.4 MEQ/L (3.5-5.1)
[2017-03-31 07:07] LABS: HEMATOCRIT 30.9 % (35.0-46.0); REVIEW FLAG FINAL
[2017-03-31] MEDS: FERROUS SULFATE 325 MG (65 MG ELEMENTAL IRON) TAB PO SCH (08:19)
[2017-03-31] MEDS: FUROSEMIDE 20 MG TAB PO SCH (08:20)
[2017-03-31] MEDS: TIOTROPIUM BROMIDE 18 MCG INH INH SCH (08:20)
[2017-03-31] MEDS: DONEPEZIL HCL 5 MG TAB PO SCH (08:21)
[2017-03-31] MEDS: POTASSIUM CHLORIDE 20 MEQ CONTROLLED RELEASE TAB PO SCH (08:22)
[2017-03-31] MEDS: ENALAPRIL MALEATE 5 MG TAB PO SCH (08:22)
--- NOTE | 2017-03-31 08:56 | PD.CARD.PN ---
Subjective Subjective Remarks No chest pain, no shortness of breath Doing well overall Heart rates slightly high today, BP better Objective Medications Current Medications Medications (Trade) Dose Ordered Sig/Ezio Route Start Time Stop Time Status Last Admin (NS Flush) 2 ml UNSCH PRN IVF 03/26/17 09:15 (Carafate) 1 gm ACHS PO 03/26/17 21:00 03/31/17 06:26 (NS Flush) 2 ml UNSCH PRN IV FLUSH 03/26/17 19:00 03/29/17 08:06 (Pill Splitter) 1 ea UNSCH PRN OTHER 03/27/17 09:30 (Tapazole) 10 mg Q8HR PO 03/27/17 09:30 03/31/17 06:26 (Vasotec) 5 mg DAILY PO 03/28/17 09:00 03/31/17 08:22 Pantoprazole Sodium 40 mg 40 mg BIDAC PO 03/27/17 16:00 03/31/17 06:26 (Cardizem Drip Inj Premix) 125 ml @ 0 mls/hr TITRATE IV 03/27/17 19:15 03/27/17 20:05 (Lopressor) 25 mg Q8HR PO 03/28/17 07:45 03/31/17 06:26 (Ferrous Sulfate) 325 mg BID PO 03/28/17 09:00 03/31/17 08:19 (Spiriva Inh) 18 mcg DAILY INH 03/28/17 09:00 03/31/17 08:20 (Aricept) 5 mg DAILY PO 03/28/17 13:45 03/31/17 08:21 (Nitrostat Sl) 0.4 mg Q5M PRN SL 03/28/17 23:45 03/28/17 23:50 (Lasix) 20 mg DAILY PO 03/29/17 10:00 03/31/17 08:20 (KCl) 40 meq DAILY PO 03/30/17 17:00 03/31/17 08:22 (Tapazole) 10 mg TID PO 03/30/17 18:00 03/31/17 08:21 Vital Signs / I&O Vital Signs Date Time Temp Pulse Resp B/P Pulse Ox O2 Delivery O2 Flow Rate FiO2 03/31/17 07:00 135 03/31/17 07:00 98.7 106 18 112/57 95 03/31/17 06:00 106 03/31/17 05:00 106 03/31/17 04:00 119 16 102/52 95 03/31/17 04:00 112 03/31/17 03:00 135 03/31/17 00:00 97 03/30/17 23:47 98.4 89 18 101/65 95 03/30/17 23:26 131 03/30/17 23:00 98 03/30/17 22:00 100 03/30/17 21:00 108 03/30/17 20:00 102 03/30/17 20:00 98.6 114 16 106/44 98 03/30/17 19:00 131 03/30/17 17:28 95 03/30/17 16:09 104 03/30/17 15:00 98.2 102 16 121/58 98 03/30/17 15:00 102 03/30/17 13:28 99 03/30/17 12:11 90 03/30/17 11:00 97 03/30/17 11:00 97.3 103 16 122/63 97 03/30/17 10:00 78 03/30/17 09:12 98 21 03/30/17 09:10 78 I/O 03/30/17 03/30/17 03/30/17 03/31/17 03/31/17 03/31/17 07:00 15:00 23:00 07:00 15:00 23:00 Intake Total 600 ml 600 ml 720 ml Output Total 400 ml Balance 600 ml 200 ml 720 ml Intake Oral 600 ml 600 ml 720 ml IV Total 0 ml 0 ml Output Urine Total 400 ml # Voids 3 2 4 # Bowel Movements 2 1 Physical Exam GENERAL: NAD, AAOx3 SKIN: Warm and dry. HEAD: Atraumatic. Normocephalic. EYES: Pupils equal and round. No scleral icterus. No injection or drainage. ENT: No nasal bleeding or discharge. Mucous membranes pink and moist. NECK: Trachea midline. No JVD. CARDIOVASCULAR: Irregularly irregular RESPIRATORY: Decreased breath sounds bilaterally GASTROINTESTINAL: Abdomen soft, non-tender, nondistended. Hepatic and splenic margins not palpable. MUSCULOSKELETAL: Extremities without clubbing, cyanosis, or edema. No obvious deformities. NEUROLOGICAL: Awake and alert. No obvious cranial nerve deficits. Motor grossly within normal limits. Five out of 5 muscle strength in the arms and legs. Normal speech. PSYCHIATRIC: Appropriate mood and affect; insight and judgment normal. Laboratory Laboratory Tests Test 03/31/17 04:34 Hemoglobin 9.7 GM/DL Hematocrit 30.9 % Sodium Level 133 MEQ/L Potassium Level 3.4 MEQ/L Chloride Level 95 MEQ/L Carbon Dioxide Level 30.8 MEQ/L Anion Gap 7 MEQ/L Blood Urea Nitrogen 16 MG/DL Creatinine 0.61 MG/DL Estimat Glomerular Filtration 96 ML/MIN Rate Random Glucose 98 MG/DL Calcium Level 8.2 MG/DL Assessment and Plan Problem List: (1) Acute blood loss anemia (2) GI bleed (3) History of CHF (congestive heart failure) (4) Atrial fibrillation (5) Lung mass (6) Delirium due to another medical condition (7) COPD (chronic obstructive pulmonary disease) Assessment and Plan 1) Will attempt to place on Lopressor 25mg QID, and on discharge may be placed on 50mg BID If blood pressure unable to tolerate, may need low dose digoxin 2) No ASA/NOAC due to GI bleed with large ulcers If cleared by GI, would place back on at least ASA if possible, will have to see in the future 3) I will be out until Tuesday, if concern tomorrow or over the weekend, please call the office for covering physician Rudolph Gates DO Mar 31, 2017 08:56
[2017-03-31] MEDS ORDERED: POTASSIUM CHLORIDE 20 MEQ CONTROLLED RELEASE TAB PO SCH (09:00)
[2017-03-31] MEDS ORDERED: METOPROLOL TARTRATE 25 MG TAB PO SCH (12:00)
--- NOTE | 2017-03-31 12:05 | HHI.DCPOC ---
Discharge Care Plan Diagnosis: (1) GI bleed (2) ULCER disease (3) Atrial fibrillation Goals to Promote Your Health * To prevent worsening of your condition and complications * To maintain your health at the optimal level Directions to Meet Your Goals Take your medications as prescribed Follow your dietary instruction Follow activity as directed Stop taking aspirin and ibuprofen [id number], or any other NSAIDs Keep your appointments as scheduled Take your immunizations and boosters as scheduled If your symptoms worsen call your PCP, if no PCP go to Urgent Care Center or Emergency Room Smoking is Dangerous to Your Health. Avoid second hand smoke Call the 24-hour hour crisis hotline for domestic abuse at Shaneka Crawford MD Mar 31, 2017 12:05
--- NOTE | 2017-03-31 12:11 | HHI.DS ---
Discharge Summary Admission Date Mar 28, 2017 at 07:17 Discharge Date: Mar 31, 2017 Admitting Diagnosis GI bleed (1) GI bleed ICD Code: K92.2 Diagnosis: Principal (2) ULCER disease Diagnosis: Principal (3) Nodule of right lung ICD Code: R91.1 Diagnosis: Secondary Procedures 03/26- EGD with biopsy- duodenal bulb ulcers, gastric ulcers Brief History - From Admission The brief history is pulled from admission history and physical. This is a 76 yo female with a PMHX of HTN, COPD, CHF, atrial fibrillation previously on Eliquis, hyperthyroidism, h/o GIB, spiculated lung mass, prediabetes and h/o medication noncompliance who presents to [facility] ED with complaints of mild abdominal cramping, weakness and episode of black tarry stool x 1 since this morning. Patient states she "just felt lousy this morning " and decided to come into the hospital. She denies any BRBPR. She denies any associated fever, chills, nausea or vomiting. She denies any chest pain or SOB. She reports feeling fine yesterday with normal bowel movements. She denies any recent NSAID use. She does not drink. She is not on any blood thinners including aspirin. She has a history of heavy tobacco use but quit 8 yrs ago. She denies any reflux or difficulty swallowing. She reports an intentional weight loss of 20lbs over the past year. She had a previous colonoscopy about 5-6 yrs ago. She denies any FMHX of stomach or colon cancer. In the ED, CT of the abdomen and pelvis shows prominent IVC probably due to CHF, otherwise no chronic changes. She is anemic with a hemoglobin of 8.7. She states her abdominal cramping has subsided. She denies any dizziness or lightheadedness. She denies a known history of anemia. CBC/BMP: 03/31/17 0434 03/31/17 0434 Significant Findings Laboratory Tests Test 03/29/17 03/29/17 03/29/17 03/30/17 00:22 05:15 10:27 04:13 White Blood Count 14.2 TH/MM3 14.0 TH/MM3 14.3 TH/MM3 (4.0-11.0) (4.0-11.0) (4.0-11.0) Red Blood Count 3.51 MIL/MM3 3.98 MIL/MM3 3.85 MIL/MM3 (4.00-5.30) (4.00-5.30) (4.00-5.30) Hemoglobin 8.4 GM/DL 9.4 GM/DL 8.8 GM/DL (11.6-15.3) (11.6-15.3) (11.6-15.3) Hematocrit 26.0 % 29.8 % 28.9 % (35.0-46.0) (35.0-46.0) (35.0-46.0) Mean Corpuscular Volume 74.2 FL 75.0 FL 75.1 FL (80.0-100.0) (80.0-100.0) (80.0-100.0) Mean Corpuscular Hemoglobin 24.0 PG 23.7 PG 22.9 PG (27.0-34.0) (27.0-34.0) (27.0-34.0) Red Cell Distribution Width 23.6 % 22.9 % 23.5 % (11.6-17.2) (11.6-17.2) (11.6-17.2) Neutrophils (%) (Auto) 84.8 % 89.8 % 83.1 % (16.0-70.0) (16.0-70.0) (16.0-70.0) Lymphocytes (%) (Auto) 5.1 % 2.3 % 6.5 % (9.0-44.0) (9.0-44.0) (9.0-44.0) Monocytes (%) (Auto) 8.7 % (0.0-8.0) 8.6 % (0.0-8.0) Neutrophils # (Auto) 12.0 TH/MM3 12.6 TH/MM3 11.9 TH/MM3 (1.8-7.7) (1.8-7.7) (1.8-7.7) Lymphocytes # (Auto) 0.7 TH/MM3 0.3 TH/MM3 0.9 TH/MM3 (1.0-4.8) (1.0-4.8) (1.0-4.8) Monocytes # (Auto) 1.2 TH/MM3 1.0 TH/MM3 1.2 TH/MM3 (0-0.9) (0-0.9) (0-0.9) Sodium Level 133 MEQ/L 134 MEQ/L 132 MEQ/L (136-145) (136-145) (136-145) Potassium Level 3.4 MEQ/L 3.1 MEQ/L 3.3 MEQ/L (3.5-5.1) (3.5-5.1) (3.5-5.1) Chloride Level 97 MEQ/L 94 MEQ/L 92 MEQ/L (98-107) (98-107) (98-107) Random Glucose 109 MG/DL 139 MG/DL (74-106) (74-106) Calcium Level 8.1 MG/DL 8.3 MG/DL 8.1 MG/DL (8.5-10.1) (8.5-10.1) (8.5-10.1) B-Type Natriuretic Peptide 677 PG/ML (0-100) Total Protein 5.3 GM/DL (6.4-8.2) Albumin 2.2 GM/DL (3.4-5.0) Troponin I LESS THAN 0.02 NG/ML (0.02-0.05) Mean Corpuscular Hemoglobin 31.6 % 30.4 % Concent (32.0-36.0) (32.0-36.0) Carbon Dioxide Level 32.5 MEQ/L (21.0-32.0) Blood Urea Nitrogen 19 MG/DL (7-18) Test 03/31/17 04:34 Hemoglobin 9.7 GM/DL (11.6-15.3) Hematocrit 30.9 % (35.0-46.0) Sodium Level 133 MEQ/L (136-145) Potassium Level 3.4 MEQ/L (3.5-5.1) Chloride Level 95 MEQ/L (98-107) Calcium Level 8.2 MG/DL (8.5-10.1) Imaging Last Impressions Carotid Artery Ultrasound 03/29/17 0000 Signed Impressions: Service Date/Time: Wednesday, March 29, 2017 09:35 - CONCLUSION: No evidence of flow-limiting carotid stenosis. Julius Higgins MD Brain MRI 03/29/17 0000 Signed Impressions: Service Date/Time: Wednesday, March 29, 2017 15:43 - CONCLUSION: 1. [id number] periventricular small vessel ischemic demyelination. Mild, symmetric cortical atrophy. 2. Area of decreased attenuation in the posterior left parietal region on CT appears to represent regional gliosis on MRI. No true diffusion restriction to suggest an acute or subacute ischemic event. Tad Cole MD Head CT 03/28/17 0000 Signed Impressions: Service Date/Time: Tuesday, March 28, 2017 13:10 - CONCLUSION: 1. Area of decreased density involving the left parietal lobe as detailed above. I cannot exclude an area of infarction. Consider MRI to further evaluate. 2. Chronic small vessel ischemic change. Bryce Cohn Jr., MD Chest X-Ray 03/28/17 0000 Signed Impressions: Service Date/Time: Tuesday, March 28, 2017 23:34 - CONCLUSION: Small left pleural effusion with stable enlargement of the cardiac silhouette. Julius Lopez MD Abdomen/Pelvis CT 03/26/17 0000 Signed Impressions: Service Date/Time: Sunday, March 26, 2017 11:03 - CONCLUSION: Prominent IVC probably due to congestive heart failure, otherwise chronic changes. Emery Greco MD PE at Discharge awake and alert, NAD,oriented x 3, speech clear anicteric lungs no rales, no wheezes irregularly irregular rhythm HR 90s abdomen soft, nontender extremities no edema Hospital Course The following was addressed during this hospitalization 76 yo female with a PMHX of HTN, COPD, CHF, atrial fibrillation, hyperthyroidism and prediabetes who presents to [facility] ED with complaints of mild abdominal cramping, weakness and episode of black tarry stool x 1 since this morning. Patient was admitted with GI bleeding with 1 unit of transfusion given. She was seen by the GI service were performed a upper endoscopy which showed gastric and duodenal ulcers. Dr. Beltran recommended patient be on PPI and Carafate. He recommended not restarting aspirin or any NSAIDs [id number]. Patient does have history of chronic atrial fibrillation this point would not do any anticoagulation due to recent GI bleed. In addition, patient COPD is chronic and stable during the hospitalization. Her intermittent confusion was due to likely her acute exacerbation acute GI bleed and mild delirium. Her mental status has improved was at baseline on discharge. Patient was seen by chief development officer who recommended follow-up and restarting aspirin when cleared by GI when gastric and duodenal ulcer heals. A right apex lung nodule/masses found incidentally and at this point patient declined any further evaluation by pulmonary Dr. Ward during this hospitalization. She understands the risks of missing an underlying malignancy. She will follow-up as an outpatient. Patient was counseled about the importance of medication adherence particular to treat her history of hyperthyroidism - Pt Condition on Discharge: Good Discharge Disposition: Discharge Home Discharge Time: <= 30 minutes Discharge Instructions DIET: Follow Instructions for: Heart Healthy Diet Activities you can perform: Regular-No Restrictions Follow up Referrals: Cardiology - 1 Week with [facility] - 2-3 Days with [facility] Gastroenterology - 2 Weeks with Norris Beltran MD Neurology - 2 Weeks with Julia Alva MD PCP Follow-up - 04/04/17 with [facility] Pulmonology - 1 Week with Sabino Ward MD New Medications: Enalapril (Enalapril) 5 Mg Tab 5 MG PO DAILY CARD Days 30 TAB Ferrous Sulfate (Ferosul) 325 Mg Tablet 325 MG PO BID anemia Days 30 TAB Furosemide (Furosemide) 20 Mg Tab 20 MG PO DAILY CARD Days 30 TAB Methimazole (Methimazole) 10 Mg Tab 10 MG PO Q8HR HYEPRTHYR Days 30 TAB Metoprolol Tartrate (Metoprolol Tartrate) 25 Mg Tab 25 MG PO Q8HR AFIB Days 30 TAB Pantoprazole (Pantoprazole) 40 Mg Tab 40 MG PO BIDAC GIB Days 30 Ref 2 TAB Potassium Chloride Microencaps (Potassium Chloride Microencaps) 20 Meq Tab 20 MEQ PO DAILY elec Days 10 TAB Sucralfate (Carafate) 1 Gm Tab 1 GM PO ACHS PUD Days 30 Ref 1 TAB Continued Medications: Methimazole (Methimazole) 10 Mg Tab 10 MG PO TID Thyroid #90 Ref 0 TAB Additional Information Patient counseled no aspirin or NSAIDs or anticoagulation at this time. Shaneka Crawford MD Mar 31, 2017 12:11
--- NOTE | 2017-03-31 13:38 | HHI.GIFU ---
GI Follow-up Note Consult Follow-up Subjective: Patient laying in bed comfortably, no new complaints except stools are still dark but Hgb up to 9.7 Objective: PHYSICAL EXAMINATION: Vitals signs stable No fever ABDOMEN: Soft, nondistended, nontender. SKIN: warm and dry PARACHUTE OFFICER: alert and oriented times three. Available Data (labs, X- Rays, Procedues) : ASSESSMENT/PLAN: 1. PUD with bleed-stable. May take a few days for stools to lighten after stopping the iron. I advised her to call us Tuesday if still dark and can recheck her H&H. Continue PPI and carafate and avoid all NSAIDS. OK to discharge and will arrange for office f/u with us. It was a pleasure seeing Laure Richardson. Thank you for this consult. Entered by: Norris Olivas MD Mar 31, 2017 13:37
== END 2017-03-31 13:37 | disposition home or self-care (01) | DRG 378 ==
LOC: NEPC 08:53 → NEDA 12:49 → NEPHCDU 16:34 → HCIS 03-27 19:28 → OBSVTOIN 03-28 07:17 → HCIS 03-31 09:26
PROVIDERS: ADMIT Family Medicine; ATTEND Family Medicine
PROC: 30233N1 Transfusion of Nonautologous Red Blood Cells into Peripheral Vein, Percutaneous Approach (ICD-10-PCS; 2017-03-26)
PROC: 0DB78ZX Excision of Stomach, Pylorus, Via Natural or Artificial Opening Endoscopic, Diagnostic (ICD-10-PCS; principal; 2017-03-26 17:54)
DX: K26.4 Chronic or unspecified duodenal ulcer with hemorrhage (principal); D62 Acute posthemorrhagic anemia; I50.9 Heart failure, unspecified; I11.0 Hypertensive heart disease with heart failure; F05 Delirium due to known physiological condition; Z68.1 Body mass index [BMI] 19.9 or less, adult; J44.9 Chronic obstructive pulmonary disease, unspecified; R63.4 Abnormal weight loss; E05.90 Thyrotoxicosis, unspecified without thyrotoxic crisis or storm; D50.0 Iron deficiency anemia secondary to blood loss (chronic); R91.1 Solitary pulmonary nodule; R73.03 Prediabetes; K25.4 Chronic or unspecified gastric ulcer with hemorrhage; I08.1 Rheumatic disorders of both mitral and tricuspid valves; I25.10 Atherosclerotic heart disease of native coronary artery without angina pectoris; I48.2 Chronic atrial fibrillation; K57.30 Diverticulosis of large intestine without perforation or abscess without bleeding; Z87.891 Personal history of nicotine dependence; Z91.14 Patient's other noncompliance with medication regimen
CPT/HCPCS: 36430; 70450; 70551; 71010; 74177; 80048; 80053; 80061; 82550; 82728; 82941; 83036; 83540; 83550; 83880; 84439; 84443; 84445; 84481; 84484; 85007; 85014; 85018; 85025; 85027; 85610; 85730; 86850; 86900; 86901; 86920; 88305; 88312; 93005; 93880; 94640; 94664; C9113; G0378; J1756; J1940; J7030; P9016; Q9967

== ENCOUNTER 2017-03-31 16:44 | Inpatient (IN) | payer OTHER, MEDICARE ==
[~2017-03-31] VITALS: Ht 162.6 cm; Wt 51.3 kg
[~2017-03-31 16:44] MED LIST changes: -ASPI1TAB69 PO; -CARV3.12 PO; -ENAL10TA PO; +ENAL5TAB PO; +FERR325T20 PO; +FURO20TA PO; -FURO40TA PO; +METO25TA3 PO; +PANT40TA3 PO; +POTA20TA5 PO; -PROT40TA PO
[2017-03-31 16:49] VITALS: BP 87/49; PULSE 103; RESP 16; TEMP 98.3; O2SAT 95
[2017-03-31 20:10] VITALS: BP 112/62; PULSE 72; RESP 18; O2SAT 99
[2017-03-31 20:50] VITALS: BP 116/56; PULSE 89; RESP 17; O2SAT 98
--- NOTE | 2017-03-31 20:57 | PD ---
HPI . left foot pain Chief Complaint: General Weakness Time Seen by Provider: 20:54 Travel History International Travel<30 days: No Contact w/Intl Traveler<30days: No Traveled to known affect area: No History of Present Illness HPI 76-year-old female who was recently discharged from the hospital this morning secondary GI bleed here with complaints of left foot pain. Patient was told to go home and take it easy, but decided to do regular tasks such as walking her dog. Patient says while she was coming out of her home she accidentally slipped and tripped over a stair in her home. She came down falling to the floor and hit her left foot. She is now here with complaints of left foot pain. In regards to general weakness, patient says she always has some level of weakness, but does not have any new weakness compared to discharge this morning. She tells me the primary reason for her being here in the emergency department his left foot pain. She rates the pain as 5/10 without any radiation. She denies pain elsewhere. She denies any head injury or loss of consciousness. She did not have a syncopal episode. PFSH Past Medical History Hx Anticoagulant Therapy: Yes Atrial Fibrillation: Yes Heart Rhythm Problems: Yes (afib) Cancer: No Cardiovascular Problems: Yes High Cholesterol: No Chemotherapy: No Congestive Heart Failure: Yes Cerebrovascular Accident: No Diabetes: Yes Patient Takes Glucophage: Yes Diminished Hearing: No Endocrine: No Gastrointestinal Disorders: No Genitourinary: No Hypertension: Yes (controlled on meds) Immune Disorder: No Implanted Vascular Access Dvce: No Musculoskeletal: No Neurologic: No Psychiatric: No Reproductive: No Respiratory: No Thyroid Disease: Yes Past Surgical History Hysterectomy: No Other Surgery: No Social History Alcohol Use: No Tobacco Use: No Substance Use: No Allergies-Medications (Allergen,Severity, Reaction): Coded Allergies: No Known Allergies (Verified , 03/26/17) Reported Meds & Prescriptions Reported Meds & Active Scripts Active Potassium Chloride Microencaps 20 Meq Tab 20 Meq PO DAILY 10 Days Carafate (Sucralfate) 1 Gm Tab 1 Gm PO ACHS 30 Days Pantoprazole (Pantoprazole Sodium) 40 Mg Tab 40 Mg PO BIDAC 30 Days Metoprolol Tartrate 25 Mg Tab 25 Mg PO Q8HR 30 Days Methimazole 10 Mg Tab 10 Mg PO Q8HR 30 Days Furosemide 20 Mg Tab 20 Mg PO DAILY 30 Days Ferosul (Ferrous Sulfate) 325 Mg Tablet 325 Mg PO BID 30 Days Enalapril (Enalapril Maleate) 5 Mg Tab 5 Mg PO DAILY 30 Days Reported Methimazole 10 Mg Tab 10 Mg PO TID Review of Systems General / Constitutional: No: Fever Eyes: No: Visual changes HENT: No: Headaches Cardiovascular: No: Chest Pain or Discomfort Respiratory: No: Shortness of Breath Gastrointestinal: No: Abdominal Pain Genitourinary: No: Dysuria Musculoskeletal: Positive: Pain (left foot/ plantar surfare midfoot ) Skin: No Rash Neurologic: No: Weakness Psychiatric: No: Depression Endocrine: No: Polydipsia Hematologic/Lymphatic: No: Easy Bruising Physical Exam Narrative GENERAL: AAO x 3, no acute distress, thin appearing, pleasant female SKIN: Warm and dry. No visible rashes or bruising. HEAD: Normocephalic and atraumatic. EYES: No scleral icterus. No injection or drainage. EOM intact, PERRLA ENT: No nasal drainage noted. Mucous membranes pink. Airway patent. NECK: Supple, trachea midline. No JVD. CARDIOVASCULAR: Regular rate and rhythm without murmurs, gallops, or rubs. RESPIRATORY: Breath sounds equally diminished bilaterally without rhonchi, Rales or wheezing GASTROINTESTINAL: Abdomen soft, non-tender, nondistended. EXTREMITIES: No cyanosis or edema. All extremities palpated, there is tenderness to the plantar surface of the left foot. All other joints nontender and mobile BACK: Nontender without obvious deformity. No CVA tenderness. NEURO: CN II-12 intact, body man strength normal b/l, UE and LE 5/5, no focal deficits PSYCH: AAO x 3, normal affect. Data Data Last Documented VS Vital Signs Date Time Temp Pulse Resp B/P Pulse Ox O2 Delivery O2 Flow Rate FiO2 03/31/17 20:51 89 17 99 Room Air 03/31/17 20:50 116/56 03/31/17 16:49 98.3 Orders Foot, Complete ([id number]) (03/31/17 20:53) [facility] Medical Decision Making Medical Screen Exam Complete: Yes Emergency Medical Condition: Yes Medical Record Reviewed: Yes Differential Diagnosis Foot sprain, foot fracture, less likely ankle injury Narrative Course 76-year-old female here with left foot pain status post falling earlier today. X-ray imaging has been ordered. Last Impressions Foot X-Ray 03/31/172052 Signed Impressions: Service Date/Time: , March 31, 2017 21:06 - CONCLUSION: 1. Relatively nondisplaced fractures through the distal third, fourth and fifth metatarsals. Fermin Moore MD Case discussed with my attending Dr. Aguirre. It does not appear patient will require surgery for these fractures. I have discussed all findings with the patient and since she lives alone and is a fall risk, we recommend admission. Case discussed with Dr. Alcantar, who will resume care of this patient. Patient thanked me for her care. Diagnosis Primary Impression: Metatarsal bone fracture Qualified Code: S92.302A - Closed nondisplaced fracture of metatarsal bone of left foot, unspecified metatarsal, initial encounter Admitting Information Admitting Physician Requests: Admit Condition: Stable Sujata Everett Mar 31, 2017 20:57
--- NOTE | 2017-03-31 21:36 | RADRPT ---
EXAM DATE/TIME: 03/31/2017 21:06 [facility] COMPARISON: No previous studies available for comparison. INDICATIONS : Left foot pain, fall today. MEDICAL HISTORY : None. SURGICAL HISTORY : None. ENCOUNTER: Initial ACUITY: 1 day PAIN SCORE: 7/10 LOCATION: Left lateral foot. FINDINGS: There are relatively nondisplaced fractures through the distal fourth and fifth metatarsals and also the third metatarsal. No other fracture identified. No dislocation. Bones are osteopenic. CONCLUSION: 1. Relatively nondisplaced fractures through the distal third, fourth and fifth metatarsals. Fermin Moore MD on March 31, 2017 at 21:33 Board Certified Radiologist. This report was verified electronically.
[2017-03-31] MEDS ORDERED: NALOXONE HCL 0.4 MG/ML AMP IV PRN (22:45)
[2017-03-31] MEDS ORDERED: SODIUM CHLORIDE 0.9% FLUSH 10 ML FLUSH IV FLUSH PRN (22:45)
[2017-04-01] VITALS (13 sets, daily range): BP systolic 103–159; BP diastolic 58–86; PULSE 75–120; RESP 18–25; TEMP 96–99; O2SAT 94–100
[2017-04-01 07:35] LABS: AUTOMATED NEUTROPHIL # 9.8 TH/MM3 (1.8-7.7); BASOPHIL % 0.2 % (0.0-2.0); BICARBONATE 28.8 MEQ/L (21.0-32.0); EOSINOPHIL # 0.1 TH/MM3 (0-0.4); EOSINOPHIL % 1.2 % (0.0-4.0); HEMATOCRIT 28.9 % (35.0-46.0); HEMO FLAGS DIFF FINAL; LYMPH % 6.9 % (9.0-44.0); LYMPHOCYTE # 0.8 TH/MM3 (1.0-4.8); MEAN CELL VOLUME 75.7 FL (80.0-100.0); MEAN CORPUSCULAR HEMOGLOBIN 23.2 PG (27.0-34.0); MEAN CORPUSCULAR HGB CONC 30.6 % (32.0-36.0); MONO % 10.9 % (0.0-8.0); NEUT % 80.8 % (16.0-70.0); PLATELET COUNT 225 TH/MM3 (150-450); POTASSIUM 3.4 MEQ/L (3.5-5.1); RED BLOOD COUNT 3.82 MIL/MM3 (4.00-5.30); RED CELL DISTRIBUTION WIDTH 24.3 % (11.6-17.2); WHITE BLOOD COUNT 12.1 TH/MM3 (4.0-11.0)
[2017-04-01] MEDS: SODIUM CHLORIDE 0.9% FLUSH 10 ML FLUSH IV FLUSH SCH ×2 (09:46→20:09)
[2017-04-01] MEDS: METOPROLOL TARTRATE 25 MG TAB PO SCH ×3 (09:46→21:16)
[2017-04-01] MEDS ORDERED: PROPOFOL 200 MG/20 ML AMP IV ONE (10:21)
[2017-04-01] MEDS ORDERED: IOHEXOL 350 MG/ML 10 ML VIAL (for RAD DIAG) IV ONE (10:38)
[2017-04-01] MEDS ORDERED: VERAPAMIL HCL 5 MG/2 ML VIAL ONE (10:42)
--- NOTE | 2017-04-01 10:45 | RADRPT ---
EXAM DATE/TIME: 04/01/2017 10:14 [facility] COMPARISON: MRI BRAIN W/O CONTRAST, March 29, 2017, 15:43. CT BRAIN W/O CONTRAST, March 28, 2017, 13:10. INDICATIONS : Stroke alert; left side weakness, aphasia. RADIATION DOSE: 32.54 CTDIvol (mGy) ; Patient motion This report was called by myself to [facility] at 10: 36 hours MEDICAL HISTORY : Cardiovascular disease. Hypertension. SURGICAL HISTORY : None. ENCOUNTER: Initial ACUITY: 1 day PAIN SCALE: Non-responsive LOCATION: cranial TECHNIQUE: Multiple contiguous axial images were obtained of the head. Using automated exposure control and adj ustment of the mA and/or kV according to patient size, radiation dose was kept as low as reasonably a chievable to obtain optimal diagnostic quality images. DICOM format image data is available electro nically for review and comparison. FINDINGS: There is no evidence for intracranial hemorrhage, mass effect, mass lesions, or edema. The visualize d bony structures appear intact. Slight degree of brain atrophy is seen. Slight periventricular whit e matter changes are seen nonspecific mostly consistent with chronic small vessel ischemic changes. There are no signs of acute infarction for technique. There is old infarction in the left MCA CRITICAL CARE TECHNICIAN dis tribution identified on prior MRI examination and not changed. CONCLUSION: Slight atrophic and small vessel ischemic changes without any evidence for acute hemorrhage or mass effect and old infarction on the left. Emery Greco MD on April 01, 2017 at 10:32 Board Certified Radiologist. This report was verified electronically.
[2017-04-01] MEDS ORDERED: MIDAZOLAM HCL 2 MG/2 ML VIAL IV ONE (10:54)
[2017-04-01] MEDS ORDERED: MIDAZOLAM HCL 2 MG/2 ML VIAL ONE (10:55)
--- NOTE | 2017-04-01 10:56 | RADRPT ---
EXAM DATE/TIME: 04/01/2017 10:25 [facility] COMPARISON: No previous studies available for comparison. INDICATIONS : Stroke alert; left side weakness, aphasia. IV CONTRAST: 73 cc Omnipaque 350 (iohexol) IV ; Cumulative dose for multiple exams. RADIATION DOSE: 25.19 CTDIvol (mGy) ; Combined studies MEDICAL HISTORY : Cardiovascular disease. Hypertension. SURGICAL HISTORY : None. ENCOUNTER: Initial ACUITY: 1 day PAIN SCALE: Non-responsive LOCATION: cranial TECHNIQUE: Volumetric scanning was performed using a multi-row detector CT scanner. The data was post processed with a variety of visualization algorithms including full volume maximum intensity projection, multi -planar sliding thin slab reformation, curved planar reformation, and surface rendering techniques. Using automated exposure control and adjustment of the mA and/or kV according to patient size, radiat ion dose was kept as low as reasonably achievable to obtain optimal diagnostic quality images. DICO M format image data is available electronically for review and comparison. FINDINGS: There is embolic occlusion distal right MCA with reasonable collateral flow. Posterior circulation i s intact. CONCLUSION: Embolic occlusion right distal MCA. Harry Gutierrez MD FACR on April 01, 2017 at 10:53 Board Certified Radiologist. This report was verified electronically.
--- NOTE | 2017-04-01 10:58 | HHI.HP ---
[facility] Service [place] [facility] Primary Care Physician Fernanda Rosado MD Admission Diagnosis left foot fracture Diagnoses: Chief Complaint: Left foot fracture and later in the hospital stroke alert. Travel History International Travel<30 Days: No Contact w/Intl Traveler <30 Da: No Traveled to Known Affected Are: No History of Present Illness Ms. Richardson is a 76-year-old female with a history of atrial fibrillation and recent hospitalization due to GI bleed who presented to the emergency department on 03/31/2017 due to left foot pain. She accidentally slipped and tripped over a stair in her home. ED workup indicated relatively nondisplaced fractures through the distal third, fourth and fifth metatarsals. We discussed with podiatry who recommended orthotic shoe placement. Patient was discharged on 03/31/2017 after she was treated for GI bleed. She received 1 unit of PRBCs during previous admission. She underwent EGD on 03/26/2017 which showed gastric and duodenal ulcers. Patient was placed on PPI and Carafate. In the previous admission, cardiology also evaluated patient and recommended no anticoagulation or aspirin in the background of GI bleed. Patient was thus discharged on no aspirin or anticoagulation. Patient was admitted overnight and before we could perform our initial evaluation, rapid response and subsequently a stroke alert was called. I immediately went to patient's room to evaluate patient. Per nursing staff patient was last seen well at 9:45 AM. At around 10 AM one of the nursing staff noticed patient was slouched over her bed. On my evaluation, patient exhibited guera-neglect on the left side. She was able to answer some simple questions. She had facial asymmetry. No strength on the left side. I immediately obtained a neurology consult, CT head without contrast, CTA was ordered after CT head showed no hemorrhage. Patient underwent right middle cerebral artery thromboembolectomy and was subsequently transferred to intensive care unit. I went to see patient again in the afternoon. Patient is a phasic and no movement on the left side. Otherwise hemodynamically stable. Review of Systems ROS Limitations: Clinical Condition, Other (acute stroke) Except as stated in HPI: all other systems reviewed are Neg Past Family Social History Past Medical History Review of the medical record reveals PMHX significant for: COPD CHF Atrial fibrillation, not on anticoagulation PUD Hyperthyroidism Prediabetes H/O GIB H/O spiculated mass of the RUL as seen on chest CT 01/06/17 Past Surgical History No major surgery per chart review. Reported Medications Potassium Chloride Microencaps 20 Meq Tab 20 Meq PO DAILY 10 Days Carafate (Sucralfate) 1 Gm Tab 1 Gm PO ACHS 30 Days Pantoprazole (Pantoprazole Sodium) 40 Mg Tab 40 Mg PO BIDAC 30 Days Metoprolol Tartrate 25 Mg Tab 25 Mg PO Q8HR 30 Days Methimazole 10 Mg Tab 10 Mg PO Q8HR 30 Days Furosemide 20 Mg Tab 20 Mg PO DAILY 30 Days Ferosul (Ferrous Sulfate) 325 Mg Tablet 325 Mg PO BID 30 Days Enalapril (Enalapril Maleate) 5 Mg Tab 5 Mg PO DAILY 30 Days Reported Methimazole 10 Mg Tab 10 Mg PO TID Allergies: Coded Allergies: No Known Allergies (Verified , 03/26/17) Family History Per previous admission: Mother, DM and lung cancer Father, lung cancer Social History Per previous admission: Patient has a history of heavy tobacco use of 4 ppd since the age of 18 but quit 8 yrs ago. She denies any EtOH use or illicit drug use. Physical Exam Vital Signs Vital Signs Date Time Temp Pulse Resp B/P Pulse Ox O2 Delivery O2 Flow Rate FiO2 04/01/17 10:03 120 18 159/86 96 04/01/17 08:01 99.0 98 20 115/68 95 04/01/17 04:27 105 04/01/17 02:12 96 04/01/17 01:57 97.6 109 19 103/58 94 03/31/17 20:51 89 17 99 Room Air 03/31/17 20:50 89 17 116/56 98 Room Air 03/31/17 20:10 72 18 112/62 99 Room Air 03/31/17 16:50 17 Room Air 03/31/17 16:49 98.3 103 16 87/49 95 Physical Exam GENERAL: Thin appearing female, able to answer simple questions. SKIN: No rashes, ecchymoses or lesions. Warm and dry. HEAD: Atraumatic. Normocephalic. No temporal or scalp tenderness. EYES: Pupils equal round and reactive. No scleral icterus. No injection or drainage. ENT: Nose without bleeding, purulent drainage or septal hematoma. Throat without erythema, tonsillar hypertrophy or exudate Airway patent. NECK: Trachea midline. No JVD or lymphadenopathy. Supple, nontender, no meningeal signs. CARDIOVASCULAR: Irreg Irreg without murmurs, gallops, or rubs. RESPIRATORY: Clear to auscultation. Breath sounds equal bilaterally. No wheezes , rales, or rhonchi. GASTROINTESTINAL: Abdomen soft, non-tender, nondistended. No hepato-splenomegaly , or palpable masses. No guarding. MUSCULOSKELETAL: Extremities without clubbing, cyanosis, or edema. No joint tenderness, effusion, or edema noted. No calf tenderness. Negative Homans sign bilaterally. NEUROLOGICAL: Awake. Answers simple questions, follows commands. Left sided hemineglect present, left arm and legs strength 0 out of 5. Facial asymmetry present. Laboratory Laboratory Tests Test 04/01/17 06:39 White Blood Count 12.1 Red Blood Count 3.82 Hemoglobin 8.8 Hematocrit 28.9 Mean Corpuscular Volume 75.7 Mean Corpuscular Hemoglobin 23.2 Mean Corpuscular Hemoglobin 30.6 Concent Red Cell Distribution Width 24.3 Platelet Count 225 Mean Platelet Volume 7.0 Neutrophils (%) (Auto) 80.8 Lymphocytes (%) (Auto) 6.9 Monocytes (%) (Auto) 10.9 Eosinophils (%) (Auto) 1.2 Basophils (%) (Auto) 0.2 Neutrophils # (Auto) 9.8 Lymphocytes # (Auto) 0.8 Monocytes # (Auto) 1.3 Eosinophils # (Auto) 0.1 Basophils # (Auto) 0.0 CBC Comment DIFF FINAL Differential Comment Sodium Level 136 Potassium Level 3.4 Chloride Level 99 Carbon Dioxide Level 28.8 Anion Gap 8 Blood Urea Nitrogen 12 Creatinine 0.73 Estimat Glomerular Filtration 78 Rate Random Glucose 154 Calcium Level 8.0 Result Diagram: 04/01/17 0639 04/01/17 0639 Imaging Last Impressions Head CT 04/01/17 1010 Signed Impressions: Service Date/Time: Saturday, April 01, 2017 10:14 - CONCLUSION: Slight atrophic and small vessel ischemic changes without any evidence for acute hemorrhage or mass effect and old infarction on the left. KJames Greco MD Neck CTA 7/28/17 0000 Signed Impressions: Service Date/Time: Saturday, April 01, 2017 10:25 - CONCLUSION: No significant carotid stenosis. Spiculated right apical lung mass. Julius Higgins MD Head CTA 04/01/17 Signed Impressions: Service Date/Time: Saturday, April 01, 2017 10:25 - CONCLUSION: Embolic occlusion right distal MCA. Harry Gutierrez MD FACR Cerebral Arteriogram 04/01/17 Signed Impressions: Service Date/Time: Saturday, April 01, 2017 10:47 - CONCLUSION: Successful thromboembolectomy from the right middle cerebral artery as described in detail above. The anterior cerebral artery additionally occluded and could not be safely recanalized. Julius Higgins MD Foot X-Ray 03/31/172052 Signed Impressions: Service Date/Time: March 21:06 - CONCLUSION: 1. Relatively nondisplaced fractures through the distal third, fourth and fifth metatarsals. Fermin Moore MD Assessment and Plan Problem List: (1) Acute ischemic right MCA stroke ICD Code: I63.511 Status: Acute (2) Atrial fibrillation ICD Code: I48.91 Status: Chronic (3) Gastric ulcer ICD Code: K25.9 Status: Acute (4) Duodenal ulcer ICD Code: K26.9 Status: Acute (5) Hyperthyroidism ICD Code: E05.90 Status: Chronic (6) HTN (hypertension) ICD Code: I10 Status: Acute (7) Mass of upper lobe of right lung ICD Code: R91.8 Status: Acute Assessment and Plan Ms. Richardson is a 76 year old female with a history of Afib, HTN who was re- admitted on the same day she was discharged due to left foot pain after she slipped and fell. She was discharged earlier in the day after being treated for GI bleed. In the previous admission, she was found to have gastric and duodenal ulcers. She required 1 unit of PRBCs. Apixaban was discontinued. Aspirin was also not recommended due to GI bleed. Patient sustained a right MCA stroke this morning around 10AM. She underwent right MCA embolectomy. - Acute right MCA ischemic stroke. - CT head reviewed by me shows no hemorrhage. - Patient underwent stat CT head as well as CT neck and subsequently patient underwent right MCA thromboembolectomy. - Neurology is following. Maintain blood pressure below 180/100 - No anticoagulation at this point. - Gastric ulcer - Duodenal ulcer - Since patient is currently nothing by mouth, we'll continue Protonix IV twice a day. - When patient is able to tolerate by mouth intake, we'll start sucralfate as well - Hypertension - no antihypertensives at this point. Maintain permissive hypertension up to 180/100 - Atrial fibrillation - [id number] score would be 5 (Age, female, HTN, stroke). - Continue Metoprolol IV 5mg Q6hrs PRN for heart rate > 110 - HAS-BLED score is 4. - Given patient's gastric ulcer, duodenal ulcer findings on EGD and [id number] score of 5 and HAS-BLED score of 4, it would be relatively more beneficial for the patient to consider Afib Anticoagulation in the near future. Possibly in 1-2 weeks, Apixaban 2.5mg BID could be considered. - However, no anticoagulation at this point due to risk of hemorrhagic conversions. - Hyperthyroidism - Continue Methimazole when able to take - Right upper lung spiculated mass - Slow growing. Patient will need to follow up with Dr. Ward (Pul). Total critical care time spent more than 45 minutes. Full code. SCDs for now. Physician Certification 2 Midnight Certification Type: Admission for Inpatient Services Order for Inpatient Services The services are ordered in accordance with Medicare regulations or non- Medicare payer requirements, as applicable. In the case of services not specified as inpatient-only, they are appropriately provided as inpatient services in accordance with the 2-midnight benchmark. Estimated LOS (days): 2 days is the estimated time the patient will need to remain in the hospital, assuming treatment plan goals are met and no additional complications. Post-Hospital Plan: Not yet determined Problem Qualifiers (1) Atrial fibrillation: Qualified Code: I48.2 - Chronic atrial fibrillation (2) HTN (hypertension): Qualified Code: I10 - Essential hypertension Preeti Waterman DO Apr 01, 2017 10:58
[2017-04-01] MEDS: SUCRALFATE 1 GM TAB PO SCH ×2 (11:00→16:00)
[2017-04-01 11:14] LABS: I-STAT POTASSIUM 3.6 MMOL/L (3.5-4.9)
[2017-04-01] MEDS ORDERED: SODIUM CHLOR 0.9% 1000 ML INJ 1,000 ML IV SCH ×2 (11:17→12:59)
[2017-04-01 11:22] LABS: APTT (PATIENT) 24.6 SEC (24.3-30.1); INTERNATIONAL NORMALIZED RATIO 1.1 RATIO; PROTHROMBIN TIME - PATIENT 11.7 SEC (9.8-11.6)
[2017-04-01 11:26] LABS: AUTOMATED NEUTROPHIL # 10.3 TH/MM3 (1.8-7.7); BASOPHIL # 0.1 TH/MM3 (0-0.2); BASOPHIL % 0.4 % (0.0-2.0); EOSINOPHIL # 0.1 TH/MM3 (0-0.4); EOSINOPHIL % 0.9 % (0.0-4.0); HEMATOCRIT 31.8 % (35.0-46.0); LYMPH % 10.2 % (9.0-44.0); LYMPHOCYTE # 1.3 TH/MM3 (1.0-4.8); MEAN CELL VOLUME 75.2 FL (80.0-100.0); MEAN CORPUSCULAR HEMOGLOBIN 24.4 PG (27.0-34.0); MEAN CORPUSCULAR HGB CONC 32.4 % (32.0-36.0); MONO % 9.5 % (0.0-8.0); PLATELET COUNT 249 TH/MM3 (150-450); RED BLOOD COUNT 4.23 MIL/MM3 (4.00-5.30); RED CELL DISTRIBUTION WIDTH 25.4 % (11.6-17.2)
[2017-04-01 11:27] LABS: HEMO FLAGS AUTO DIFF
[2017-04-01 12:05] LABS: CREATINE KINASE 46 U/L (26-192)
--- NOTE | 2017-04-01 12:15 | PD.CONS ---
History of Present Illness Service Neurology Consult Requested By medical Reason for Consult stroke alert Primary Care Physician Fernanda Rosado MD History of Present Illness 76 yo female with a PMHX of HTN, COPD, CHF, atrial fibrillation previously on Eliquis, hyperthyroidism, h/o GIB, spiculated lung mass, came to er after tripping over her dog. she was found to have foot fractures. she was recently dc'd on 03/31/17 after having an evaluation for GIB. she has been recommended to be off blood thinners for recovery of GIB. while in the er this am around 930am, she was noted to have acute left sided weakness by medical staff. she had woken up in the am without any deficit except for her foot fx. i was contacted by the hospitalist at 10:15. she is not a candidate for systemic blood thinners 2/2 recent GIB with anemia. cta's were ordered and she was found to have a distal rt mca occlusion. she then went for potential interventional tx. glucose 145, ct brain naicp. Review of Systems Except as stated in HPI: all other systems reviewed are Neg Past Family Social History Past Medical History Review of the medical record also reveals PMHX significant for: COPD CHF Atrial fibrillation, not on anticoagulation due to GIB PUD Hyperthyroidism Prediabetes GIB H/O spiculated mass of the RUL as seen on chest CT 01/06/17 History of medication noncompliance Past Surgical History Patient denies any previous surgical procedures. Reported Medications Enalapril (Enalapril Maleate) 10 Mg Tab 10 Mg PO DAILY Allergies: Coded Allergies: No Known Allergies (Verified , 03/26/17) Family History Mother, DM and lung cancer Father, lung cancer Social History quit tob use She denies any EtOH use or illicit drug use. Review of Systems All other ROS: ROS reviewed as documented in chart Past Family Social History Allergies: Coded Allergies: No Known Allergies (Verified , 03/26/17) Active Ordered Medications Current Medications Medications (Trade) Dose Ordered Sig/Ezio Route Start Time Stop Time Status Last Admin (NS Flush) 2 ml UNSCH PRN IV FLUSH 03/31/17 22:45 (NS Flush) 2 ml BID IV FLUSH 04/01/17 09:00 04/01/17 09:46 (Narcan Inj) 0.4 mg UNSCH PRN IV 03/31/17 22:45 (Tapazole) 10 mg Q8HR PO 04/01/17 14:00 (Lopressor) 25 mg Q8HR PO 04/01/17 09:00 04/01/17 09:46 (Protonix) 40 mg BIDAC PO 04/01/17 16:00 Sucralfate 1 gm 1 gm ACHS PO 04/01/17 11:00 (NS 1000 ml Inj) 1,000 ml @ 70 mls/hr [id number] IV 04/01/17 11:17 Exam I&O / VS 03/31/17 03/31/17 04/01/17 15:00 23:00 07:00 Intake Total 368 ml Output Total 300 ml Balance 68 ml Intake Oral 368 ml Output Urine Total 300 ml # Voids 2 # Bowel Movements 1 Vital Signs Date Time Temp Pulse Resp B/P Pulse Ox O2 Delivery O2 Flow Rate FiO2 04/01/17 10:03 120 18 159/86 96 04/01/17 08:01 99.0 98 20 115/68 95 04/01/17 08:00 109 04/01/17 04:27 105 04/01/17 02:12 96 04/01/17 01:57 97.6 109 19 103/58 94 03/31/17 20:51 89 17 99 Room Air 03/31/17 20:50 89 17 116/56 98 Room Air 03/31/17 20:10 72 18 112/62 99 Room Air 03/31/17 16:50 17 Room Air 03/31/17 16:49 98.3 103 16 87/49 95 General: No acute distress Neurologic: Alert Exam Comments alert, mild rt gaze preference, ou 3-2mm, reduced blink to threat in left vff, left hemiplegia, left neglect Review/Management Diagnosis/Plan: (1) Acute ischemic right MCA stroke Plan: s/p IR recs bp <180/100 check mri.mra brain in am echo lipids no blood thinners at present; long-term will need to think about aspirin vs OAC if cleared by gi follow exam (2) Chronic ischemic left MCA stroke Plan: likely cardioembolic carotids nml (3) Atrial fibrillation (4) GI bleed (5) Metatarsal bone fracture (6) Lung mass (7) HTN (hypertension) Problem Qualifiers (1) Atrial fibrillation: Qualified Code: I48.2 - Chronic atrial fibrillation (2) GI bleed: Qualified Code: K92.2 - Gastrointestinal hemorrhage, unspecified gastrointestinal hemorrhage type (3) Metatarsal bone fracture: Qualified Code: S92.302A - Closed nondisplaced fracture of metatarsal bone of left foot, unspecified metatarsal, initial encounter (4) HTN (hypertension): Qualified Code: I10 - Essential hypertension Manuel Villa MD Apr 01, 2017 12:15
[2017-04-01 12:29] LABS: ACANTHOCYTES 1+ (NORMAL); BURR CELLS 1+ (NORMAL); OVALOCYTES 2+ (NORMAL); PLATELET ESTIMATE SMEAR NORMAL (NORMAL); PLATELET MORPHOLOGY NORMAL (NORMAL); SCAN/DIFF AUTO DIFF CONFIRMED
--- NOTE | 2017-04-01 13:10 | RADRPT ---
EXAM DATE/TIME: 04/01/2017 10:25 [facility] COMPARISON: CT PULMONARY ANGIOGRAM, January 21, 2017, 22:05. CTA BRAIN W 3D RECON, April 01, 2017, 10:25. INDICATIONS : Stroke alert; left side weakness, aphasia. IV CONTRAST: 73 cc Omnipaque 350 (iohexol) IV ; Cumulative dose for multiple exams. RADIATION DOSE: 25.19 CTDIvol (mGy) ; Combined studies MEDICAL HISTORY : Cardiovascular disease. Hypertension. SURGICAL HISTORY : None. ENCOUNTER: Initial ACUITY: 1 day PAIN SCALE: Non-responsive LOCATION: neck Elevated flow velocities and ICA/CCA ratios have been found to correlate with increased degrees of vessel stenosis, calculated as percentage of diameter relative to a normal segment of distal ICA/CCA. TECHNIQUE: Volumetric scanning was performed using a multirow detector CT scanner. The data was post processed with a variety of visualization algorithms including full-volume maximum intensity projection, multip lanar sliding thin-slab reformation, curved-planar reformation, and surface-rendering techniques. Us ing automated exposure control and adjustment of the mA and/or kV according to patient size, radiatio n dose was kept as low as reasonably achievable to obtain optimal diagnostic quality images. DICOM f ormat image data is available electronically for review and comparison. FINDINGS: AORTIC ARCH: There is a three-vessel origin of the great vessels from the aorta. No evidence of ostial narrowing. RIGHT CAROTID: Mild calcific atherosclerotic disease at the carotid bifurcation with no significant associated steno tic narrowing. Right ICA is widely patent and the skull base. LEFT CAROTID: Mild calcific atherosclerotic disease at the carotid bifurcation without associated stenosis. Left IC A is widely patent the skull base. VERTEBRALS: The vertebral arteries are patent bilaterally, right side minimally dominant.. No stenotic lesions a re seen. Elsewhere on the exam, note is made of a spiculated 2 cm right apical lung mass which has been noted previously. Workup status for this mass is unknown CONCLUSION: No significant carotid stenosis. Spiculated right apical lung mass. Julius Higgins MD on April 01, 2017 at 11:28 Board Certified Radiologist. This report was verified electronically.
[2017-04-01] MEDS ORDERED: IODIXANOL 320 MG/ML 50 ML VIAL (for RAD SPEC) I-ARTERIAL ONE (13:41)
[2017-04-01 13:43] LABS: HDL CHOLESTEROL 36.3 MG/DL (40.0-60.0); LDL CHOLESTEROL 70 MG/DL (0-99)
[2017-04-01] MEDS: METHIMAZOLE 10 MG TAB PO SCH ×2 (14:00→21:16)
--- NOTE | 2017-04-01 14:43 | PD.RAD ---
Post Procedure Progress Note Pre Procedure Diagnosis: (1) Acute ischemic right MCA stroke Post Procedure Diagnosis: (1) Acute ischemic right MCA stroke Procedure Date: Apr 01, 2017 Supervising Radiologist: Julius Higgins Proceduralist/Assist: RT Maria Victoria(R)() Anesthesia: Local, Conscious Sedation Plan of Activity Patient to Unit: Critical Care Patient Condition: Critical See PACS Report for procedural detail/treatment Vascular-Arterial Procedure Procedure 1 Procedure Site: Cerebral Procedure(s): Embolectomy Access Access Site(s): Right Femoral Artery Closure Site(s): Right hemostasis patch Treament Area: Right MCA occlusion resolved Right PAM could not be salvaged Julius Higgins MD Apr 01, 2017 14:43
[2017-04-01] MEDS ORDERED: PANTOPRAZOLE SOD 40 MG DELAYED RELEASE TAB PO SCH (16:00)
--- NOTE | 2017-04-01 16:59 | RADRPT ---
EXAM DATE/TIME: 04/01/2017 10:47 COMPARISON: No previous studies available for comparison. INDICATIONS : Patient presents as emergent stroke in need of angiogram with thrombectomy. MEDICAL HISTORY : GI Bleed, A-Fib, Diabetes, CHF, HTN, Hyperthyroidism, COPD, Right lung mass, Peptic ulcer disease SURGICAL HISTORY : Colonoscopy ENCOUNTER: Initial ACUITY: 1 day PAIN SCORE: 0/10 FLUORO TIME: 34.2 minutes IMAGE SERIES: 18 ACCESS SITE: Right Femoral artery SEDATION TIME: 25 minutes CONTRAST: 120 cc Visipaque (iodixanol) MEDICATION(S): 1.) 2 mg midazolam (Versed) IV DEVICE(S): 1.) Right middle cerebral artery Efrain 68 Kit mechanical thrombectomy 2.) Right common femoral artery Syvek TIMELINE: Interventional team called: 1025 AM Interventional team arrived: 1025 AM Interventional team ready: 1030 am Patient arrival: 1038 am Groin puncture: 1056 am Recanalization: 1124 am Anesthesia and pain control was provided by the Anesthesia department. PROCEDURE: The patient was placed supine on the angiography table. The right groin was prepped in sterile fashio n. Full sterile technique was used, including cap, mask, sterile gloves and gown and a large sterile sheet. Hand hygiene and 2% chlorhexidine and/or betadine/alcohol prep was utilized per protocol for c utaneous antisepsis. The skin and subcutaneous tissues were infiltrated with lidocaine solution. Blun t dissection was utilized to free up the tissues superficial to the common femoral artery. Under dire ct ultrasound guidance, micropuncture access was accomplished into the common femoral artery allowing placement of a 4 Cymraes vascular sheath. The ultrasound images depicting access guidance were saved and stored to PACS for permanent record. A 4 Cymraes JB2 catheter was introduced and used to select the right internal carotid artery. Right ca rotid cerebral arteriography was performed. A Magic torque guidewire was introduced and manipulated i nto the high cervical right internal carotid artery. A 6 Cymraes neuron sheath was introduced and take n up into the high right ICA. The sheath was connected to pressure bag with heparinized saline and ve rapamil infusion. Through this, an agility 14 microwire, EV3 Marksman microcatheter and Efrain 68 reperf usion catheter combination was inserted and carefully advanced into the distal right middle cerebral artery. The Efrain catheter was positioned at the face of an occlusion of the distal MCA. Suctioning was applied for approximately 2 minutes to the aspiration catheter after removal of the wire and microca theter and then the Efrain catheter was slowly retracted and removed while performing simultaneous aspir ation on the neuron sheath. There was return of some embolic debris. Followup sheath arteriography revealed excellent gnosticism of flow in the right middle cerebral art kiana branches. Note was made of diminished flow in the anterior cerebral artery. In order to further a ssess the anterior circulation, the JB2 catheter was introduced and manipulated into the left carotid system and left carotid cerebral arteriography was performed. This revealed satisfactory filling of the left anterior cerebral artery with some cross collateral filling to the right. The microcatheter was reintroduced and manipulated into the right anterior cerebral artery A1 segment and subselective arteriography was performed. I could not further manipulate either guidewire or leroy rocatheter into the occluded portion of the A2 segment. Furthermore, the aspiration catheter would no t track over the microcatheter into the A1 segment. The procedure was terminated at this point. The neuron sheath was removed and hemostasis was achieved at the right groin with application of direct pressure and hemostatic patch. The patient was taken t o intensive care. CONCLUSION: Successful thromboembolectomy from the right middle cerebral artery as described in detail above. The anterior cerebral artery additionally occluded and could not be safely recanalized. Julius Higgins MD on April 01, 2017 at 16:33 Board Certified Radiologist. This report was verified electronically.
[2017-04-01] MEDS ORDERED: METOPROLOL TARTRATE 5 MG/5 ML VIAL IV PUSH PRN (19:00)
[2017-04-01] MEDS: PANTOPRAZOLE SODIUM 40 MG VIAL IV PUSH SCH (20:09)
[2017-04-01 21:22] LABS: HEMOGLOBIN A1b 0.9 %; HEMOGLOBIN F 1.3 %; HEMOGLOBIN LA1C 2.5 %
[2017-04-01 21:45] LABS: HEMOGLOBIN A1a 1.7 %; HEMOGLOBIN Ao 82.4 %; HEMOGLOBIN P3 6.4 %
--- NOTE | 2017-04-01 22:42 | ECHRPT ---
Indication: cva/tia CONCLUSIONS Normal left ventricular size. There is assymetric septal hypertrophy. The left ventricular systolic function is severely reduced with an estimated ejection fraction in th e range of 30-35%. The right ventricle is mildly dilated. The right ventricular systoilc function is normal. The left atrial size is dilated. The right atrial size is dilated. Severe mitral valve regurgitation. Mild aortic valve regurgitation. Moderate to severe tricuspid valve regurgitation. There is estimated mild pulmonary hypertension present (range 40-50 mmHg). The inferior vena cava is dilated. BP: / HR: Rhythm: MEASUREMENTS (Male / Female) Normal Values Technical Quality:, Good 2D ECHO LV Diastolic Diameter PLAX 4.7 cm 4.2 - 5.9 / 3.9 - 5.3 cm LV Systolic Diameter PLAX 4.2 cm IVS Diastolic Thickness 1.3 cm 0.6 - 1.0 / 0.6 - 0.9 cm LVPW Diastolic Thickness 1.0 cm 0.6 - 1.0 / 0.6 - 0.9 cm LV Relative Wall Thickness 0.5 RV Internal Dim ED PLAX 3.5 cm M-MODE Aortic Root Diameter MM 2.6 cm LA Systolic Diameter MM 5.8 cm LA Ao Ratio MM 2.2 AV Cusp Separation MM 1.7 cm DOPPLER AI Peak Velocity 397.0 cm/s AI Peak Gradient 63.0 mmHg AI Pressure Half Time 762.0 ms TR Peak Velocity 308.0 cm/s TR Peak Gradient 37.9 mmHg FINDINGS LEFT VENTRICLE Normal left ventricular size. There is assymetric septal hypertrophy. The left ventricular systolic function is severely reduced with an estimated ejection fraction in th e range of 30-35%. RIGHT VENTRICLE The right ventricle is mildly dilated. The right ventricular systoilc function is normal. LEFT ATRIUM The left atrial size is moderately dilated. RIGHT ATRIUM The right atrial size is dwjm-ro-tumnapnhzy dilated. ATRIAL SEPTUM Normal atrial septal thickness without atrial level shunting by limited color doppler interrogation. AORTA The aortic root and proximal ascending aorta are normal in size on limited imaging. MITRAL VALVE Yosdqnny-le-spvenz mitral valve regurgitation. AORTIC VALVE Trileaflet aortic valve. Mild aortic valve regurgitation. No aortic valve stenosis. TRICUSPID VALVE Structurally normal tricuspid valve. There is mild to moderate tricuspid valve regurgitation. There is estimated mild pulmonary hypertension present (range 40-50 mmHg). PULMONARY VALVE Mild pulmonary valve regurgitation. VESSELS The inferior vena cava is dilated. There is less than 50% respiratory change in dimension of the inferior vena cava (abnormal). PERICARDIUM No pericardial effusion. Dirk Nettles MD (Electronically Signed) Final Date:01 April 2017 22:41
[2017-04-02] VITALS (9 sets, daily range): BP systolic 105–139; BP diastolic 65–69; PULSE 86–105; RESP 16–24; TEMP 97.4–98.5; O2SAT 94–100
[2017-04-02] MEDS: DEXT 5%-NACL 0.9% 1000 ML INJ 1,000 ML IV SCH ×2 (03:54→18:32)
[2017-04-02] MEDS: PANTOPRAZOLE SODIUM 40 MG VIAL IV PUSH SCH (10:31)
[2017-04-02] MEDS: METHIMAZOLE 10 MG TAB PO SCH ×3 (10:31→22:05)
[2017-04-02] MEDS: METOPROLOL TARTRATE 25 MG TAB PO SCH ×3 (10:32→22:06)
[2017-04-02] MEDS: SODIUM CHLORIDE 0.9% FLUSH 10 ML FLUSH IV FLUSH SCH ×2 (10:32→22:06)
--- NOTE | 2017-04-02 10:57 | HHI.PR ---
Subjective Remarks Follow up for acute right MCA and right PAM embolic stroke, Afib. Patient is currently doing better. She is alert, able to articulate her thoughts. She reports no chest pain, shortness of breath, fever, chills. She wants to eat and feels hungry. She is still not able to move her left side. Objective Vitals Vital Signs Date Time Temp Pulse Resp B/P Pulse Ox O2 Delivery O2 Flow Rate FiO2 04/02/17 07:32 96 21 04/02/17 04:00 98.0 86 18 117/65 100 04/02/17 00:00 97.8 92 20 133/69 100 04/01/17 23:00 88 04/01/17 20:00 97.9 82 20 129/83 100 04/01/17 18:00 96 Nasal Cannula 2.00 04/01/17 18:00 110 04/01/17 16:49 96 Nasal Cannula 2.00 04/01/17 16:00 103 04/01/17 16:00 98.0 98 25 117/66 98 04/01/17 14:00 75 04/01/17 13:00 88 04/01/17 13:00 96.0 75 18 130/83 100 I/O 04/01/17 04/01/17 04/01/17 04/02/17 04/02/17 04/02/17 06:59 14:59 22:59 06:59 14:59 22:59 Intake Total 368 ml 107 ml 689 ml 279 ml Output Total 300 ml 225 ml 150 ml 200 ml Balance 68 ml -118 ml 539 ml 79 ml Intake Oral 368 ml 0 ml 0 ml IV Total 107 ml 689 ml 279 ml Output Urine Total 300 ml 225 ml 150 ml 200 ml Stool Total 0 ml 0 ml 0 ml # Voids 2 # Bowel Movements 1 Result Diagram: 04/01/17 1030 04/01/17 0639 Imaging Last Impressions Head Magnetic Resonance Angiography 04/02/17 1000 Signed Impressions: Service Date/Time: Sunday, April 02, 2017 14:21 - CONCLUSION: 1. Severe stenosis or short segment occlusion of the right proximal anterior cerebral artery with reconstitution distally. 2. Diffuse narrowing of the posterior cerebral arteries bilaterally. 3. No significant stenosis or occlusion of the middle cerebral arteries. Andrey Garrison MD Brain MRI 04/02/17 1000 Signed Impressions: Service Date/Time: Sunday, April 02, 2017 14:21 - CONCLUSION: 1. Signal abnormalities involving the right anterior cerebral artery and to a lesser extent right middle cerebral artery distributions on the diffusion-weighted images indicating acute infarcts. Embolic etiologies should be considered due to the two distributions. 2. Mild periventricular and subcortical white matter small-vessel ischemic changes bilaterally. 3. Stable gliosis of the left posteroparietal lobe. Andrey Garrison MD Head CT 04/01/17 1010 Signed Impressions: Service Date/Time: Saturday, April 01, 2017 10:14 - CONCLUSION: Slight atrophic and small vessel ischemic changes without any evidence for acute hemorrhage or mass effect and old infarction on the left. Emery Greco MD Neck CTA 04/01/17 0000 Signed Impressions: Service Date/Time: Saturday, April 01, 2017 10:25 - CONCLUSION: No significant carotid stenosis. Spiculated right apical lung mass. Julius Higgins MD Head CTA 04/01/17 0000 Signed Impressions: Service Date/Time: Saturday, April 01, 2017 10:25 - CONCLUSION: Embolic occlusion right distal MCA. Harry Gutierrez MD FACR Cerebral Arteriogram 04/01/17 0000 Signed Impressions: Service Date/Time: Saturday, April 01, 2017 10:47 - CONCLUSION: Successful thromboembolectomy from the right middle cerebral artery as described in detail above. The anterior cerebral artery additionally occluded and could not be safely recanalized. Julius Higgins MD Foot X-Ray 03/31/[id number] Signed Impressions: Service Date/Time: March 21:06 - CONCLUSION: 1. Relatively nondisplaced fractures through the distal third, fourth and fifth metatarsals. Fermin Moore MD Objective Remarks GENERAL: Alert, NAD. SKIN: Warm and dry. HEAD: Normocephalic. EYES: No scleral icterus. No injection or drainage. NECK: Supple, trachea midline. No JVD or lymphadenopathy. CARDIOVASCULAR: Irreg Irreg without murmurs, gallops, or rubs. RESPIRATORY: Breath sounds equal bilaterally. No accessory muscle use. GASTROINTESTINAL: Abdomen soft, non-tender, nondistended. MUSCULOSKELETAL: No cyanosis, or edema. Neuro: Unable to move left upper or lower ext. Speech is improved. BACK: Nontender without obvious deformity. No CVA tenderness. Procedures Echo 04/01/2017 Normal left ventricular size. There is assymetric septal hypertrophy. The left ventricular systolic function is severely reduced with an estimated ejection fraction in the range of 30-35%. The right ventricle is mildly dilated. The right ventricular systoilc function is normal. The left atrial size is dilated. The right atrial size is dilated. Severe mitral valve regurgitation. Mild aortic valve regurgitation. Moderate to severe tricuspid valve regurgitation. There is estimated mild pulmonary hypertension present (range 40-50 mmHg). The inferior vena cava is dilated. A/P Problem List: (1) Acute ischemic right MCA stroke ICD Code: I63.511 Status: Acute (2) Atrial fibrillation ICD Code: I48.91 Status: Chronic (3) Gastric ulcer ICD Code: K25.9 Status: Acute (4) Duodenal ulcer ICD Code: K26.9 Status: Acute (5) Hyperthyroidism ICD Code: E05.90 Status: Chronic (6) HTN (hypertension) ICD Code: I10 Status: Acute (7) Mass of upper lobe of right lung ICD Code: R91.8 Status: Acute Assessment and Plan Ms. Richardson is a 76 year old female with a history of Afib, HTN who was re- admitted on the same day she was discharged due to left foot pain after she slipped and fell. She was discharged earlier in the day after being treated for GI bleed. In the previous admission, she was found to have gastric and duodenal ulcers. She required 1 unit of PRBCs. Apixaban was discontinued. Aspirin was also not recommended due to GI bleed. Patient sustained a right MCA stroke this morning around 10AM. She underwent right MCA embolectomy. - Acute right MCA stroke. - Acute right PAM stroke. - Likely due to Afib related embolism. - Patient underwent stat CT head as well as CT neck and subsequently patient underwent right MCA thromboembolectomy. - Neurology is following. - Patient is gradually improving. Did well with bedside swallow eval. Will start a diet and transfer patient to the floor. - Gastric ulcer - Duodenal ulcer - D/C IV Protonix and start PO Protonix again. - we'll start sucralfate as well - Hypertension - Currently normotensive. If needed we will consider Amlodipine. - Atrial fibrillation - [id number] score would be 6 (Age, female, HTN, stroke, CHF). - Continue Metoprolol IV 5mg Q6hrs PRN for heart rate > 110 - Re-start Metoprolol 25mg Q8hrs PO. - HAS-BLED score is 4. - Given patient's gastric ulcer, duodenal ulcer findings on EGD and [id number] score of 5 and HAS-BLED score of 4, it would be relatively more beneficial for the patient to consider Afib Anticoagulation in the near future. Possibly in 1-2 weeks, Apixaban 2.5mg BID could be considered. - However, no anticoagulation at this point due to risk of hemorrhagic conversions. - IF anti-coagulation cannot be done, as recommended by neurology, we could consider Watchman device. - Non-ischemic cardiomyopathy - Echo shows EF 30-35%. - Continue Metoprolol. If BP tolerates, will consider KIRAN inhibitor as well. - Hyperthyroidism - Continue Methimazole 10mg Q8hrs. - Right upper lung spiculated mass - Slow growing. Patient will need to follow up with Dr. Ward (Pul). Full code. SCDs. Problem Qualifiers (1) Atrial fibrillation: Qualified Code: I48.2 - Chronic atrial fibrillation (2) HTN (hypertension): Qualified Code: I10 - Essential hypertension Preeti Waterman DO Apr 02, 2017 10:56
--- NOTE | 2017-04-02 11:23 | HHI.PR ---
Review/Management Diagnosis/Plan: (1) Acute ischemic right MCA stroke Plan: s/p IR rt mca embolectomy 04/01 persistent rt miguel occlusion stroke pattern suggestive of rt mca stroke-moderate recs neuro stable bp <180/100- well controlled check mri.mra brain-pending echo lipids ok for 5th floor [facility] with tele if no ich/ on mri brain p.t./s.t./o.t. long-term will need to think about aspirin vs OAC if cleared by gi; if not cleared, then consideration of watchman device depending on clinical improvement follow exam (2) Chronic ischemic left MCA stroke Plan: likely cardioembolic carotids nml (3) Atrial fibrillation (4) GI bleed (5) Metatarsal bone fracture (6) Lung mass (7) HTN (hypertension) Subjective Subjective Comments No acute events reported No headache No chest pain No dyspnea Active Medications Current Medications Medications (Trade) Dose Ordered Sig/Ezio Route Start Time Stop Time Status Last Admin (NS Flush) 2 ml UNSCH PRN IV FLUSH 03/31/17 22:45 (NS Flush) 2 ml BID IV FLUSH 04/01/17 09:00 04/02/17 10:32 (Narcan Inj) 0.4 mg UNSCH PRN IV 03/31/17 22:45 (Tapazole) 10 mg Q8HR PO 04/01/17 14:00 04/02/17 10:31 Metoprolol Tartrate 25 mg 25 mg Q8HR PO 04/01/17 09:00 04/02/17 10:32 (D5W-NS 1000 ml Inj) 1,000 ml @ 75 mls/hr CONTINUOUS IV 04/01/17 14:00 04/02/17 03:54 (Protonix Inj) 40 mg Q12H IV PUSH 04/01/17 20:00 04/02/17 10:31 (Lopressor Inj) 5 mg Q6H PRN IV PUSH 04/01/17 19:00 Allergies Allergies Coded Allergies No Known Allergies (Verified03/26/17) Review of Systems All other ROS: ROS reviewed as documented in chart Exam I&O / VS 04/01/17 04/01/17 04/02/17 14:59 22:59 06:59 Intake Total 107 ml 689 ml 279 ml Output Total 225 ml 150 ml 200 ml Balance -118 ml 539 ml 79 ml Intake Oral 0 ml 0 ml IV Total 107 ml 689 ml 279 ml Output Urine Total 225 ml 150 ml 200 ml Stool Total 0 ml 0 ml 0 ml Vital Signs Date Time Temp Pulse Resp B/P Pulse Ox O2 Delivery O2 Flow Rate FiO2 04/02/17 07:32 96 21 04/02/17 04:00 98.0 86 18 117/65 100 04/02/17 00:00 97.8 92 20 133/69 100 04/01/17 23:00 88 04/01/17 20:00 97.9 82 20 129/83 100 04/01/17 18:00 96 Nasal Cannula 2.00 04/01/17 18:00 110 04/01/17 16:49 96 Nasal Cannula 2.00 04/01/17 16:00 103 04/01/17 16:00 98.0 98 25 117/66 98 04/01/17 14:00 75 04/01/17 13:00 88 04/01/17 13:00 96.0 75 18 130/83 100 General: No acute distress Neurologic: Alert Exam Comments alert, ox 2, not to date, + left neglect, ou 3-2mm, reduced blink to threat on left side, mild rt gaze preference, left hemiplegia, left neglect Objective Micro and Labs Laboratory Tests Test 04/01/17 14:52 Blood Type O POSITIVE Antibody Screen NEGATIVE Problem Qualifiers (1) Atrial fibrillation: Qualified Code: I48.2 - Chronic atrial fibrillation (2) GI bleed: Qualified Code: K92.2 - Gastrointestinal hemorrhage, unspecified gastrointestinal hemorrhage type (3) Metatarsal bone fracture: Qualified Code: S92.302A - Closed nondisplaced fracture of metatarsal bone of left foot, unspecified metatarsal, initial encounter (4) HTN (hypertension): Qualified Code: I10 - Essential hypertension Manuel Villa MD Apr 02, 2017 11:22
--- NOTE | 2017-04-02 15:42 | RADRPT ---
EXAM DATE/TIME: 04/02/2017 14:21 [facility] COMPARISON: MRI BRAIN W/O CONTRAST, March 29, 2017, 15:43. INDICATIONS : CVA. MEDICAL HISTORY : Hypertension. Chronic obstructive pulmonary disease. Hypertension. SURGICAL HISTORY : Intercranial thrombectomy. ENCOUNTER: Initial ACUITY: 1 day PAIN SCORE: 0/10 LOCATION: Cranial TECHNIQUE: Multiplanar, multisequence MRI of the brain was performed without contrast. FINDINGS: There is evidence of new signal abnormalities involving the right anterior cerebral artery distributi on within the right frontal and parietal regions on the diffusion-weighted images indicating acute in farction in this distribution. Clinical correlation is recommended. There is also signal abnormalit y within the right basal ganglia and right posteroparietal cortex on the diffusion-weighted images bean ggesting acute infarcts in the right middle cerebral artery distribution also. The findings are sugg estive of possible embolic infarcts. Periventricular and subcortical white matter small-vessel ische leroy changes are noted bilaterally. Probable gliosis involving the left posteroparietal lobe is uncha nged. There is no acute hemorrhage or midline shift. No extra-axial bleed is noted. CONCLUSION: 1. Signal abnormalities involving the right anterior cerebral artery and to a lesser extent right mi ddle cerebral artery distributions on the diffusion-weighted images indicating acute infarcts. Embol ic etiologies should be considered due to the two distributions. 2. Mild periventricular and subcortical white matter small-vessel ischemic changes bilaterally. 3. Stable gliosis of the left posteroparietal lobe. Andrey Garrison MD on April 02, 2017 at 15:27 Board Certified Radiologist. This report was verified electronically.
--- NOTE | 2017-04-02 15:51 | RADRPT ---
EXAM DATE/TIME: 04/02/2017 14:21 [facility] COMPARISON: No previous studies available for comparison. INDICATIONS : CVA. MEDICAL HISTORY : Chronic obstructive pulmonary disease. Hypertension. SURGICAL HISTORY : Intercranial thrombectomy. ENCOUNTER: Initial ACUITY: 1 day PAIN SCORE: 0/10 LOCATION: Cranial Please note a normal MRA of the brain does not entirely exclude the possibility of a small aneurysm, nor the possibility of distal intracranial vessel disease. TECHNIQUE: 3D time of flight MRA was performed. Source images, multiplanar STS MIP, and 3D volume MIP reconstru ctions were reviewed. FINDINGS: There is severe stenosis or focal short segment occlusion of the right proximal anterior cerebral art kiana with reconstitution distally. The left anterior cerebral artery is patent without significant st enosis or occlusion. The bilateral middle cerebral arteries are patent without significant stenosis or occlusion. The upper cervical, petrous, cavernous and supraclinoid internal carotid arteries are patent without significant stenosis or occlusion. The uppermost portions of the vertebral arteries a re patent without significant stenosis or occlusion. The basilar artery is patent without significan t stenosis or occlusion. The posterior cerebral arteries demonstrate diffuse narrowing but are paten t throughout their courses. There is no aneurysm formation. There is a patent right posterior commu nicating artery. CONCLUSION: 1. Severe stenosis or short segment occlusion of the right proximal anterior cerebral artery with re constitution distally. 2. Diffuse narrowing of the posterior cerebral arteries bilaterally. 3. No significant stenosis or occlusion of the middle cerebral arteries. Andrey Garrison MD on April 02, 2017 at 15:33 Board Certified Radiologist. This report was verified electronically.
[2017-04-02] MEDS: SUCRALFATE 1 GM/10 ML CUP PO SCH (22:06)
[2017-04-02] MEDS: PANTOPRAZOLE SOD 40 MG DELAYED RELEASE TAB PO SCH (22:06)
[2017-04-03] VITALS (11 sets, daily range): BP systolic 113–126; BP diastolic 58–74; PULSE 93–115; RESP 18–22; TEMP 98.3–99.3; O2SAT 96–100
[2017-04-03] MEDS: METHIMAZOLE 10 MG TAB PO SCH ×3 (05:44→21:46)
[2017-04-03] MEDS: SUCRALFATE 1 GM/10 ML CUP PO SCH ×4 (05:44→21:46)
[2017-04-03] MEDS: METOPROLOL TARTRATE 25 MG TAB PO SCH ×3 (05:44→21:47)
[2017-04-03] MEDS: PANTOPRAZOLE SOD 40 MG DELAYED RELEASE TAB PO SCH (10:04)
[2017-04-03] MEDS: SODIUM CHLORIDE 0.9% FLUSH 10 ML FLUSH IV FLUSH SCH ×2 (10:05→21:45)
[2017-04-03] MEDS ORDERED: METOPROLOL TARTRATE 25 MG TAB PO ONE (11:30)
--- NOTE | 2017-04-03 13:43 | HHI.PR ---
Subjective Remarks Follow up for acute right MCA and right PAM embolic stroke, Afib. Patient is currently doing well. She is to has complete weakness on the left side. Her speech is back to baseline. Her thought process is coherent. Neighbor is at bedside. Objective Vitals Vital Signs Date Time Temp Pulse Resp B/P Pulse Ox O2 Delivery O2 Flow Rate FiO2 04/03/17 12:50 115 04/03/17 12:00 98.3 99 22 113/70 100 04/03/17 08:00 98.9 93 18 121/69 98 04/03/17 06:28 98.3 102 18 125/74 98 04/03/17 04:42 99 04/03/17 00:00 98.3 101 20 123/60 99 04/02/17 23:00 101 04/02/17 20:00 98.5 92 20 111/66 100 04/02/17 17:20 98.0 96 16 105/69 100 04/02/17 15:00 96 I/O 04/02/17 04/02/17 04/02/17 04/03/17 04/03/17 04/03/17 07:00 15:00 23:00 07:00 15:00 23:00 Intake Total 279 ml 908 ml Output Total 200 ml 150 ml Balance 79 ml 758 ml Intake Oral 0 ml 240 ml IV Total 279 ml 668 ml Output Urine Total 200 ml 150 ml Stool Total 0 ml 0 ml # Bowel Movements 0 Result Diagram: 04/01/17 1030 04/01/17 0639 Imaging Last Impressions Head Magnetic Resonance Angiography 04/02/17 1000 Signed Impressions: Service Date/Time: Sunday, April 02, 2017 14:21 - CONCLUSION: 1. Severe stenosis or short segment occlusion of the right proximal anterior cerebral artery with reconstitution distally. 2. Diffuse narrowing of the posterior cerebral arteries bilaterally. 3. No significant stenosis or occlusion of the middle cerebral arteries. Andrey Garrison MD Brain MRI 04/02/17 1000 Signed Impressions: Service Date/Time: Sunday, April 02, 2017 14:21 - CONCLUSION: 1. Signal abnormalities involving the right anterior cerebral artery and to a lesser extent right middle cerebral artery distributions on the diffusion-weighted images indicating acute infarcts. Embolic etiologies should be considered due to the two distributions. 2. Mild periventricular and subcortical white matter small-vessel ischemic changes bilaterally. 3. Stable gliosis of the left posteroparietal lobe. Andrey Garrison MD Head CT 04/01/17 1010 Signed Impressions: Service Date/Time: Saturday, April 01, 2017 10:14 - CONCLUSION: Slight atrophic and small vessel ischemic changes without any evidence for acute hemorrhage or mass effect and old infarction on the left. Emery Greco MD Neck CTA 04/01/17 0000 Signed Impressions: Service Date/Time: Saturday, April 01, 2017 10:25 - CONCLUSION: No significant carotid stenosis. Spiculated right apical lung mass. Julius Higgins MD Head CTA 04/01/17 0000 Signed Impressions: Service Date/Time: Saturday, April 01, 2017 10:25 - CONCLUSION: Embolic occlusion right distal MCA. Harry Gutierrez MD FACR Cerebral Arteriogram 04/01/17 0000 Signed Impressions: Service Date/Time: Saturday, April 01, 2017 10:47 - CONCLUSION: Successful thromboembolectomy from the right middle cerebral artery as described in detail above. The anterior cerebral artery additionally occluded and could not be safely recanalized. Julius Higgins MD Foot X-Ray 03/31/172052 Signed Impressions: Service Date/Time: March 21:06 - CONCLUSION: 1. Relatively nondisplaced fractures through the distal third, fourth and fifth metatarsals. Fermin Moore MD Objective Remarks GENERAL: Alert, NAD. SKIN: Warm and dry. HEAD: Normocephalic. EYES: No scleral icterus. No injection or drainage. NECK: Supple, trachea midline. No JVD or lymphadenopathy. CARDIOVASCULAR: Irreg Irreg without murmurs, gallops, or rubs. RESPIRATORY: Breath sounds equal bilaterally. No accessory muscle use. GASTROINTESTINAL: Abdomen soft, non-tender, nondistended. MUSCULOSKELETAL: No cyanosis, or edema. Neuro: Unable to move left upper or lower ext. Speech is improved. BACK: Nontender without obvious deformity. No CVA tenderness. Procedures Echo 04/01/2017 Normal left ventricular size. There is assymetric septal hypertrophy. The left ventricular systolic function is severely reduced with an estimated ejection fraction in the range of 30-35%. The right ventricle is mildly dilated. The right ventricular systoilc function is normal. The left atrial size is dilated. The right atrial size is dilated. Severe mitral valve regurgitation. Mild aortic valve regurgitation. Moderate to severe tricuspid valve regurgitation. There is estimated mild pulmonary hypertension present (range 40-50 mmHg). The inferior vena cava is dilated. A/P Problem List: (1) Acute ischemic right MCA stroke ICD Code: I63.511 Status: Acute (2) Atrial fibrillation ICD Code: I48.91 Status: Chronic (3) Gastric ulcer ICD Code: K25.9 Status: Acute (4) Duodenal ulcer ICD Code: K26.9 Status: Acute (5) Hyperthyroidism ICD Code: E05.90 Status: Chronic (6) HTN (hypertension) ICD Code: I10 Status: Acute (7) Mass of upper lobe of right lung ICD Code: R91.8 Status: Acute Assessment and Plan Ms. Richardson is a 76 year old female with a history of Afib, HTN who was re- admitted on the same day she was discharged due to left foot pain after she slipped and fell. She was discharged earlier in the day after being treated for GI bleed. In the previous admission, she was found to have gastric and duodenal ulcers. She required 1 unit of PRBCs. Apixaban was discontinued. Aspirin was also not recommended due to GI bleed. Patient sustained a right MCA stroke this morning around 10AM. She underwent right MCA embolectomy. - Acute right MCA stroke. - Acute right PAM stroke. - Likely due to Afib related embolism. - Patient underwent stat CT head as well as CT neck and subsequently patient underwent right MCA thromboembolectomy. - Neurology is following. - Patient is gradually improving. Did well with bedside swallow eval. - Patient is tolerating diet. However, there is significant concern over aspiration. - Will ask Speech to see her again to re-evaluate a safe diet. - Gastric ulcer - Duodenal ulcer - In an effort to minimize oral medications, we'll start patient on IV Protonix. - Continue metoprolol crushed in applesauce. - Hypertension - Currently normotensive. If needed we will consider Amlodipine. - Atrial fibrillation - [id number] score would be 6 (Age, female, HTN, stroke, CHF). - Re-start Metoprolol 25mg Q8hrs PO. - HAS-BLED score is 4. - Given patient's gastric ulcer, duodenal ulcer findings on EGD and [id number] score of 6 and HAS-BLED score of 4, it would be relatively more beneficial for the patient to consider Afib Anticoagulation in the near future. Possibly in 1-2 weeks, Apixaban 2.5mg BID could be considered. - However, no anticoagulation at this point due to risk of hemorrhagic conversions. - IF anti-coagulation cannot be done, as recommended by neurology, we could consider Watchman device. - Discussed about anti-correlation with patient and her neighbor at length. - Non-ischemic cardiomyopathy - Echo shows EF 30-35%. - Continue Metoprolol. If BP tolerates, will consider KIRAN inhibitor as well. - Hyperthyroidism - Continue Methimazole 10mg Q8hrs. - Right upper lung spiculated mass - Slow growing. Patient will need to follow up with Dr. Ward (Pul). Full code. SCDs. Discharge plan : We'll refer patient to [facility]. Problem Qualifiers (1) Atrial fibrillation: Qualified Code: I48.2 - Chronic atrial fibrillation (2) HTN (hypertension): Qualified Code: I10 - Essential hypertension Preeti Waterman DO Apr 03, 2017 1:43 pm
--- NOTE | 2017-04-03 15:15 | HHI.PR ---
Review/Management Diagnosis/Plan: (1) Acute ischemic right MCA stroke Plan: s/p IR rt mca embolectomy 04/01 persistent rt miguel occlusion stroke pattern suggestive of rt mca stroke-moderate mri /mra brain images reviewed recs neuro stable d/w charge re: feeding p.t./s.t./o.t. long-term will need to think about aspirin vs OAC if cleared by gi; if not cleared, then consideration of watchman device depending on clinical improvement follow exam (2) Chronic ischemic left MCA stroke Plan: likely cardioembolic carotids nml (3) Atrial fibrillation (4) GI bleed (5) Metatarsal bone fracture (6) Lung mass (7) HTN (hypertension) Subjective Subjective Comments No acute events reported No headache No chest pain No dyspnea asking for food Active Medications Current Medications Medications (Trade) Dose Ordered Sig/Ezio Route Start Time Stop Time Status Last Admin (NS Flush) 2 ml UNSCH PRN IV FLUSH 03/31/17 22:45 (NS Flush) 2 ml BID IV FLUSH 04/01/17 09:00 04/03/17 10:05 (Narcan Inj) 0.4 mg UNSCH PRN IV 03/31/17 22:45 (Tapazole) 10 mg Q8HR PO 04/01/17 14:00 04/03/17 14:13 Metoprolol Tartrate 25 mg 25 mg Q8HR PO 04/01/17 09:00 04/03/17 14:14 (D5W-NS 1000 ml Inj) 1,000 ml @ 75 mls/hr CONTINUOUS IV 04/01/17 14:00 04/02/17 18:32 (Lopressor Inj) 5 mg Q6H PRN IV PUSH 04/01/17 19:00 (Carafate Liq) 1 gm ACHS PO 04/02/17 21:00 04/03/17 12:26 (Protonix Inj) 40 mg Q12H IV PUSH 04/03/17 21:00 Allergies Allergies Coded Allergies No Known Allergies (Verified03/26/17) Review of Systems All other ROS: ROS reviewed as documented in chart Exam I&O / VS 04/02/17 04/02/17 04/03/17 15:00 23:00 07:00 Intake Total 908 ml Output Total 150 ml Balance 758 ml Intake Oral 240 ml IV Total 668 ml Output Urine Total 150 ml Stool Total 0 ml # Bowel Movements 0 Vital Signs Date Time Temp Pulse Resp B/P Pulse Ox O2 Delivery O2 Flow Rate FiO2 04/03/17 12:50 115 04/03/17 12:00 98.3 99 22 113/70 100 04/03/17 08:00 98.9 93 18 121/69 98 04/03/17 06:28 98.3 102 18 125/74 98 04/03/17 04:42 99 04/03/17 00:00 98.3 101 20 123/60 99 04/02/17 23:00 101 04/02/17 20:00 98.5 92 20 111/66 100 04/02/17 17:20 98.0 96 16 105/69 100 General: No acute distress Neurologic: Alert Exam Comments alert, ox 2, not to date, speech more clear, ou 3-2mm, reduced blink to threat in left vff, left hemiplegia, left neglect Problem Qualifiers (1) Atrial fibrillation: Qualified Code: I48.2 - Chronic atrial fibrillation (2) GI bleed: Qualified Code: K92.2 - Gastrointestinal hemorrhage, unspecified gastrointestinal hemorrhage type (3) Metatarsal bone fracture: Qualified Code: S92.302A - Closed nondisplaced fracture of metatarsal bone of left foot, unspecified metatarsal, initial encounter (4) HTN (hypertension): Qualified Code: I10 - Essential hypertension Manuel Villa MD Apr 03, 2017 15:15
[2017-04-03] MEDS: DEXT 5%-NACL 0.9% 1000 ML INJ 1,000 ML IV SCH (17:15)
[2017-04-03] MEDS: PANTOPRAZOLE SODIUM 40 MG VIAL IV PUSH SCH (21:46)
[2017-04-04] VITALS (8 sets, daily range): BP systolic 110–142; BP diastolic 64–80; PULSE 78–103; RESP 15–18; TEMP 98–98.7; O2SAT 93–100
[2017-04-04] MEDS: METHIMAZOLE 10 MG TAB PO SCH ×3 (05:39→22:28)
[2017-04-04] MEDS: METOPROLOL TARTRATE 25 MG TAB PO SCH ×3 (05:39→22:28)
[2017-04-04] MEDS: SUCRALFATE 1 GM/10 ML CUP PO SCH ×4 (05:39→22:27)
[2017-04-04] MEDS: DEXT 5%-NACL 0.9% 1000 ML INJ 1,000 ML IV SCH (06:25)
--- NOTE | 2017-04-04 07:19 | HHI.PR ---
Review/Management Diagnosis/Plan: (1) Acute ischemic right MCA stroke Plan: s/p IR rt mca embolectomy 04/01 persistent rt miguel occlusion stroke pattern suggestive of rt mca stroke-moderate mri /mra brain images reviewed recs neuro stable d/w gi yesterday- they will give opinion after review p.t./s.t./o.t. long-term will need to think about aspirin vs OAC if cleared by gi; if not cleared, then consideration of watchman device depending on clinical improvement rehab planning once tolerating po and seen by GI- follow exam (2) Chronic ischemic left MCA stroke Plan: likely cardioembolic carotids nml (3) Atrial fibrillation (4) GI bleed (5) Metatarsal bone fracture (6) Lung mass (7) HTN (hypertension) Subjective Subjective Comments No acute events reported No headache No chest pain No dyspnea Active Medications Current Medications Medications (Trade) Dose Ordered Sig/Ezio Route Start Time Stop Time Status Last Admin (NS Flush) 2 ml UNSCH PRN IV FLUSH 03/31/17 22:45 (NS Flush) 2 ml BID IV FLUSH 04/01/17 09:00 04/03/17 21:45 (Narcan Inj) 0.4 mg UNSCH PRN IV 03/31/17 22:45 (Tapazole) 10 mg Q8HR PO 04/01/17 14:00 04/04/17 05:39 Metoprolol Tartrate 25 mg 25 mg Q8HR PO 04/01/17 09:00 04/04/17 05:39 (D5W-NS 1000 ml Inj) 1,000 ml @ 75 mls/hr CONTINUOUS IV 04/01/17 14:00 04/04/17 06:25 (Lopressor Inj) 5 mg Q6H PRN IV PUSH 04/01/17 19:00 (Carafate Liq) 1 gm ACHS PO 04/02/17 21:00 04/04/17 05:39 (Protonix Inj) 40 mg Q12H IV PUSH 04/03/17 21:00 04/03/17 21:46 Allergies Allergies Coded Allergies No Known Allergies (Verified03/26/17) Review of Systems All other ROS: ROS reviewed as documented in chart Exam I&O / VS 04/03/17 04/03/17 04/04/17 15:00 23:00 07:00 Intake Total 720 ml Output Total 600 ml 202 ml 2 ml Balance 120 ml -202 ml -2 ml Intake Oral 720 ml Output Urine Total 600 ml 201 ml 2 ml Stool Total 1 ml # Voids 3 # Bowel Movements 0 Vital Signs Date Time Temp Pulse Resp B/P Pulse Ox O2 Delivery O2 Flow Rate FiO2 04/04/17 00:00 98.3 101 18 110/73 100 04/03/17 23:00 112 04/03/17 20:00 99.3 112 18 126/60 100 04/03/17 19:41 97 Nasal Cannula 21 04/03/17 18:47 114 04/03/17 17:07 98.7 113 18 113/58 96 04/03/17 12:50 115 04/03/17 12:00 98.3 99 22 113/70 100 04/03/17 08:00 98.9 93 18 121/69 98 General: No acute distress Neurologic: Alert Exam Comments alert, ox 2, not to date, speech more clear, ou 3-2mm, reduced blink to threat in left vff, left hemiplegia, left neglect Problem Qualifiers (1) Atrial fibrillation: Qualified Code: I48.2 - Chronic atrial fibrillation (2) GI bleed: Qualified Code: K92.2 - Gastrointestinal hemorrhage, unspecified gastrointestinal hemorrhage type (3) Metatarsal bone fracture: Qualified Code: S92.302A - Closed nondisplaced fracture of metatarsal bone of left foot, unspecified metatarsal, initial encounter (4) HTN (hypertension): Qualified Code: I10 - Essential hypertension Manuel Villa MD Apr 04, 2017 07:19
[2017-04-04] MEDS: SODIUM CHLORIDE 0.9% FLUSH 10 ML FLUSH IV FLUSH SCH ×2 (09:00→22:28)
[2017-04-04] MEDS ORDERED: GLYCERIN ADULT 2 GM SUPP RECTAL ONE (09:00)
[2017-04-04] MEDS ORDERED: LACTULOSE SYRUP 20 GM/30 ML CUP PO ONE (09:00)
[2017-04-04] MEDS: PANTOPRAZOLE SODIUM 40 MG VIAL IV PUSH SCH ×2 (09:18→22:27)
--- NOTE | 2017-04-04 10:10 | MB ---
cc: BEE AARON MD DATE OF CONSULTATION: 04/04/[address] Holden. REASON FOR CONSULTATION Clearance for anticoagulants status post recent stroke. HISTORY OF PRESENT ILLNESS Laure is a 76-year-old female who was discharged from the hospital last week on March 31 and re-admitted the following day after falling at home and fracturing her left foot. She was found to have left-sided weakness and underwent imaging of her brain revealing evidence for right sided stroke. Two distributions were involved suggesting an embolic stroke. She does have a history of atrial fibrillation and had previously been on Eliquis. The patient was admitted in early January of this year with a GI bleed and underwent upper endoscopy by Dr. Simon revealing a large 2-cm duodenal ulcer with a clean base. The patient was discharged on proton pump inhibitor and Carafate and did not follow up in the office. It appeared that she was taking only Pepcid. She states she occasionally takes aspirin maybe once every 3 weeks. She is somewhat of an inaccurate historian and has not been very compliant. She was re-admitted about a week ago with further melena and repeat upper endoscopy on March [address] Simon revealed a few small antral ulcers along with multiple duodenal ulcers, ranging in size from 5-10 mm and the same large 2 cm ulcer that had an adherent clot. The clot was washed off revealing a fairly clean base with no visible vessel. The patient was continued on high dose proton pump inhibitor therapy and Carafate and once stable was discharged home. She denies any abdominal pain or nausea. She states her last bowel movement was about 3 days ago and it was internet consultant in color. Her stools have been black for a few days but she also had been given oral iron in the hospital which was discontinued. On admission she was found to have occlusion of the right middle and right anterior cerebral arteries and on April 01 underwent interventional radiology with a right middle cerebral artery embolectomy but the right anterior cerebral artery was not salvageable. I discussed her condition yesterday with Dr. Villa who believes she should be started on anticoagulant some time in the next 2 or 3 days. SOCIAL HISTORY The patient lives at home by herself. She is . She has a daughter in [place] but states she has not seen her in years. She is a past smoker but states she quit many years ago. PAST MEDICAL HISTORY Her medical history is remarkable for: 1. COPD and she is being followed for a spiculated right upper lobe lung mass seen on CT in January of this year. 2. She has a history of atrial fibrillation. 3. Peptic ulcer disease. 4. Hyperthyroidism. 5. Pre-diabetes. ALLERGIES She has no known drug allergies. MEDICATIONS Current medications include: 1. Pantoprazole 40 mg IV q.12 hours. 2. Sucralfate 1 gram before meals and at bedtime. 3. Lopressor p.r.n. 4. Tapazole 10 mg q.8 hours. 5. Metoprolol 25 mg q.8 hours. REVIEW OF SYSTEMS Review of systems is remarkable for the left-sided weakness. She states she cannot lift her left arm. She denies any current pain. No nausea or vomiting. Last bowel movement about 3 days ago and she states it was no longer black. No shortness of breath. PHYSICAL EXAMINATION GENERAL: Physical exam reveals a elderly female in no acute distress. VITAL SIGNS: Her blood pressure is 114/71, pulse 100, respirations 18, temperature is 98.7. HEENT: Sclerae anicteric. LUNGS: Grossly clear with somewhat diminished breath sounds bilaterally. HEART: Heart sounds are regular. ABDOMEN: Abdomen is soft and nondistended, nontender. No masses. No organomegaly. RECTAL: Rectal was deferred. She is wearing sequential AMARA hose. She has a black boot on her left foot. She has a left hemiparesis, is otherwise alert and oriented. She is able to eat. She did demonstrate some choking on either jello or eduardo crackers over the weekend, it was reevaluated by speech pathology that found no evidence for overt aspiration and recommended thin liquids and mechanical soft diet. LABORATORY FINDINGS Her last hemoglobin was from April 01 and was 10.3, which is improved from last week. Her BUN was only 12 on admission and her INR 1.1. A stool hemoccult has been ordered but pending because she has not yet moved her bowels. IMPRESSION 1. Recent right cerebral artery embolic stroke in a patient with a history of atrial fibrillation, not recently on anticoagulation because of her GI bleeding. 2. Peptic ulcer disease. Patient with multiple ulcers in the antrum and duodenal bulb with one large 2 cm ulcer in the bulb. The endoscopic report does not mention if it was anterior or posterior wall. PLAN The patient is at high risk for re-bleeding and at high risk for anticoagulation but certainly need to weigh the risk of further embolic strokes versus GI bleed. The options appear to include consideration of Watchman device as opposed to starting an anticoagulant and watching for any bleeding and also prophylactic embolization of the gastroduodenal artery. I have a call into Dr. Cohn of the interventional radiology department to get his opinion regarding prophylactic embolization of the GDA. If anticoagulation is started, would recommend one that is the most easily reversible. Would avoid aspirin and Plavix because of the significant peptic ulcer disease. A stool hemoccult and repeat H&H have been ordered. I will also facilitate bowel movement with some lactulose and glycerin suppository. The above was also discussed with her nurse and the patient at bedside. Thank you for this consult. MD MITALI Villa/VANESSA /9:05 AM /9:35 AM JOSELITO
--- NOTE | 2017-04-04 14:32 | HHI.PR ---
Subjective Remarks Follow up for acute embolic stroke, Afib with high [id number] score in a patient with a history of GI bleed. Patient is currently doing well. No acute bleed. No fever, chills. She is still unable to move her left limbs. Speech, thought process coherent. Objective Vitals Vital Signs Date Time Temp Pulse Resp B/P Pulse Ox O2 Delivery O2 Flow Rate FiO2 04/04/17 13:06 103 04/04/17 12:00 98.2 98 17 142/64 100 04/04/17 08:00 98.0 102 15 119/80 93 04/04/17 04:30 98.7 100 18 114/71 100 04/04/17 00:00 98.3 101 18 110/73 100 04/03/17 23:00 112 04/03/17 20:00 99.3 112 18 126/60 100 04/03/17 19:41 97 Nasal Cannula 21 04/03/17 18:47 114 04/03/17 17:07 98.7 113 18 113/58 96 I/O 04/03/17 04/03/17 04/03/17 04/04/17 04/04/17 04/04/17 07:00 15:00 23:00 07:00 15:00 23:00 Intake Total 720 ml Output Total 600 ml 202 ml 2 ml Balance 120 ml -202 ml -2 ml Intake Oral 720 ml Output Urine Total 600 ml 201 ml 2 ml Stool Total 1 ml # Voids 3 3 # Bowel Movements 0 1 Result Diagram: 04/01/17 1030 04/01/17 0639 Imaging Last Impressions Head Magnetic Resonance Angiography 04/02/17 1000 Signed Impressions: Service Date/Time: Sunday, April 02, 2017 14:21 - CONCLUSION: 1. Severe stenosis or short segment occlusion of the right proximal anterior cerebral artery with reconstitution distally. 2. Diffuse narrowing of the posterior cerebral arteries bilaterally. 3. No significant stenosis or occlusion of the middle cerebral arteries. Andrey Garrison MD Brain MRI 04/02/17 1000 Signed Impressions: Service Date/Time: Sunday, April 02, 2017 14:21 - CONCLUSION: 1. Signal abnormalities involving the right anterior cerebral artery and to a lesser extent right middle cerebral artery distributions on the diffusion-weighted images indicating acute infarcts. Embolic etiologies should be considered due to the two distributions. 2. Mild periventricular and subcortical white matter small-vessel ischemic changes bilaterally. 3. Stable gliosis of the left posteroparietal lobe. Andrey Garrison MD Head CT 04/01/17 1010 Signed Impressions: Service Date/Time: Saturday, April 01, 2017 10:14 - CONCLUSION: Slight atrophic and small vessel ischemic changes without any evidence for acute hemorrhage or mass effect and old infarction on the left. KJames Greco MD Neck CTA 04/01/17 0000 Signed Impressions: Service Date/Time: Saturday, April 01, 2017 10:25 - CONCLUSION: No significant carotid stenosis. Spiculated right apical lung mass. Julius Higgins MD Head CTA 04/01/17 0000 Signed Impressions: Service Date/Time: Saturday, April 01, 2017 10:25 - CONCLUSION: Embolic occlusion right distal MCA. Harry Gutierrez MD FACR Cerebral Arteriogram 04/01/17 0000 Signed Impressions: Service Date/Time: Saturday, April 01, 2017 10:47 - CONCLUSION: Successful thromboembolectomy from the right middle cerebral artery as described in detail above. The anterior cerebral artery additionally occluded and could not be safely recanalized. Julius Higgins MD Foot X-Ray 03/31/172052 Signed Impressions: Service Date/Time: March 21:06 - CONCLUSION: 1. Relatively nondisplaced fractures through the distal third, fourth and fifth metatarsals. Fermin Moore MD Objective Remarks GENERAL: Alert, NAD. SKIN: Warm and dry. HEAD: Normocephalic. EYES: No scleral icterus. No injection or drainage. NECK: Supple, trachea midline. No JVD or lymphadenopathy. CARDIOVASCULAR: Irreg Irreg without murmurs, gallops, or rubs. RESPIRATORY: Breath sounds equal bilaterally. No accessory muscle use. GASTROINTESTINAL: Abdomen soft, non-tender, nondistended. MUSCULOSKELETAL: No cyanosis, or edema. Neuro: Unable to move left upper or lower ext. Speech is improved. BACK: Nontender without obvious deformity. No CVA tenderness. Procedures Echo 04/01/2017 Normal left ventricular size. There is assymetric septal hypertrophy. The left ventricular systolic function is severely reduced with an estimated ejection fraction in the range of 30-35%. The right ventricle is mildly dilated. The right ventricular systoilc function is normal. The left atrial size is dilated. The right atrial size is dilated. Severe mitral valve regurgitation. Mild aortic valve regurgitation. Moderate to severe tricuspid valve regurgitation. There is estimated mild pulmonary hypertension present (range 40-50 mmHg). The inferior vena cava is dilated. A/P Problem List: (1) Acute ischemic right MCA stroke ICD Code: I63.511 Status: Acute (2) Atrial fibrillation ICD Code: I48.91 Status: Chronic (3) Gastric ulcer ICD Code: K25.9 Status: Acute (4) Duodenal ulcer ICD Code: K26.9 Status: Acute (5) Hyperthyroidism ICD Code: E05.90 Status: Chronic (6) HTN (hypertension) ICD Code: I10 Status: Acute (7) Mass of upper lobe of right lung ICD Code: R91.8 Status: Acute Assessment and Plan Ms. Richardson is a 76 year old female with a history of Afib, HTN who was re- admitted on the same day she was discharged due to left foot pain after she slipped and fell. She was discharged earlier in the day after being treated for GI bleed. In the previous admission, she was found to have gastric and duodenal ulcers. She required 1 unit of PRBCs. Apixaban was discontinued. Aspirin was also not recommended due to GI bleed. Patient sustained a right MCA stroke this morning around 10AM. She underwent right MCA embolectomy. - Acute right MCA stroke. - Acute right PAM stroke. - Likely due to Afib related embolism. - Patient underwent stat CT head as well as CT neck and subsequently patient underwent right MCA thromboembolectomy. - Neurology is following. - Patient is gradually improving. Did well with bedside swallow eval. - Patient is tolerating diet. However, there is significant concern over aspiration. - Speech recommends mechanical soft, thin liquid diet. - Gastric ulcer - Duodenal ulcer - Continue IV Protonix. - Continue metoprolol crushed in applesauce. - Appreciate GI input. Patient may undergo elective Gastroduodenal artery embolization by IR. - Hemoglobin 10.3 --> 9.7. - Hypertension - Currently normotensive. If needed we will consider Amlodipine. - Atrial fibrillation - [id number] score would be 6 (Age, female, HTN, stroke, CHF). - Re-start Metoprolol 25mg Q8hrs PO. - HAS-BLED score is 4. - Given patient's gastric ulcer, duodenal ulcer findings on EGD and [id number] score of 6 and HAS-BLED score of 4, it would be relatively more beneficial for the patient to consider Afib Anticoagulation in the near future. Possibly in 1-2 weeks, Apixaban 2.5mg BID could be considered. However, there is no easy reversal agent. Pradaxa would be a good consideration. - However, no anticoagulation at this point due to risk of hemorrhagic conversions. - IF anti-coagulation cannot be done, watchman device could be considered. - Non-ischemic cardiomyopathy - Echo shows EF 30-35%. - Continue Metoprolol. If BP tolerates, will consider KIRAN inhibitor as well. - Hyperthyroidism - Continue Methimazole 10mg Q8hrs. - Right upper lung spiculated mass - Slow growing. Patient will need to follow up with Dr. Ward (Pul). Full code. SCDs. Discharge plan : Probable discharge to [place] once IR performs Gastroduodenal artery embolization and preferably once we start patient on anticoagulation. Expect 1-2 more days at least. Problem Qualifiers (1) Atrial fibrillation: Qualified Code: I48.2 - Chronic atrial fibrillation (2) HTN (hypertension): Qualified Code: I10 - Essential hypertension Preeti Waterman DO Apr 04, 2017 14:32
--- NOTE | 2017-04-04 16:01 | HHI.GIFU ---
GI Follow-up Note Consult Follow-up Addendum: I discussed with Dr Simon who performed last EGD. The large duodenal ulcer is posterior wall. I discussed the case with Interventional Radiology Dr Cohn. Risk of GDA embolization low. This is a reasonable option to reduce risk of a major GI bleed after starting anticoagulation. I explained to patient and she was agreeable to this procedure. Will ask IR to see her. Stool currently heme neg. ASSESSMENT/PLAN: It was a pleasure seeing Laure Richardson. Thank you for this consult. Entered by: Norris Olivas MD Apr 04, 2017 16:01
[2017-04-04 17:57] LABS: HEMATOCRIT 30.9 % (35.0-46.0)
[2017-04-04 17:58] LABS: REVIEW FLAG FINAL
[2017-04-05] VITALS (9 sets, daily range): BP systolic 104–121; BP diastolic 55–70; PULSE 76–109; RESP 16–18; TEMP 97.1–98.1; O2SAT 96–100
[2017-04-05] MEDS: METHIMAZOLE 10 MG TAB PO SCH ×3 (07:24→20:43)
[2017-04-05] MEDS: SUCRALFATE 1 GM/10 ML CUP PO SCH ×4 (07:24→20:43)
[2017-04-05] MEDS: METOPROLOL TARTRATE 25 MG TAB PO SCH ×3 (07:24→20:44)
[2017-04-05] MEDS: SODIUM CHLORIDE 0.9% FLUSH 10 ML FLUSH IV FLUSH SCH ×2 (08:00→20:44)
[2017-04-05] MEDS: PANTOPRAZOLE SODIUM 40 MG VIAL IV PUSH SCH ×2 (08:00→20:43)
[2017-04-05] MEDS: DOCUSATE SODIUM 100 MG/10 ML UDC PO SCH (08:03)
--- NOTE | 2017-04-05 08:10 | HHI.GIFU ---
GI Follow-up Note Consult Follow-up Subjective: Patient sleepy but arouses easily. She still agrees to arteriography and embolization GDA. I discussed with Dr Waterman and Dr Aaron Cohn. Objective: PHYSICAL EXAMINATION: Vitals signs stable No fever ABDOMEN: Soft, nondistended, nontender Available Data (labs, X- Rays, Procedues) : Laboratory Tests Test 04/04/17 16:44 Hemoglobin 9.7 GM/DL (11.6-15.3) Hematocrit 30.9 % (35.0-46.0) ASSESSMENT/PLAN: 1. Large posterior bulbar duodenal ulcer with hx of bleeding-stool currently heme neg. IR will try to do procedure today and per Dr Cohn can start anticoagulation the following day. It was a pleasure seeing Laure Richardson. Thank you for this consult. Entered by: Norris Olivas MD Apr 05, 2017 08:10
--- NOTE | 2017-04-05 23:14 | HHI.PR ---
Subjective Remarks Follow up for acute embolic stroke, Afib with high [id number] score in a patient with a history of GI bleed. Mr. Richardson is sitting in her chair. Somewhat flat affect but denies any acute concerns. No fever, chills. Still no improvement of her left sided upper and lower ext. Objective Vitals Vital Signs Date Time Temp Pulse Resp B/P Pulse Ox O2 Delivery O2 Flow Rate FiO2 04/05/17 20:55 97.9 109 18 104/55 98 04/05/17 16:08 97.5 87 18 110/57 100 04/05/17 12:16 89 04/05/17 12:08 97.1 76 18 113/55 100 04/05/17 09:30 97 Nasal Cannula 2.00 04/05/17 08:04 98.1 82 17 121/70 97 04/05/17 04:00 97.9 78 18 114/68 96 04/05/17 01:18 98.1 87 18 118/61 100 I/O 04/04/17 04/04/17 04/04/17 04/05/17 04/05/17 04/05/17 06:59 14:59 22:59 06:59 14:59 22:59 Intake Total 480 ml Output Total 2 ml Balance -2 ml 480 ml Intake Oral 480 ml Output Urine Total 2 ml # Voids 3 1 2 2 # Bowel Movements 2 Result Diagram: 04/04/17 1644 04/01/17 0639 Imaging Last Impressions Head Magnetic Resonance Angiography 04/02/17 1000 Signed Impressions: Service Date/Time: Sunday, April 02, 2017 14:21 - CONCLUSION: 1. Severe stenosis or short segment occlusion of the right proximal anterior cerebral artery with reconstitution distally. 2. Diffuse narrowing of the posterior cerebral arteries bilaterally. 3. No significant stenosis or occlusion of the middle cerebral arteries. Andrey Garrison MD Brain MRI 04/02/17 1000 Signed Impressions: Service Date/Time: Sunday, April 02, 2017 14:21 - CONCLUSION: 1. Signal abnormalities involving the right anterior cerebral artery and to a lesser extent right middle cerebral artery distributions on the diffusion-weighted images indicating acute infarcts. Embolic etiologies should be considered due to the two distributions. 2. Mild periventricular and subcortical white matter small-vessel ischemic changes bilaterally. 3. Stable gliosis of the left posteroparietal lobe. Andrey Garrison MD Head CT 04/01/17 1010 Signed Impressions: Service Date/Time: Saturday, April 01, 2017 10:14 - CONCLUSION: Slight atrophic and small vessel ischemic changes without any evidence for acute hemorrhage or mass effect and old infarction on the left. Emery Greco MD Neck CTA 04/01/17 0000 Signed Impressions: Service Date/Time: Saturday, April 01, 2017 10:25 - CONCLUSION: No significant carotid stenosis. Spiculated right apical lung mass. Julius Higgins MD Head CTA 04/01/17 0000 Signed Impressions: Service Date/Time: Saturday, April 01, 2017 10:25 - CONCLUSION: Embolic occlusion right distal MCA. Harry Gutierrez MD FACR Cerebral Arteriogram 04/01/17 0000 Signed Impressions: Service Date/Time: Saturday, April 01, 2017 10:47 - CONCLUSION: Successful thromboembolectomy from the right middle cerebral artery as described in detail above. The anterior cerebral artery additionally occluded and could not be safely recanalized. Julius Higgins MD Foot X-Ray 03/31/172052 Signed Impressions: Service Date/Time: March 21:06 - CONCLUSION: 1. Relatively nondisplaced fractures through the distal third, fourth and fifth metatarsals. Fermin Moore MD Objective Remarks GENERAL: Alert, NAD. SKIN: Warm and dry. HEAD: Normocephalic. EYES: No scleral icterus. No injection or drainage. NECK: Supple, trachea midline. No JVD or lymphadenopathy. CARDIOVASCULAR: Irreg Irreg without murmurs, gallops, or rubs. RESPIRATORY: Breath sounds equal bilaterally. No accessory muscle use. GASTROINTESTINAL: Abdomen soft, non-tender, nondistended. MUSCULOSKELETAL: No cyanosis, or edema. Neuro: Unable to move left upper or lower ext. Speech is improved. BACK: Nontender without obvious deformity. No CVA tenderness. Procedures Echo 04/01/2017 Normal left ventricular size. There is assymetric septal hypertrophy. The left ventricular systolic function is severely reduced with an estimated ejection fraction in the range of 30-35%. The right ventricle is mildly dilated. The right ventricular systoilc function is normal. The left atrial size is dilated. The right atrial size is dilated. Severe mitral valve regurgitation. Mild aortic valve regurgitation. Moderate to severe tricuspid valve regurgitation. There is estimated mild pulmonary hypertension present (range 40-50 mmHg). The inferior vena cava is dilated. A/P Problem List: (1) Acute ischemic right MCA stroke ICD Code: I63.511 Status: Acute (2) Atrial fibrillation ICD Code: I48.91 Status: Chronic (3) Gastric ulcer ICD Code: K25.9 Status: Acute (4) Duodenal ulcer ICD Code: K26.9 Status: Acute (5) Hyperthyroidism ICD Code: E05.90 Status: Chronic (6) HTN (hypertension) ICD Code: I10 Status: Acute (7) Mass of upper lobe of right lung ICD Code: R91.8 Status: Acute Assessment and Plan Ms. Richardson is a 76 year old female with a history of Afib, HTN who was re- admitted on the same day she was discharged due to left foot pain after she slipped and fell. She was discharged earlier in the day after being treated for GI bleed. In the previous admission, she was found to have gastric and duodenal ulcers. She required 1 unit of PRBCs. Apixaban was discontinued. Aspirin was also not recommended due to GI bleed. Patient sustained a right MCA stroke this morning around 10AM. She underwent right MCA embolectomy. - Acute right MCA stroke. - Acute right PAM stroke. - Likely due to Afib related embolism. - Patient underwent stat CT head as well as CT neck and subsequently patient underwent right MCA thromboembolectomy. - Neurology is following. - Speech recommends mechanical soft, thin liquid diet. NPO in the AM for IR procedure. - Gastric ulcer - Duodenal ulcer - Continue IV Protonix. - Continue metoprolol crushed in applesauce. - Appreciate GI input. Patient may undergo elective Gastroduodenal artery embolization by IR. - Discussed with Dr. Beltran today. - Hemoglobin 10.3 --> 9.7. - Hypertension - Currently normotensive. If needed we will consider Amlodipine. - Atrial fibrillation - [id number] score would be 6 (Age, female, HTN, stroke, CHF). - Continue Metoprolol 25mg Q8hrs PO. - HAS-BLED score is 4. - Given patient's gastric ulcer, duodenal ulcer findings on EGD and [id number] score of 6 and HAS-BLED score of 4, it would be relatively more beneficial for the patient to consider Afib Anticoagulation in the near future. Possibly in 1-2 weeks, Apixaban 2.5mg BID could be considered. However, there is no easy reversal agent. Pradaxa would be a good consideration. - However, no anticoagulation at this point due to risk of hemorrhagic conversions. - IF anti-coagulation cannot be done, watchman device could be considered. - Non-ischemic cardiomyopathy - Echo shows EF 30-35%. - Continue Metoprolol. If BP tolerates, will consider KIRAN inhibitor as well. - Hyperthyroidism - Continue Methimazole 10mg Q8hrs. - Right upper lung spiculated mass - Slow growing. Patient will need to follow up with Dr. Ward (Pul). Full code. SCDs. Problem Qualifiers (1) Atrial fibrillation: Qualified Code: I48.2 - Chronic atrial fibrillation (2) HTN (hypertension): Qualified Code: I10 - Essential hypertension Preeti Waterman DO Apr 05, 2017 23:14
[2017-04-06] VITALS (11 sets, daily range): BP systolic 100–158; BP diastolic 54–88; PULSE 67–112; RESP 17–20; TEMP 97.3–98.2; O2SAT 90–100
[2017-04-06] MEDS: METOPROLOL TARTRATE 25 MG TAB PO SCH ×3 (04:37→21:13)
[2017-04-06] MEDS: METHIMAZOLE 10 MG TAB PO SCH ×3 (04:56→21:13)
[2017-04-06] MEDS: SUCRALFATE 1 GM/10 ML CUP PO SCH ×4 (06:01→21:14)
[2017-04-06] MEDS: DOCUSATE SODIUM 100 MG/10 ML UDC PO SCH (06:01)
--- NOTE | 2017-04-06 06:43 | HHI.GIFU ---
GI Follow-up Note Consult Follow-up Subjective: Patient laying in bed comfortably, was not able to have IR procedure yesterday. Pt going to IR today. feel ok no c/o Objective: PHYSICAL EXAMINATION: Vitals signs stable No fever HEENT: Pupils round and reactive to light; normocephalic; atraumatic; no jaundice. Throat is clear. NECK: Neck is supple, no JVD, no lymphadenopathy. CHEST: Chest is clear to auscultation and percussion. CARDIAC: Regular rate and rhythm ABDOMEN: Soft, nondistended, nontender; no hepatosplenomegaly; bowel sounds are present in all four quadrants. EXTREMITIES: No clubbing, cyanosis, or edema. SKIN: Normal; no rash; no jaundice. labs, X- Rays, Procedures: reviewed. ASSESSMENT/PLAN: 1. Large posterior bulbar duodenal ulcer with hx of bleeding-stool currently heme neg. 2. Recent CVA PLAN: 1. IR for possible Embol to GDA today 2. Per Dr Cohn can start anticoagulation the following day. 3. Continue Protonix 40 mg po daily 4. Continue Carafate 1 gm po QID 5. Monitor for s/s of gi bleeding once anticoag has been started. It was a pleasure seeing Laure Richardson. Thank you for this consult. Entered by: Devonte Ang MD Apr 06, 2017 6:43 am
[2017-04-06] MEDS: PANTOPRAZOLE SODIUM 40 MG VIAL IV PUSH SCH ×2 (07:35→21:13)
[2017-04-06] MEDS: SODIUM CHLORIDE 0.9% FLUSH 10 ML FLUSH IV FLUSH SCH ×2 (07:35→21:00)
[2017-04-06] MEDS ORDERED: MIDAZOLAM HCL 2 MG/2 ML VIAL ONE (13:56)
[2017-04-06] MEDS ORDERED: fentaNYL CITRATE 250 MCG/5 ML AMP ONE (13:56)
[2017-04-06] MEDS ORDERED: VERAPAMIL HCL 5 MG/2 ML VIAL ONE (13:56)
[2017-04-06] MEDS ORDERED: GELATIN 12 MM/7 MM FOAM I-ARTERIAL ONE (15:42)
[2017-04-06] MEDS ORDERED: IOHEXOL 350 MG/ML 50 ML BTL (for RAD DIAG) ONE (15:42)
--- NOTE | 2017-04-06 17:00 | HHI.PR ---
Subjective Remarks Follow up for acute embolic stroke, Afib with high [id number] score in a patient with a history of GI bleed. Ms. Richardson is doing well. She was seen before she went to IR for gastroduodenal artery embolization. Patient is doing well. No acute concerns. Friend at bedside. Today is the first day, she was able to move her left fingers slightly. No movement of the left lower ext. Objective Vitals Vital Signs Date Time Temp Pulse Resp B/P Pulse Ox O2 Delivery O2 Flow Rate FiO2 04/06/17 15:40 97.3 98 18 158/88 93 04/06/17 12:02 97.5 67 17 123/63 94 04/06/17 08:09 97.9 93 18 118/68 94 04/06/17 07:56 112 04/06/17 04:07 98.2 90 18 100/54 90 04/05/17 23:41 98.1 101 16 105/56 98 04/05/17 20:55 97.9 109 18 104/55 98 I/O 04/05/17 04/05/17 04/05/17 04/06/17 04/06/17 04/06/17 07:00 15:00 23:00 07:00 15:00 23:00 Intake Total 480 ml 240 ml Balance 480 ml 240 ml Intake Oral 480 ml 240 ml # Voids 2 2 2 Result Diagram: 04/04/17 1644 Imaging Last Impressions Head Magnetic Resonance Angiography 04/02/17 1000 Signed Impressions: Service Date/Time: Sunday, April 02, 2017 14:21 - CONCLUSION: 1. Severe stenosis or short segment occlusion of the right proximal anterior cerebral artery with reconstitution distally. 2. Diffuse narrowing of the posterior cerebral arteries bilaterally. 3. No significant stenosis or occlusion of the middle cerebral arteries. Andrey Garrison MD Brain MRI 04/02/17 1000 Signed Impressions: Service Date/Time: Sunday, April 02, 2017 14:21 - CONCLUSION: 1. Signal abnormalities involving the right anterior cerebral artery and to a lesser extent right middle cerebral artery distributions on the diffusion-weighted images indicating acute infarcts. Embolic etiologies should be considered due to the two distributions. 2. Mild periventricular and subcortical white matter small-vessel ischemic changes bilaterally. 3. Stable gliosis of the left posteroparietal lobe. Andrey Garrison MD Head CT 04/01/17 1010 Signed Impressions: Service Date/Time: Saturday, April 01, 2017 10:14 - CONCLUSION: Slight atrophic and small vessel ischemic changes without any evidence for acute hemorrhage or mass effect and old infarction on the left. Emery Greco MD Neck CTA 04/01/17 0000 Signed Impressions: Service Date/Time: Saturday, April 01, 2017 10:25 - CONCLUSION: No significant carotid stenosis. Spiculated right apical lung mass. Julius Higgins MD Head CTA 04/01/17 0000 Signed Impressions: Service Date/Time: Saturday, April 01, 2017 10:25 - CONCLUSION: Embolic occlusion right distal MCA. Harry Gutierrez MD FACR Cerebral Arteriogram 04/01/17 0000 Signed Impressions: Service Date/Time: Saturday, April 01, 2017 10:47 - CONCLUSION: Successful thromboembolectomy from the right middle cerebral artery as described in detail above. The anterior cerebral artery additionally occluded and could not be safely recanalized. Julius Higgins MD Foot X-Ray 03/31/172052 Signed Impressions: Service Date/Time: March 21:06 - CONCLUSION: 1. Relatively nondisplaced fractures through the distal third, fourth and fifth metatarsals. Fermin Moore MD Objective Remarks GENERAL: Alert, NAD. SKIN: Warm and dry. HEAD: Normocephalic. EYES: No scleral icterus. No injection or drainage. NECK: Supple, trachea midline. No JVD or lymphadenopathy. CARDIOVASCULAR: Irreg Irreg without murmurs, gallops, or rubs. RESPIRATORY: Breath sounds equal bilaterally. No accessory muscle use. GASTROINTESTINAL: Abdomen soft, non-tender, nondistended. MUSCULOSKELETAL: No cyanosis, or edema. Neuro: Unable to move lower ext. Slight left sided finger movements. Speech is improved. BACK: Nontender without obvious deformity. No CVA tenderness. Procedures Echo 04/01/2017 Normal left ventricular size. There is assymetric septal hypertrophy. The left ventricular systolic function is severely reduced with an estimated ejection fraction in the range of 30-35%. The right ventricle is mildly dilated. The right ventricular systoilc function is normal. The left atrial size is dilated. The right atrial size is dilated. Severe mitral valve regurgitation. Mild aortic valve regurgitation. Moderate to severe tricuspid valve regurgitation. There is estimated mild pulmonary hypertension present (range 40-50 mmHg). The inferior vena cava is dilated. A/P Problem List: (1) Acute ischemic right MCA stroke ICD Code: I63.511 Status: Acute (2) Atrial fibrillation ICD Code: I48.91 Status: Chronic (3) Gastric ulcer ICD Code: K25.9 Status: Acute (4) Duodenal ulcer ICD Code: K26.9 Status: Acute (5) Hyperthyroidism ICD Code: E05.90 Status: Chronic (6) HTN (hypertension) ICD Code: I10 Status: Acute (7) Mass of upper lobe of right lung ICD Code: R91.8 Status: Acute Assessment and Plan Ms. Richardson is a 76 year old female with a history of Afib, HTN who was re- admitted on the same day she was discharged due to left foot pain after she slipped and fell. She was discharged earlier in the day after being treated for GI bleed. In the previous admission, she was found to have gastric and duodenal ulcers. She required 1 unit of PRBCs. Apixaban was discontinued. Aspirin was also not recommended due to GI bleed. Patient sustained a right MCA stroke this morning around 10AM. She underwent right MCA embolectomy. - Acute right MCA stroke. - Acute right PAM stroke. - Likely due to Afib related embolism. - Patient underwent stat CT head as well as CT neck and subsequently patient underwent right MCA thromboembolectomy. - Neurology is following. - Speech recommends mechanical soft, thin liquid diet. - Gastric ulcer - Duodenal ulcer - Continue IV Protonix. - Continue metoprolol crushed in applesauce. - Appreciate GI input. Patient to undergo elective Gastroduodenal artery embolization by IR this afternoon. - Hemoglobin 10.3 --> 9.7. - Hypertension - Currently normotensive. If needed we will consider Amlodipine. - Atrial fibrillation - [id number] score would be 6 (Age, female, HTN, stroke, CHF). - Continue Metoprolol 25mg Q8hrs PO. - HAS-BLED score is 4. - Given patient's gastric ulcer, duodenal ulcer findings on EGD and [id number] score of 6 and HAS-BLED score of 4, it would be relatively more beneficial for the patient to consider Afib Anticoagulation in the near future. Possibly in 1-2 weeks, Apixaban 2.5mg BID could be considered. However, there is no easy reversal agent. Pradaxa would be a good consideration. - However, no anticoagulation at this point due to risk of hemorrhagic conversions. - IF anti-coagulation cannot be done, watchman device could be considered. - We can probably start anti-coagulation on 04/07/2017 IF okay with Neurology. Will discuss with neurology. - Non-ischemic cardiomyopathy - Echo shows EF 30-35%. - Continue Metoprolol. If BP tolerates, will consider KIRAN inhibitor as well. - Hyperthyroidism - Continue Methimazole 10mg Q8hrs. - Right upper lung spiculated mass - Slow growing. Patient will need to follow up with Dr. Ward ([facility]). Full code. SCDs. Problem Qualifiers (1) Atrial fibrillation: Qualified Code: I48.2 - Chronic atrial fibrillation (2) HTN (hypertension): Qualified Code: I10 - Essential hypertension Preeti Waterman DO Apr 06, 2017 17:00
--- NOTE | 2017-04-06 17:12 | PD.RAD ---
Post Procedure Progress Note Pre Procedure Diagnosis: (1) Duodenal ulcer Post Procedure Diagnosis: (1) Duodenal ulcer Procedure Date: Apr 06, 2017 Supervising Radiologist: Gian Duarte Proceduralist/Assist: Gloria Stringer, RT(R), Heike Salamanca RT(R)() Anesthesia: Conscious Sedation Plan of Activity Patient to Unit: Nursing Unit Patient Condition: Good Additional Comments: No active bleeding. GDA coil embolized with good result. See PACS Report for procedural detail/treatment Gian Duarte MD Apr 06, 2017 17:12
[2017-04-07] VITALS (7 sets, daily range): BP systolic 114–136; BP diastolic 56–87; PULSE 75–121; RESP 16–18; TEMP 97.3–98.4; O2SAT 92–98
[2017-04-07] MEDS: METOPROLOL TARTRATE 25 MG TAB PO SCH ×3 (05:33→21:30)
[2017-04-07] MEDS: SUCRALFATE 1 GM/10 ML CUP PO SCH ×4 (05:33→21:30)
[2017-04-07] MEDS: METHIMAZOLE 10 MG TAB PO SCH ×3 (05:33→21:30)
[2017-04-07] MEDS: SODIUM CHLORIDE 0.9% FLUSH 10 ML FLUSH IV FLUSH SCH ×2 (09:14→21:31)
[2017-04-07] MEDS: PANTOPRAZOLE SODIUM 40 MG VIAL IV PUSH SCH ×2 (09:14→21:30)
[2017-04-07] MEDS: DOCUSATE SODIUM 100 MG/10 ML UDC PO SCH (09:14)
--- NOTE | 2017-04-07 09:21 | RADRPT ---
EXAM DATE/TIME: 04/06/2017 14:18 [facility] COMPARISON: CT ABDOMEN & PELVIS W CONTRAST, March 03, 2016, 11:35. INDICATIONS : 76-year-old female with history of duodenal ulcer and GI hemorrhage complicated by CVA following cess ation of anticoagulation for A. fib. Therefore, patient will need to resume anticoagulation and there is concern for significant persistent hemorrhage. Prophylactic GDA embolization has been requested. MEDICAL HISTORY : Stroke, A-Fib, Left foot fx, HTN, COPD, CHF, PUD, Hyperthyroidism, Prediabetes SURGICAL HISTORY : Right MCA thromboembolectomy, EGD ENCOUNTER: Initial ACUITY: 4-6 days PAIN SCORE: 0/10 FLUORO TIME: 16.1 minutes IMAGE SERIES: 5 ACCESS SITE: Left radial artery SEDATION TIME: 60 minutes CONTRAST: 1.) 60 cc Omnipaque (iohexol) 350 MEDICATION(S): 1.) 1.5 mg midazolam (Versed) IV 2.) 75 mcg fentanyl (Sublimaze) IV DEVICE(S): 1.) gastroduodenal artery Interlock 2D [id number] embolic coil(s) 2.) gastroduodenal artery Interlock 2D [id number] embolic coil(s) 3.) gastroduodenal artery Interlock 2D [id number] embolic coil(s) 4.) gastroduodenal artery 12-7MM Gelfoam 5.) Left radial artery Radial pressure band PROCEDURE : 1. Ultrasound-guided puncture of the access site. 2. Conscious sedation with continuous EKG and Oximetry monitoring. 3. Selective catheter placement in the common hepatic artery with selective angiography 4. Subsequent catheter placement in the gastroduodenal artery with subselective angiography 5. Coil embolization of the gastroduodenal artery The risks, benefits and alternatives to the procedure were explained and verbal and written consent w as obtained. The site was prepped in sterile fashion. Full sterile technique was used, including ca p, mask, sterile gloves and gown and a large sterile sheet. Hand hygiene and 2% chlorhexidine and/or betadine/alcohol prep was utilized per protocol for cutaneous antisepsis. The skin and subcutaneous tissues were infiltrated with local anesthetic solution. Patient passed a Barbeau test on the left. Examination of the left radial artery demonstrated the art kiana to be patent. Single image was obtained and placed in the archive. Micropuncture needle was advan lucy into the left radial artery under direct ultrasound guidance and subsequently exchanged for same 4 Montenegrin sheath. A 4 Montenegrin Lee catheter was then advanced into the celiac artery and additiona l advanced into the proximal common hepatic artery and angiography was performed. This demonstrated a widely patent gastroduodenal artery and suspected right gastric artery arising from the proximal com mon hepatic artery. No evidence for extravasation. Renegade microcatheter and Fathom 16 wire were the n advanced into the gastroduodenal artery. Angiography was performed. Again, no significant extravasa tion was demonstrated. Next, the gastroduodenal artery was embolized with 3 interlocking coils and a small amount of Gelfoam. Followup angiography demonstrated good anesthetic result with stasis of flow in the proximal gastroduodenal artery. Wires and catheters were then removed. Hemostasis was obtaine d with a radial compression device. The patient tolerated the procedure well and there were no complications. Conscious sedation was performed with the prescribed dosages and duration as above in the presence of an independent trained radiology nurse to assist in the monitoring of the patient. EKG and oximetry remained stable throughout the procedure. CONCLUSION: 1. No evidence for active hemorrhage from the celiac territory. 2. Technically successful prophylactic coil and Gelfoam embolization of the gastroduodenal artery, as above. Gian Duarte MD on April 07, 2017 at 9:11 Board Certified Radiologist. This report was verified electronically.
--- NOTE | 2017-04-07 18:43 | HHI.PR ---
Subjective Remarks Follow up for acute embolic stroke, Afib with high [id number] score in a patient with a history of GI bleed. Patient is s/p gastroduodenal artery embolization per IR on 04.06.2017. Pt is currently doing well, sitting in her chair. 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 Objective Vitals Vital Signs Date Time Temp Pulse Resp B/P Pulse Ox O2 Delivery O2 Flow Rate FiO2 04/07/17 16:00 97.3 107 18 128/71 98 04/07/17 12:00 97.3 90 18 125/77 96 04/07/17 09:00 121 04/07/17 08:00 98.0 109 18 116/56 94 04/07/17 04:00 97.8 108 18 114/73 94 04/07/17 01:05 97.3 99 18 123/66 95 04/06/17 21:04 97.5 88 18 131/73 94 I/O 04/06/17 04/06/17 04/06/17 04/07/17 04/07/17 04/07/17 06:59 14:59 22:59 06:59 14:59 22:59 Intake Total 240 ml 240 ml Balance 240 ml 240 ml Intake Oral 240 ml 240 ml # Voids 2 4 2 # Bowel Movements 3 3 1 Result Diagram: 04/04/17 1644 Imaging Last Impressions Abdomen Arteriogram 04/06/17 0000 Signed Impressions: Service Date/Time: Thursday, April 06, 2017 14:18 - CONCLUSION: 1. No evidence for active hemorrhage from the celiac territory. 2. Technically successful prophylactic coil and Gelfoam embolization of the gastroduodenal artery, as above. Gian Duarte MD Head Magnetic Resonance Angiography 04/02/17 1000 Signed Impressions: Service Date/Time: Sunday, April 02, 2017 14:21 - CONCLUSION: 1. Severe stenosis or short segment occlusion of the right proximal anterior cerebral artery with reconstitution distally. 2. Diffuse narrowing of the posterior cerebral arteries bilaterally. 3. No significant stenosis or occlusion of the middle cerebral arteries. Andrey Garrison MD Brain MRI 04/02/17 1000 Signed Impressions: Service Date/Time: Sunday, April 02, 2017 14:21 - CONCLUSION: 1. Signal abnormalities involving the right anterior cerebral artery and to a lesser extent right middle cerebral artery distributions on the diffusion-weighted images indicating acute infarcts. Embolic etiologies should be considered due to the two distributions. 2. Mild periventricular and subcortical white matter small-vessel ischemic changes bilaterally. 3. Stable gliosis of the left posteroparietal lobe. Andrey Garrison MD Head CT 04/01/17 1010 Signed Impressions: Service Date/Time: Saturday, April 01, 2017 10:14 - CONCLUSION: Slight atrophic and small vessel ischemic changes without any evidence for acute hemorrhage or mass effect and old infarction on the left. Emery Greco MD Neck CTA 04/01/17 0000 Signed Impressions: Service Date/Time: Saturday, April 01, 2017 10:25 - CONCLUSION: No significant carotid stenosis. Spiculated right apical lung mass. Julius Higgins MD Head CTA 04/01/17 0000 Signed Impressions: Service Date/Time: Saturday, April 01, 2017 10:25 - CONCLUSION: Embolic occlusion right distal MCA. Harry Gutierrez MD FACR Cerebral Arteriogram 04/01/17 0000 Signed Impressions: Service Date/Time: Saturday, April 01, 2017 10:47 - CONCLUSION: Successful thromboembolectomy from the right middle cerebral artery as described in detail above. The anterior cerebral artery additionally occluded and could not be safely recanalized. Julius Higgins MD Foot X-Ray 03/31/172052 Signed Impressions: Service Date/Time: March 21:06 - CONCLUSION: 1. Relatively nondisplaced fractures through the distal third, fourth and fifth metatarsals. Fermin Moore MD Objective Remarks GENERAL: Alert, NAD. SKIN: Warm and dry. HEAD: Normocephalic. EYES: No scleral icterus. No injection or drainage. NECK: Supple, trachea midline. No JVD or lymphadenopathy. CARDIOVASCULAR: Irreg Irreg without murmurs, gallops, or rubs. RESPIRATORY: Breath sounds equal bilaterally. No accessory muscle use. GASTROINTESTINAL: Abdomen soft, non-tender, nondistended. MUSCULOSKELETAL: No cyanosis, or edema. Neuro: Unable to move lower ext. Slight left sided finger movements. Speech is improved. BACK: Nontender without obvious deformity. No CVA tenderness. Procedures Echo 04/01/2017 Normal left ventricular size. There is assymetric septal hypertrophy. The left ventricular systolic function is severely reduced with an estimated ejection fraction in the range of 30-35%. The right ventricle is mildly dilated. The right ventricular systoilc function is normal. The left atrial size is dilated. The right atrial size is dilated. Severe mitral valve regurgitation. Mild aortic valve regurgitation. Moderate to severe tricuspid valve regurgitation. There is estimated mild pulmonary hypertension present (range 40-50 mmHg). The inferior vena cava is dilated. 04/01/2017 Embolectomy by IR 04/06/2017 Elective Gastroduodenal artery embolization by IR A/P Problem List: (1) Acute ischemic right MCA stroke ICD Code: I63.511 Status: Acute (2) Atrial fibrillation ICD Code: I48.91 Status: Chronic (3) Gastric ulcer ICD Code: K25.9 Status: Acute (4) Duodenal ulcer ICD Code: K26.9 Status: Acute (5) Hyperthyroidism ICD Code: E05.90 Status: Chronic (6) HTN (hypertension) ICD Code: I10 Status: Acute (7) Mass of upper lobe of right lung ICD Code: R91.8 Status: Acute Assessment and Plan Ms. Richardson is a 76 year old female with a history of Afib, HTN who was re- admitted on the same day she was discharged due to left foot pain after she slipped and fell. She was discharged earlier in the day after being treated for GI bleed. In the previous admission, she was found to have gastric and duodenal ulcers. She required 1 unit of PRBCs. Apixaban was discontinued. Aspirin was also not recommended due to GI bleed. Patient sustained a right MCA stroke this morning around 10AM. She underwent right MCA embolectomy. - Acute right MCA stroke. - Acute right PAM stroke. - Likely due to Afib related embolism. - Patient underwent stat CT head as well as CT neck and subsequently patient underwent right MCA thromboembolectomy. - Neurology is following. - Speech recommends mechanical soft, thin liquid diet. - Discussed with Neurology who recommended low dose Pradaxa start date 10 days after stroke. - Will plan on starting Pradaxa 75mg BID on 04/12/2017. - Gastric ulcer - Duodenal ulcer - Continue IV Protonix, will switch to PO from AM. - Continue metoprolol crushed in applesauce. - Appreciate GI input. Patient underwent elective Gastroduodenal artery embolization by IR on 04/06/2017. - Hemoglobin 10.3 --> 9.7. - As stated above, we will plan on starting Pradaxa 75mg BID on 04/12/2017. - Must repeat CT head w/o contrast prior to starting anti-coagulation. - Hypertension - Currently normotensive. If needed we will consider Amlodipine. - Atrial fibrillation - [id number] score would be 6 (Age, female, HTN, stroke, CHF). - Increase metoprolol from 25mg Q8hrs to 50mg BID. - HAS-BLED score is 4. - Given patient's gastric ulcer, duodenal ulcer findings on EGD and [id number] score of 6 and HAS-BLED score of 4, it would be relatively more beneficial for the patient to consider Afib Anticoagulation in the near future. Possibly in 1-2 weeks, Apixaban 2.5mg BID could be considered. However, there is no easy reversal agent. Pradaxa would be a good consideration. - However, no anticoagulation at this point due to risk of hemorrhagic conversions. - We can likely discharge patient to [facility] on 04/08/2017 and start Anti- coagulation on 04/12/2017. - Non-ischemic cardiomyopathy - Echo shows EF 30-35%. - Continue Metoprolol. If BP tolerates, will consider KIRAN inhibitor as well. - Hyperthyroidism - Continue Methimazole 10mg Q8hrs. - Right upper lung spiculated mass - Slow growing. Patient will need to follow up with Dr. Ward ([facility]). Full code. SCDs. Problem Qualifiers (1) Atrial fibrillation: Qualified Code: I48.2 - Chronic atrial fibrillation (2) HTN (hypertension): Qualified Code: I10 - Essential hypertension Preeti Waterman DO Apr 07, 2017 18:42
[2017-04-08] VITALS (7 sets, daily range): BP systolic 117–146; BP diastolic 73–87; PULSE 96–108; RESP 18–24; TEMP 97.5–98.4; O2SAT 94–100
[2017-04-08] MEDS: SUCRALFATE 1 GM/10 ML CUP PO SCH ×3 (06:10→16:39)
[2017-04-08] MEDS: METHIMAZOLE 10 MG TAB PO SCH ×2 (06:11→13:28)
--- NOTE | 2017-04-08 08:04 | HHI.PR ---
Review/Management Diagnosis/Plan: (1) Acute ischemic right MCA stroke Plan: s/p IR rt mca embolectomy 04/01 persistent rt miguel occlusion stroke pattern suggestive of rt mca stroke-moderate mri /mra brain images reviewed recs oac 04/[address] brain is done and negative for ICH watch for recurrent GIB neuro stable- a little better strength in her left arm rehab planning today d/w medical yesterday (2) Chronic ischemic left MCA stroke Plan: likely cardioembolic carotids nml (3) Atrial fibrillation (4) GI bleed (5) Metatarsal bone fracture (6) Lung mass (7) HTN (hypertension) Subjective Subjective Comments No acute events reported No headache No chest pain No dyspnea Active Medications Current Medications Medications (Trade) Dose Ordered Sig/Ezio Route Start Time Stop Time Status Last Admin (NS Flush) 2 ml UNSCH PRN IV FLUSH 03/31/17 22:45 (NS Flush) 2 ml BID IV FLUSH 04/01/17 09:00 04/07/17 21:31 (Narcan Inj) 0.4 mg UNSCH PRN IV 03/31/17 22:45 (Tapazole) 10 mg Q8HR PO 04/01/17 14:00 04/08/17 06:11 (Lopressor Inj) 5 mg Q6H PRN IV PUSH 04/01/17 19:00 (Carafate Liq) 1 gm ACHS PO 04/02/17 21:00 04/08/17 06:10 (Colace Liq) 100 mg DAILY PO 04/05/17 09:00 (Protonix) 40 mg Q12HR PO 04/08/17 09:00 (Lopressor) 50 mg BID PO 04/08/17 09:00 Allergies Allergies Coded Allergies No Known Allergies (Verified03/26/17) Review of Systems All other ROS: ROS reviewed as documented in chart Exam I&O / VS 04/07/17 04/07/17 04/08/17 15:00 23:00 07:00 Intake Total 240 ml Balance 240 ml Intake Oral 240 ml # Voids 2 4 # Bowel Movements 3 1 3 Vital Signs Date Time Temp Pulse Resp B/P Pulse Ox O2 Delivery O2 Flow Rate FiO2 04/08/17 04:47 98.4 108 20 146/80 94 04/08/17 01:38 97.5 104 18 117/84 94 04/08/17 01:13 101 04/07/17 21:09 97.8 106 18 136/87 93 04/07/17 16:00 97.3 107 18 128/71 98 04/07/17 12:00 97.3 90 18 125/77 96 04/07/17 09:00 121 General: No acute distress Neurologic: Alert Exam Comments alert, ox 2, not to date, speech clear, ou 3-2mm, vff, left arm was able to briefly lift it 0-2/5, leg 0/5, mild left neglect Objective Micro and Labs Date/Time Procedure Status Source Growth 04/04/17 10:05 Stool Occult Blood (EVI) - Final Complete Stool Stool HEMOCCULT NEGATIVE Problem Qualifiers (1) Atrial fibrillation: Qualified Code: I48.2 - Chronic atrial fibrillation (2) GI bleed: Qualified Code: K92.2 - Gastrointestinal hemorrhage, unspecified gastrointestinal hemorrhage type (3) Metatarsal bone fracture: Qualified Code: S92.302A - Closed nondisplaced fracture of metatarsal bone of left foot, unspecified metatarsal, initial encounter (4) HTN (hypertension): Qualified Code: I10 - Essential hypertension Manuel Villa MD Apr 08, 2017 08:04
[2017-04-08] MEDS ORDERED: PANTOPRAZOLE SOD 40 MG DELAYED RELEASE TAB PO SCH (09:00)
[2017-04-08] MEDS ORDERED: METOPROLOL TARTRATE 25 MG TAB PO SCH (09:00)
[2017-04-08] MEDS: DOCUSATE SODIUM 100 MG/10 ML UDC PO SCH (09:52)
[2017-04-08] MEDS: SODIUM CHLORIDE 0.9% FLUSH 10 ML FLUSH IV FLUSH SCH (09:52)
--- NOTE | 2017-04-08 12:34 | HHI.PR ---
Subjective Remarks Follow up for acute embolic stroke. Patient is resting well. She is able to move her left arm little more. No movement of her left lower ext. No fever, chills. Objective Vitals Vital Signs Date Time Temp Pulse Resp B/P Pulse Ox O2 Delivery O2 Flow Rate FiO2 04/08/17 12:26 98 04/08/17 12:25 97.6 103 24 122/73 94 04/08/17 08:45 97.5 98 24 124/87 100 04/08/17 04:47 98.4 108 20 146/80 94 04/08/17 01:38 97.5 104 18 117/84 94 04/08/17 01:13 101 04/07/17 21:09 97.8 106 18 136/87 93 04/07/17 16:00 97.3 107 18 128/71 98 I/O 04/07/17 04/07/17 04/07/17 04/08/17 04/08/17 04/08/17 06:59 14:59 22:59 06:59 14:59 22:59 Intake Total 240 ml Balance 240 ml Intake Oral 240 ml # Voids 4 2 4 1 # Bowel Movements 3 3 1 3 Result Diagram: 04/04/17 1644 Imaging Last Impressions Abdomen Arteriogram 04/06/17 0000 Signed Impressions: Service Date/Time: Thursday, April 06, 2017 14:18 - CONCLUSION: 1. No evidence for active hemorrhage from the celiac territory. 2. Technically successful prophylactic coil and Gelfoam embolization of the gastroduodenal artery, as above. Gian Duarte MD Head Magnetic Resonance Angiography 04/02/17 1000 Signed Impressions: Service Date/Time: Sunday, April 02, 2017 14:21 - CONCLUSION: 1. Severe stenosis or short segment occlusion of the right proximal anterior cerebral artery with reconstitution distally. 2. Diffuse narrowing of the posterior cerebral arteries bilaterally. 3. No significant stenosis or occlusion of the middle cerebral arteries. Andrey Garrison MD Brain MRI 04/02/17 1000 Signed Impressions: Service Date/Time: Sunday, April 02, 2017 14:21 - CONCLUSION: 1. Signal abnormalities involving the right anterior cerebral artery and to a lesser extent right middle cerebral artery distributions on the diffusion-weighted images indicating acute infarcts. Embolic etiologies should be considered due to the two distributions. 2. Mild periventricular and subcortical white matter small-vessel ischemic changes bilaterally. 3. Stable gliosis of the left posteroparietal lobe. Adnrey Garrison MD Head CT 04/01/17 1010 Signed Impressions: Service Date/Time: Saturday, April 01, 2017 10:14 - CONCLUSION: Slight atrophic and small vessel ischemic changes without any evidence for acute hemorrhage or mass effect and old infarction on the left. Emery Greco MD Neck CTA 04/01/17 0000 Signed Impressions: Service Date/Time: Saturday, April 01, 2017 10:25 - CONCLUSION: No significant carotid stenosis. Spiculated right apical lung mass. Julius Higgins MD Head CTA 04/01/17 0000 Signed Impressions: Service Date/Time: Saturday, April 01, 2017 10:25 - CONCLUSION: Embolic occlusion right distal MCA. Harry Gutierrez MD FACR Cerebral Arteriogram 04/01/17 0000 Signed Impressions: Service Date/Time: Saturday, April 01, 2017 10:47 - CONCLUSION: Successful thromboembolectomy from the right middle cerebral artery as described in detail above. The anterior cerebral artery additionally occluded and could not be safely recanalized. Julius Higgins MD Foot X-Ray 03/31/172052 Signed Impressions: Service Date/Time: March 21:06 - CONCLUSION: 1. Relatively nondisplaced fractures through the distal third, fourth and fifth metatarsals. Fermin Moore MD Objective Remarks GENERAL: Alert, NAD. SKIN: Warm and dry. HEAD: Normocephalic. EYES: No scleral icterus. No injection or drainage. NECK: Supple, trachea midline. No JVD or lymphadenopathy. CARDIOVASCULAR: Irreg Irreg without murmurs, gallops, or rubs. RESPIRATORY: Breath sounds equal bilaterally. No accessory muscle use. GASTROINTESTINAL: Abdomen soft, non-tender, nondistended. MUSCULOSKELETAL: No cyanosis, or edema. Neuro: Unable to move lower ext. Slight left sided finger movements. Speech is improved. BACK: Nontender without obvious deformity. No CVA tenderness. Procedures Echo 04/01/2017 Normal left ventricular size. There is assymetric septal hypertrophy. The left ventricular systolic function is severely reduced with an estimated ejection fraction in the range of 30-35%. The right ventricle is mildly dilated. The right ventricular systoilc function is normal. The left atrial size is dilated. The right atrial size is dilated. Severe mitral valve regurgitation. Mild aortic valve regurgitation. Moderate to severe tricuspid valve regurgitation. There is estimated mild pulmonary hypertension present (range 40-50 mmHg). The inferior vena cava is dilated. 04/01/2017 Embolectomy by IR 04/06/2017 Elective Gastroduodenal artery embolization by IR A/P Problem List: (1) Acute ischemic right MCA stroke ICD Code: I63.511 Status: Acute (2) Atrial fibrillation ICD Code: I48.91 Status: Chronic (3) Gastric ulcer ICD Code: K25.9 Status: Acute (4) Duodenal ulcer ICD Code: K26.9 Status: Acute (5) Hyperthyroidism ICD Code: E05.90 Status: Chronic (6) HTN (hypertension) ICD Code: I10 Status: Acute (7) Mass of upper lobe of right lung ICD Code: R91.8 Status: Acute Assessment and Plan Ms. Richardson is a 76 year old female with a history of Afib, HTN who was re- admitted on the same day she was discharged due to left foot pain after she slipped and fell. She was discharged earlier in the day after being treated for GI bleed. In the previous admission, she was found to have gastric and duodenal ulcers. She required 1 unit of PRBCs. Apixaban was discontinued. Aspirin was also not recommended due to GI bleed. Patient sustained a right MCA stroke this morning around 10AM. She underwent right MCA embolectomy. - Acute right MCA stroke. - Acute right PAM stroke. - Likely due to Afib related embolism. - Patient underwent stat CT head as well as CT neck and subsequently patient underwent right MCA thromboembolectomy. - Neurology is following. - Speech recommends mechanical soft, thin liquid diet. - Discussed with Neurology who recommended low dose Pradaxa start date 10 days after stroke. - Will plan on starting Pradaxa 75mg BID on 04/12/2017. CT Head without contrast before starting Pradaxa. - Gastric ulcer - Duodenal ulcer - Continue IV Protonix, will switch to PO from AM. - Continue metoprolol crushed in applesauce. - Appreciate GI input. Patient underwent elective Gastroduodenal artery embolization by IR on 04/06/2017. - Hemoglobin 10.3 --> 9.7. - As stated above, we will plan on starting Pradaxa 75mg BID on 04/12/2017. - Must repeat CT head w/o contrast prior to starting anti-coagulation. - Hypertension - Currently normotensive. If needed we will consider Amlodipine. - Atrial fibrillation - [id number] score would be 6 (Age, female, HTN, stroke, CHF). - Increase metoprolol from 25mg Q8hrs to 50mg BID. - HAS-BLED score is 4. - Given patient's gastric ulcer, duodenal ulcer findings on EGD and [id number] score of 6 and HAS-BLED score of 4, it would be relatively more beneficial for the patient to consider Afib Anticoagulation in the near future. Possibly in 1-2 weeks, Apixaban 2.5mg BID could be considered. However, there is no easy reversal agent. Pradaxa would be a good consideration. - However, no anticoagulation at this point due to risk of hemorrhagic conversions. - We can likely discharge patient to [place] on 04/08/2017 and start Anti- coagulation on 04/12/2017. - Non-ischemic cardiomyopathy - Echo shows EF 30-35%. - Continue Metoprolol. If BP tolerates, will consider KIRAN inhibitor as well. - Hyperthyroidism - Continue Methimazole 10mg Q8hrs. - Right upper lung spiculated mass - Slow growing. Patient will need to follow up with Dr. Ward (Pul). Full code. SCDs. Problem Qualifiers (1) Atrial fibrillation: Qualified Code: I48.2 - Chronic atrial fibrillation (2) HTN (hypertension): Qualified Code: I10 - Essential hypertension Preeti Waterman DO Apr 08, 2017 12:34
[2017-04-08] MEDS ORDERED: METH5TAB4 PO (13:22)
[2017-04-08] MEDS ORDERED: METO25TA3 PO (13:22)
--- NOTE | 2017-04-08 13:24 | HHI.DS ---
Discharge Summary Admission Date Apr 01, 2017 at 10:58 Discharge Date: Apr 08, 2017 Admitting Diagnosis left foot fracture (1) Acute ischemic right MCA stroke ICD Code: I63.511 Diagnosis: Principal (2) Atrial fibrillation ICD Code: I48.91 Diagnosis: Principal (3) Gastric ulcer ICD Code: K25.9 Diagnosis: Principal (4) Duodenal ulcer ICD Code: K26.9 (5) Hyperthyroidism ICD Code: E05.90 (6) HTN (hypertension) ICD Code: I10 (7) Mass of upper lobe of right lung ICD Code: R91.8 Procedures Echo 04/01/2017 Normal left ventricular size. There is assymetric septal hypertrophy. The left ventricular systolic function is severely reduced with an estimated ejection fraction in the range of 30-35%. The right ventricle is mildly dilated. The right ventricular systoilc function is normal. The left atrial size is dilated. The right atrial size is dilated. Severe mitral valve regurgitation. Mild aortic valve regurgitation. Moderate to severe tricuspid valve regurgitation. There is estimated mild pulmonary hypertension present (range 40-50 mmHg). The inferior vena cava is dilated. 04/01/2017 Embolectomy by IR 04/06/2017 Elective Gastroduodenal artery embolization by IR Brief History - From Admission Ms. Richardson is a 76-year-old female with a history of atrial fibrillation and recent hospitalization due to GI bleed who presented to the emergency department on 03/31/2017 due to left foot pain. She accidentally slipped and tripped over a stair in her home. ED workup indicated relatively nondisplaced fractures through the distal third, fourth and fifth metatarsals. We discussed with podiatry who recommended orthotic shoe placement. Patient was discharged on 03/31/2017 after she was treated for GI bleed. She received 1 unit of PRBCs during previous admission. She underwent EGD on 03/26/2017 which showed gastric and duodenal ulcers. Patient was placed on PPI and Carafate. In the previous admission, cardiology also evaluated patient and recommended no anticoagulation or aspirin in the background of GI bleed. Patient was thus discharged on no aspirin or anticoagulation. Patient was admitted overnight and before we could perform our initial evaluation, rapid response and subsequently a stroke alert was called. I immediately went to patient's room to evaluate patient. Per nursing staff patient was last seen well at 9:45 AM. At around 10 AM one of the nursing staff noticed patient was slouched over her bed. On my evaluation, patient exhibited guera-neglect on the left side. She was able to answer some simple questions. She had facial asymmetry. No strength on the left side. I immediately obtained a neurology consult, CT head without contrast, CTA was ordered after CT head showed no hemorrhage. Patient underwent right middle cerebral artery thromboembolectomy and was subsequently transferred to intensive care unit. I went to see patient again in the afternoon. Patient is a phasic and no movement on the left side. Otherwise hemodynamically stable. CBC/BMP: 04/04/17 1644 Imaging Last Impressions Abdomen Arteriogram 04/06/17 0000 Signed Impressions: Service Date/Time: Thursday, April 06, 2017 14:18 - CONCLUSION: 1. No evidence for active hemorrhage from the celiac territory. 2. Technically successful prophylactic coil and Gelfoam embolization of the gastroduodenal artery, as above. Gian Duarte MD Head Magnetic Resonance Angiography 04/02/17 1000 Signed Impressions: Service Date/Time: Sunday, April 02, 2017 14:21 - CONCLUSION: 1. Severe stenosis or short segment occlusion of the right proximal anterior cerebral artery with reconstitution distally. 2. Diffuse narrowing of the posterior cerebral arteries bilaterally. 3. No significant stenosis or occlusion of the middle cerebral arteries. Andrey Garrison MD Brain MRI 04/02/17 1000 Signed Impressions: Service Date/Time: Sunday, April 02, 2017 14:21 - CONCLUSION: 1. Signal abnormalities involving the right anterior cerebral artery and to a lesser extent right middle cerebral artery distributions on the diffusion-weighted images indicating acute infarcts. Embolic etiologies should be considered due to the two distributions. 2. Mild periventricular and subcortical white matter small-vessel ischemic changes bilaterally. 3. Stable gliosis of the left posteroparietal lobe. Andrey Garrison MD Head CT 04/01/17 1010 Signed Impressions: Service Date/Time: Saturday, April 01, 2017 10:14 - CONCLUSION: Slight atrophic and small vessel ischemic changes without any evidence for acute hemorrhage or mass effect and old infarction on the left. Emery Greco MD Neck CTA 04/01/17 Signed Impressions: Service Date/Time: Saturday, April 01, 2017 10:25 - CONCLUSION: No significant carotid stenosis. Spiculated right apical lung mass. Julius Higgins MD Head CTA 04/01/17 Signed Impressions: Service Date/Time: Saturday, April 01, 2017 10:25 - CONCLUSION: Embolic occlusion right distal MCA. Harry Gutierrez MD FACR Cerebral Arteriogram 04/01/17 Signed Impressions: Service Date/Time: Saturday, April 01, 2017 10:47 - CONCLUSION: Successful thromboembolectomy from the right middle cerebral artery as described in detail above. The anterior cerebral artery additionally occluded and could not be safely recanalized. Julius Higgins MD Foot X-Ray 03/31/172052 Signed Impressions: Service Date/Time: March 21:06 - CONCLUSION: 1. Relatively nondisplaced fractures through the distal third, fourth and fifth metatarsals. Fermin Moore MD PE at Discharge GENERAL: Alert, NAD. SKIN: Warm and dry. HEAD: Normocephalic. EYES: No scleral icterus. No injection or drainage. NECK: Supple, trachea midline. No JVD or lymphadenopathy. CARDIOVASCULAR: Irreg Irreg without murmurs, gallops, or rubs. RESPIRATORY: Breath sounds equal bilaterally. No accessory muscle use. GASTROINTESTINAL: Abdomen soft, non-tender, nondistended. MUSCULOSKELETAL: No cyanosis, or edema. Neuro: Unable to move lower ext. Slight left sided finger movements. Speech is improved. BACK: Nontender without obvious deformity. No CVA tenderness. Pt update on day of discharge Follow up for acute embolic stroke. Patient is resting well. She is able to move her left arm little more. No movement of her left lower ext. No fever, chills. Hospital Course Ms. Richardson is a 76 year old female with a history of Afib, HTN who was re- admitted on the same day she was discharged due to left foot pain after she slipped and fell. She was discharged earlier in the day after being treated for GI bleed. In the previous admission, she was found to have gastric and duodenal ulcers. She required 1 unit of PRBCs. Apixaban was discontinued. Aspirin was also not recommended due to GI bleed. Patient sustained a right MCA stroke this morning around 10AM. She underwent right MCA embolectomy. - Acute right MCA stroke. - Acute right PAM stroke. - Likely due to Afib related embolism. - Patient underwent stat CT head as well as CT neck and subsequently patient underwent right MCA thromboembolectomy. - Neurology is following. - Speech recommends mechanical soft, thin liquid diet. - Discussed with Neurology who recommended low dose Pradaxa start date 10 days after stroke. - Will plan on starting Pradaxa 75mg BID on 04/12/2017. CT Head without contrast before starting Pradaxa. - PLEASE obtain CT head without contrast on 04/11/2017 or in the morning of 04/12 prior to starting Pradaxa. - Gastric ulcer - Duodenal ulcer - Continue IV Protonix, will switch to PO from AM. - Continue metoprolol crushed in applesauce. - Appreciate GI input. Patient underwent elective Gastroduodenal artery embolization by IR on 04/06/2017. - Hemoglobin 10.3 --> 9.7. - As stated above, we will plan on starting Pradaxa 75mg BID on 04/12/2017. - Must repeat CT head w/o contrast prior to starting anti-coagulation. - Hypertension - Currently normotensive. If needed we will consider Amlodipine. - Atrial fibrillation - [id number] score would be 6 (Age, female, HTN, stroke, CHF). - Increase metoprolol from 25mg Q8hrs to 50mg BID. - HAS-BLED score is 4. - Given patient's gastric ulcer, duodenal ulcer findings on EGD and [id number] score of 6 and HAS-BLED score of 4, it would be relatively more beneficial for the patient to consider Afib Anticoagulation in the near future. Possibly in 1-2 weeks, Apixaban 2.5mg BID could be considered. However, there is no easy reversal agent. Pradaxa would be a good consideration. - However, no anticoagulation at this point due to risk of hemorrhagic conversions. - We can likely discharge patient to [place] on 04/08/2017 and start Anti- coagulation on 04/12/2017. - Non-ischemic cardiomyopathy - Echo shows EF 30-35%. - Continue Metoprolol. If BP tolerates, will consider KIRAN inhibitor as well. - Hyperthyroidism - Home dose Methimazole 10mg TID. Will reduce to 5mg TID since TSH was 0.005. Need to repeat TSH in 4-6 weeks. - Right upper lung spiculated mass - Slow growing. Patient will need to follow up with Dr. Ward (Pul). Full code. SCDs. Pt Condition on Discharge: Good Discharge Disposition: Discharge to SNF Discharge Time: > 30 minutes Discharge Instructions DIET: Follow Instructions for: Heart Healthy Diet Speech Therapy-Diet Recommends: Soft Activities you can perform: Regular-No Restrictions New Orders: CT Brain W/O Contrast - 04/11/17 New Medications: Methimazole (Methimazole) 5 Mg Tab 5 MG PO TID Thyroid #90 Ref 0 TAB Metoprolol Tartrate (Metoprolol Tartrate) 25 Mg Tab 50 MG PO BID Heart rate #60 TAB Continued Medications: Ferrous Sulfate (Ferosul) 325 Mg Tablet 325 MG PO BID anemia Days 30 TAB Pantoprazole (Pantoprazole) 40 Mg Tab 40 MG PO BIDAC GIB Days 30 Ref 2 TAB Sucralfate (Carafate) 1 Gm Tab 1 GM PO ACHS PUD Days 30 Ref 1 TAB Discontinued Medications: Enalapril (Enalapril) 5 Mg Tab 5 MG PO DAILY CARD Days 30 TAB Furosemide (Furosemide) 20 Mg Tab 20 MG PO DAILY CARD Days 30 TAB Methimazole (Methimazole) 10 Mg Tab 10 MG PO Q8HR HYEPRTHYR Days 30 TAB Metoprolol Tartrate (Metoprolol Tartrate) 25 Mg Tab 25 MG PO Q8HR AFIB Days 30 TAB Potassium Chloride Microencaps (Potassium Chloride Microencaps) 20 Meq Tab 20 MEQ PO DAILY elec Days 10 TAB Preeti Waterman DO Apr 08, 2017 13:23
== END 2017-04-08 18:45 | DRG 24 ==
LOC: NEPC 16:44 → NEDA 22:18 → NEPGCP 04-01 01:02 → OBSVTOIN 04-01 10:58 → N03B 04-01 12:23 → N05A 04-02 16:11
PROVIDERS: ADMIT Hospitalist; ATTEND Hospitalist
PROC: 03CG3ZZ Extirpation of Matter from Intracranial Artery, Percutaneous Approach (ICD-10-PCS; principal; 2017-04-01)
PROC: B31RYZZ Fluoroscopy of Intracranial Arteries using Other Contrast (ICD-10-PCS; 2017-04-01)
PROC: 04V23DZ Restriction of Gastric Artery with Intraluminal Device, Percutaneous Approach (ICD-10-PCS; 2017-04-07)
DX: I63.411 Cerebral infarction due to embolism of right middle cerebral artery (principal); I66.11 Occlusion and stenosis of right anterior cerebral artery; I42.9 Cardiomyopathy, unspecified; G81.94 Hemiplegia, unspecified affecting left nondominant side; K26.9 Duodenal ulcer, unspecified as acute or chronic, without hemorrhage or perforation; I50.9 Heart failure, unspecified; I11.0 Hypertensive heart disease with heart failure; S92.335A Nondisplaced fracture of third metatarsal bone, left foot, initial encounter for closed fracture; I48.2 Chronic atrial fibrillation; J44.9 Chronic obstructive pulmonary disease, unspecified; E05.90 Thyrotoxicosis, unspecified without thyrotoxic crisis or storm; S92.345A Nondisplaced fracture of fourth metatarsal bone, left foot, initial encounter for closed fracture; S92.355A Nondisplaced fracture of fifth metatarsal bone, left foot, initial encounter for closed fracture; R73.03 Prediabetes; K25.9 Gastric ulcer, unspecified as acute or chronic, without hemorrhage or perforation; I27.2 Other secondary pulmonary hypertension; I08.3 Combined rheumatic disorders of mitral, aortic and tricuspid valves; W10.8XXA Fall (on) (from) other stairs and steps, initial encounter; Y92.009 Unspecified place in unspecified non-institutional (private) residence as the place of occurrence of the external cause; Z80.1 Family history of malignant neoplasm of trachea, bronchus and lung; Z83.3 Family history of diabetes mellitus; Z87.891 Personal history of nicotine dependence; Z91.14 Patient's other noncompliance with medication regimen
CPT/HCPCS: 36223; 36224; 36247; 37244; 61645; 70450; 70496; 70498; 70544; 70551; 73630; 75726; 75774; 76937; 80048; 80061; 82272; 82435; 82550; 82565; 82607; 82947; 82948; 83036; 84132; 84295; 84443; 84484; 84520; 85014; 85018; 85025; 85384; 85610; 85652; 85730; 86140; 86850; 86900; 86901; 87641; 93306; 99152; 99153; C1769; C1887; C1894; C9113; G0378; G8987-GP; G8988-GP; J2250; J3010; J7042; L2114; Q9967